=== PATIENT | female | born 1940 | race Caucasian/White ===

== ENCOUNTER → 2016-12-25 | Outpatient (CLI) | payer OTHER, MEDICARE ==
[~2016-12-25] MED LIST: AC325T PO; ALPR.5T PO; ASP325T PO; CATHETER FLUSH 10 ML SYR IV PRN; CPR500T PO; CYCL10TA9 PO; DIAZ5TAB3 PO; DIPH25TA82 PO; DIVAN; GABA100T PO; GABA600T2 PO; HYDR-3720 PO; HYDR-757 PO; HYDR8TAB PO; HYOS0.3732 PO; INDO50CA; IOHEXOL 350 MG/ML 100 ML (OMNIPAQUE 350) VIAL IV ONE; LEVO200T PO; LEVO500T2 PO; LEVO50TA PO; LEVO750T6 PO; LEVO75TA57; LOSA100T7 PO; LVT.1T PO; METR500T PO; NS 100 ML (IVPB) BAG IV ONE; ONDA4TAB8 PO; ONDA8TAB9 PO; ONDN4T PO; PANT40TA2 PO; PRD20T PO; SUCR1TAB36 PO; TIZA4TAB55 PO; TRAM-42 PO; VLS80C PO
--- OUTSIDE RECORDS SUMMARY | 2016-12-25 08:39 | XMS REPORT | Continuity of Care Document ---
Author Author [facility] Organization [facility] Address Unknown Phone Unavailable Care Team Providers Care Database Administration Project Manager Name Role Phone Unverified, Unverified PCP Unavailable Source Comments Some departments are not documenting in the electronic medical record. If you do not see the information that you expected, contact Release of Information in the Health Information Management department at [phone] for further assistance in locating additional records.[facility] Active Allergies and Adverse Reactions Allergen Noted Date Severity Reactions Comments Colon Herbal Cleanser 08/14/2012 NAUSEA AND VOMITING Unknown name for a colon prep for colonoscopy in [place]. Current Medications Prescription Sig. Disp. Refills Start End Date Status Date ALPRAZolam (XANAX) 0.5 mg Take 0.5 mg by mouth at Active tablet bedtime as needed. levothyroxine (SYNTHROID) Take 200 mcg by mouth Active 200 mcg tablet daily. losartan(+) (COZAAR) 100 Take 100 mg by mouth Active mg tablet daily. gabapentin (NEURONTIN) Take 1 Cap by mouth four 360 Cap 6 10/05/20 Active 100 mg capsule times daily. Increase 13 from 2 po qid to 3 po qid tiZANidine (ZANAFLEX) 2 Take 1 Cap by mouth three 180 Cap 5 10/05/20 Active mg capsule times daily. 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 Pulse 72 10/05/2013 8:24 AM RUBBER COMPOUNDER MIXER Temperature - - Respiratory Rate 16 08/14/2012 12:53 PM RUBBER COMPOUNDER MIXER Height 1.6 m (5' 3") 10/05/2013 8:24 AM RUBBER COMPOUNDER MIXER Weight 77.565 kg (171 lb) 10/05/2013 8:24 AM RUBBER COMPOUNDER MIXER Body Mass Index 30.3 10/05/2013 8:24 AM RUBBER COMPOUNDER MIXER Oxygen Saturation - - Plan of Care Health Maintenance Due Date Last Done Comments Physical (Comprehensive) 1947 Exam Pertussis Vaccine 1953 Tetanus Vaccine 1959 Breast Cancer Screening 1982 Colorectal Cancer 1992 Screening Shingles Vaccine 2002 Osteoporosis Screening 2007 Prevnar/Pneumovax (#1) 2007 Influenza Vaccine 06/07/2016 Results from Last 3 Months Not on file
--- NOTE | 2016-12-25 11:03 | Diagnostic Imaging Report ---
PROCEDURE: CT head with and without contrast. TECHNIQUE: Multiple contiguous axial images were obtained through the brain before and after the administration of intravenous contrast. INDICATION: Persistent headache. 80 mL of Omnipaque 350 is administered intravenously. FINDINGS: The unenhanced phase demonstrate no intracranial hemorrhage. There is hypodensity in the right frontal lobe similar to 09/24/2016 with mild hypodensities in the deep white matter elsewhere probably related to chronic microvascular ischemic changes. There is no enhancing mass. The lateral ventricles are normal in size. No extra-axial fluid collection is identified. There is a metallic foreign body around the right globe related to a prior surgery and band placement. The paranasal sinuses visualized portions appear clear. The calvarium appears grossly unremarkable. IMPRESSION: Relatively mild deep white matter hypodensities are likely related to chronic microvascular ischemic changes. No enhancing mass. Dictated by: Dictated on workstation # [id number]
== END ==
LOC: RAD 08:35
PROVIDERS: ATTEND Family Medicine
DX: R51 Headache (principal)
CPT/HCPCS: 70470

== ENCOUNTER → 2017-01-10 | Outpatient (CLI) | payer MEDICARE, OTHER ==
[~2017-01-10] MED LIST changes: -CATHETER FLUSH 10 ML SYR IV PRN; -IOHEXOL 350 MG/ML 100 ML (OMNIPAQUE 350) VIAL IV ONE; -NS 100 ML (IVPB) BAG IV ONE
--- NOTE | 2017-01-10 13:45 | Diagnostic Imaging Report ---
PROCEDURE: US Carotid Duplex Bilateral. TECHNIQUE: Multiple real-time grayscale images were obtained over the carotid arteries in various projections bilaterally. Additional duplex Doppler and color Doppler images were also obtained. INDICATION: Headache. FINDINGS: Grayscale images demonstrate mild atherosclerotic plaque. Color Doppler demonstrates patency of the internal, external and common carotid arteries bilaterally. The vertebral arteries demonstrate antegrade flow on both sides. Peak systolic velocities in the right ICA are 26, 42 and 7 cm/sec and on the left side 39, 69 and 54 cm/sec. ICA/CCA ratios are up to 1 on the right and up to 1 on the left. IMPRESSION: There is atherosclerotic plaque at the carotid bifurcation bilaterally with estimated underlying stenosis in the range of 0-40% bilaterally. Dictated by: Dictated on workstation # [id number]
== END ==
LOC: RAD 08:59
PROVIDERS: ATTEND Family Medicine
DX: G44.1 Vascular headache, not elsewhere classified (principal); R42 Dizziness and giddiness; R26.81 Unsteadiness on feet
CPT/HCPCS: 93880

== ENCOUNTER → 2017-03-25 | Outpatient (CLI) | payer MEDICARE, OTHER ==
[2017-03-25 16:31] LABS: BASOPHILS % (AUTO) 0 % (0-10); EOSINOPHILS % (AUTO) 0 % (0-10); LYMPHOCYTES # (AUTO) 2.6 X 10^3 (1.0-4.0); LYMPHOCYTES % (AUTO) 26 % (12-44); MEAN CORPUSCULAR HEMOGLOBIN 29 PG (25-34); MEAN CORPUSCULAR HGB CONC 32 G/DL (32-36); MEAN CORPUSCULAR VOLUME 92 FL (80-99); MEAN PLATELET VOLUME 10.3 FL (7.4-10.4); MONOCYTES # (AUTO) 1.8 X 10^3 (0.0-1.0); MONOCYTES % (AUTO) 19 % (0-12); NEUTROPHILS # (AUTO) 5.4 X 10^3 (1.8-7.8); NEUTROPHILS % (AUTO) 54 % (42-75); PLATELET COUNT 236 10^3/uL (130-400); RED BLOOD COUNT 4.49 10^6/uL (4.35-5.85); RED CELL DISTRIBUTION WIDTH 14.4 % (10.0-14.5); WHITE BLOOD COUNT 9.9 10^3/uL (4.3-11.0)
[2017-03-25 16:39] LABS: ALANINE AMINOTRANSFERASE 9 U/L (0-55); ANION GAP 10 MMOL/L (5-14); ASPARTATE AMINO TRANSFERASE 10 U/L (5-34); BILIRUBIN,TOTAL 0.4 MG/DL (0.1-1.0); BLOOD UREA NITROGEN 14 MG/DL (7-18); BUN/CREATININE RATIO 18 (0-20); CALCIUM 9.4 MG/DL (8.5-10.1); CARBON DIOXIDE 27 MMOL/L (21-32); CHLORIDE 108 MMOL/L (98-107); CREATININE SERUM 0.79 MG/DL (0.60-1.30); GFR ESTIMATED > 60; GLUCOSE 108 MG/DL (70-105); HEMOLYSIS 6 (-100-29); ICTERUS 0.4 (-100-1.9); LIPEMIA 2 (-100-49); POTASSIUM 4.5 MMOL/L (3.6-5.0); SODIUM 145 MMOL/L (135-145); TOTAL PROTEIN 7.1 GM/DL (6.4-8.2)
[2017-03-25 16:59] LABS: THYROID STIMULATING HORMONE 3.84 UIU/ML (0.35-4.94)
[2017-03-25 17:00] LABS: BAND NEUTROPHILS 0 %; BASOPHILS % (MANUAL) 0 %; EOSINOPHILS % (MANUAL) 0 %; LYMPHOCYTES % (MANUAL) 36 %; NEUTROPHILS % (MANUAL) 62 %
== END ==
LOC: LAB 15:56
PROVIDERS: ATTEND Family Medicine
DX: R53.1 Weakness (principal); R26.81 Unsteadiness on feet
CPT/HCPCS: 36415; 80053; 84443; 85007; 85027

== ENCOUNTER → 2017-03-29 | Outpatient (CLI) | payer MEDICARE, OTHER ==
[~2017-03-29] MED LIST changes: +AMOX-358 PO; +CIPR500T4; +ONDA4TAB11
--- NOTE | 2017-03-29 12:38 | Diagnostic Imaging Report ---
PROCEDURE: CT abdomen and pelvis without contrast. TECHNIQUE: Multiple contiguous axial images were obtained through the abdomen and pelvis without the use of intravenous contrast. INDICATION: One-month history of suprapubic pain, history of diverticulitis. COMPARISON: 09/14/2016. FINDINGS: There is edema and infiltration of the perisigmoidal fat in the left lower quadrant adjacent to multiple regional diverticuli and some thickening of the sigmoidal simms. Findings suggest mild changes of acute diverticulitis. No extraluminal gas collection or findings of a transmural perforation. No abscess or loculated fluid collection. No free air. No abscess. No ascites. No bowel obstruction or ileus. No other segmental inflammatory changes to the hollow viscus. No soft tissue mass or adenopathy. Unobstructed urinary tracts are stable. The liver, spleen, pancreas and biliary ducts are unremarkable. IMPRESSION: The findings suggest mild acute sigmoid diverticulitis without secondary features of obstruction, perforation or abscess. No other acute appearing pathology. Dictated by: Dictated on workstation # [id number]
== END ==
LOC: RAD 11:44
PROVIDERS: ATTEND Family Medicine
DX: R10.30 Lower abdominal pain, unspecified (principal); K57.30 Diverticulosis of large intestine without perforation or abscess without bleeding
CPT/HCPCS: 74176

== ENCOUNTER 2017-03-31 11:17 | Emergency (ER) | payer MEDICARE, OTHER ==
[~2017-03-31] VITALS: Ht 160 cm; Wt 72.6 kg
[~2017-03-31 11:17] MED LIST changes: -AMOX-358 PO; -CIPR500T4; -ONDA4TAB11
[2017-03-31] MEDS ORDERED: CIPR500T4 (11:46)
[2017-03-31] MEDS ORDERED: ONDA4TAB11 (11:46)
[2017-03-31 11:52] LABS: BASOPHILS % (AUTO) 0 % (0-10); EOSINOPHILS % (AUTO) 0 % (0-10); LYMPHOCYTES # (AUTO) 2.1 X 10^3 (1.0-4.0); LYMPHOCYTES % (AUTO) 16 % (12-44); MEAN CORPUSCULAR HEMOGLOBIN 30 PG (25-34); MEAN CORPUSCULAR HGB CONC 32 G/DL (32-36); MEAN CORPUSCULAR VOLUME 91 FL (80-99); MEAN PLATELET VOLUME 10.3 FL (7.4-10.4); MONOCYTES # (AUTO) 2.7 X 10^3 (0.0-1.0); MONOCYTES % (AUTO) 21 % (0-12); NEUTROPHILS # (AUTO) 8.1 X 10^3 (1.8-7.8); NEUTROPHILS % (AUTO) 63 % (42-75); PLATELET COUNT 246 10^3/uL (130-400); RED BLOOD COUNT 4.43 10^6/uL (4.35-5.85); RED CELL DISTRIBUTION WIDTH 14.4 % (10.0-14.5); WHITE BLOOD COUNT 12.9 10^3/uL (4.3-11.0)
--- NOTE | 2017-03-31 11:54 | ED Abdominal Pain ---
General Chief Complaint: Abdominal/GI Problems Stated Complaint: DIVERTICULITIS/L SIDE PAIN Source of Information: Patient Exam Limitations: No Limitations History of Present Illness Time Seen By Provider: 11:51 Initial Comments To ER with left-sided abdominal pain. She was diagnosed with diverticulitis about 2 weeks ago. She's been on Cipro from Dr. Guerrier since then. She just finished this yesterday but the pain is in fact worse. She's had trouble with bowel movements stating that she is constipated. She sees Dr. Villarreal in [place] and takes linzess for IBS with constipation. She took that this morning is when her pain worsened. She has had several bowel movements since taking it. She had a CT scan done here in the outpatient setting 2 days ago. Timing/Duration: Other (2 weeks) Severity/Quality: Moderate Location: [facility]Q Radiation: No Radiation Activities at Onset: None Allergies and Home Medications Allergies Coded Allergies: thiopental (Verified Allergy, Unknown, 03/05/10) Home Medications Amoxicillin/Potassium Clav 1 Each Tablet, 1 EACH PO BID, #20 Prescribed by: KEI ROBERTSON on 03/31/17 1256 Ciprofloxacin HCl 500 Mg Tablet, #20 (Reported) Cyclobenzaprine HCl 10 Mg Tablet, 10 MG PO Q8H, #15 Prescribed by: MIKEY YEN on 09/14/16 2227 Diazepam 5 Mg Tablet, 5 MG PO BID PRN for ANXIETY, #60 (Reported) Gabapentin 600 Mg Tablet, 600 MG PO TID PRN for PAIN, #90 (Reported) Hydrocodone/Acetaminophen 1 Each Tablet, 1-2 EACH PO Q6H, #30 Prescribed by: JUDE ESTEVEZ MD on 07/20/16 0911 Hydrocodone/Acetaminophen 1 Each Tablet, 1 EACH PO Q4H PRN for PAIN-MODERATE TO SEVERE, #14 Prescribed by: KEI ROBERTSON on 03/31/17 1256 Hyoscyamine Sulfate 0.375 Mg Tab.er.12h, 0.375 MG PO BID, #20 Prescribed by: ALMAZ VALENTINO on 10/02/15 0936 Levothyroxine Sodium 50 Mcg Tablet, 50 MCG PO DAILY, #30 (Reported) TAKE WITH 200 MCG TO MAKE 250 MCG DOSE Ondansetron 8 Mg Tab.rapdis, 8 MG PO QID PRN for nausea, #20 Prescribed by: ALMAZ VALENTINO on 10/02/15 0936 Ondansetron 4 Mg Tab.rapdis, #30 (Reported) Ondansetron 8 Mg Tab.rapdis, 8 MG PO Q6H PRN for NAUSEA/VOMITING-1ST LINE, #10 Prescribed by: KEI ROBERTSON on 03/31/17 1309 Pantoprazole Sodium 40 Mg Tablet.dr, 40 MG PO BID, #60 Ref 3 Prescribed by: GRACY MCDONALD on 06/06/15 0918 Sucralfate 1 Gm Tablet, 1 GM PO TID, #30 Prescribed by: GRACY MCDONALD on 09/23/15 1442 Tramadol HCl 50 Mg Tablet, 50 MG PO Q4H, #20 Prescribed by: MIKEY YEN on 09/14/16 2227 Review of Systems Constitutional: see HPI EENTM: No Symptoms Reported Respiratory: No Symptoms Reported Cardiovascular: No Symptoms Reported Gastrointestinal: See HPI, Abdominal Pain Genitourinary: No Symptoms Reported Musculoskeletal: no symptoms reported Skin: no symptoms reported Psychiatric/Neurological: No Symptoms Reported Endocrine: No Symptoms Reported Past Aejrqpp-Cbicvi-Qsmghw Hx Patient Social History Alcohol Use: Denies Use Recreational Drug Use: No Smoking Status: Never a Smoker Recent Foreign Travel: No Contact w/Someone Who Travel: No Recent Hopitalizations: No Immunizations Up To Date Date of Pneumonia Vaccine: May 30, 2015 Seasonal Allergies Seasonal Allergies: No Surgeries HX Surgeries: Yes (BACK SURGERY 03/19/14--VERTEBROPLASTY) Surgeries: Appendectomy, Gallbladder, 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, Orthopedic, Tonsillectomy Respiratory Hx Respiratory Disorders: No Cardiovascular Hx Cardiac Disorders: Yes Cardiac Disorders: Hypotension Neurological Hx Neurological Disorders: No Reproductive System Hx Reproductive Disorders: No Genitourinary Hx Genitourinary Disorders: No Gastrointestinal Hx Gastrointestinal Disorders: Yes Gastrointestinal Disorders: Diverticulosis, Ulcer Musculoskeletal Hx Musculoskeletal Disorders: Yes (VERTEBROPLASTY) Musculoskeletal Disorders: Back Injury, Fractures Endocrine Hx Endocrine Disorders: Yes Endocrine Disorders: Hypothyroidsim HEENT HX ENT Disorders: No Cancer Hx Cancer: No Psychosocial Hx Psychiatric Problems: No Integumentary HX Skin/Integumentary Disorder: No Blood Transfusions Hx Blood Disorders: No Family Medical History Significant Family History: No Pertinent Family Hx Physical Exam Vital Signs VS - Last 72 Hours, by Label 03/31/17 11:38 Temp 97.6 Pulse 98 Resp 18 B/P (MAP) 178/82 Pulse Ox 98 O2 Delivery Room Air Capillary Refill : General Appearance: WD/WN, no apparent distress HEENT: PERRL/EOMI, normal ENT inspection Neck: non-tender, full range of motion Respiratory: normal breath sounds, no respiratory distress, no accessory muscle use Cardiovascular: regular rate, rhythm, no murmur Gastrointestinal: normal bowel sounds, soft, tenderness (left-sided) Extremities: normal range of motion, non-tender Neurologic/Psychiatric: alert, normal mood/affect, oriented x 3 Skin: normal color, warm/dry Progress/Results/Core Measures Results/Orders Lab Results Laboratory Tests Test 03/31/17 11:45 03/31/17 11:47 Range/Units White Blood Count 12.9 H 4.3-11.0 10^3/uL Red Blood Count 4.43 4.35-5.85 10^6/uL Hemoglobin 13.1 11.5-16.0 G/DL Hematocrit 40 35-52 % Mean Corpuscular Volume 91 80-99 FL Mean Corpuscular Hemoglobin 30 25-34 PG Mean Corpuscular Hemoglobin Concent 32 32-36 G/DL Red Cell Distribution Width 14.4 10.0-14.5 % Platelet Count 246 130-400 10^3/uL Mean Platelet Volume 10.3 7.4-10.4 FL Neutrophils (%) (Auto) 63 42-75 % Lymphocytes (%) (Auto) 16 12-44 % Monocytes (%) (Auto) 21 H 0-12 % Eosinophils (%) (Auto) 0 0-10 % Basophils (%) (Auto) 0 0-10 % Neutrophils # (Auto) 8.1 H 1.8-7.8 X 10^3 Lymphocytes # (Auto) 2.1 1.0-4.0 X 10^3 Monocytes # (Auto) 2.7 H 0.0-1.0 X 10^3 Eosinophils # (Auto) 0.0 0.0-0.3 10^3/uL Basophils # (Auto) 0.0 0.0-0.1 10^3/uL Neutrophils % (Manual) 65 % Lymphocytes % (Manual) 20 % Monocytes % (Manual) 15 % Eosinophils % (Manual) 0 % Basophils % (Manual) 0 % Band Neutrophils 0 % Blood Morphology Comment NORMAL Sodium Level 142 135-145 MMOL/L Potassium Level 4.0 3.6-5.0 MMOL/L Chloride Level 106 98-107 MMOL/L Carbon Dioxide Level 25 21-32 MMOL/L Anion Gap 11 5-14 MMOL/L Blood Urea Nitrogen 9 7-18 MG/DL Creatinine 0.75 0.60-1.30 MG/DL Estimat Glomerular Filtration Rate > 60 BUN/Creatinine Ratio 12 0-20 Glucose Level 98 70-105 MG/DL Calcium Level 9.3 8.5-10.1 MG/DL Total Bilirubin 0.7 0.1-1.0 MG/DL Aspartate Amino Transf (AST/SGOT) 10 5-34 U/L Alanine Aminotransferase (ALT/SGPT) 9 0-55 U/L Alkaline Phosphatase 96 40-136 U/L C-Reactive Protein High Sensitivity 7.83 H 0.00-0.50 MG/DL Total Protein 7.0 6.4-8.2 GM/DL Albumin 3.8 3.2-4.5 GM/DL Lipase 14 8-78 U/L Urine Color YELLOW Urine Clarity SLIGHTLY CLOUDY Urine pH 5 5-9 Urine Specific Otis 1.020 1.016-1.022 Urine Protein 1+ H NEGATIVE Urine Glucose (UA) NEGATIVE NEGATIVE Urine Ketones NEGATIVE NEGATIVE Urine Nitrite NEGATIVE NEGATIVE Urine Bilirubin NEGATIVE NEGATIVE Urine Urobilinogen NORMAL NORMAL MG/DL Urine Leukocyte Esterase 2+ H NEGATIVE Urine RBC (Auto) 5+ H NEGATIVE Urine RBC 5-10 H /HPF Urine WBC 0-2 /HPF Urine Squamous Epithelial Cells NONE /HPF Urine Crystals NONE /LPF Urine Bacteria NEGATIVE /HPF Urine Casts NONE /LPF Urine Mucus MODERATE H /LPF Urine Culture Indicated NO My Orders Orders - KEI ROBERTSON APRN Fentanyl Injection (Sublimaze Injection (03/31/17 12:00) Ct Abdomen/Pelvis W (03/31/17 11:55) Iohexol Injection (Omnipaque 350 Mg/Ml 1 (03/31/17 12:30) Ns (Ivpb) (Sodium Chloride 0.9% Ivpb Bag (03/31/17 12:30) Ns Iv 500 Ml (Sodium Chloride 0.9%) (03/31/17 13:00) Ketorolac Injection (Toradol Injection) (03/31/17 13:00) Piperacillin Sodium/Tazobactam (Zosyn Vi (03/31/17 13:15) Medications Given in ED Current Medications Medications Dose Ordered Sig/Keri Route Start Time Stop Time Status Last Admin Dose Admin Fentanyl Citrate 50 mcg ONCE ONCE IVP 03/31/17 12:00 03/31/17 12:01 DC 03/31/17 11:56 50 MCG Iohexol 100 ml ONCE ONCE IV 03/31/17 12:30 03/31/17 12:31 DC 03/31/17 12:23 100 ML Sodium Chloride 100 ml ONCE ONCE IV 03/31/17 12:30 03/31/17 12:31 DC 03/31/17 12:23 80 ML Vital Signs/I&O Vital Sign - Last 12Hours 03/31/17 11:38 Temp 97.6 Pulse 98 Resp 18 B/P (MAP) 178/82 Pulse Ox 98 O2 Delivery Room Air Diagnostic Imaging Diagonstic Imaging: CT Comments NAME: EDIS ZARAGOZA [facility] REC#: [id number] PT STATUS: REG ER : 1940 PHYSICIAN: KEI ROBERTSON ATHLETIC DIRECTOR ADMIT DATE: 03/31/17/ER Draft Date of Exam:03/31/17 CT ABDOMEN/PELVIS W PROCEDURE: CT abdomen and pelvis with contrast. TECHNIQUE: Multiple contiguous axial images were obtained through the abdomen and pelvis after administration of intravenous contrast. INDICATION: Left lower quadrant pain. Diverticulitis followup The liver, spleen, pancreas and adrenals are normal. The kidneys, ureters and bladder are normal. There is mild inflammatory changes of the sigmoid colon which have shown some slight improvement since 03/29/17. No obstruction or perforation is evident at this time. There is no abscess. IMPRESSION: Improving diverticulitis of the sigmoid colon. Dictated on workstation # [id number] Dict: 03/31/17 1244 Trans: 03/31/17 1250 [facility] [id number] Interpreted by: ESTRADA ROSAS MD Electronically signed by: Departure Communication Progress Notes 1307-I did offer the patient inpatient admission for IV antibiotics and she's been on 2 weeks of Cipro without improvement. The CT scan shows improvement, white cell count is a little higher than 2 days ago. She would prefer to change antibiotics and continue outpatient. 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 Impression Impression: Primary Impression: Sigmoid diverticulitis Disposition: HOME, SELF-CARE Condition: Stable Departure-Patient Inst. Decision time for Depature: 12:55 Referrals: DIVINE GUERRIER MD (PCP/Family) Primary Care Physician Patient Instructions: Diverticulitis (DC) Add. Discharge Instructions: 1. Antibiotics as directed 2. Return to ER for any concerns 3. All discharge instructions reviewed with patient and/or family. Voiced understanding. Scripts Ondansetron (Zofran Odt) 8 Mg Tab.rapdis 8 MG PO Q6H Y for NAUSEA/VOMITING-1ST LINE, #10 TAB Prov: KEI ROBERTSON APRN 03/31/17 Hydrocodone/Acetaminophen ([place] 5-325 Tablet) 1 Each Tablet 1 EACH PO Q4H Y for PAIN-MODERATE TO SEVERE, #14 TAB Prov: KEI ROBERTSON APRN 03/31/17 Amoxicillin/Potassium Clav (Augmentin 875-125 Tablet) 1 Each Tablet 1 EACH PO BID, #20 TAB Prov: KEI ROBERTSON APRN 03/31/17 KEI ROBERTSON APRN Mar 31, 2017 11:54
[2017-03-31 12:00] LABS: BILIRUBIN,URINE NEGATIVE (NEGATIVE); KETONES,URINE NEGATIVE (NEGATIVE); LEUKOCYTE ESTERASE ,URINE 2+ (NEGATIVE); NITRITE,URINE NEGATIVE (NEGATIVE); PH,URINE 5 (5-9); PROTEIN,URINE 1+ (NEGATIVE); UROBILINOGEN,URINE NORMAL (NORMAL)
[2017-03-31] MEDS ORDERED: fentaNYL INJECTION 100 MCG/2 ML AMP IVP ONE (12:00)
[2017-03-31 12:10] LABS: ALANINE AMINOTRANSFERASE 9 U/L (0-55); ALBUMIN 3.8 GM/DL (3.2-4.5); ANION GAP 11 MMOL/L (5-14); ASPARTATE AMINO TRANSFERASE 10 U/L (5-34); BILIRUBIN,TOTAL 0.7 MG/DL (0.1-1.0); BLOOD UREA NITROGEN 9 MG/DL (7-18); BUN/CREATININE RATIO 12 (0-20); CALCIUM 9.3 MG/DL (8.5-10.1); CARBON DIOXIDE 25 MMOL/L (21-32); CHLORIDE 106 MMOL/L (98-107); CREATININE SERUM 0.75 MG/DL (0.60-1.30); GFR ESTIMATED > 60; GLUCOSE 98 MG/DL (70-105); HEMOLYSIS 7 (-100-29); ICTERUS 0.8 (-100-1.9); LIPASE 14 U/L (8-78); LIPEMIA -3 (-100-49); SODIUM 142 MMOL/L (135-145); hs C REACTIVE PROTEIN 7.83 MG/DL (0.00-0.50)
[2017-03-31 12:13] LABS: WBC,URINE 0-2 /HPF
[2017-03-31 12:17] LABS: BAND NEUTROPHILS 0 %; BASOPHILS % (MANUAL) 0 %; EOSINOPHILS % (MANUAL) 0 %; LYMPHOCYTES % (MANUAL) 20 %; NEUTROPHILS % (MANUAL) 65 %
[2017-03-31] MEDS ORDERED: NS 100 ML (IVPB) BAG IV ONE (12:30)
[2017-03-31] MEDS ORDERED: IOHEXOL 350 MG/ML 100 ML (OMNIPAQUE 350) VIAL IV ONE (12:30)
--- NOTE | 2017-03-31 12:50 | Diagnostic Imaging Report ---
PROCEDURE: CT abdomen and pelvis with contrast. TECHNIQUE: Multiple contiguous axial images were obtained through the abdomen and pelvis after administration of intravenous contrast. INDICATION: Left lower quadrant pain. Diverticulitis followup The liver, spleen, pancreas and adrenals are normal. The kidneys, ureters and bladder are normal. There is mild inflammatory changes of the sigmoid colon which have shown some slight improvement since 03/29/17. No obstruction or perforation is evident at this time. There is no abscess. IMPRESSION: Improving diverticulitis of the sigmoid colon. Dictated by: Dictated on workstation # [id number]
[2017-03-31] MEDS ORDERED: AMOX-358 PO (12:56)
[2017-03-31] MEDS ORDERED: HYDR-757 PO (12:56)
[2017-03-31] MEDS ORDERED: KETOROLAC 30 MG/ML VIAL IVP ONE (13:00)
[2017-03-31] MEDS ORDERED: NS IV 500 ML 500 ML IV SCH (13:00)
[2017-03-31] MEDS ORDERED: ONDA8TAB9 PO (13:09)
[2017-03-31] MEDS ORDERED: PIPERACILLIN SODIUM/TAZOBACTAM 4.5 GM in NS (IVPB) 100 ML IV ONE (13:15)
[2017-03-31 14:08] VITALS: BP 122/71
--- OUTSIDE RECORDS SUMMARY | 2017-04-01 18:28 | XMS REPORT | Continuity of Care Document ---
Author Author [facility] Organization [facility] Address Unknown Phone Unavailable Care Team Providers Care Parts Technician Name Role Phone Unverified, Unverified PCP Unavailable Source Comments Some departments are not documenting in the electronic medical record. If you do not see the information that you expected, contact Release of Information in the Health Information Management department at [phone] for further assistance in locating additional records.[facility] Active Allergies and Adverse Reactions Allergen Noted Date Severity Reactions Comments Colon Herbal Cleanser 08/14/2012 NAUSEA AND VOMITING Unknown name for a colon prep for colonoscopy in [place]. Current Medications Prescription Sig. Disp. Refills Start [...] Taken Blood Pressure 144/78 10/05/2013 8:24 AM LUMBER SORTER Pulse 72 10/05/2013 8:24 AM LUMBER SORTER Temperature - - Respiratory Rate 16 08/14/2012 12:53 PM LUMBER SORTER Height 1.6 m (5' 3") 10/05/2013 8:24 AM LUMBER SORTER Weight 77.565 kg (171 lb) 10/05/2013 8:24 AM LUMBER SORTER Body Mass Index 30.3 10/05/2013 8:24 AM LUMBER SORTER Oxygen Saturation - - Plan of Care Health Maintenance Due Date Last Done Comments Physical (Comprehensive) 1949 Exam Pertussis Vaccine 1953 Tetanus Vaccine 1959 Breast Cancer Screening 1982 Colorectal Cancer 1992 Screening Shingles Vaccine 2002 Osteoporosis Screening 2007 Prevnar/Pneumovax (#1) 2007 Influenza Vaccine 06/07/2017 Results from Last 3 Months Not on file
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
== END 2017-03-31 14:13 | disposition home or self-care (01) ==
LOC: EDUNIT# 11:17 → ER 11:20
DX: K57.32 Diverticulitis of large intestine without perforation or abscess without bleeding (principal); K58.1 Irritable bowel syndrome with constipation
CPT/HCPCS: 36415; 74177; 80053; 81000; 83690; 85007; 85027; 86141

== ENCOUNTER 2017-05-31 07:54 | Emergency (ER) | payer MEDICARE, OTHER ==
[~2017-05-31] VITALS: Ht 165.1 cm; Wt 72.6 kg
[~2017-05-31 07:54] MED LIST changes: +AMOX-358 PO; +CIPR500T4; +ONDA4TAB11
--- OUTSIDE RECORDS SUMMARY | 2017-05-31 08:04 | XMS REPORT | Clinical Summary ---
Author Author [facility] Organization [facility] Address Unknown Phone Unavailable Care Team Providers Care Tunnel Elastic Operator Lockstitch Name Role Phone PCP Unavailable Source Comments Some departments are not documenting in the electronic medical record. If you do not see the information that you expected, contact Release of Information in the Health Information Management department at [phone] for further assistance in locating additional records.[facility] Allergies Active Allergy Reactions Severity Noted Date Comments Herbal Drugs NAUSEA AND VOMITING 08/14/2012 Unknown name for a colon prep for [...] Cap by mouth four 360 Cap 6 12/30/20 Active 100 mg capsule times daily. Increase 13 from 2 po qid to 3 po qid tiZANidine (ZANAFLEX) 2 Take 1 Cap by mouth three 180 Cap 5 30/20 Active mg capsule times daily. 1 po tid 1 13 week, then 2 po tid Active Problems Problem Noted Date Neck pain 08/14/2012 Atypical face pain 08/14/2012 Diverticulitis 08/14/2012 Gout 08/14/2012 Cataracts, bilateral 08/14/2012 Detached retina, right 08/14/2012 Family History Medical History Relation Name Comments Dementia Mother Relation Name Status Comments Brother Alive Father Mother Sister Alive Son Alive Social History Tobacco Use Types Packs/Day Years Used Date Never Smoker Sex Assigned at Date Recorded Not on file Last Filed Vital Signs Vital Sign Reading Time Taken Blood Pressure 144/78 10/05/2013 8:24 AM ELECTRONIC WARFARE OPERATOR Pulse 72 10/05/2013 8:24 AM ELECTRONIC WARFARE OPERATOR Temperature - - Respiratory Rate 16 08/14/2012 12:53 PM ELECTRONIC WARFARE OPERATOR Oxygen Saturation - - Inhaled Oxygen - - Concentration Weight 77.6 kg (171 lb) 10/05/2013 8:24 AM ELECTRONIC WARFARE OPERATOR Height 160 cm (5' 3") 10/05/2013 8:24 AM ELECTRONIC WARFARE OPERATOR Body Mass Index 30.29 10/05/2013 8:24 AM ELECTRONIC WARFARE OPERATOR Plan of Treatment Health Maintenance Due Date Last Done Comments PHYSICAL (COMPREHENSIVE) 1947 EXAM PERTUSSIS VACCINE 1953 TETANUS VACCINE 1959 BREAST CANCER SCREENING 1982 COLORECTAL CANCER 1992 SCREENING SHINGLES VACCINE 2002 OSTEOPOROSIS SCREENING 2007 PREVNAR/PNEUMOVAX (#1) 2007 INFLUENZA VACCINE 06/07/2017 Results Not on filefrom Last 3 Months
--- NOTE | 2017-05-31 08:25 | ED Abdominal Pain ---
General Chief Complaint: Abdominal/GI Problems Stated Complaint: DIVIRTICULITIS PAIN Nursing Triage Note: c/o left upper abd pain. Pain worsened yesterday. Hx of broom stick jabbing into left upper ribs 1-2 weeks ago. Sepsis Screen: No Definite Risk Source of Information: Patient, Family Exam Limitations: No Limitations History of Present Illness Time Seen By Provider: 08:20 Initial Comments This 76-year-old white female presents with a complaint of left upper quadrant pain similar to previous episodes of diverticulitis. In the preceding few days the patient has had rectal bleeding characterized as bright red blood. The patient denies associated fever or chill, shortness of breath, productive cough , nausea or vomiting, significant radiation of the pain, or use of new medications. Allergies and Home Medications Allergies Coded Allergies: thiopental (Verified Allergy, Unknown, 03/05/10) Home Medications Amoxicillin/Potassium Clav 1 Each Tablet, 1 EACH PO BID, #20 Prescribed by: KEI ROBERTSON on 03/31/17 1256 Ciprofloxacin HCl 500 Mg Tablet, #20 (Reported) Cyclobenzaprine HCl 10 Mg Tablet, 10 MG PO Q8H, #15 Prescribed by: MIKEY YEN on 09/14/16 2227 Diazepam 5 Mg Tablet, 5 MG PO BID PRN for ANXIETY, #60 (Reported) Gabapentin 600 Mg Tablet, 600 MG PO TID PRN for PAIN, #90 (Reported) Hydrocodone/Acetaminophen 1 Each Tablet, 1-2 EACH PO Q6H, #30 Prescribed by: JUDE ESTEVEZ MD on 07/20/16 0911 Hydrocodone/Acetaminophen 1 Each Tablet, 1 EACH PO Q4H PRN for PAIN-MODERATE TO SEVERE, #14 Prescribed by: KEI ROBERTSON on 03/31/17 1256 Hyoscyamine Sulfate 0.375 Mg Tab.er.12h, 0.375 MG PO BID, #20 Prescribed by: ALMAZ VALENTINO on 10/02/15 0936 Levothyroxine Sodium 50 Mcg Tablet, 50 MCG PO DAILY, #30 (Reported) TAKE WITH 200 MCG TO MAKE 250 MCG DOSE Ondansetron 8 Mg Tab.rapdis, 8 MG PO QID PRN for nausea, #20 Prescribed by: ALMAZ VALENTINO on 10/02/15 0936 Ondansetron 4 Mg Tab.rapdis, #30 (Reported) Ondansetron 8 Mg Tab.rapdis, 8 MG PO Q6H PRN for NAUSEA/VOMITING-1ST LINE, #10 Prescribed by: KEI ROBERTSON on 03/31/17 1309 Pantoprazole Sodium 40 Mg Tablet.dr, 40 MG PO BID, #60 Ref 3 Prescribed by: GRACY MCDONALD on 06/06/15 0918 Sucralfate 1 Gm Tablet, 1 GM PO TID, #30 Prescribed by: GRACY MCDONALD on 09/23/15 1442 Tramadol HCl 50 Mg Tablet, 50 MG PO Q4H, #20 Prescribed by: MIKEY YEN on 09/14/16 2227 Review of Systems Constitutional: No chills, No fever EENTM: No Blurred Vision Respiratory: Cough (patient has had a nonproductive cough for the last several months.) Cardiovascular: Denies Chest Pain Gastrointestinal: Abdominal Pain (left upper quadrant), Denies Nausea, Rectal Bleeding, Denies Vomiting Genitourinary: No Symptoms Reported Musculoskeletal: No back pain Skin: No rash Psychiatric/Neurological: No Symptoms Reported Endocrine: No Symptoms Reported Hematologic/Lymphatic: No Symptoms Reported Past Vobdccb-Pphbvy-Yumltz Hx Patient Social History Recent Foreign Travel: No Contact w/Someone Who Travel: No Recent Infectious Disease Expo: No Recent Hopitalizations: No Immunizations Up To Date Date of Pneumonia Vaccine: May 30, 2015 Seasonal Allergies Seasonal Allergies: No Surgeries History of Surgeries: Yes (BACK SURGERY 03/19/14--VERTEBROPLASTY) Surgeries: Appendectomy, Gallbladder, 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, Orthopedic, Tonsillectomy Respiratory History of Respiratory Disorde: No Cardiovascular History of Cardiac Disorders: Yes Cardiac Disorders: Hypotension Neurological History of Neurological Disord: No Reproductive System Hx Reproductive Disorders: No Gastrointestinal History of Gastrointestinal Di: Yes Gastrointestinal Disorders: Diverticulosis, Ulcer Musculoskeletal History of Musculoskeletal Dis: Yes (VERTEBROPLASTY) Musculoskeletal Disorders: Back Injury, Fractures Endocrine History of Endocrine Disorders: Yes Endocrine Disorders: Hypothyroidsim Cancer History of Cancer: No Psychosocial History of Psychiatric Problem: No Integumentary History of Skin or Integumenta: No Blood Transfusions History of Blood Disorders: No Reviewed Nursing Assessment Reviewed/Agree w Nursing PMH: Yes Family Medical History Significant Family History: No Pertinent Family Hx Physical Exam Vital Signs VS - Last 72 Hours, by Label 05/31/17 05/31/17 08:12 08:44 Temp 98.5 98.5 Pulse 70 Resp 16 B/P (MAP) 161/98 Pulse Ox 98 Capillary Refill : Less Than 3 Seconds General Appearance: WD/WN, mild distress HEENT: normal ENT inspection Neck: normal inspection Respiratory: lungs clear, normal breath sounds, no respiratory distress Cardiovascular: normal peripheral pulses, regular rate, rhythm Gastrointestinal: normal bowel sounds, tenderness (left upper quadrant.) Extremities: normal range of motion, non-tender, normal inspection Neurologic/Psychiatric: no motor/sensory deficits, alert, normal mood/affect, oriented x 3 Skin: normal color, warm/dry, No rash Progress/Results/Core Measures Results/Orders Lab Results Laboratory Tests Test 05/31/17 08:40 Range/Units White Blood Count 7.0 4.3-11.0 10^3/uL Red Blood Count 4.51 4.35-5.85 10^6/uL Hemoglobin 13.3 11.5-16.0 G/DL Hematocrit 42 35-52 % Mean Corpuscular Volume 92 80-99 FL Mean Corpuscular Hemoglobin 30 25-34 PG Mean Corpuscular Hemoglobin Concent 32 32-36 G/DL Red Cell Distribution Width 14.1 10.0-14.5 % Platelet Count 228 130-400 10^3/uL Mean Platelet Volume 10.4 7.4-10.4 FL Neutrophils (%) (Auto) 49 42-75 % Lymphocytes (%) (Auto) 33 12-44 % Monocytes (%) (Auto) 17 H 0-12 % Eosinophils (%) (Auto) 1 0-10 % Basophils (%) (Auto) 0 0-10 % Neutrophils # (Auto) 3.5 1.8-7.8 X 10^3 Lymphocytes # (Auto) 2.3 1.0-4.0 X 10^3 Monocytes # (Auto) 1.2 H 0.0-1.0 X 10^3 Eosinophils # (Auto) 0.1 0.0-0.3 10^3/uL Basophils # (Auto) 0.0 0.0-0.1 10^3/uL Sodium Level 143 135-145 MMOL/L Potassium Level 4.0 3.6-5.0 MMOL/L Chloride Level 106 98-107 MMOL/L Carbon Dioxide Level 28 21-32 MMOL/L Anion Gap 9 5-14 MMOL/L Blood Urea Nitrogen 10 7-18 MG/DL Creatinine 0.76 0.60-1.30 MG/DL Estimat Glomerular Filtration Rate > 60 BUN/Creatinine Ratio 13 Glucose Level 98 70-105 MG/DL Calcium Level 8.9 8.5-10.1 MG/DL Total Bilirubin 0.4 0.1-1.0 MG/DL Aspartate Amino Transf (AST/SGOT) 10 5-34 U/L Alanine Aminotransferase (ALT/SGPT) 7 0-55 U/L Alkaline Phosphatase 83 40-136 U/L Total Protein 6.8 6.4-8.2 GM/DL Albumin 4.0 3.2-4.5 GM/DL Lipase 22 8-78 U/L My Orders Orders - JUDE ESTEVEZ MD Ns Iv 1000 Ml (Sodium Chloride 0.9%) (05/31/17 08:30) Ondansetron Injection (Zofran Injectio (05/31/17 08:30) Fentanyl Injection (Sublimaze Injection (05/31/17 08:30) Ct Abdomen/Pelvis W (05/31/17 08:17) Cbc With Automated Diff (05/31/17 08:17) Comprehensive Metabolic Panel (05/31/17 08:17) Ua Culture If Indicated (05/31/17 08:17) Lipase (05/31/17 08:17) Iohexol Injection (Omnipaque 350 Mg/Ml 1 (05/31/17 08:30) Sodium Chloride Flush (Catheter Flush Sy (05/31/17 08:30) Ns (Ivpb) (Sodium Chloride 0.9% Ivpb Bag (05/31/17 08:30) Medications Given in ED Current Medications Medications Dose Ordered Sig/Keri Route Start Time Stop Time Status Last Admin Dose Admin Fentanyl Citrate 50 mcg ONCE ONCE IVP 05/31/17 08:30 05/31/17 08:31 DC 05/31/17 08:44 50 MCG Iohexol 100 ml ONCE ONCE IV 05/31/17 08:30 05/31/17 08:38 DC 05/31/17 09:40 100 ML Ondansetron HCl 4 mg ONCE ONCE IVP 05/31/17 08:30 05/31/17 08:31 DC 05/31/17 08:43 4 MG Sodium Chloride 10 ml NEEDED PRN IV 05/31/17 08:30 05/31/17 09:40 10 ML Sodium Chloride 100 ml ONCE ONCE IV 05/31/17 08:30 05/31/17 08:38 DC 05/31/17 09:40 80 ML Vital Signs/I&O Vital Sign - Last 12Hours 05/31/17 05/31/17 08:12 08:44 Temp 98.5 98.5 Pulse 70 Resp 16 B/P (MAP) 161/98 Pulse Ox 98 Blood Pressure Mean: 119 Progress Note : Time: 10:40 Progress Note Patient was much improved with the fentanyl and ondansetron IV. Unfortunately the CT of the abdomen film demonstrates evidence of acute diverticulitis or other pathology. The patient was reassured and the findings were discussed. The patient would like to try Ultram for her pain as a substitute for the hydrocodone. She will continue with the ondansetron at home as needed. I recommended close follow-up with her primary care physician, Dr. Guerrier. Departure Impression Impression: Primary Impression: Left-sided chest wall pain Disposition: HOME, SELF-CARE Condition: Improved Departure-Patient Inst. Decision time for Depature: 10:42 Referrals: DIVINE GUERRIER MD (PCP/Family) Primary Care Physician Add. Discharge Instructions: Trial of Ultram for pain. Zofran for nausea. Close follow-up with Dr. Guerrier on Saturday. Return if any problems. All discharge instructions reviewed with patient and/or family. Voiced understanding. JUDE ESTEVEZ MD May 31, 2017 08:25
[2017-05-31] MEDS: ONDANSETRON 4 MG/2 ML (SDV) Z0FRAN IVP ONE (08:43)
[2017-05-31] MEDS: NS IV 1000 ML 1,000 ML IV SCH (08:44)
[2017-05-31] MEDS: fentaNYL INJECTION 100 MCG/2 ML AMP IVP ONE (08:44)
[2017-05-31 08:49] LABS: BASOPHILS % (AUTO) 0 % (0-10); EOSINOPHILS # (AUTO) 0.1 10^3/uL (0.0-0.3); EOSINOPHILS % (AUTO) 1 % (0-10); LYMPHOCYTES # (AUTO) 2.3 X 10^3 (1.0-4.0); LYMPHOCYTES % (AUTO) 33 % (12-44); MEAN CORPUSCULAR HEMOGLOBIN 30 PG (25-34); MEAN CORPUSCULAR HGB CONC 32 G/DL (32-36); MEAN CORPUSCULAR VOLUME 92 FL (80-99); MEAN PLATELET VOLUME 10.4 FL (7.4-10.4); MONOCYTES # (AUTO) 1.2 X 10^3 (0.0-1.0); MONOCYTES % (AUTO) 17 % (0-12); NEUTROPHILS # (AUTO) 3.5 X 10^3 (1.8-7.8); NEUTROPHILS % (AUTO) 49 % (42-75); PLATELET COUNT 228 10^3/uL (130-400); RED BLOOD COUNT 4.51 10^6/uL (4.35-5.85); RED CELL DISTRIBUTION WIDTH 14.1 % (10.0-14.5)
[2017-05-31 09:11] LABS: ALANINE AMINOTRANSFERASE 7 U/L (0-55); ANION GAP 9 MMOL/L (5-14); ASPARTATE AMINO TRANSFERASE 10 U/L (5-34); BILIRUBIN,TOTAL 0.4 MG/DL (0.1-1.0); BLOOD UREA NITROGEN 10 MG/DL (7-18); BUN/CREATININE RATIO 13; CALCIUM 8.9 MG/DL (8.5-10.1); CARBON DIOXIDE 28 MMOL/L (21-32); CHLORIDE 106 MMOL/L (98-107); CREATININE SERUM 0.76 MG/DL (0.60-1.30); GFR ESTIMATED > 60; GLUCOSE 98 MG/DL (70-105); LIPASE 22 U/L (8-78); SODIUM 143 MMOL/L (135-145); TOTAL PROTEIN 6.8 GM/DL (6.4-8.2)
[2017-05-31] MEDS: NS 100 ML (IVPB) BAG IV ONE (09:40)
[2017-05-31] MEDS: IOHEXOL 350 MG/ML 100 ML (OMNIPAQUE 350) VIAL IV ONE (09:40)
[2017-05-31] MEDS: CATHETER FLUSH 10 ML SYR IV PRN (09:40)
--- NOTE | 2017-05-31 10:16 | Diagnostic Imaging Report ---
PROCEDURE: CT abdomen and pelvis with contrast. TECHNIQUE: Multiple contiguous axial images were obtained through the abdomen and pelvis after administration of intravenous contrast. Indication: Left upper quadrant pain and nausea. Comparison: 03/31/2017. Discussion: The visualized lung bases are well-aerated. Normal heart size. No pleural or pericardial fluid. The gallbladder surgically absent. The liver, pancreas, stomach, spleen, adrenal glands, and kidneys appear within normal limits. The uterus is surgically absent. The urinary bladder is unremarkable. Extensive diverticulosis of the sigmoid colon is again noted. No residual inflammatory changes identified to suggest residual diverticulitis. No obstruction, pneumatosis, or pneumoperitoneum. The abdominal aorta is normal in caliber. No ascites or pathologically enlarged lymph nodes identified. No osseous abnormality identified. Impression: 1. Interval resolution of sigmoid diverticulitis. No residual inflammatory changes identified. Dictated by: Dictated on workstation # [id number]
[2017-05-31 10:55] LABS: BILIRUBIN,URINE NEGATIVE (NEGATIVE); KETONES,URINE NEGATIVE (NEGATIVE); LEUKOCYTE ESTERASE ,URINE NEGATIVE (NEGATIVE); NITRITE,URINE NEGATIVE (NEGATIVE); PH,URINE 8 (5-9); PROTEIN,URINE NEGATIVE (NEGATIVE); UROBILINOGEN,URINE NORMAL (NORMAL)
[2017-05-31 11:30] VITALS: BP 152/90
== END 2017-05-31 11:30 | disposition home or self-care (01) ==
LOC: EDUNIT# 07:54 → ER 07:56
DX: R07.89 Other chest pain (principal); E03.9 Hypothyroidism, unspecified; Z87.81 Personal history of (healed) traumatic fracture; Z87.19 Personal history of other diseases of the digestive system; Z90.710 Acquired absence of both cervix and uterus; Z90.49 Acquired absence of other specified parts of digestive tract
CPT/HCPCS: 36415; 74177; 80053; 81000; 83690; 85025

== ENCOUNTER → 2017-10-22 | Outpatient (CLI) | payer MEDICARE, OTHER ==
[~2017-10-22] MED LIST changes: +CIPR500T4 PO; +METR500T21 PO; +ONDA4TAB11 PO
== END ==
LOC: PREOP 05:38
PROVIDERS: ATTEND Surgery
DX: Z01.818 Encounter for other preprocedural examination (principal); K21.9 Gastro-esophageal reflux disease without esophagitis; R10.13 Epigastric pain; K92.1 Melena

== ENCOUNTER 2018-01-31 08:18 | Day surgery (SDC) | payer MEDICARE, OTHER ==
[~2018-01-31] VITALS: Ht 160 cm; Wt 71.7 kg
[~2018-01-31 08:18] MED LIST changes: +ALPR1TAB7 PO; +DICY10CA12 PO; +DOCU-163 PO; +LEVO100T7 PO; +LINA72CA PO; +ZOLP10TA5 PO
[2018-01-31] MEDS ORDERED: ceFAZolin 2 GM IV Premixed 50 ML IV ONE (08:30)
[2018-01-31] MEDS: LACTATED RINGERS 1,000 ML IV PRN ×2 (09:00→13:00)
--- NOTE | 2018-01-31 09:15 | Progress Note-Pre Operative ---
Pre-Operative Progress Note H&P Reviewed The H&P was reviewed, patient examined and no changes noted. Date Seen by Provider: Jan 31, 2018 Time Seen by Provider: 09:14 Date H&P Reviewed: Jan 31, 2018 Time H&P Reviewed: 09:15 Pre-Operative Diagnosis: breast cancer CARLOS MEDRANO DO Jan 31, 2018 09:15
[2018-01-31 09:37] VITALS: BP 139/81
[2018-01-31] MEDS ORDERED: PROPOFOL INJECTION 50 ML IV ONE (10:10)
[2018-01-31] MEDS ORDERED: HEParin (CENTRAL IV FLUSH) 500 UNIT/5 ML SYR ONE (11:07)
[2018-01-31] MEDS ORDERED: 0.9% SODIUM CHLORIDE PF INJ 20 ML VIAL ONE (11:07)
[2018-01-31] MEDS ORDERED: BUPIVACAINE 0.5% 30 ML (SENSORCAINE) VIAL ONE (11:07)
[2018-01-31] MEDS ORDERED: LIDOCAINE 1% INJ 20 ML 20 ML VIAL ONE (11:07)
[2018-01-31] MEDS ORDERED: fentaNYL INJECTION 100 MCG/2 ML AMP ONE (11:58)
[2018-01-31] MEDS: fentaNYL INJECTION 100 MCG/2 ML AMP IVP PRN ×3 (12:00→12:11)
--- NOTE | 2018-01-31 12:01 | Discharge Inst-Simple/Standard ---
Discharge Inst-Standard Patient Instructions/Follow Up Plan of Care/Instructions/FU: 2 WEEKS MITCHELL Keep ice pack on 15 min off 30 min and repeat to reduce swelling and discomfort. Activity as Tolerated: No Discharge Diet: Regular Diet Other Inst to Patient Follow up Appt: Make appointment for 2 week. Instructions: No lifting greater than 10 pounds. No strenuous activity. May shower in 24 hours, no tub bath or soaking. Use incentive spirometer at home as directed. No Smoking Skin/Wound Care: You have special glue over incisions it will fall off on its own. Symptoms to Report: Appetite Changes, Extremity Discoloration, Numbness/Tingling, Swelling Increased , Bleeding Excessive, Eyesight Changes, Pain Increased, Urine Color Change, Constipation(Persistent), Fever over 101 degree F, Pain/Pressure in chest, Urinating Difficulty, Cough Up/Vomit Blood, Heart Beat Irreg/Pounding, Pain/ Pressure in jaw, Vaginal Bleeding Increase, Cramps in feet or legs, Lightheadedness, Pain/Pressure in shoulder, Diarrhea(Persistent), Memory Changes Suddenly, Questions/Concerns, Weight gain consecutive days, Dizziness/ Fainting, Nausea/Vomiting, Shortness of Breath, Weight gain over 2 pounds If questions or concerns contact your physician Or seek help at emergency department. CARLOS MEDRANO DO Jan 31, 2018 12:01
[2018-01-31] MEDS ORDERED: ONDANSETRON 4 MG/2 ML (SDV) Z0FRAN ONE (12:14)
[2018-01-31] MEDS ORDERED: ONDANSETRON 4 MG/2 ML (SDV) Z0FRAN IVP PRN (12:15)
--- NOTE | 2018-01-31 12:55 | Diagnostic Imaging Report ---
Clinical indication: PowerPort insertion in operating room by Dr. Corbin. Exam: Limited single x-ray of the right chest region. Comparison: Chest x-ray dated 01/31/2018. Findings and impression: PowerPort is seen overlying right chest with its distal portion overlying the expected region of the superior vena cava. Given the blurry resolution and likely motion artifact, the distal tip is not well visualized on this exam. Post procedure chest x-ray would better evaluate. Please see surgeon's report for more detail. Fluoroscopy was provided for surgeons and a total of 28.9 seconds and 3.46 mGy was provided. Dictated by: Dictated on workstation # [id number]
[2018-01-31 13:05] VITALS: BP 154/71
[2018-01-31 13:35] VITALS: BP 154/71
[2018-01-31 14:05] VITALS: BP 154/71
--- NOTE | 2018-01-31 14:05 | Anesthesia-General Post-Op ---
MAC Patient Condition Mental Status/LOC: Same as Preop Cardiovascular: Satisfactory Nausea/Vomiting: Absent Respiratory: Satisfactory Pain: Controlled Complications: Absent Post Op Complications Complications None Follow Up Care/Instructions Patient Instructions None needed. Anesthesiology Discharge Order Discharge Order Patient is doing well, no complaints, stable vital signs, no apparent adverse anesthesia problems. She did complain of some pain initially in PACU, but did well. ZULEYMA KIDD DO Jan 31, 2018 14:05
--- NOTE | 2018-01-31 14:19 | Diagnostic Imaging Report ---
INDICATION: Right chest wall port placement. TIME OF EXAM: 12:11 PM Correlation is made with prior study 09/24/2016. FINDINGS: Heart size is normal. Right-sided port has tip overlying the SVC. No pneumothorax is seen. The lungs are clear. IMPRESSION: Port placement. No complicating features are detected. Dictated by: Dictated on workstation # [id number]
[2018-01-31 14:30] VITALS: BP 154/71
--- NOTE | 2018-02-03 22:55 | OPERATIVE REPORT ---
DATE OF SERVICE: 01/31/2018 PREOPERATIVE DIAGNOSIS: Breast cancer. POSTOPERATIVE DIAGNOSIS: Breast cancer. PROCEDURE: Right internal jugular vein port placement ultrasound-guided. SURGEON: Carlos Corbin DO ANESTHESIA: MAC with local. ESTIMATED BLOOD LOSS: Minimal. COMPLICATIONS: None. INDICATIONS: The patient is a 77-year-old female with recent diagnosis of breast cancer with surgical intervention. She needs port for chemotherapy. She understood risks and benefits of procedure and wished to proceed with procedure. Consent was signed and in the chart. DESCRIPTION OF PROCEDURE: The patient was taken to the operating suite. She was prepped and draped in sterile fashion. Surgical pause was performed. Ultrasound was used to locate the right internal jugular vein. The area was then localized with 0.5% Marcaine and 1% lidocaine 50:50 ratio along with the right neck and onto the right chest for a pocket creation. The right internal jugular vein was then accessed. Dark nonpulsatile blood was withdrawn with micro access needle. The micro access wire was inserted and the needle was removed. Fluoroscopy assured proper placement. A #11 blade scalpel was used to make a small incision at the insertion point. The dilator sheath was then advanced over the wire and the dilator and the wire were removed. The regular wire was then inserted through the sheath and the sheath was then removed. Fluoroscopy assured proper placement. The wire was then secured. A pocket was then created over the right chest with both cautery and blunt dissection. Once this was created, a dilator sheath was advanced over the guidewire under fluoroscopy and the dilator and sheath were removed. The Groshong catheter was inserted through the sheath and the sheath was then removed. The Groshong wire was removed and the catheter was then tunneled from the insertion point down towards the right chest pocket. Fluoroscopy was used to cut the catheter to length. It was then secured to the port, which was then placed within the pocket and then accessed without difficulty and colby blood without any difficulty and flushed with saline and then heparin without difficulty. The subcutaneous tissues were then reapproximated using 3-0 Vicryl. Skin was then closed using a SwiftSet after it was washed and dried. The patient tolerated procedure well without any complications. She was taken to recovery room in stable condition. Chest x-ray pending. Job ID: [id number] DocumentID: [id number] Dictated Date: 02/03/2018 13:04:24 Shipping And Receiving Assistant Date: 02/03/2018 22:54:46 Dictated By: CARLOS CORBIN DO
== END 2018-01-31 14:30 | disposition home or self-care (01) ==
LOC: SDC 08:18
PROVIDERS: ATTEND Surgery
DX: C50.912 Malignant neoplasm of unspecified site of left female breast (principal); F41.9 Anxiety disorder, unspecified; I10 Essential (primary) hypertension; E07.9 Disorder of thyroid, unspecified; K21.9 Gastro-esophageal reflux disease without esophagitis; Z79.899 Other long term (current) drug therapy
CPT/HCPCS: 71045; 87081

== ENCOUNTER 2018-02-09 09:54 | Inpatient (IN) | payer MEDICARE, OTHER ==
[~2018-02-09] VITALS: Ht 160 cm; Wt 69.9 kg
--- OUTSIDE RECORDS SUMMARY | 2018-02-09 10:00 | XMS REPORT | Clinical Summary ---
Author Author [facility] Organization [facility] Address Unknown Phone Unavailable Care Team Providers Care Bookkeeping Teacher Name Role Phone Eliu Riley MD Unavailable Unverified, Unverified Md PCP Unavailable Source Comments Some departments are not documenting in the electronic medical record. If you do not see the information that you expected, contact Release of Information in the Health Information Management department at [phone] for further assistance in locating additional records.[facility] Allergies Active Allergy Reactions Severity Noted Date [...] Cap by mouth four 360 Cap 6 30/20 Active 100 mg capsule times daily. Increase [...] Taken Blood Pressure 144/78 10/05/2013 8:24 AM PRODUCTION CHECKER Pulse 72 10/05/2013 8:24 AM PRODUCTION CHECKER Temperature - - Respiratory Rate 16 08/14/2012 12:53 PM PRODUCTION CHECKER Oxygen Saturation - - Inhaled Oxygen - - Concentration Weight 77.6 kg (171 lb) 10/05/2013 8:24 AM PRODUCTION CHECKER Height 160 cm (5' 3") 10/05/2013 8:24 AM PRODUCTION CHECKER Body Mass Index 30.29 10/05/2013 8:24 AM PRODUCTION CHECKER Plan of Treatment Health Maintenance Due Date Last Done Comments PHYSICAL (COMPREHENSIVE) 1949 EXAM PERTUSSIS VACCINE 1953 TETANUS VACCINE 1959 COLORECTAL CANCER 1992 SCREENING SHINGLES VACCINE 2002 OSTEOPOROSIS SCREENING 2007 PREVNAR/PNEUMOVAX (#1) 2007 INFLUENZA VACCINE 07/07/2018 Results Not on filefrom Last 3 Months
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
[2018-02-09 11:14] LABS: BASOPHILS # (AUTO) 0.2 10^3/uL (0.0-0.1); BASOPHILS % (AUTO) 4 % (0-10); EOSINOPHILS % (AUTO) 0 % (0-10); HEMATOCRIT 39 % (35-52); HEMOGLOBIN 13.2 G/DL (11.5-16.0); LYMPHOCYTES # (AUTO) 1.2 X 10^3 (1.0-4.0); LYMPHOCYTES % (AUTO) 30 % (12-44); MEAN CORPUSCULAR HEMOGLOBIN 30 PG (25-34); MEAN CORPUSCULAR HGB CONC 34 G/DL (32-36); MEAN CORPUSCULAR VOLUME 87 FL (80-99); MEAN PLATELET VOLUME 13.6 FL (7.4-10.4); MONOCYTES # (AUTO) 0.1 X 10^3 (0.0-1.0); MONOCYTES % (AUTO) 1 % (0-12); NEUTROPHILS # (AUTO) 2.7 X 10^3 (1.8-7.8); NEUTROPHILS % (AUTO) 65 % (42-75); PLATELET COUNT 81 10^3/uL (130-400); RED BLOOD COUNT 4.45 10^6/uL (4.35-5.85); RED CELL DISTRIBUTION WIDTH 14.2 % (10.0-14.5); WHITE BLOOD COUNT 4.1 10^3/uL (4.3-11.0)
[2018-02-09 11:28] LABS: ALANINE AMINOTRANSFERASE 7 U/L (0-55); ALBUMIN 3.4 GM/DL (3.2-4.5); ALKALINE PHOSPHATASE 76 U/L (40-136); BILIRUBIN,TOTAL 1.4 MG/DL (0.1-1.0); BUN/CREATININE RATIO 28; CALCIUM 7.9 MG/DL (8.5-10.1); CARBON DIOXIDE 22 MMOL/L (21-32); CHLORIDE 103 MMOL/L (98-107); GFR ESTIMATED > 60; GLUCOSE 93 MG/DL (70-105); POTASSIUM 3.7 MMOL/L (3.6-5.0); SODIUM 134 MMOL/L (135-145); TOTAL PROTEIN 5.4 GM/DL (6.4-8.2)
--- NOTE | 2018-02-09 11:48 | ED Abdominal Pain ---
General Chief Complaint: Abdominal/GI Problems Stated Complaint: DIVERTICULITIS/CHEMO LAST SATURDAY/HAS PORT Nursing Triage Note: ARRIVED VIA AMB TO ROOM 07 WITH COMPLAINTS OF SEVERE ABD PAIN ET THINKS IT IS R/T HER DIVERTICULITIS. Sepsis Screen: No Definite Risk History of Present Illness Date Seen by Provider: February 09, 2018 Time Seen by Provider: 11:40 Initial Comments 77-year-old female presents for severe abdominal pain. She has a history of diverticulitis. She started her first round of chemotherapy for left breast cancer 4 days ago. She is unsure of the nausea and vomiting is related to the chemotherapy or her diverticulitis. She has been noting bright red bloody stools since last evening. Timing/Duration: 12-24 Hours Severity/Quality: Severe Location: RLQ, LLQ Radiation: No Radiation Associated Symptoms: No Back Pain, No Chest Pain, No Diaphoresis, No Fever/ Chills; Fatigue; No Headache, No Heartburn; Nausea/Vomiting; No Rash, No Shortness of Air, No Swelling/Mass in Abdomen, No Syncope; Weakness Allergies and Home Medications Allergies Coded Allergies: bisacodyl (Verified Allergy, Mild, JITTERS/RED RASH, 01/30/18) polyethylene glycol 3350 (Verified Allergy, Mild, JITTERS/RED RASH, ) potassium chloride (Verified Allergy, Mild, JITTERS/RED RASH, 01/30/18) sodium bicarbonate (Verified Allergy, Mild, JITTERS/RED RASH, 01/30/18) sodium chloride (Verified Allergy, Mild, JITTERS/RED RASH, 01/30/18) thiopental (Verified Allergy, Unknown, 01/30/18) Home Medications Docusate Sodium 100 Mg Capsule, 100-200 MG PO Q48H, (Reported) TAKES 1-2 OF A (100 MG) CAPSULE WITH LINZESS Levothyroxine Sodium 100 Mcg Tablet, 100 MCG PO DAILY, (Reported) Linaclotide 72 Mcg Capsule, 72 MCG PO Q48H, (Reported) Ondansetron HCl 8 Mg Tablet, 8 MG PO TID PRN for NAUSEA/VOMITING-1ST LINE, ( Reported) Prochlorperazine Maleate 10 Mg Tablet, 10 MG PO Q6H PRN for CONSTIPATION-4TH LINE, (Reported) Zolpidem Tartrate 10 Mg Tablet, 10 MG PO HS, (Reported) Patient Home Medication List Home Medication List Reviewed: Yes Review of Systems Constitutional: no symptoms reported, see HPI Gastrointestinal: See HPI, Abdominal Pain, Blood Streaked Stools (bright red), Diarrhea, Nausea, Poor Appetite, Rectal Bleeding All Other Systems Reviewed Negative Unless Noted: Yes Past Lihlyvw-Kxdwef-Hozwfr Hx Past Med/Social Hx: Reviewed Nursing Past Med/Soc Hx Patient Social History 2nd Hand Smoke Exposure: No Recent Foreign Travel: No Contact w/Someone Who Travel: No Recent Infectious Disease Expo: No Recent Hopitalizations: No Immunizations Up To Date Date of Pneumonia Vaccine: May 30, 2015 Seasonal Allergies Seasonal Allergies: No Past Medical History Surgeries: Yes (BACK SURGERY 03/19/14--VERTEBROPLASTY, LUMPECTOMY/LYMPH NODE DISSECTION) Appendectomy, Gallbladder, 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, Orthopedic, Tonsillectomy Respiratory: No Cardiac: Yes Hypotension Neurological: No Reproductive Disorders: No 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 Sexually Transmitted Disease: No HIV/AIDS: No Genitourinary: No Kidney Stones Gastrointestinal: Yes (NAUSEA) Gastroesophageal Reflux, Chronic Constipation, Diverticulosis, Ulcer Musculoskeletal: Yes (DAMAGED NERVE IN NECK) Arthritis, Fractures Endocrine: Yes Hypothyroidsim HEENT: No Cancer: Yes Skin, Breast Did You Recieve Any Treatments: Yes What Type of Treatment Did You: Chemotherapy, Surgical Intervention Psychosocial: Yes Anxiety Integumentary: No Blood Disorders: No Adverse Reaction/Blood Tranf: No (N/A) Family Medical History No Pertinent Family Hx Physical Exam Vital Signs Vital Signs - First Documented 02/09/18 02/09/18 10:15 12:21 Temp 98.0 Pulse 16 Resp 16 B/P (MAP) 110/71 (84) Pulse Ox 98 O2 Delivery Room Air O2 Flow Rate 3.00 Capillary Refill : Less Than 3 Seconds General Appearance: WD/WN, no apparent distress HEENT: PERRL/EOMI, normal ENT inspection, TMs normal, pharynx normal, other ( oral mucosa pink and moist) Neck: non-tender, full range of motion, supple, normal inspection Respiratory: chest non-tender, lungs clear, normal breath sounds Cardiovascular: normal peripheral pulses, regular rate, rhythm, no murmur Gastrointestinal: soft, abnormal bowel sounds (hypoactive), distended; No guarding, No rebound; tenderness (right and left lower quadrants) Back: normal inspection, no CVA tenderness, no vertebral tenderness Neurologic/Psychiatric: no motor/sensory deficits, alert, normal mood/affect, oriented x 3 Skin: normal color, warm/dry Lymphatic: no adenopathy Progress/Results/Core Measures Results/Orders Lab Results Laboratory Tests Test 02/09/18 10:42 02/09/18 13:09 Range/Units White Blood Count 4.1 L 4.3-11.0 10^3/uL Red Blood Count 4.45 4.35-5.85 10^6/uL Hemoglobin 13.2 11.5-16.0 G/DL Hematocrit 39 35-52 % Mean Corpuscular Volume 87 80-99 FL Mean Corpuscular Hemoglobin 30 25-34 PG Mean Corpuscular Hemoglobin Concent 34 32-36 G/DL Red Cell Distribution Width 14.2 10.0-14.5 % Platelet Count 81 L 130-400 10^3/uL Mean Platelet Volume 13.6 H 7.4-10.4 FL Neutrophils (%) (Auto) 65 42-75 % Lymphocytes (%) (Auto) 30 12-44 % Monocytes (%) (Auto) 1 0-12 % Eosinophils (%) (Auto) 0 0-10 % Basophils (%) (Auto) 4 0-10 % Neutrophils # (Auto) 2.7 1.8-7.8 X 10^3 Lymphocytes # (Auto) 1.2 1.0-4.0 X 10^3 Monocytes # (Auto) 0.1 0.0-1.0 X 10^3 Eosinophils # (Auto) 0.0 0.0-0.3 10^3/uL Basophils # (Auto) 0.2 H 0.0-0.1 10^3/uL Neutrophils % (Manual) 67 % Lymphocytes % (Manual) 30 % Monocytes % (Manual) 1 % Eosinophils % (Manual) 0 % Basophils % (Manual) 2 % Band Neutrophils 0 % Blood Morphology Comment NORMAL Sodium Level 134 L 135-145 MMOL/L Potassium Level 3.7 3.6-5.0 MMOL/L Chloride Level 103 98-107 MMOL/L Carbon Dioxide Level 22 21-32 MMOL/L Anion Gap 9 5-14 MMOL/L Blood Urea Nitrogen 17 7-18 MG/DL Creatinine 0.60 0.60-1.30 MG/DL Estimat Glomerular Filtration Rate > 60 BUN/Creatinine Ratio 28 Glucose Level 93 70-105 MG/DL Calcium Level 7.9 L 8.5-10.1 MG/DL Total Bilirubin 1.4 H 0.1-1.0 MG/DL Aspartate Amino Transf (AST/SGOT) 8 5-34 U/L Alanine Aminotransferase (ALT/SGPT) 7 0-55 U/L Alkaline Phosphatase 76 40-136 U/L Total Protein 5.4 L 6.4-8.2 GM/DL Albumin 3.4 3.2-4.5 GM/DL Amylase Level 201 H 25-125 U/L Lipase 376 H 8-78 U/L Urine Color YELLOW Urine Clarity CLEAR Urine pH 8 5-9 Urine Specific [place] 1.010 L 1.016-1.022 Urine Protein 1+ H NEGATIVE Urine Glucose (UA) NEGATIVE NEGATIVE Urine Ketones NEGATIVE NEGATIVE Urine Nitrite NEGATIVE NEGATIVE Urine Bilirubin NEGATIVE NEGATIVE Urine Urobilinogen NORMAL NORMAL MG/DL Urine Leukocyte Esterase 1+ H NEGATIVE Urine RBC (Auto) 5+ H NEGATIVE Urine RBC 50-100 H /HPF Urine WBC RARE /HPF Urine Squamous Epithelial Cells NONE /HPF Urine Crystals NONE /LPF Urine Bacteria NEGATIVE /HPF Urine Casts NONE /LPF Urine Mucus SMALL H /LPF Urine Culture Indicated NO My Orders Orders - YESENIA URIBE Cbc With Automated Diff (02/09/18 11:05) Comprehensive Metabolic Panel (02/09/18 11:05) Ua Culture If Indicated (02/09/18 11:05) Manual Differential (02/09/18 10:42) Saline Lock/Iv-Start (02/09/18 11:55) Ns Iv 1000 Ml (Sodium Chloride 0.9%) (02/09/18 11:55) Fentanyl Injection (Sublimaze Injection (02/09/18 11:55) Ondansetron Injection (Zofran Injectio (02/09/18 12:00) Amylase (02/09/18 11:55) Lactic Acid Analyzer (02/09/18 11:55) Lipase (02/09/18 11:55) Ct Abdomen/Pelvis Wo (02/09/18 13:09) Fentanyl Injection (Sublimaze Injection (02/09/18 14:15) Medications Given in ED Current Medications Medications Dose Ordered Sig/Keri Route Start Time Stop Time Status Last Admin Dose Admin Fentanyl Citrate 25 mcg ONCE PRN IVP 02/09/18 14:15 02/09/18 15:34 DC 02/09/18 14:20 25 MCG Ondansetron HCl 8 mg ONCE ONCE IVP 02/09/18 12:00 02/09/18 12:01 DC 02/09/18 12:12 8 MG Vital Signs/I&O 02/09/18 02/09/18 10:15 12:21 Temp 98.0 Pulse 16 Resp 16 B/P (MAP) 110/71 (84) Pulse Ox 98 88 O2 Delivery Room Air Nasal Cannula O2 Flow Rate 3.00 Blood Pressure Mean: 84 Progress Progress Note : Time: 11:40 Progress Note Initial evaluation completed, recommended labs, CT abdomen and pelvis, Zofran 8 mg IV for nausea and fentanyl 50 g for pain. 1300 patient reports improvement in her nausea and pain since receiving the fentanyl. 1330 patient taking ice chips, no nausea or vomiting at this time.Reviewed labs and CT study with the patient and her son. 1415 patient reports pain is returning we'll give fentanyl 25 g IV for pain. Discussed discharge with home management versus inpatient observation and management with the patient and her son they agreed with inpatient. 1430 discussed patient exam, CT scan and labs with Dr. Martinez, agreed for admission orders. Diagnostic Imaging Diagonstic Imaging: CT Plain Films/CT/US/NM/MRI: abdomen, pelvis Comments NAME: [facility] REC#: [id number] PT STATUS: REG ER : 1940 PHYSICIAN: YESENIA URIBE ADMIT DATE: 02/09/18/ER Draft Date of Exam:02/09/18 CT ABDOMEN/PELVIS WO PROCEDURE: CT abdomen and pelvis without contrast. TECHNIQUE: Multiple contiguous axial images were obtained through the abdomen and pelvis without the use of intravenous contrast. INDICATION: Left lower quadrant pain. COMPARISON: 08/13/2017. FINDINGS: Evaluation of the abdominal viscera is mildly limited without contrast. Lower chest: The lung bases are clear. No pericardial or pleural effusion. Peritoneum: No free intraperitoneal air or loculated fluid collections. Trace free pelvic fluid is present. Liver and biliary system: Unenhanced liver is normal. The gallbladder is normal. No biliary duct dilation. Spleen and Pancreas: Spleen is normal. Unenhanced pancreas is grossly normal. Adrenals: Normal. tract: No renal or ureteral calculi. No obstructive uropathy. Uterus is surgically absent. GI tract: Stomach is decompressed. No bowel obstruction. Sigmoid colon diverticulosis with wall thickening and surrounding inflammation is compatible with acute diverticulitis. This involves approximately 10 cm in length of colon. No microperforation or adjacent abscess. Vasculature and Lymph nodes: Normal caliber aorta with extensive atherosclerotic plaquing. No abdominal or pelvic lymphadenopathy. Musculoskeletal: No concerning osseous lesion. Prior vertebral augmentation of L1. IMPRESSION: 1. Sigmoid colon diverticulitis without perforation or abscess. No bowel obstruction. Departure Impression Primary Impression: Diverticulitis of intestine Qualified Codes: K57.33 - Diverticulitis of large intestine without perforation or abscess with bleeding Additional Impressions: Pain in the abdomen Qualified Codes: R10.84 - Generalized abdominal pain Neutropenia Qualified Codes: D70.1 - Agranulocytosis secondary to cancer chemotherapy; T45.1X5A - Adverse effect of antineoplastic and immunosuppressive drugs, initial encounter Thrombocytopenia Breast cancer Qualified Codes: C50.912 - Malignant neoplasm of unspecified site of left female breast Hematochezia Disposition: 09 ADMITTED INPATIENT Condition: Stable Admissions Decision to Admit Reason: Admit from ER (General) Decision to Admit/Date: February 09, 2018 Time/Decision to Admit Time: 14:30 Departure-Patient Inst. Referrals: DIVINE ARTEAGA MD (PCP/Family) Primary Care Physician Copy Copies To 1: DIVINE ARTEAGA MD Copies To 2: CARLOS MEDRANO DO; CARISSA MARTINEZ MD, AMY ARNP February 09, 2018 11:48
[2018-02-09] MEDS ORDERED: NS IV 1000 ML 1,000 ML IV SCH (11:55)
[2018-02-09] MEDS ORDERED: fentaNYL INJECTION 100 MCG/2 ML AMP IVP STA (11:55)
[2018-02-09 11:59] LABS: BAND NEUTROPHILS 0 %; BASOPHILS % (MANUAL) 2 %; EOSINOPHILS % (MANUAL) 0 %; LYMPHOCYTES % (MANUAL) 30 %; MONOCYTES % (MANUAL) 1 %; NEUTROPHILS % (MANUAL) 67 %; RBC MORPH NORMAL
[2018-02-09] MEDS ORDERED: ONDANSETRON 4 MG/2 ML (SDV) Z0FRAN IVP ONE (12:00)
[2018-02-09 12:27] LABS: AMYLASE 201 U/L (25-125); LIPASE 376 U/L (8-78)
[2018-02-09 13:18] LABS: BILIRUBIN,URINE NEGATIVE (NEGATIVE); CLARITY,URINE CLEAR; COLOR,URINE YELLOW; GLUCOSE, URINE (UA) NEGATIVE (NEGATIVE); KETONES,URINE NEGATIVE (NEGATIVE); LEUKOCYTE ESTERASE ,URINE 1+ (NEGATIVE); NITRITE,URINE NEGATIVE (NEGATIVE); PH,URINE 8 (5-9); PROTEIN,URINE 1+ (NEGATIVE); UROBILINOGEN,URINE NORMAL (NORMAL)
[2018-02-09 13:32] LABS: RBC,URINE 50-100 /HPF
[2018-02-09 13:33] LABS: BACTERIA,URINE NEGATIVE /HPF; WBC,URINE RARE /HPF
--- NOTE | 2018-02-09 13:54 | Diagnostic Imaging Report ---
PROCEDURE: CT abdomen and pelvis without contrast. TECHNIQUE: Multiple contiguous axial images were obtained through the abdomen and pelvis without the use of intravenous contrast. INDICATION: Left lower quadrant pain. COMPARISON: 08/13/2017. FINDINGS: Evaluation of the abdominal viscera is mildly limited without contrast. Lower chest: The lung bases are clear. No pericardial or pleural effusion. Peritoneum: No free intraperitoneal air or loculated fluid collections. Trace free pelvic fluid is present. Liver and biliary system: Unenhanced liver is normal. The gallbladder is normal. No biliary duct dilation. Spleen and Pancreas: Spleen is normal. Unenhanced pancreas is grossly normal. Adrenals: Normal. tract: No renal or ureteral calculi. No obstructive uropathy. Uterus is surgically absent. GI tract: Stomach is decompressed. No bowel obstruction. Sigmoid colon diverticulosis with wall thickening and surrounding inflammation is compatible with acute diverticulitis. This involves approximately 10 cm in length of colon. No microperforation or adjacent abscess. Vasculature and Lymph nodes: Normal caliber aorta with extensive atherosclerotic plaquing. No abdominal or pelvic lymphadenopathy. Musculoskeletal: No concerning osseous lesion. Prior vertebral augmentation of L1. IMPRESSION: 1. Sigmoid colon diverticulitis without perforation or abscess. No bowel obstruction. Dictated by: Dictated on workstation # [id number]
[2018-02-09] MEDS ORDERED: fentaNYL INJECTION 100 MCG/2 ML AMP IVP PRN (14:15)
--- NOTE | 2018-02-09 15:40 | History & Physical-Hospitalist ---
History of Present Illness HPI/Chief Complaint Pt is a 77yoCF well known to me with a history of diverticulitis and recently diagnosed breast cancer. She reports that her symptoms started yesterday where she had an upset stomach and did not feel like eating much. She continued to worsen and woke up this morning with severe abdominal pain and had bright red bloody stools prompting her to seek evaluation int he ER. She has had similar symptoms in the past when she has had diverticulitis. She has had some nausea and vomiting as well. Her pain has improved with pain medications here. She did receive her first round of chemotherapy early this week as well. Source: patient Date Seen 02/09/18 Time Seen by Provider: 14:45 Attending Physician Carissa Martinez MD PCP Piter Guerrier MD Referring Physician Date of Admission February 09, 2018 at 14:30 Home Medications & Allergies Home Medications Reviewed patient Home Medication Reconciliation performed by pharmacy medication reconciliations residential service technician and/or nursing. Patients Allergies have been reviewed. Allergies Allergies Coded Allergies bisacodyl (Verified Allergy, Mild, JITTERS/RED RASH, 01/30/18) polyethylene glycol 3350 (Verified Allergy, Mild, JITTERS/RED RASH, 01/30/18) potassium chloride (Verified Allergy, Mild, JITTERS/RED RASH, 01/30/18) sodium bicarbonate (Verified Allergy, Mild, JITTERS/RED RASH, 01/30/18) sodium chloride (Verified Allergy, Mild, JITTERS/RED RASH, 01/30/18) thiopental (Verified Allergy, Unknown, 01/30/18) Past Iqhvkxa-Qpsuco-Yqhyqu Hx Past Med/Social Hx: Reviewed Nursing Past Med/Soc Hx Patient Social History Marrital Status: Employed/Student: retired Alcohol Use: Rarely Uses Recreational Drug Use: No Smoking Status: Never a Smoker 2nd Hand Smoke Exposure: No Recent Foreign Travel: No Contact w/other who traveled: No Recent Hopitalizations: No Recent Infectious Disease Expo: No Immunizations Up To Date Date of Pneumonia Vaccine: May 30, 2015 Seasonal Allergies Seasonal Allergies: No Past Medical History Surgeries: Appendectomy, Breast (lumpectomy), Gallbladder, 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, Orthopedic, Tonsillectomy Cardiac: Hypotension Reproductive: No Sexually Transmitted Disease: No HIV/AIDS: No 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 Genitourinary: Kidney Stones Gastrointestinal: Gastroesophageal Reflux, Chronic Constipation, Diverticulosis , Ulcer Musculoskeletal: Arthritis, Fractures Endocrine: Hypothyroidsim Cancer: Skin, Breast Did You Recieve Any Treatments: Yes What Type of Treatment Did You: Chemotherapy, Surgical Intervention Psychosocial: Anxiety History of Blood Disorders: No Adverse Reaction to Blood Ortega: No (N/A) Family History Reviewed Nursing Family Hx No Pertinent Family Hx Review of Systems Constitutional: chills, diaphoresis; No fever; weakness EENTM: no symptoms reported Respiratory: no symptoms reported Cardiovascular: no symptoms reported Gastrointestinal: see HPI, loss of appetite Genitourinary: no symptoms reported Musculoskeletal: no symptoms reported Skin: no symptoms reported Psychiatric/Neurological: No Symptoms Reported Physical Exam Physical Exam Vital Signs Vital Signs - First Documented 02/09/18 02/09/18 10:15 12:21 Temp 98.0 Pulse 16 Resp 16 B/P (MAP) 110/71 (84) Pulse Ox 98 O2 Delivery Room Air O2 Flow Rate 3.00 Capillary Refill : Less Than 3 Seconds General Appearance: No Apparent Distress, WD/WN HEENT: PERRL/EOMI, Moist Mucous Membranes Neck: Non Tender, Supple Respiratory: Lungs Clear, No Respiratory Distress Cardiovascular: Regular Rate, Rhythm, No Murmur Gastrointestinal: Normal Bowel Sounds, Soft, Guarding, Tenderness Extremity: Normal Capillary Refill, No Calf Tenderness Neurologic/Psychiatric: Alert, Oriented x3, No Motor/Sensory Deficits, Normal Mood/Affect Skin: Normal Color, Warm/Dry Results Results/Procedures Labs Laboratory Tests 02/09/18 10:42 Patient resulted labs reviewed. Imaging: Reviewed Imaging Report Assessment/Plan Admission Diagnosis Diverticulitis Admission Status: Inpatient Order (span 2 midnights) Reason for Inpatient Admission: IV abx Diagnosis/Problems Diagnosis/Problems (1) Diverticulitis of intestine Status: Acute Assessment & Plan: Continue Cipro and Flagyl as started in the ER Fentanyl for pain Discussed with Dr Corbin who will see tonight NPO IVF Qualifiers: Diverticulitis site: large intestine Diverticulitis bleeding: with bleeding Diverticulitis complication: without perforation or abscess Qualified Codes: K57.33 - Diverticulitis of large intestine without perforation or abscess with bleeding (2) Thrombocytopenia Status: Acute Assessment & Plan: New Likely due to chemo Will trend Consult heme/onc in AM (3) Hematuria Status: Acute Assessment & Plan: New as well unsure what chemo she is on but could be side effect If not resolved will need urology consult as an outpatient Qualifiers: Hematuria type: unspecified type Qualified Codes: R31.9 - Hematuria, unspecified (4) Neutropenia Status: Acute Assessment & Plan: Again likely due to chemo Will trend Qualifiers: Neutropenia type: secondary to cancer chemotherapy Qualified Codes: D70.1 - Agranulocytosis secondary to cancer chemotherapy; T45.1X5A - Adverse effect of antineoplastic and immunosuppressive drugs, initial encounter (5) Breast cancer Assessment & Plan: Follows with Dr Dumas Will consult Qualifiers: Breast location: unspecified site of breast Estrogen receptor status: unspecified Patient sex: female Laterality: left Qualified Codes: C50.912 - Malignant neoplasm of unspecified site of left female breast (6) Prophylactic measure Assessment & Plan: SCDs only due to thrombocytopenia NS SARAO CARISSA MARTINEZ MD February 09, 2018 15:40
[2018-02-09] MEDS: NS IV 1000 ML 1,000 ML IV SCH (15:43)
[2018-02-09] MEDS ORDERED: ACETAMINOPHEN 325 MG TABLET/CAPLET (TYLENOL) PO PRN (15:45)
[2018-02-09] MEDS ORDERED: fentaNYL INJECTION 100 MCG/2 ML AMP IV PRN (15:45)
[2018-02-09] MEDS ORDERED: PROC10TA10 PO (15:46)
[2018-02-09] MEDS ORDERED: ONDA8TAB12 PO (15:46)
[2018-02-09] MEDS ORDERED: PANT20TA3 PO (15:46)
[2018-02-09] MEDS: metroNIDAZOLE 500MG/100ML IVPB 100 ML IV SCH (15:46)
[2018-02-09 16:16] VITALS: BP 111/88
[2018-02-09] MEDS ORDERED: RT-ALBUTEROL SULF 2.5 MG/3 ML PRE-MIX VIAL INH PRN (16:45)
[2018-02-09] MEDS: CIPROFLOXACIN IV 400MG/200ML 200 ML IV SCH (17:28)
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
[2018-02-09] MEDS: fentaNYL INJECTION 100 MCG/2 ML AMP IV PRN (18:48)
[2018-02-09] MEDS: ONDANSETRON 4 MG/2 ML (SDV) Z0FRAN IV PRN (18:48)
[2018-02-09 20:00] VITALS: BP 108/57
[2018-02-10 00:18] VITALS: BP 100/60
[2018-02-10] MEDS: NS IV 1000 ML 1,000 ML IV SCH ×3 (03:59→21:57)
[2018-02-10] MEDS: metroNIDAZOLE 500MG/100ML IVPB 100 ML IV SCH ×2 (04:00→15:52)
[2018-02-10] MEDS: ONDANSETRON 4 MG/2 ML (SDV) Z0FRAN IV PRN ×4 (04:02→21:56)
[2018-02-10] MEDS: fentaNYL INJECTION 100 MCG/2 ML AMP IV PRN ×2 (04:05→07:53)
[2018-02-10 04:35] VITALS: BP 108/67
[2018-02-10] MEDS: CIPROFLOXACIN IV 400MG/200ML 200 ML IV SCH ×2 (06:02→17:12)
[2018-02-10 06:18] LABS: BASOPHILS % (AUTO) 2 % (0-10); EOSINOPHILS % (AUTO) 1 % (0-10); HEMATOCRIT 32 % (35-52); HEMOGLOBIN 10.8 G/DL (11.5-16.0); LYMPHOCYTES # (AUTO) 0.5 X 10^3 (1.0-4.0); LYMPHOCYTES % (AUTO) 58 % (12-44); MEAN CORPUSCULAR HEMOGLOBIN 30 PG (25-34); MEAN CORPUSCULAR HGB CONC 33 G/DL (32-36); MEAN CORPUSCULAR VOLUME 89 FL (80-99); MEAN PLATELET VOLUME 12.9 FL (7.4-10.4); MONOCYTES # (AUTO) 0.1 X 10^3 (0.0-1.0); MONOCYTES % (AUTO) 13 % (0-12); NEUTROPHILS # (AUTO) 0.2 X 10^3 (1.8-7.8); NEUTROPHILS % (AUTO) 26 % (42-75); PLATELET COUNT 51 10^3/uL (130-400); RED BLOOD COUNT 3.66 10^6/uL (4.35-5.85); RED CELL DISTRIBUTION WIDTH 13.6 % (10.0-14.5)
[2018-02-10 06:20] LABS: WHITE BLOOD COUNT 0.9 10^3/uL (4.3-11.0)
[2018-02-10 06:36] LABS: ALANINE AMINOTRANSFERASE < 6 U/L (0-55); ALBUMIN 2.8 GM/DL (3.2-4.5); ALKALINE PHOSPHATASE 59 U/L (40-136); BILIRUBIN,TOTAL 0.8 MG/DL (0.1-1.0); BUN/CREATININE RATIO 23; CALCIUM 7.1 MG/DL (8.5-10.1); CARBON DIOXIDE 25 MMOL/L (21-32); CHLORIDE 106 MMOL/L (98-107); CREATININE SERUM 0.57 MG/DL (0.60-1.30); GFR ESTIMATED > 60; GLUCOSE 108 MG/DL (70-105); POTASSIUM 3.6 MMOL/L (3.6-5.0); SODIUM 135 MMOL/L (135-145); TOTAL PROTEIN 4.5 GM/DL (6.4-8.2)
[2018-02-10 08:00] VITALS: BP 112/56
[2018-02-10 08:12] LABS: BASOPHILS % (MANUAL) 0 %; EOSINOPHILS % (MANUAL) 1 %; LYMPHOCYTES % (MANUAL) 51 %; MONOCYTES % (MANUAL) 18 %; NEUTROPHILS % (MANUAL) 29 %
[2018-02-10 08:13] LABS: PLATELET ESTIMATE 48; RBC MORPH NORMAL; REACTIVE LYMPHOCYTES 1 %
--- NOTE | 2018-02-10 09:19 | Progress Note-Hospitalist ---
Subjective HPI/CC On Admission Date Seen by Provider: February 10, 2018 Time Seen by Provider: 09:00 Pt is a 77yoCF well known to me with a history of diverticulitis and recently diagnosed breast cancer. She reports that her symptoms started yesterday where she had an upset stomach and did not feel like eating much. She continued to worsen and woke up this morning with severe abdominal pain and had bright red bloody stools prompting her to seek evaluation int he ER. She has had similar symptoms in the past when she has had diverticulitis. She has had some nausea and vomiting as well. Her pain has improved with pain medications here. She did receive her first round of chemotherapy early this week as well. Subjective/Events-last exam Patient having severe pain and fentanyl was not working so started Dilaudid Tried scopolamine patch but now she states she is allergic to it and caused nerve damage in her right face so will discontinue that and update her allergy list I did speak with Dr. Corbin and Dr. Irvin regarding the case White count now 0.9 Vitals reviewed at my request and all stable so it appears that she is just uncomfortable and not feeling well and notes not sepsis or decompensation Checked meds and labs Reviewed CT scan results Review of Systems General: Malaise Gastrointestinal: Nausea, Vomiting, Abdominal Pain Focused Exam Lactate Level 02/09/18 18:08: Lactic Acid Level 1.75 Objective Exam Vital Signs Vital Signs Date Time Temp Pulse Resp B/P (MAP) Pulse Ox O2 Delivery O2 Flow Rate FiO2 02/10/18 06:38 97 Nasal Cannula 3.00 02/10/18 04:35 97.9 68 18 108/67 (81) 02/09/18 16:29 28 Capillary Refill : Less Than 3 Seconds General Appearance: No Apparent Distress, WD/WN, Chronically ill HEENT: Normal ENT Inspection Neck: Full Range of Motion, Non Tender Respiratory: Lungs Clear, Normal Breath Sounds Cardiovascular: Regular Rate, Rhythm, No Edema Gastrointestinal: Normal Bowel Sounds, Tenderness (generalized) Extremity: Normal Capillary Refill, Normal Inspection, Normal Range of Motion, Non Tender, No Calf Tenderness Neurologic/Psychiatric: Alert, Oriented x3, No Motor/Sensory Deficits, Normal Mood/Affect, rug receiving clerk II-XII Norm as Tested Skin: Normal Color, Warm/Dry Lymphatic: No Adenopathy Results/Procedures Lab Laboratory Tests 02/09/18 10:42 02/10/18 06:00 Patient resulted labs reviewed. Imaging: Reviewed Imaging Report Assessment/Plan Assessment and Plan Assess & Plan/Chief Complaint Assessment: Severe sigmoid diverticulitis placed on appropriate antibiotics and Dr. Corbin consultation Severe abdominal pain with nausea due to diverticulitis Severe neutropenia due to chemotherapy 1 week prior at 0.[address] Marie Breast cancer status post left-sided lumpectomy 2 months ago Intolerance to multiple meds Plan: Dr. Corbin will evaluate the abdominal pain and we will DC the facet Eva and start the Dilaudid Stop scopolamine that was attempted to be prescribed and start low-dose Phenergan IM Check labs in a.m. Dr. Marie consultation Diagnosis/Problems Diagnosis/Problems (1) Diverticulitis of intestine Status: Acute Qualifiers: Diverticulitis site: large intestine Diverticulitis bleeding: with bleeding Diverticulitis complication: without perforation or abscess Qualified Codes: K57.33 - Diverticulitis of large intestine without perforation or abscess with bleeding (2) Pain in the abdomen Status: Acute Qualifiers: Abdominal location: generalized Qualified Codes: R10.84 - Generalized abdominal pain (3) Breast cancer Status: Chronic Qualifiers: Breast location: unspecified site of breast Estrogen receptor status: unspecified Patient sex: female Laterality: left Qualified Codes: C50.912 - Malignant neoplasm of unspecified site of left female breast (4) Neutropenia Status: Acute Qualifiers: Neutropenia type: secondary to cancer chemotherapy Qualified Codes: D70.1 - Agranulocytosis secondary to cancer chemotherapy; T45.1X5A - Adverse effect of antineoplastic and immunosuppressive drugs, initial encounter Clinical Quality Measures DVT/VTE Risk/Contraindication: Risk Factor Score Per Nursin RFS Level Per Nursing on Admit: 4+=Very High VENKAT COOPER DO February 10, 2018 09:19
[2018-02-10] MEDS ORDERED: PROMETHAZINE INJ 25 MG/ML (PHENERGAN) AMP IVP PRN (09:30)
[2018-02-10] MEDS ORDERED: SCOPOLAMINE 1.5 MG (TRANSDERM-SCOP) PATCH TOP SCH (09:30)
[2018-02-10] MEDS: CATHETER FLUSH 10 ML SYR IV PRN ×2 (09:38→15:51)
[2018-02-10] MEDS: HYDROmorphone 2 MG/ML VIAL (DILAUDID) IVP PRN ×3 (09:38→21:52)
[2018-02-10] MEDS ORDERED: PROMETHAZINE INJ 25 MG/ML (PHENERGAN) AMP IM PRN (10:00)
[2018-02-10 12:00] VITALS: BP 97/53
[2018-02-10 16:34] VITALS: BP 101/64
[2018-02-10 19:23] VITALS: BP 114/54
--- NOTE | 2018-02-10 20:15 | Progress Note ---
Subjective Date Seen by Provider: February 10, 2018 Time Seen by Provider: 20:10 Subjective/Events-last exam Tired, NPO. Still with LLQ abdominal pain. Denies n/v fever sweats chills shortness of breath or chest pain. States she's not feeling well. Not had any more blood from rectum. Focused Exam Lactate Level 02/09/18 18:08: Lactic Acid Level 1.75 Objective Exam Vital Signs Date Time Temp Pulse Resp B/P (MAP) Pulse Ox O2 Delivery O2 Flow Rate FiO2 02/10/18 19:23 98.4 85 18 114/54 (74) 95 Nasal Cannula 2.00 02/10/18 16:34 93 18 101/64 (76) 97 Nasal Cannula 2.00 02/10/18 16:34 97.9 02/10/18 12:00 98.5 79 18 97/53 (68) 98 Nasal Cannula 2.00 02/10/18 08:00 97.9 86 18 112/56 (74) 93 Nasal Cannula 2.00 02/10/18 06:38 97 Nasal Cannula 3.00 02/10/18 04:35 97.9 68 18 108/67 (81) 97 Nasal Cannula 2.00 02/10/18 00:18 98.1 70 20 100/60 (73) 97 Nasal Cannula 2.00 02/09/18 20:30 Nasal Cannula 2.00 I & O 02/10/18 06:59 Intake Total 150 ml Balance 150 ml Capillary Refill : Less Than 3 Seconds General Appearance: No Apparent Distress, WD/WN, Chronically ill HEENT: Normal ENT Inspection Neck: Full Range of Motion, Non Tender Respiratory: Lungs Clear, Normal Breath Sounds Cardiovascular: Regular Rate, Rhythm, No Edema Gastrointestinal: soft; No guarding, No rebound; tenderness (left lower quadrant, no guarding or rebounding) Extremity: Normal Capillary Refill, Normal Inspection, Normal Range of Motion, Non Tender, No Calf Tenderness Neurologic/Psychiatric: Alert, Oriented x3, No Motor/Sensory Deficits, Normal Mood/Affect, weight trainer II-XII Norm as Tested Skin: Normal Color, Warm/Dry Lymphatic: No Adenopathy Results Lab Laboratory Tests 02/10/18 06:00: White Blood Count 0.9*L, Red Blood Count 3.66L, Hemoglobin 10.8L, Hematocrit 32L , Mean Corpuscular Volume 89, Mean Corpuscular Hemoglobin 30, Mean Corpuscular Hemoglobin Concent 33, Red Cell Distribution Width 13.6, Platelet Count 51L, Mean Platelet Volume 12.9H, Neutrophils (%) (Auto) 26L, Lymphocytes (%) (Auto) 58H, Monocytes (%) (Auto) 13H, Eosinophils (%) (Auto) 1, Basophils (%) (Auto) 2 , Neutrophils # (Auto) 0.2L, Lymphocytes # (Auto) 0.5L, Monocytes # (Auto) 0.1, Eosinophils # (Auto) 0.0, Basophils # (Auto) 0.0, Neutrophils % (Manual) 29, Lymphocytes % (Manual) 51, Monocytes % (Manual) 18, Eosinophils % (Manual) 1, Basophils % (Manual) 0, Reactive Lymphocytes 1, Platelet Estimate 48, Blood Morphology Comment NORMAL, Sodium Level 135, Potassium Level 3.6, Chloride Level 106, Carbon Dioxide Level 25, Anion Gap 4L, Blood Urea Nitrogen 13, Creatinine 0.57L, Estimat Glomerular Filtration Rate > 60, BUN/Creatinine Ratio 23, Glucose Level 108H, Calcium Level 7.1L, Total Bilirubin 0.8, Aspartate Amino Transf (AST/SGOT) 5, Alanine Aminotransferase (ALT/SGPT) < 6, Alkaline Phosphatase 59, Total Protein 4.5L, Albumin 2.8L Assessment/Plan Assessment/Plan Assessment/Plan left lower quadrant abdominal pain acute diverticulitis without perforation breast cancer left breast s/p lumpectomy and sentinel node biopsy and has started on chemotherapy neutropenia can have sips of clears on Cipro and Flagyl No surgical intervention Will follow Clinical Quality Measures DVT/VTE Risk/Contraindication: Risk Factor Score Per Nursin RFS Level Per Nursing on Admit: 4+=Very High CARLOS MEDRANO DO February 10, 2018 20:15
--- NOTE | 2018-02-10 23:47 | CONSULTATION REPORT ---
DATE OF SERVICE: 02/10/2018 The patient is admitted to room 418. REFERRING AND PRIMARY PHYSICIAN: Naomi Clifford DO. IMPRESSION: 1. A 77-year-old female admitted to the hospital with acute onset abdominal pain and hematochezia. CT scan of the abdomen consistent with diverticulitis, but with no evidence of abscess or perforation. 2. History of stage I breast cancer with elevated Oncotype DX Recurrence Score. Status post lumpectomy and sentinel lymph node biopsy. Currently, on adjuvant chemotherapy with Taxotere and Cytoxan regimen with the first course completed last Saturday. The patient did receive Neulasta on day #2 after the chemotherapy. 3. Neutropenia, which is most likely due to the chemotherapy from a week ago. Monitor this serially as the patient did receive Neulasta and the counts showed increase, back to the normal range within the next few days. RECOMMENDATIONS: 1. Continue management of diverticulitis as you are doing with bowel rest, antibiotics and surgical intervention if necessary. 2. With regards to the neutropenia, I would not recommend doing anything other than monitoring her blood counts serially. If this is not improving quickly or if the infection is worsening, I would consider G-CSF therapy temporarily. 3. Anemia and thrombocytopenia is most likely also due to the chemotherapy and will continue to monitor this closely. The patient may need platelet transfusion if any evidence of continued bleeding and the platelet count drops below 50,000. BRIEF HISTORY: The patient is a 77-year-old female who was diagnosed with a breast cancer recently and underwent a lumpectomy and sentinel lymph node biopsy. She was diagnosed with stage I disease and the Oncotype DX Recurrence Score was elevated at 41. Because of this, she was recommended adjuvant chemotherapy and completed the first course with the Taxotere and Cytoxan regimen one week ago on Saturday. The patient did receive Neulasta on day 2 to prevent prolonged neutropenia. She presented to the emergency room with 1-day history of abdominal pain and an episode of hematochezia. She has had similar symptoms in the past with diverticulitis. She was evaluated in the emergency room and found to have diverticulitis and admitted to the hospital for further management. Repeat CBC done today showed neutropenia as well as pancytopenia and oncology consultation was obtained for concurrent management. 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 She was treated with adjuvant chemotherapy with TC regimen as mentioned above. History of diverticulosis and diverticulitis in the past. History of hypothyroidism diagnosed several years ago and on replacement. History of vertebral compression fracture and pain related to this. History of arthritis with low back and neck pain. Previous history of skin cancers. She has history of hypertension and is on treatment. SOCIAL HISTORY: The patient is , lives near [place]. She denied any tobacco or recreational drug use ever. She uses alcohol socially on rare occasions. FAMILY HISTORY: Significant for maternal grandfather and grandmother with malignancies in their later years. No other malignancies in the family that the patient knows of. PHYSICAL EXAMINATION: GENERAL: Today showed an elderly female, awake and oriented, in moderate distress due to the abdominal pain. VITAL SIGNS: Temperature was 98.5, pulse rate 79, respirations 18, blood pressure 97/53, oxygen saturation was 98% on 2 liters of oxygen by nasal cannula. HEENT: Normocephalic, extraocular muscles intact, conjunctivae pink, oral mucosa slightly dry. NECK: Supple, with no JVD. No cervical, supraclavicular or axillary lymphadenopathy palpable. CHEST: Showed right-sided port. LUNGS: Fairly clear to auscultation without wheezes or rales. HEART: Regular rate and rhythm. No murmurs or gallops heard. ABDOMEN: Soft with hypoactive sounds. The patient had tenderness in the left side of the abdomen with voluntary guarding and a deep palpation was not done. No definite hepatosplenomegaly palpable. EXTREMITIES: Showed no edema. NEUROLOGIC: Grossly intact without focal motor deficits. LABORATORY DATA: CBC done at the time of admission showed white count of 4.1, hemoglobin 13.2 and platelet count of 81,000 with neutrophil count 2.7. Repeat CBC done today morning showed total white count of 0.9, hemoglobin 10.8, platelet count 51,000 with neutrophil count 0.2. Chemistry panel showed normal electrolytes. BUN was 13 and creatinine 0.57 with GFR more than 60 mL per minute. Liver function studies were within normal limits. Albumin was below normal at 2.8. Lactic acid at the time of admission was normal at 1.75. Serum amylase was elevated at 201 and lipase elevated at 376. CT scan of the abdomen and pelvis done on 02/09/2018 during the emergency room visit showed sigmoid colon diverticulosis with wall thickening and surrounding inflammation compatible with acute diverticulitis. This involves approximately 10 cm of length of colon. No microperforation or adjacent abscess. No evidence of bowel obstruction. Thank you for allowing me to participate in this patient's care. I will follow the patient with you and make appropriate recommendations. Job ID: [id number] DocumentID: [id number] Dictated Date: 02/10/2018 18:10:36 Talent Recruiter Date: 02/10/2018 23:47:11 Dictated By: TC VILLALOBOS MD MTDD
[2018-02-11] VITALS: BP 110/51
[2018-02-11] MEDS: HYDROmorphone 2 MG/ML VIAL (DILAUDID) IVP PRN ×2 (03:05→07:39)
[2018-02-11 03:58] VITALS: BP 106/55
[2018-02-11] MEDS: NS IV 1000 ML 1,000 ML IV SCH ×2 (04:25→17:25)
[2018-02-11] MEDS: metroNIDAZOLE 500MG/100ML IVPB 100 ML IV SCH ×2 (04:25→16:18)
[2018-02-11] MEDS: CIPROFLOXACIN IV 400MG/200ML 200 ML IV SCH ×2 (06:18→17:24)
[2018-02-11 06:26] LABS: HEMATOCRIT 31 % (35-52); HEMOGLOBIN 10.2 G/DL (11.5-16.0); MEAN CORPUSCULAR HEMOGLOBIN 29 PG (25-34); MEAN CORPUSCULAR HGB CONC 33 G/DL (32-36); MEAN CORPUSCULAR VOLUME 89 FL (80-99); MEAN PLATELET VOLUME 11.4 FL (7.4-10.4); PLATELET COUNT 46 10^3/uL (130-400); RED BLOOD COUNT 3.48 10^6/uL (4.35-5.85); RED CELL DISTRIBUTION WIDTH 13.8 % (10.0-14.5)
[2018-02-11 06:35] LABS: WHITE BLOOD COUNT 0.9 10^3/uL (4.3-11.0)
[2018-02-11 06:49] LABS: ALANINE AMINOTRANSFERASE 8 U/L (0-55); ALBUMIN 2.5 GM/DL (3.2-4.5); ALKALINE PHOSPHATASE 60 U/L (40-136); BILIRUBIN,TOTAL 0.5 MG/DL (0.1-1.0); BUN/CREATININE RATIO 12; CALCIUM 7.3 MG/DL (8.5-10.1); CARBON DIOXIDE 24 MMOL/L (21-32); CHLORIDE 107 MMOL/L (98-107); CREATININE SERUM 0.57 MG/DL (0.60-1.30); GFR ESTIMATED > 60; GLUCOSE 90 MG/DL (70-105); POTASSIUM 3.4 MMOL/L (3.6-5.0); SODIUM 137 MMOL/L (135-145); TOTAL PROTEIN 4.4 GM/DL (6.4-8.2)
[2018-02-11] MEDS: ONDANSETRON 4 MG/2 ML (SDV) Z0FRAN IV PRN ×2 (06:53→18:15)
[2018-02-11 08:00] VITALS: BP 113/56
--- NOTE | 2018-02-11 09:52 | Progress Note-Hospitalist ---
Subjective HPI/CC On Admission Date Seen by Provider: February 11, 2018 Time Seen by Provider: 09:30 Pt is a 77yoCF well known to me with a history of diverticulitis and recently diagnosed breast cancer. She reports that her symptoms started yesterday where she had an upset stomach and did not feel like eating much. She continued to worsen and woke up this morning with severe abdominal pain and had bright red bloody stools prompting her to seek evaluation int he ER. She has had similar symptoms in the past when she has had diverticulitis. She has had some nausea and vomiting as well. Her pain has improved with pain medications here. She did receive her first round of chemotherapy early this week as well. Subjective/Events-last exam Patient still not feeling well Abdominal pain requiring Dilaudid every 3 hours so I did change that order Still nauseated All she wants is a hot shower and a arambula limeade of which I have approved both and talk to the nurse and will help her overall morale and spirits White blood cell count is still 0.9 but otherwise stable Appreciate Dr. Marie consultation along with Dr. Corbin consultation Antibiotics are still maintained Possible slow IV fluids down slightly Review of Systems General: Fatigue, Malaise Gastrointestinal: Nausea, Abdominal Pain Focused Exam Lactate Level 02/09/18 18:08: Lactic Acid Level 1.75 Objective Exam Vital Signs Vital Signs Date Time Temp Pulse Resp B/P (MAP) Pulse Ox O2 Delivery O2 Flow Rate FiO2 02/11/18 07:16 96 Nasal Cannula 2.00 02/11/18 03:58 99.2 83 16 106/55 (72) 02/09/18 16:29 28 Capillary Refill : Less Than 3 Seconds General Appearance: WD/WN, Chronically ill, Mild Distress, Obese Neck: Normal Inspection Respiratory: Lungs Clear, Normal Breath Sounds Cardiovascular: Regular Rate, Rhythm, No Edema Gastrointestinal: Soft, Tenderness (generalized) Back: Normal Inspection, No CVA Tenderness, No Vertebral Tenderness Extremity: Normal Capillary Refill, Normal Inspection, Normal Range of Motion, Non Tender, No Calf Tenderness, No Pedal Edema Neurologic/Psychiatric: Alert, Oriented x3, No Motor/Sensory Deficits, Normal Mood/Affect, 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 Imaging: Reviewed Imaging Report Assessment/Plan Assessment and Plan Assess & Plan/Chief Complaint Assessment: Severe sigmoid diverticulitis placed on appropriate antibiotics and Dr. Corbin consultation Severe abdominal pain with nausea due to diverticulitis Severe neutropenia due to chemotherapy 1 week prior at 0.[address] Marie Breast cancer status post left-sided lumpectomy 2 months ago Intolerance to multiple meds Nausea Plan: Dr. Corbin will evaluate the abdominal pain and we will DC the Fentanyl and increase the Dilaudid to Q3hrs Maintain low-dose Phenergan IM Check labs in a.m. Dr. Marie consultation Hot shower Arambula Limeade Diagnosis/Problems Diagnosis/Problems (1) Diverticulitis of intestine Status: Acute Qualifiers: Diverticulitis site: large intestine Diverticulitis bleeding: with bleeding Diverticulitis complication: without perforation or abscess Qualified Codes: K57.33 - Diverticulitis of large intestine without perforation or abscess with bleeding (2) Pain in the abdomen Status: Acute Qualifiers: Abdominal location: generalized Qualified Codes: R10.84 - Generalized abdominal pain (3) Breast cancer Status: Chronic Qualifiers: Breast location: unspecified site of breast Estrogen receptor status: unspecified Patient sex: female Laterality: left Qualified Codes: C50.912 - Malignant neoplasm of unspecified site of left female breast (4) Neutropenia Status: Acute Qualifiers: Neutropenia type: secondary to cancer chemotherapy Qualified Codes: D70.1 - Agranulocytosis secondary to cancer chemotherapy; T45.1X5A - Adverse effect of antineoplastic and immunosuppressive drugs, initial encounter (5) Nausea Status: Acute (6) Hematochezia Status: Acute Clinical Quality Measures DVT/VTE Risk/Contraindication: Risk Factor Score Per Nursin RFS Level Per Nursing on Admit: 4+=Very High VENKAT COOPER DO February 11, 2018 09:52
[2018-02-11] MEDS: HYDROmorphone 1 MG/ML (DILAUDID) 1 ML SYRINGE IV PRN ×4 (10:32→22:12)
[2018-02-11 12:00] VITALS: BP 117/56
--- NOTE | 2018-02-11 13:58 | Progress Note ---
Subjective Date Seen by Provider: February 11, 2018 Time Seen by Provider: 13:55 Subjective/Events-last exam patient still with pain left lower quadrant. no significant difference from yesterday. some fever. tolerating some ngo limeade. wanting real food. denies sweats chills shortness o f breath or chest pain. Focused Exam Lactate Level 02/09/18 18:08: Lactic Acid Level 1.75 Objective Exam Vital Signs Date Time Temp Pulse Resp B/P (MAP) Pulse Ox O2 Delivery O2 Flow Rate FiO2 02/11/18 12:55 100.4 02/11/18 12:23 101.8 02/11/18 12:00 100.0 91 16 117/56 (76) 98 Nasal Cannula 2.00 02/11/18 08:00 99.9 92 16 113/56 (75) 94 Nasal Cannula 2.00 02/11/18 07:16 96 Nasal Cannula 2.00 02/11/18 03:58 99.2 83 16 106/55 (72) 96 Nasal Cannula 2.00 02/11/18 00:00 97.4 99 17 110/51 (70) 99 Nasal Cannula 2.00 02/10/18 21:00 Nasal Cannula 2.00 02/10/18 20:10 88 Nasal Cannula 3.00 02/10/18 19:23 98.4 85 18 114/54 (74) 95 Nasal Cannula 2.00 02/10/18 16:34 93 18 101/64 (76) 97 Nasal Cannula 2.00 02/10/18 16:34 97.9 I & O 02/11/18 07:00 Intake Total 0 ml Output Total 3 ml Balance -3 ml Capillary Refill : Less Than 3 Seconds General Appearance: WD/WN, Chronically ill, Mild Distress, Obese HEENT: Normal ENT Inspection Neck: Normal Inspection Respiratory: Lungs Clear, Normal Breath Sounds Cardiovascular: Regular Rate, Rhythm, No Edema Gastrointestinal: soft; No guarding, No rebound; tenderness (left lower quadratn) Extremity: Normal Capillary Refill, Normal Inspection, Normal Range of Motion, Non Tender, No Calf Tenderness, No Pedal Edema Neurologic/Psychiatric: Alert, Oriented x3, No Motor/Sensory Deficits, Normal 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/Affect, 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 Norm as Tested Skin: Normal Color, Warm/Dry Lymphatic: No Adenopathy Results Lab Laboratory Tests 02/11/18 06:15: White Blood Count 0.9*L, Red Blood Count 3.48L, Hemoglobin 10.2L, Hematocrit 31L , Mean Corpuscular Volume 89, Mean Corpuscular Hemoglobin 29, Mean Corpuscular Hemoglobin Concent 33, Red Cell Distribution Width 13.8, Platelet Count 46L, Mean Platelet Volume 11.4H, Neutrophils (%) (Auto) , Lymphocytes (%) (Auto) , Monocytes (%) (Auto) , Eosinophils (%) (Auto) , Basophils (%) (Auto) , Neutrophils # (Auto) , Lymphocytes # (Auto) , Monocytes # (Auto) , Eosinophils # (Auto) , Basophils # (Auto) , Sodium Level 137, Potassium Level 3.4L, Chloride Level 107, Carbon Dioxide Level 24, Anion Gap 6, Blood Urea Nitrogen 7 , Creatinine 0.57L, Estimat Glomerular Filtration Rate > 60, BUN/Creatinine Ratio 12, Glucose Level 90, Calcium Level 7.3L, Total Bilirubin 0.5, Aspartate Amino Transf (AST/SGOT) 8, Alanine Aminotransferase (ALT/SGPT) 8, Alkaline Phosphatase 60, Total Protein 4.4L, Albumin 2.5L Assessment/Plan Assessment/Plan Assessment/Plan llq abdominal pain diverticulitis recent chemotherapy neutropenia blood in stool fever sips clears iv hydration on CIpro and flagyl repeat labs in am no surgical intervention at this time will follow Clinical Quality Measures DVT/VTE Risk/Contraindication: Risk Factor Score Per Nursin RFS Level Per Nursing on Admit: 4+=Very High CARLOS MEDRANO DO February 11, 2018 13:58
--- NOTE | 2018-02-11 14:21 | Physical Therapy Evaluation ---
PT Evaluation-General Medical Diagnosis Admission Date February 09, 2018 at 15:51 Medical Diagnosis: Diverticulitis Onset Date: February 09, 2018 Therapy Diagnosis Therapy Diagnosis: debility Height/Weight Height (Feet): 5 Height (Inches): 3.00 Weight (Pounds): 154 Weight (Ounces): 0.0 Precautions Precautions/Isolations: Standard Precautions Weight Bear Status Right Lower Extremity: Right Full Weight Bearing Left Lower Extremity: Left Full Weight Bearing Referral Physician: Darrin Reason for Referral: Evaluation/Treatment Medical History Pertinent Medical History: Arthritis, GERD (diverticulitis) Additional Medical History hypotension; breast cancer Current History ED with severe abdominal pain, N&V (had chemo 4 days prior to symptoms) Reviewed History: Yes Social History Home: Single Level Current Living Status: Alone Entry Into Home: Stairs With Railing PT Steps Into Home: 4 Prior/Core FIM Prior Level of Function Functional Shafter Measure 0=Not Assessed/NA 4=Minimal Assistance 1=Total Assistance 5=Supervision or Setup 2=Maximal Assistance 6=Modified Shafter 3=Moderate Assistance 7=Complete Shafter Bed Mobility: 7 Transfers (B,C,W/C) (FIM): 7 Gait: 7 PT Evaluation-Current Subjective Patient is very ready for PT. Patient reports decrease c/o abdominal pain this p.m. Pain Numeric Pain Scale: 5-Moderate Pain Location: Left, Lower Location Body Site: Abdomen Pain Description: Ache, Sharp Objective Patient Orientation: Normal For Age Problem Solving: Good Attachments: IV ROM/Strength ROM Lower Extremities bilateral LE WNL Strength Lower Extremities 4/5 bilaterally grossly Integumentary/Posture Integumentary refer to nursing notes Bowel Incontinence: No Bladder Incontinence: No Posture WFL Neuromuscular (Tone, Coordination, Reflexes) grossly intact with all Sensory Vision: Functional Hearing: Functional Sensation Right Lower Extremit: Intact Sensation Left Lower Extremity: Intact Transfers Functional Shafter Measure 0=Not Assessed/NA 4=Minimal Assistance 1=Total Assistance 5=Supervision or Setup 2=Maximal Assistance 6=Modified Shafter 3=Moderate Assistance 7=Complete Shafter Transfers (B, C, W/C) (FIM): 6 Scootin Rollin Supine to/from Sit: 6 Sit to/from Stand: 6 Gait Mode of Locomotion: Walk Anticipated Mode of Locomotion: Walk Gait (FIM): 6 Distance (FIM): 3=150 ft Distance: 225' Gait Level of Assist: 6 Gait Assistive Device: FWW Comments/Gait Description very slow, steady Balance Sitting Static: Normal Sitting Dynamic: Normal Standing Static: Normal Standing Dynamic: Normal Assessment/Needs 77 y.o. female, will be seen short term by skilled PT to address functional mobility to ensure safe return to home. Patient is currently limited by abdominal pain, however, is improving. Rehab Potential: Good PT Short Term Goals Short Term Goals Time Frame: February 14, 2018 Transfers (B,C,W/C) (FIM): 7 Gait (FIM): 7 Distance (FIM): 3=150 ft Gait Level of Assist: 7 Gait Assistive Device: None PT Plan Problem List Problem List: Activity Tolerance Treatment/Plan Treatment Plan: Continue Plan of Care Treatment Plan: Education, Functional Activity Jose Carlos, Functional Strength, Gait , Safety, Therapeutic Exercise, Transfers Treatment Duration: February 14, 2018 Frequency: 4 times per week Estimated Hrs Per Day: .25 hour per day Patient and/or Family Agrees t: Yes Discharge Recommendations Therapy D/C Recommendations: Home Independently Time/GCodes Time In: 1321 Time Out: 1341 Total Billed Treatment Time: 20 [facility] February 11, 2018 14:20
[2018-02-11 15:49] VITALS: BP 100/46
--- NOTE | 2018-02-11 18:46 | Progress Note-Standard ---
Standard Progress Note Progress Notes/Assess & Plan Date Seen by Provider: February 11, 2018 Time Seen by Provider: 18:38 Progress/Assessment & Plan 77-year-old female with stage I breast cancer, status post lumpectomy and sentinel lymph node biopsy with ER positive and HER-2/kathy negative tumor with elevated Oncotype DX recurrence score. Patient started on chemotherapy with Taxotere and Cytoxan regimen one week ago with Neulasta administered on day 2. Patient admitted to the hospital with diarrhea, hematochezia and abdominal pain. CT scan done at the emergency room consistent with diverticulitis. Patient noted to have grade 4 neutropenia yesterday. She is feeling better clinically today with the abdominal pain under better control. She had a temperature spike to more than 101F earlier today. She is on broad-spectrum antibiotics with ciprofloxacin and Flagyl. Surgical and medical evaluations noted. Laboratory Tests 02/11/18 06:15 Continued neutropenia and thrombocytopenia secondary to chemotherapy. Patient received Neulasta 6 days ago and we will continue to monitor the blood counts daily. She has no bleeding now and I will not recommend platelet transfusion at this time. Clinically better from the diverticulitis standpoint with decreased pain. Follow surgical recommendations. History of stage I breast cancer, status post lumpectomy and sentinel lymph node biopsy. Status post adjuvant chemotherapy with the Taxotere and Cytoxan regimen times one course completed a week ago along with the Neulasta on day 2. Will follow patient with you. Focused Exam Lactate Level 02/09/18 18:08: Lactic Acid Level 1.75 TC VILLALOBOS February 11, 2018 18:46
[2018-02-11 19:35] VITALS: BP 104/53
[2018-02-11] MEDS: HYOSCYAMINE 0.125 MG (LEVSIN) TAB PO PRN (22:11)
[2018-02-12] VITALS: BP 95/44
[2018-02-12] MEDS: ONDANSETRON 4 MG/2 ML (SDV) Z0FRAN IV PRN (01:57)
[2018-02-12] MEDS: HYDROmorphone 1 MG/ML (DILAUDID) 1 ML SYRINGE IV PRN ×3 (02:02→16:56)
[2018-02-12] MEDS: metroNIDAZOLE 500MG/100ML IVPB 100 ML IV SCH ×2 (03:35→16:45)
[2018-02-12 04:00] VITALS: BP 103/59
[2018-02-12] MEDS: CIPROFLOXACIN IV 400MG/200ML 200 ML IV SCH (05:42)
[2018-02-12] MEDS: NS IV 1000 ML 1,000 ML IV SCH ×2 (05:42→17:49)
[2018-02-12 06:08] LABS: BASOPHILS % (AUTO) 0 % (0-10); EOSINOPHILS % (AUTO) 0 % (0-10); HEMATOCRIT 29 % (35-52); HEMOGLOBIN 9.6 G/DL (11.5-16.0); MEAN CORPUSCULAR HEMOGLOBIN 29 PG (25-34); MEAN CORPUSCULAR HGB CONC 33 G/DL (32-36); MEAN CORPUSCULAR VOLUME 88 FL (80-99); MEAN PLATELET VOLUME 11.9 FL (7.4-10.4); MONOCYTES # (AUTO) 1.5 X 10^3 (0.0-1.0); MONOCYTES % (AUTO) 39 % (0-12); PLATELET COUNT 53 10^3/uL (130-400); RED BLOOD COUNT 3.29 10^6/uL (4.35-5.85); RED CELL DISTRIBUTION WIDTH 13.3 % (10.0-14.5); WHITE BLOOD COUNT 3.8 10^3/uL (4.3-11.0)
[2018-02-12 06:34] LABS: ALANINE AMINOTRANSFERASE 7 U/L (0-55); ALBUMIN 2.4 GM/DL (3.2-4.5); ALKALINE PHOSPHATASE 68 U/L (40-136); BILIRUBIN,TOTAL 0.3 MG/DL (0.1-1.0); BUN/CREATININE RATIO 9; CALCIUM 7.4 MG/DL (8.5-10.1); CARBON DIOXIDE 22 MMOL/L (21-32); CHLORIDE 106 MMOL/L (98-107); CREATININE SERUM 0.58 MG/DL (0.60-1.30); GFR ESTIMATED > 60; GLUCOSE 94 MG/DL (70-105); SODIUM 137 MMOL/L (135-145); TOTAL PROTEIN 4.1 GM/DL (6.4-8.2)
[2018-02-12 08:00] VITALS: BP 106/56
[2018-02-12] MEDS: PANTOPRAZOLE 40 MG/10 ML (PROTONIX) VIAL IV SCH (09:18)
--- NOTE | 2018-02-12 10:15 | Progress Note ---
Subjective Date Seen by Provider: February 12, 2018 Time Seen by Provider: 10:13 Subjective/Events-last exam Patient still having left lower quadrant abdominal pain that has no change. Moderate to severe pain. Patient also with right upper quadrant abdominal pain slightly she states. Just can't get comfortable. She states that she's tolerating liquids. She states that the [place]athon helped last night. She denies any new complaints. She denies any nausea vomiting fever sweats chills shortness of breath or chest pain. Focused Exam Lactate Level 02/09/18 18:08: Lactic Acid Level 1.75 Objective Exam Vital Signs Date Time Temp Pulse Resp B/P (MAP) Pulse Ox O2 Delivery O2 Flow Rate FiO2 02/12/18 08:00 97.4 107 18 106/56 (73) 97 Nasal Cannula 2.00 02/12/18 04:00 97.9 72 16 103/59 (74) 97 Room Air 02/12/18 00:00 98.0 85 18 95/44 (61) 95 Room Air 02/11/18 19:35 99.9 87 16 104/53 (70) 95 Room Air 02/11/18 15:49 99.9 85 16 100/46 (64) 96 Room Air 02/11/18 12:55 100.4 02/11/18 12:23 101.8 02/11/18 12:00 100.0 91 16 117/56 (76) 98 Nasal Cannula 2.00 I & O 02/12/18 07:00 Intake Total 1830 ml Output Total 600 ml Balance 1230 ml Capillary Refill : Less Than 3 Seconds General Appearance: WD/WN, Chronically ill, Mild Distress HEENT: Normal ENT Inspection Neck: Normal Inspection Respiratory: Lungs Clear, Normal Breath Sounds Cardiovascular: Regular Rate, Rhythm, No Edema Gastrointestinal: soft; No guarding, No rebound; tenderness (left lower quadrant, slight tenderness right upper quadrant) Extremity: Normal Capillary Refill, Normal Inspection, Normal Range of Motion, Non Tender, No Calf Tenderness, No Pedal Edema Neurologic/Psychiatric: Alert, Oriented x3, No Motor/Sensory Deficits, Normal Mood/Affect, 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 Norm as Tested Skin: Normal Color, Warm/Dry Lymphatic: No Adenopathy Results Lab Laboratory Tests 02/12/18 05:45: White Blood Count 3.8L, Red Blood Count 3.29L, Hemoglobin 9.6L, Hematocrit 29L, Mean Corpuscular Volume 88, Mean Corpuscular Hemoglobin 29, Mean Corpuscular Hemoglobin Concent 33, Red Cell Distribution Width 13.3, Platelet Count 53L, Mean Platelet Volume 11.9H, Neutrophils (%) (Auto) , Lymphocytes (%) (Auto) , Monocytes (%) (Auto) 39H, Eosinophils (%) (Auto) 0, Basophils (%) (Auto) 0, Neutrophils # (Auto) , Lymphocytes # (Auto) , Monocytes # (Auto) 1.5H, Eosinophils # (Auto) 0.0, Basophils # (Auto) 0.0, Sodium Level 137, Potassium Level 3.0L, Chloride Level 106, Carbon Dioxide Level 22, Anion Gap 9, Blood Urea Nitrogen 5L, Creatinine 0.58L, Estimat Glomerular Filtration Rate > 60, BUN /Creatinine Ratio 9, Glucose Level 94, Calcium Level 7.4L, Total Bilirubin 0.3, Aspartate Amino Transf (AST/SGOT) 8, Alanine Aminotransferase (ALT/SGPT) 7, Alkaline Phosphatase 68, Total Protein 4.1L, Albumin 2.4L Microbiology 02/12/18 C. difficile GDH Antigen & Toxins - Final, Complete Assessment/Plan Assessment/Plan Assessment/Plan llq abdominal pain diverticulitis recent chemotherapy neutropenia blood in stool fever Change back to nothing by mouth iv hydration on CIpro and flagyl will stop Cipro and start Zosyn repeat labs in am no surgical intervention at this time will follow Clinical Quality Measures DVT/VTE Risk/Contraindication: Risk Factor Score Per Nursin RFS Level Per Nursing on Admit: 4+=Very High CARLOS MEDRANO DO February 12, 2018 10:15
[2018-02-12] MEDS ORDERED: PIPERACILLIN SODIUM/TAZOBACTAM 4.5 GM in NS (IVPB) 100 ML IV NR (10:30)
--- NOTE | 2018-02-12 11:34 | Progress Note-Hospitalist ---
Subjective HPI/CC On Admission Date Seen by Provider: February 12, 2018 Time Seen by Provider: 10:00 Pt is a 77yoCF well known to me with a history of diverticulitis and recently diagnosed breast cancer. She reports that her symptoms started yesterday where she had an upset stomach and did not feel like eating much. She continued to worsen and woke up this morning with severe abdominal pain and had bright red bloody stools prompting her to seek evaluation int he ER. She has had similar symptoms in the past when she has had diverticulitis. She has had some nausea and vomiting as well. Her pain has improved with pain medications here. She did receive her first round of chemotherapy early this week as well. Subjective/Events-last exam Patient still struggling with the pain Noted amylase and lipase mildly elevated on 02/09/18 Patient is now nothing by mouth completely Zosyn will replace the current antibiotic regimen per Dr. Corbin Low potassium at 3.0 will be aggressively replaced with 80 mEq of IV potassium along with 2 g of magnesium empirically and will check magnesium level to today' s labs I instructed her to ambulate as much as possible and participating in physical therapy to begin recovery phase Dilaudid managing the pain fairly well No blood and diarrhea and the diarrhea has improved Review of Systems General: Fatigue, Malaise Gastrointestinal: Nausea, Abdominal Pain Focused Exam Lactate Level 02/09/18 18:08: Lactic Acid Level 1.75 Objective Exam Vital Signs Vital Signs Date Time Temp Pulse Resp B/P (MAP) Pulse Ox O2 Delivery O2 Flow Rate FiO2 02/12/18 08:00 97.4 107 18 106/56 (73) 97 Nasal Cannula 2.00 02/09/18 16:29 28 Capillary Refill : Less Than 3 Seconds General Appearance: WD/WN, Mild Distress (due to pain) Neck: Full Range of Motion, Normal Inspection Respiratory: Lungs Clear, Normal Breath Sounds Cardiovascular: Regular Rate, Rhythm, No Edema Gastrointestinal: Soft, Tenderness (generalized) Back: Normal Inspection, No CVA Tenderness, No Vertebral Tenderness Extremity: Normal Capillary Refill, Normal Inspection, Normal Range of Motion, Non Tender, No Calf Tenderness, No Pedal Edema Neurologic/Psychiatric: Alert, Oriented x3, No Motor/Sensory Deficits, Normal Mood/Affect Skin: Normal Color, Warm/Dry Lymphatic: No Adenopathy Results/Procedures Lab Laboratory Tests 02/12/18 05:45 Patient resulted labs reviewed. Imaging: Reviewed Imaging Report Assessment/Plan Assessment and Plan Assess & Plan/Chief Complaint Assessment: Severe sigmoid diverticulitis placed on appropriate antibiotics and Dr. Corbin consultation Acute pancreatitis Severe abdominal pain with nausea due to diverticulitis Severe neutropenia due to chemotherapy 1 week prior at 0.[address] Marie and now 3.6 Breast cancer status post left-sided lumpectomy 2 months ago Intolerance to multiple meds Nausea Plan: Dr. Corbin will evaluate the abdominal pain and we will DC the Fentanyl and increase the Dilaudid to Q3hrs Maintain low-dose Phenergan IM Check labs in a.m. Dr. Marie consultation NPO Recheck amylase and lipase Replace potassium Diagnosis/Problems Diagnosis/Problems (1) Diverticulitis of intestine Status: Acute Qualifiers: Diverticulitis site: large intestine Diverticulitis bleeding: with bleeding Diverticulitis complication: without perforation or abscess Qualified Codes: K57.33 - Diverticulitis of large intestine without perforation or abscess with bleeding (2) Pain in the abdomen Status: Acute Qualifiers: Abdominal location: generalized Qualified Codes: R10.84 - Generalized abdominal pain (3) Breast cancer Status: Chronic Qualifiers: Breast location: unspecified site of breast Estrogen receptor status: unspecified Patient sex: female Laterality: left Qualified Codes: C50.912 - Malignant neoplasm of unspecified site of left female breast (4) Neutropenia Status: Acute Qualifiers: Neutropenia type: secondary to cancer chemotherapy Qualified Codes: D70.1 - Agranulocytosis secondary to cancer chemotherapy; T45.1X5A - Adverse effect of antineoplastic and immunosuppressive drugs, initial encounter (5) Nausea Status: Acute (6) Hematochezia Status: Acute (7) Pancreatitis Status: Acute Qualifiers: Chronicity: acute Pancreatitis type: drug induced Acute pancreatitis complication: unspecified Qualified Codes: K85.30 - Drug induced acute pancreatitis without necrosis or infection (8) Hypokalemia Status: Acute Clinical Quality Measures DVT/VTE Risk/Contraindication: Risk Factor Score Per Nursin RFS Level Per Nursing on Admit: 4+=Very High VENKAT COOPER DO February 12, 2018 11:34
[2018-02-12 12:00] VITALS: BP 107/55
[2018-02-12 12:01] LABS: MAGNESIUM 1.5 MG/DL (1.8-2.4)
[2018-02-12] MEDS: POTASSIUM CL 10MEQ/50ML IVPB 50 ML IV SCH ×8 (12:16→22:11)
--- NOTE | 2018-02-12 15:53 | Physical Therapy Daily Note ---
PT Daily Note-Current Subjective Pt laying Supine in bed visiting with Son & friend upon arrival. Pt agrees to PT. Pain Numeric Pain Scale: 6 Location Body Site: Abdomen Pain Description: Ache, Tightness Mental Status Patient Orientation: Person, Place, Time, Situation Attachments: IV Transfers Functional [place] Measure 0=Not Assessed/NA 4=Minimal Assistance 1=Total Assistance 5=Supervision or Setup 2=Maximal Assistance 6=Modified [place] 3=Moderate Assistance 7=Complete IndependenceIRFPAI Quality Coding Scale 6 Independent with activity with or without an assistive device 5 Patient requires set up or clean up by helper. Patient completes activity by themselves 4 Supervision or touching assist (CGA). [place] provide cues , steadying assist 3 The helper provides less than half the effort to complete the activity 2 The helper provides more than half the effort to complete the activity 1 Dependent. The helper does all the effort to complete an activity 7 Patient refused to complete or attempt activity 9 The patient did not perform the activity before the current illness or injury 88 Not attempted due to Medical conditions or safety concerns Weight Bearing Right Lower Extremity: Right Full Weight Bearing Left Lower Extremity: Left Full Weight Bearing Exercises Supine Ex: Ankle pumps, Quad Set, Heel Slides, Straight leg raise, Hip abd/add Supine Reps: 15 Treatments FELLMONGERING MACHINE OPERATOR gave instruction on benefits of PT and how to complete Supine Ex. Pt completes Supine Ex. Pt rests at end of tx with all needs met, including call light next to pt. Assessment Current Status: Good Progress Pt reports less pain today and feeling better. Pt does report pain with Ex. PT Short Term Goals Short Term Goals Time Frame: February 14, 2018 Transfers (B,C,W/C) (FIM): 7 Gait (FIM): 7 Distance (FIM): 3=150 ft Gait Level of Assist: 7 Gait Assistive Device: None PT Plan Problem List Problem List: Activity Tolerance, Functional Strength, Bed Mobility Treatment/Plan Treatment Plan: Continue Plan of Care Treatment Plan: Education, Functional Activity Jose Carlos, Functional Strength, Gait , Safety, Therapeutic Exercise, Transfers Treatment Duration: February 14, 2018 Frequency: 4 times per week Estimated Hrs Per Day: .25 hour per day Patient and/or Family Agrees t: Yes Safety Risks/Education Patient Education: Correct Positioning, Safety Issues Teaching Recipient: Patient Teaching Methods: Demonstration, Discussion Response to Teaching: Verbalize Understanding Time/GCodes Time In: 1520 Time Out: 1545 Total Billed Treatment Time: 25 Total Billed Treatment 1, EX x2 (25m) G Codes Necessary: DOMINIC Galo FELLMONGERING MACHINE OPERATOR February 12, 2018 15:53
[2018-02-12 16:04] VITALS: BP 111/56
[2018-02-12] MEDS: MAGNESIUM 1 GM/100 ML IVPB 100 ML IV SCH ×2 (17:49→23:15)
--- NOTE | 2018-02-12 18:43 | Oncology Progress Note ---
Subjective Date Seen by Provider: February 12, 2018 Time Seen by Provider: 18:38 Subjective/Events-last exam Patient is feeling better and has not needed pain medications since 7:30 AM. Nausea improved. She was able to tolerate some clears earlier today. She feels weak and fatigued but has been able to work with physical therapy without issues. Review of Systems General: Fatigue, Malaise Pulmonary: No Dyspnea, No Cough, No Pleuritic Chest Pain Cardiovascular: No: Chest Pain, Palpitations, Orthopnea, Paroxysmal Noc. Dyspnea, Edema, Lt Headedness Gastrointestinal: Abdominal Pain, Diarrhea Genitourinary: No Dysuria, No Frequency, No Incontinence, No Hematuria, No Retention Musculoskeletal: No: other, neck pain, shoulder pain, arm pain, back pain, hand pain, leg pain, foot pain Neurological: No: Weakness, Numbness, Incoordination, Change in speech, Confusion, Seizures, Other Data Review Labs Laboratory Tests 02/12/18 05:45 Laboratory Tests 02/10/18 06:00: White Blood Count 0.9*L, Red Blood Count 3.66L, Hemoglobin 10.8L, Hematocrit 32L , Platelet Count 51L, Mean Platelet Volume 12.9H, Neutrophils (%) (Auto) 26L, Lymphocytes (%) (Auto) 58H, Monocytes (%) (Auto) 13H, Neutrophils # (Auto) 0.2L , Lymphocytes # (Auto) 0.5L, Anion Gap 4L, Creatinine 0.57L, Glucose Level 108H , Calcium Level 7.1L, Total Protein 4.5L, Albumin 2.8L 02/11/18 06:15: White Blood Count 0.9*L, Red Blood Count 3.48L, Hemoglobin 10.2L, Hematocrit 31L , Platelet Count 46L, Mean Platelet Volume 11.4H, Creatinine 0.57L, Calcium Level 7.3L, Total Protein 4.4L, Albumin 2.5L, Potassium Level 3.4L 02/12/18 05:45: White Blood Count 3.8L, Red Blood Count 3.29L, Hemoglobin 9.6L, Hematocrit 29L, Platelet Count 53L, Mean Platelet Volume 11.9H, Monocytes (%) (Auto) 39H, Creatinine 0.58L, Calcium Level 7.4L, Total Protein 4.1L, Albumin 2.4L, Potassium Level 3.0L, Monocytes # (Auto) 1.5H, Blood Urea Nitrogen 5L, Magnesium Level 1.5L, Amylase Level 12L Physical Exam Vital Signs Vital Signs - First Documented 02/09/18 02/09/18 02/09/18 10:15 12:21 16:29 Temp 98.0 Pulse 16 Resp 16 B/P (MAP) 110/71 (84) Pulse Ox 98 O2 Delivery Room Air O2 Flow Rate 3.00 FiO2 28 Capillary Refill : Less Than 3 Seconds General Appearance: No Apparent Distress, WD/WN HEENT: PERRL/EOMI, TMs Normal, Normal ENT Inspection, Pharynx Normal Neck: Normal Inspection Respiratory: Chest Non Tender, Lungs Clear, Normal Breath Sounds, No Accessory Muscle Use, No Respiratory Distress Cardiovascular: Regular Rate, Rhythm, No Murmur Gastrointestinal: Normal Bowel Sounds, No Organomegaly, Soft; No Guarding, No Rebound; Tenderness Extremity: Normal Inspection, Normal Range of Motion Neurologic/Psychiatric: Alert, Oriented x3, No Motor/Sensory Deficits, Normal Mood/Affect, rn assessment II-XII Norm as Tested Skin: Normal Color, Warm/Dry Impression & Plan Impression & Plan 77-year-old female with stage I breast cancer, status post lumpectomy and sentinel lymph node biopsy with ER positive and HER-2/kathy negative tumor with elevated Oncotype DX recurrence score. Patient started on chemotherapy with Taxotere and Cytoxan regimen one week ago with Neulasta administered on day 2. Patient admitted to the hospital with diarrhea, hematochezia and abdominal pain. CT scan done at the emergency room consistent with diverticulitis. Patient has been afebrile since yesterday afternoon and white count has normalized. She is on broad-spectrum antibiotics with Zosyn and Flagyl. Neutropenia and thrombocytopenia secondary to chemotherapy. Patient received Neulasta 7 days ago and has no indication for further growth factor support, and white count is normalizing (no neutrophil count in today's labs). Patient also without further bleeding. No need for platelet transfusion at this time. Continue to follow counts. Clinically better from the diverticulitis standpoint with decreased pain. Follow surgical recommendations. History of stage I breast cancer, status post lumpectomy and sentinel lymph node biopsy. Status post adjuvant chemotherapy with the Taxotere and Cytoxan regimen times one course completed a week ago along with the Neulasta on day 2. Will follow patient with you. Clinical Quality Measures DVT/VTE Risk/Contraindication: Risk Factor Score Per Nursin RFS Level Per Nursing on Admit: 4+=Very High BAILEE CHAVEZ MD February 12, 2018 18:43
[2018-02-12 19:18] VITALS: BP 116/52
[2018-02-12] MEDS: PIPERACILLIN SODIUM/TAZOBACTAM 4.5 GM in NS (IVPB) 100 ML IV SCH (19:21)
[2018-02-12] MEDS: ZOLPIDEM 5 MG (AMBIEN) TAB PO SCH (21:15)
[2018-02-13 00:11] VITALS: BP 105/52
[2018-02-13] MEDS: PIPERACILLIN SODIUM/TAZOBACTAM 4.5 GM in NS (IVPB) 100 ML IV SCH ×2 (01:28→08:42)
[2018-02-13] MEDS: NS IV 1000 ML 1,000 ML IV SCH ×3 (03:34→18:47)
[2018-02-13 04:12] VITALS: BP 101/56
[2018-02-13] MEDS: metroNIDAZOLE 500MG/100ML IVPB 100 ML IV SCH ×2 (05:04→16:46)
[2018-02-13] MEDS: HYDROmorphone 1 MG/ML (DILAUDID) 1 ML SYRINGE IV PRN ×2 (05:45→18:07)
[2018-02-13 05:56] LABS: HEMATOCRIT 30 % (35-52); HEMOGLOBIN 10.3 G/DL (11.5-16.0); MEAN CORPUSCULAR HEMOGLOBIN 30 PG (25-34); MEAN CORPUSCULAR HGB CONC 34 G/DL (32-36); MEAN CORPUSCULAR VOLUME 87 FL (80-99); MEAN PLATELET VOLUME 11.3 FL (7.4-10.4); PLATELET COUNT 77 10^3/uL (130-400); RED BLOOD COUNT 3.46 10^6/uL (4.35-5.85); RED CELL DISTRIBUTION WIDTH 13.9 % (10.0-14.5); WHITE BLOOD COUNT 19.4 10^3/uL (4.3-11.0)
[2018-02-13 06:28] LABS: ALANINE AMINOTRANSFERASE 10 U/L (0-55); ALBUMIN 2.4 GM/DL (3.2-4.5); ALKALINE PHOSPHATASE 69 U/L (40-136); BILIRUBIN,TOTAL 0.3 MG/DL (0.1-1.0); BUN/CREATININE RATIO 8; CALCIUM 7.6 MG/DL (8.5-10.1); CARBON DIOXIDE 19 MMOL/L (21-32); CHLORIDE 110 MMOL/L (98-107); CREATININE SERUM 0.61 MG/DL (0.60-1.30); GFR ESTIMATED > 60; GLUCOSE 65 MG/DL (70-105); POTASSIUM 3.5 MMOL/L (3.6-5.0); SODIUM 139 MMOL/L (135-145); TOTAL PROTEIN 4.5 GM/DL (6.4-8.2)
[2018-02-13 08:00] VITALS: BP 120/56
[2018-02-13] MEDS: PANTOPRAZOLE 40 MG/10 ML (PROTONIX) VIAL IV SCH (08:42)
--- NOTE | 2018-02-13 10:10 | Progress Note ---
Subjective Date Seen by Provider: February 13, 2018 Time Seen by Provider: 10:06 Subjective/Events-last exam Patient with decreased pain. 02/13 she states. She states she actually slept last night. WBC went up but received Neupogen last week. No fever. Denies sweats chills shortness of breath or chest pain. Objective Exam Vital Signs Date Time Temp Pulse Resp B/P (MAP) Pulse Ox O2 Delivery O2 Flow Rate FiO2 02/13/18 08:06 93 Room Air 02/13/18 08:00 97.4 79 18 120/56 (77) 95 Nasal Cannula 2.00 02/13/18 04:12 98.0 72 16 101/56 (71) 94 Nasal Cannula 2.00 02/13/18 00:11 97.8 77 17 105/52 (69) 93 Nasal Cannula 2.00 02/12/18 19:18 98.2 76 20 116/52 (73) 93 Nasal Cannula 2.00 02/12/18 19:10 94 Nasal Cannula 2.00 02/12/18 16:04 98.1 81 18 111/56 (74) 96 Nasal Cannula 2.00 02/12/18 12:00 97.9 80 18 107/55 (72) 99 Nasal Cannula 2.00 I & O 02/13/18 07:00 Intake Total 2200 ml Output Total 770 ml Balance 1430 ml Capillary Refill : Less Than 3 Seconds General Appearance: No Apparent Distress, WD/WN HEENT: PERRL/EOMI, Normal ENT Inspection Neck: Normal Inspection Respiratory: Chest Non Tender, No Accessory Muscle Use, No Respiratory Distress Cardiovascular: Regular Rate, Rhythm, No Murmur Gastrointestinal: soft; No guarding, No rebound; tenderness (left lower quadrant, improved from yesterday) Extremity: Normal Inspection, Normal Range of Motion Neurologic/Psychiatric: Alert, Oriented x3, No Motor/Sensory Deficits, Normal 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/Affect, 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-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 Norm as Tested Skin: Normal Color, Warm/Dry Lymphatic: No Adenopathy Results Lab Laboratory Tests 02/13/18 05:45: White Blood Count 19.4H, Red Blood Count 3.46L, Hemoglobin 10.3L, Hematocrit 30L , Mean Corpuscular Volume 87, Mean Corpuscular Hemoglobin 30, Mean Corpuscular Hemoglobin Concent 34, Red Cell Distribution Width 13.9, Platelet Count 77L, Mean Platelet Volume 11.3H, Neutrophils (%) (Auto) , Lymphocytes (%) (Auto) , Monocytes (%) (Auto) , Eosinophils (%) (Auto) 0, Basophils (%) (Auto) 1, Neutrophils # (Auto) , Lymphocytes # (Auto) , Monocytes # (Auto) , Eosinophils # (Auto) , Basophils # (Auto) 0.1, Sodium Level 139, Potassium Level 3.5L, Chloride Level 110H, Carbon Dioxide Level 19L, Anion Gap 10, Blood Urea Nitrogen 5L, Creatinine 0.61, Estimat Glomerular Filtration Rate > 60, BUN/ Creatinine Ratio 8, Glucose Level 65L, Calcium Level 7.6L, Total Bilirubin 0.3, Aspartate Amino Transf (AST/SGOT) 12, Alanine Aminotransferase (ALT/SGPT) 10, Alkaline Phosphatase 69, Total Protein 4.5L, Albumin 2.4L Microbiology 02/12/18 C. difficile GDH Antigen & Toxins - Final, Complete Assessment/Plan Assessment/Plan Assessment/Plan llq abdominal pain diverticulitis recent chemotherapy neutropenia- now with leukocytosis Neupogen last week blood in stool fever Sips of clears Iv hydration Zosyn/Flagyl repeat labs in am no surgical intervention at this time will follow Exam over all improving. Dr. Aguila will cover me through the weekend. Clinical Quality Measures DVT/VTE Risk/Contraindication: Risk Factor Score Per Nursin RFS Level Per Nursing on Admit: 4+=Very High CARLOS MEDRANO DO February 13, 2018 10:10
[2018-02-13] MEDS: POTASSIUM CL 10MEQ/50ML IVPB 50 ML IV SCH ×8 (10:22→17:52)
[2018-02-13] MEDS: MAGNESIUM 1 GM/100 ML IVPB 100 ML IV SCH ×2 (10:22→11:18)
--- NOTE | 2018-02-13 11:05 | Progress Note-Hospitalist ---
Subjective HPI/CC On Admission Date Seen by Provider: February 13, 2018 Time Seen by Provider: 09:30 Pt is a 77yoCF well known to me with a history of diverticulitis and recently diagnosed breast cancer. She reports that her symptoms started yesterday where she had an upset stomach and did not feel like eating much. She continued to worsen and woke up this morning with severe abdominal pain and had bright red bloody stools prompting her to seek evaluation int he ER. She has had similar symptoms in the past when she has had diverticulitis. She has had some nausea and vomiting as well. Her pain has improved with pain medications here. She did receive her first round of chemotherapy early this week as well. Subjective/Events-last exam Patient doing much better today Denies any fever Dr. Corbin will advance diet to clear liquids Overall feels much better and did not require any pain medication throughout the last night White count is up to 19,000 as rebound from neutropenia Loose stools remain but much improved Overall patient doing much better and potassium needs replaced again due to severe deficiency. Review of Systems General: Malaise Gastrointestinal: Abdominal Pain Objective Exam Vital Signs Vital Signs Date Time Temp Pulse Resp B/P (MAP) Pulse Ox O2 Delivery O2 Flow Rate FiO2 02/13/18 20:27 Room Air 02/13/18 20:00 98.4 81 20 122/58 (79) 96 2.00 02/09/18 16:29 28 Capillary Refill : Less Than 3 Seconds General Appearance: No Apparent Distress, WD/WN, Chronically ill, Obese Respiratory: Lungs Clear, Normal Breath Sounds Cardiovascular: Regular Rate, Rhythm, No Edema Gastrointestinal: Normal Bowel Sounds, No Pulsatile Mass, Soft, Tenderness ( Subtle tenderness LLQ) Extremity: Normal Capillary Refill, Normal Inspection, Normal Range of Motion, Non Tender, No Calf Tenderness, No Pedal Edema Neurologic/Psychiatric: Alert, Oriented x3, No Motor/Sensory Deficits, Normal Mood/Affect Skin: Normal Color, Warm/Dry Lymphatic: No Adenopathy Results/Procedures Lab Laboratory Tests 02/13/18 05:45 Patient resulted labs reviewed. Imaging: Reviewed Imaging Report Assessment/Plan Assessment and Plan Assess & Plan/Chief Complaint Assessment: Severe sigmoid diverticulitis placed on appropriate antibiotics and Dr. Corbin consultation now much improved and advancing diet Acute pancreatitis resolved Severe abdominal pain with nausea due to diverticulitis much improved Severe neutropenia due to chemotherapy 1 week prior at 0.[address] Marie and now 3.6 and today 19 K Breast cancer status post left-sided lumpectomy 2 months ago Intolerance to multiple meds Nausea Plan: Maintain low-dose Phenergan IM Check labs in a.m. Dr. Marie consultation CLD Replace potassium, Mg Diagnosis/Problems Diagnosis/Problems (1) Diverticulitis of intestine Status: Acute Qualifiers: Diverticulitis site: large intestine Diverticulitis bleeding: with bleeding Diverticulitis complication: without perforation or abscess Qualified Codes: K57.33 - Diverticulitis of large intestine without perforation or abscess with bleeding (2) Pain in the abdomen Status: Acute Qualifiers: Abdominal location: generalized Qualified Codes: R10.84 - Generalized abdominal pain (3) Breast cancer Status: Chronic Qualifiers: Breast location: unspecified site of breast Estrogen receptor status: unspecified Patient sex: female Laterality: left Qualified Codes: C50.912 - Malignant neoplasm of unspecified site of left female breast (4) Neutropenia Status: Resolved Qualifiers: Neutropenia type: secondary to cancer chemotherapy Qualified Codes: D70.1 - Agranulocytosis secondary to cancer chemotherapy; T45.1X5A - Adverse effect of antineoplastic and immunosuppressive drugs, initial encounter (5) Nausea Status: Resolved (6) Hematochezia Status: Resolved (7) Pancreatitis Status: Resolved Qualifiers: Chronicity: acute Pancreatitis type: drug induced Acute pancreatitis complication: unspecified Qualified Codes: K85.30 - Drug induced acute pancreatitis without necrosis or infection (8) Hypokalemia Status: Acute Clinical Quality Measures DVT/VTE Risk/Contraindication: Risk Factor Score Per Nursin RFS Level Per Nursing on Admit: 4+=Very High VENKAT COOPER DO February 13, 2018 11:05
--- NOTE | 2018-02-13 11:18 | Physical Therapy Daily Note ---
PT Daily Note-Current Subjective Patient reports she is feeling better. Pain Numeric Pain Scale: 3 Location: Left, Lower Location Body Site: Abdomen Pain Description: Ache Mental Status Patient Orientation: Normal For Age Attachments: IV Transfers Functional [place] Measure 0=Not Assessed/NA 4=Minimal Assistance 1=Total Assistance 5=Supervision or Setup 2=Maximal Assistance 6=Modified [place] 3=Moderate Assistance 7=Complete IndependenceIRFPAI Quality Coding Scale 6 Independent with activity with or without an assistive device 5 Patient requires set up or clean up by helper. Patient completes activity by themselves 4 Supervision or touching assist (CGA). [place] provide cues , steadying assist 3 The helper provides less than half the effort to complete the activity 2 The helper provides more than half the effort to complete the activity 1 Dependent. The helper does all the effort to complete an activity 7 Patient refused to complete or attempt activity 9 The patient did not perform the activity before the current illness or injury 88 Not attempted due to Medical conditions or safety concerns Transfers (B, C, W/C) (FIM): 6 Scootin Rollin Supine to/from Sit: 6 Sit to/from Stand: 6 Bed to/from Chair: 6 Weight Bearing Right Lower Extremity: Right Full Weight Bearing Left Lower Extremity: Left Full Weight Bearing Gait Training Gait (FIM): 6 Distance (FIM): 3=150 ft Distance: 350' Gait Level of Assist: 6 Gait Assistive Device: FWW safe, functional, slow, steady Assessment Patient requires time to complete all functional tasks and is progressing with treatment plan. PT Short Term Goals Short Term Goals Time Frame: February 14, 2018 Transfers (B,C,W/C) (FIM): 7 Gait (FIM): 7 Distance (FIM): 3=150 ft Gait Level of Assist: 7 Gait Assistive Device: None PT Plan Treatment/Plan Treatment Plan: Continue Plan of Care Treatment Plan: Education, Functional Activity Jose Carlos, Functional Strength, Gait , Safety, Therapeutic Exercise, Transfers Treatment Duration: February 14, 2018 Frequency: 4 times per week Estimated Hrs Per Day: .25 hour per day Patient and/or Family Agrees t: Yes Time/GCodes Time In: 950 Time Out: 1013 Total Billed Treatment Time: 23 Total Billed Treatment 1 visit FA x 2 23 min TIMOTEO SEARS PT February 13, 2018 11:18
[2018-02-13 12:00] VITALS: BP 155/52
[2018-02-13 16:00] VITALS: BP 132/60
[2018-02-13] MEDS: PIPERACILLIN SODIUM/TAZOBACTAM 4.5 GM/D5W 100 ML IV SCH ×2 (16:45)
--- NOTE | 2018-02-13 17:59 | Oncology Progress Note ---
Subjective Date Seen by Provider: February 13, 2018 Time Seen by Provider: 12:15 Subjective/Events-last exam Patient is doing well this morning. She has been unable to sleep since admission but received Ambien last night. She slept straight through the night until 6am and feels well rested. Bowel movements are improved and she is tolerating slow advancement of diet. Data Review Labs Laboratory Tests 02/13/18 05:45 Laboratory Tests 02/11/18 06:15: White Blood Count 0.9*L, Red Blood Count 3.48L, Hemoglobin 10.2L, Hematocrit 31L , Platelet Count 46L, Mean Platelet Volume 11.4H, Potassium Level 3.4L, Creatinine 0.57L, Calcium Level 7.3L, Total Protein 4.4L, Albumin 2.5L 02/12/18 05:45: White Blood Count 3.8L, Red Blood Count 3.29L, Hemoglobin 9.6L, Hematocrit 29L, Platelet Count 53L, Mean Platelet Volume 11.9H, Potassium Level 3.0L, Creatinine 0.58L, Calcium Level 7.4L, Total Protein 4.1L, Albumin 2.4L, Monocytes (%) (Auto) 39H, Monocytes # (Auto) 1.5H, Blood Urea Nitrogen 5L, Magnesium Level 1.5L, Amylase Level 12L 02/13/18 05:45: White Blood Count 19.4H, Red Blood Count 3.46L, Hemoglobin 10.3L, Hematocrit 30L , Platelet Count 77L, Mean Platelet Volume 11.3H, Potassium Level 3.5L, Calcium Level 7.6L, Total Protein 4.5L, Albumin 2.4L, Blood Urea Nitrogen 5L, Chloride Level 110H, Carbon Dioxide Level 19L, Glucose Level 65L Physical Exam Vital Signs Vital Signs - First Documented 02/09/18 02/09/18 02/09/18 10:15 12:21 16:29 Temp 98.0 Pulse 16 Resp 16 B/P (MAP) 110/71 (84) Pulse Ox 98 O2 Delivery Room Air O2 Flow Rate 3.00 FiO2 28 Capillary Refill : Less Than 3 Seconds General Appearance: No Apparent Distress, WD/WN HEENT: PERRL/EOMI, Normal ENT Inspection, Pharynx Normal, Moist Mucous Membranes Neck: Normal Inspection Respiratory: Chest Non Tender, Lungs Clear, Normal Breath Sounds, No Accessory Muscle Use, No Respiratory Distress Cardiovascular: Regular Rate, Rhythm Gastrointestinal: Normal Bowel Sounds, No Organomegaly, No Pulsatile Mass, Non Tender, Soft Back: Normal Inspection Extremity: Normal Inspection, Normal Range of Motion, Non Tender Neurologic/Psychiatric: Alert, Oriented x3, No Motor/Sensory Deficits, Normal Mood/Affect Skin: Warm/Dry, Pallor Impression & Plan Impression & Plan 77-year-old female with stage I breast cancer, status post lumpectomy and sentinel lymph node biopsy with ER positive and HER-2/kathy negative tumor with elevated Oncotype DX recurrence score. Patient started on chemotherapy with Taxotere and Cytoxan regimen one week ago with Neulasta administered on day 2. Patient admitted to the hospital with diarrhea, hematochezia and abdominal pain. CT scan done at the emergency room consistent with diverticulitis. Patient has been afebrile since nearly 2 days ago and white count is high. She is on broad-spectrum GI coverage antibiotics with Zosyn and Flagyl. Neutropenia and thrombocytopenia secondary to chemotherapy. Patient received Neulasta 8 days ago and now has a mild to moderate leukocytosis. This degree of leukocytosis is not uncommon with use of growth factor support. Platelets also recovering from chemotherapy. Fever has resolved. From oncology perspective, patient is close to discharge. Clinically better from the diverticulitis standpoint with decreased pain. Follow surgical recommendations. History of stage I breast cancer, status post lumpectomy and sentinel lymph node biopsy. Status post adjuvant chemotherapy with the Taxotere and Cytoxan regimen times one course completed a week ago along with the Neulasta on day 2. Will follow patient with you. Clinical Quality Measures DVT/VTE Risk/Contraindication: Risk Factor Score Per Nursin RFS Level Per Nursing on Admit: 4+=Very High BAILEE CHAVEZ MD February 13, 2018 17:59
[2018-02-13] MEDS: ONDANSETRON 4 MG/2 ML (SDV) Z0FRAN IV PRN (19:40)
[2018-02-13 20:00] VITALS: BP 122/58
[2018-02-13] MEDS: ZOLPIDEM 5 MG (AMBIEN) TAB PO SCH (20:49)
[2018-02-14 00:20] VITALS: BP 125/66
[2018-02-14] MEDS ORDERED: NYSTATIN ORAL SUSP 5 ML UDC ONE (01:16)
[2018-02-14] MEDS: PIPERACILLIN SODIUM/TAZOBACTAM 4.5 GM/D5W 100 ML IV SCH ×4 (01:39→09:03)
[2018-02-14] MEDS: NYSTATIN ORAL SUSP 5 ML UDC PO SCH ×2 (01:39→08:08)
[2018-02-14 04:35] VITALS: BP 119/56
[2018-02-14] MEDS: NS IV 1000 ML 1,000 ML IV SCH (05:11)
[2018-02-14] MEDS: HYOSCYAMINE 0.125 MG (LEVSIN) TAB PO PRN (05:11)
[2018-02-14] MEDS: metroNIDAZOLE 500MG/100ML IVPB 100 ML IV SCH (05:54)
[2018-02-14] MEDS: ONDANSETRON 4 MG/2 ML (SDV) Z0FRAN IV PRN (06:58)
[2018-02-14 07:04] LABS: HEMATOCRIT 32 % (35-52); HEMOGLOBIN 10.5 G/DL (11.5-16.0); MEAN CORPUSCULAR HEMOGLOBIN 29 PG (25-34); MEAN CORPUSCULAR HGB CONC 33 G/DL (32-36); MEAN CORPUSCULAR VOLUME 87 FL (80-99); MEAN PLATELET VOLUME 11.6 FL (7.4-10.4); PLATELET COUNT 91 10^3/uL (130-400); RED BLOOD COUNT 3.62 10^6/uL (4.35-5.85)
[2018-02-14 07:17] LABS: WHITE BLOOD COUNT 46.7 10^3/uL (4.3-11.0)
[2018-02-14 07:22] LABS: ALANINE AMINOTRANSFERASE 9 U/L (0-55); ALBUMIN 2.5 GM/DL (3.2-4.5); ALKALINE PHOSPHATASE 81 U/L (40-136); BILIRUBIN,TOTAL 0.4 MG/DL (0.1-1.0); BUN/CREATININE RATIO 5; CALCIUM 7.5 MG/DL (8.5-10.1); CARBON DIOXIDE 21 MMOL/L (21-32); CHLORIDE 107 MMOL/L (98-107); CREATININE SERUM 0.62 MG/DL (0.60-1.30); GFR ESTIMATED > 60; GLUCOSE 84 MG/DL (70-105); POTASSIUM 3.9 MMOL/L (3.6-5.0); SODIUM 137 MMOL/L (135-145); TOTAL PROTEIN 4.6 GM/DL (6.4-8.2)
[2018-02-14 07:51] LABS: SMEAR SCAN COMMENT YES
[2018-02-14 07:56] LABS: ANISOCYTOSIS SLIGHT; BAND NEUTROPHILS 19 %; LYMPHOCYTES % (MANUAL) 9 %; METAMYELOCYTES % 15 %; MONOCYTES % (MANUAL) 7 %; MYELOCYTES % 6 %; NEUTROPHILS % (MANUAL) 42 %; PROMYELOCYTES % 2 %
[2018-02-14 08:00] VITALS: BP 141/63
[2018-02-14 08:06] LABS: HEMATOCRIT 33 % (35-52); HEMOGLOBIN 11.1 G/DL (11.5-16.0); MEAN CORPUSCULAR HEMOGLOBIN 30 PG (25-34); MEAN CORPUSCULAR HGB CONC 34 G/DL (32-36); MEAN CORPUSCULAR VOLUME 87 FL (80-99); MEAN PLATELET VOLUME 11.2 FL (7.4-10.4); PLATELET COUNT 85 10^3/uL (130-400); RED BLOOD COUNT 3.76 10^6/uL (4.35-5.85); RED CELL DISTRIBUTION WIDTH 14.1 % (10.0-14.5)
[2018-02-14] MEDS: HYDROmorphone 1 MG/ML (DILAUDID) 1 ML SYRINGE IV PRN (08:07)
[2018-02-14] MEDS: PANTOPRAZOLE 40 MG/10 ML (PROTONIX) VIAL IV SCH (08:08)
[2018-02-14 08:15] LABS: WHITE BLOOD COUNT 43.6 10^3/uL (4.3-11.0)
--- NOTE | 2018-02-14 11:11 | Discharge Summary-Hospitalist ---
Diagnosis/Chief Complaint Date of Admission February 09, 2018 at 15:51 Date of Discharge Discharge Date: February 14, 2018 Admission Diagnosis Diverticulitis Discharge Diagnosis (1) Diverticulitis of intestine Status: Acute (2) Pain in the abdomen Status: Acute (3) Breast cancer Status: Chronic (4) Neutropenia Status: Resolved (5) Nausea Status: Resolved (6) Hematochezia Status: Resolved (7) Pancreatitis Status: Resolved (8) Hypokalemia Status: Acute Discharge Summary Discharge Physical Exam Allergies: Coded Allergies: bisacodyl (Verified Allergy, Mild, JITTERS/RED RASH, 01/30/18) polyethylene glycol 3350 (Verified Allergy, Mild, JITTERS/RED RASH, ) potassium chloride (Verified Allergy, Mild, JITTERS/RED RASH, 01/30/18) sodium bicarbonate (Verified Allergy, Mild, JITTERS/RED RASH, 01/30/18) sodium chloride (Verified Allergy, Mild, JITTERS/RED RASH, 01/30/18) scopolamine (Verified Allergy, Unknown, NECK PAIN/NERVE DAMAGE, 02/10/18) thiopental (Verified Allergy, Unknown, 01/30/18) Vitals & I&Os Vital Signs Date Time Temp Pulse Resp B/P (MAP) Pulse Ox O2 Delivery O2 Flow Rate FiO2 02/14/18 10:08 98.5 02/14/18 08:00 80 18 141/63 (89) 95 Nasal Cannula 2.00 02/09/18 16:29 28 General Appearance: Alert, Oriented X3, Cooperative, Mild Distress Respiratory: Clear to Auscultation, Normal Air Movement Cardiovascular: Regular Rate, Normal S1, Normal S2 Abdominal: Other (Tenderness generalized) Hospital Course Hospital course: Patient had a very complicated and lengthy hospital course she was admitted for acute diverticulitis and neutropenic fever due to chemotherapy initiated several days before admission. Surgery consultation was completed patient was placed on empiric antibiotics and oncology was consulted which gave neutrophil boosting agent and provided supportive care and pain medication. Overall patient had significant slow recovery although pancreatitis resolved and overall clinically is much improved but on day of planned discharge she felt too debilitated and weak and was not having a good day so she was placed on swing bed status and will be monitored closely and fully supported to be able to return home at the first of the week. Physical therapy was initiated that very minimal motivation so encouraged to ambulate as much as possible and we'll monitor closely in the meantime. Labs (last 24 hrs) Laboratory Tests 02/14/18 06:50: White Blood Count 46.7*H, Red Blood Count 3.62L, Hemoglobin 10.5L, Hematocrit 32L, Mean Corpuscular Volume 87, Mean Corpuscular Hemoglobin 29, Mean Corpuscular Hemoglobin Concent 33, Red Cell Distribution Width 14.0, Platelet Count 91L, Mean Platelet Volume 11.6H, Neutrophils (%) (Auto) , Lymphocytes (%) (Auto) , Monocytes (%) (Auto) , Eosinophils (%) (Auto) , Basophils (%) (Auto) , Neutrophils # (Auto) , Lymphocytes # (Auto) , Monocytes # (Auto) , Eosinophils # (Auto) , Basophils # (Auto) , Neutrophils % (Manual) 42, Lymphocytes % (Manual ) 9, Monocytes % (Manual) 7, Metamyelocytes % 15, Myelocytes % 6, Promyelocytes % 2, Band Neutrophils 19, Anisocytosis SLIGHT, Sodium Level 137, Potassium Level 3.9, Chloride Level 107, Carbon Dioxide Level 21, Anion Gap 9, Blood Urea Nitrogen 3L, Creatinine 0.62, Estimat Glomerular Filtration Rate > 60, BUN/ Creatinine Ratio 5, Glucose Level 84, Calcium Level 7.5L, Total Bilirubin 0.4, Aspartate Amino Transf (AST/SGOT) 15, Alanine Aminotransferase (ALT/SGPT) 9, Alkaline Phosphatase 81, Total Protein 4.6L, Albumin 2.5L, Smear Scan YES 02/14/18 07:45: White Blood Count 43.6*H, Red Blood Count 3.76L, Hemoglobin 11.1L, Hematocrit 33L, Mean Corpuscular Volume 87, Mean Corpuscular Hemoglobin 30, Mean Corpuscular Hemoglobin Concent 34, Red Cell Distribution Width 14.1, Platelet Count 85L, Mean Platelet Volume 11.2H, Neutrophils (%) (Auto) , Lymphocytes (%) (Auto) , Monocytes (%) (Auto) , Eosinophils (%) (Auto) , Basophils (%) (Auto) , Neutrophils # (Auto) , Lymphocytes # (Auto) , Monocytes # (Auto) , Eosinophils # (Auto) , Basophils # (Auto) Microbiology 02/12/18 C. difficile [facility] Antigen & Toxins - Final, Complete Patient resulted labs reviewed. Pending Labs Imaging: Reviewed Imaging Report Discussion & Recommendations Discharge Planning: <30 minutes discharge planning Discharge Home Medications: Active Scripts Active Reported Ondansetron HCl 8 Mg Tablet 8 Mg PO TID PRN Prochlorperazine Maleate 10 Mg Tablet 10 Mg PO Q6H PRN Dulcolax Stool Softener (Docusate Sodium) 100 Mg Capsule 100-200 Mg PO Q48H TAKES 1-2 OF A (100 MG) CAPSULE WITH LINZESS Linzess (Linaclotide) 72 Mcg Capsule 72 Mcg PO Q48H Zolpidem Tartrate 10 Mg Tablet 10 Mg PO HS Levothyroxine Sodium 100 Mcg Tablet 100 Mcg PO DAILY Instructions to patient/family Please see electronic discharge instructions given to patient. Clinical Quality Measures DVT/VTE Risk/Contraindication: Risk Factor Score Per Nursin RFS Level Per Nursing on Admit: 4+=Very High Problem Qualifiers (1) Diverticulitis of intestine: Diverticulitis site: large intestine Diverticulitis bleeding: with bleeding Diverticulitis complication: without perforation or abscess Qualified Codes: K57.33 - Diverticulitis of large intestine without perforation or abscess with bleeding (2) Pain in the abdomen: Abdominal location: generalized Qualified Codes: R10.84 - Generalized abdominal pain (3) Breast cancer: Breast location: unspecified site of breast Estrogen receptor status: unspecified Patient sex: female Laterality: left Qualified Codes: C50.912 - Malignant neoplasm of unspecified site of left female breast (4) Neutropenia: Neutropenia type: secondary to cancer chemotherapy Qualified Codes: D70.1 - Agranulocytosis secondary to cancer chemotherapy; T45.1X5A - Adverse effect of antineoplastic and immunosuppressive drugs, initial encounter (5) Pancreatitis: Chronicity: acute Pancreatitis type: drug induced Acute pancreatitis complication: unspecified Qualified Codes: K85.30 - Drug induced acute pancreatitis without necrosis or infection VENKAT COOPER DO February 14, 2018 11:11
== END 2018-02-14 11:10 | disposition swing bed (61) | DRG 377 ==
LOC: EDUNIT# 09:54 → ER 09:56 → UNDOADMOB 14:30 → 4TH 14:30 → OBSVTOIN 14:30 → INTOOBSV 14:30 → OBSVTOIN 15:51 → 4TH 15:51 → INTOOBSV 15:51 → OBSVTOIN 02-11 09:45 → UNDODISIN 02-14 11:10
PROVIDERS: ADMIT Family Medicine; ATTEND Family Medicine
DX: K57.33 Diverticulitis of large intestine without perforation or abscess with bleeding (principal); K85.30 Drug induced acute pancreatitis without necrosis or infection; D70.1 Agranulocytosis secondary to cancer chemotherapy; E87.6 Hypokalemia; R31.9 Hematuria, unspecified; C50.912 Malignant neoplasm of unspecified site of left female breast; E03.9 Hypothyroidism, unspecified; I10 Essential (primary) hypertension; K59.09 Other constipation; M19.91 Primary osteoarthritis, unspecified site; T45.1X5A Adverse effect of antineoplastic and immunosuppressive drugs, initial encounter; Z17.0 Estrogen receptor positive status [ER+]; Z87.442 Personal history of urinary calculi; Z87.11 Personal history of peptic ulcer disease; Z85.828 Personal history of other malignant neoplasm of skin
CPT/HCPCS: 36415; 74176; 80053; 81000; 82150; 83605; 83690; 83735; 85007; 85025; 85027; 87324; 87449; 94760; 96361; 96374; 96375; 96376; G0378

== ENCOUNTER 2018-02-14 09:38 | Inpatient (IN) | payer MEDICARE, OTHER ==
[~2018-02-14] VITALS: Ht 160 cm; Wt 69.9 kg
[~2018-02-14 09:38] MED LIST changes: +ONDA8TAB12 PO; +PANT20TA3 PO; +PROC10TA10 PO
[2018-02-14] MEDS ORDERED: RT-ALBUTEROL SULF 2.5 MG/3 ML PRE-MIX VIAL INH PRN (11:15)
[2018-02-14] MEDS ORDERED: PROMETHAZINE INJ 25 MG/ML (PHENERGAN) AMP IM PRN (11:15)
[2018-02-14] MEDS ORDERED: metroNIDAZOLE 500MG/100ML IVPB 100 ML IV SCH (11:15)
[2018-02-14] MEDS ORDERED: CATHETER FLUSH 10 ML SYR IV PRN (11:15)
[2018-02-14] MEDS ORDERED: ACETAMINOPHEN 325 MG TABLET/CAPLET (TYLENOL) PO PRN (11:15)
--- OUTSIDE RECORDS SUMMARY | 2018-02-14 11:24 | XMS REPORT | Clinical Summary ---
Author Author [facility] Organization [facility] Address Unknown Phone Unavailable Care Team Providers Care Design Technology Professor Name Role Phone Eliu Riley MD Unavailable Unverified, Unverified Md PCP Unavailable Source Comments Some departments are not documenting in the electronic medical record. If you do not see the information that you expected, contact Release of Information in the Health Information Management department at [phone] for further assistance in locating additional records.[facility] Allergies Active Allergy Reactions Severity Noted Date [...] Taken Blood Pressure 144/78 10/05/2013 8:24 AM [employer] Pulse 72 10/05/2013 8:24 AM [employer] Temperature - - Respiratory Rate 16 08/14/2012 12:53 PM [employer] Oxygen Saturation - - Inhaled Oxygen - - Concentration Weight 77.6 kg (171 lb) 10/05/2013 8:24 AM [employer] Height 160 cm (5' 3") 10/05/2013 8:24 AM [employer] Body Mass Index 30.29 10/05/2013 8:24 AM [employer] Plan of Treatment Health Maintenance Due Date Last Done Comments PHYSICAL (COMPREHENSIVE) 1947 EXAM PERTUSSIS VACCINE 1953 TETANUS VACCINE 1959 COLORECTAL CANCER 1992 SCREENING SHINGLES VACCINE 2002 OSTEOPOROSIS SCREENING 2007 PREVNAR/PNEUMOVAX (#1) 2007 INFLUENZA VACCINE 07/07/2018 Results Not on filefrom Last 3 Months
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
[2018-02-14] MEDS ORDERED: PIPERACILLIN SODIUM/TAZOBACTAM 4.5 GM in D5W 100 ML IVPB 100 ML IV NR (11:29)
--- NOTE | 2018-02-14 11:31 | Progress Note ---
Subjective Time Seen by Provider: 10:40 Subjective/Events-last exam Pt seen and examined, her main complaint is of weakness and she was worried about her high WBC. She thinks her abdominal pain is better than yesterday. She is also concerned because she has had "green" BM; which are very loose and she is too weak to make it to the commode fast enough. Pt denies any N/V. Pt denies hematochezia. Review of Systems General: No Chills, No Night Sweats; Fatigue, Malaise, Appetite (not very hungry) Pulmonary: No Dyspnea, No Cough Cardiovascular: No: Chest Pain, Palpitations Gastrointestinal: Abdominal Pain; No: Nausea, Vomiting Objective Exam Capillary Refill : General Appearance: No Apparent Distress, Chronically ill HEENT: PERRL/EOMI, Pharynx Normal Respiratory: Chest Non Tender, Lungs Clear, Normal Breath Sounds, No Accessory Muscle Use, No Respiratory Distress Cardiovascular: Regular Rate, Rhythm, No Edema, No Murmur Gastrointestinal: soft, no organomegaly, guarding (voluntary); No rebound; tenderness (more in LLQ) Extremity: No Calf Tenderness, No Pedal Edema Neurologic/Psychiatric: Alert, Oriented x3, No Motor/Sensory Deficits, Normal 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
[2018-02-14] MEDS: NS IV 1000 ML 1,000 ML IV SCH ×2 (12:06→22:26)
[2018-02-14] MEDS: NYSTATIN ORAL SUSP 5 ML UDC PO SCH ×3 (13:16→21:58)
--- NOTE | 2018-02-14 15:31 | Physical Therapy Evaluation ---
PT Evaluation-General Medical Diagnosis Admission Date February 14, 2018 at 11:13 Medical Diagnosis: diverticulitis Onset Date: February 09, 2018 Therapy Diagnosis Therapy Diagnosis: debility Height/Weight Height (Feet): 5 Height (Inches): 3.00 Weight (Pounds): 154 Weight (Ounces): 0.0 Precautions Precautions/Isolations: Standard Precautions Weight Bear Status Right Lower Extremity: Right Full Weight Bearing Left Lower Extremity: Left Full Weight Bearing Referral Physician: Darrin Reason for Referral: Evaluation/Treatment Medical History Pertinent Medical History: Arthritis, GERD Additional Medical History breast cancer Current History SWB status Reviewed History: Yes Social History Home: Single Level Current Living Status: Alone Prior/Core FIM Prior Level of Function Functional [place] Measure 0=Not Assessed/NA 4=Minimal Assistance 1=Total Assistance 5=Supervision or Setup 2=Maximal Assistance 6=Modified [place] 3=Moderate Assistance 7=Complete [place] Bed Mobility: 7 Transfers (B,C,W/C) (FIM): 7 Gait: 7 Locomotion: 7 PT Evaluation-Current Subjective Patient agrees to PT. Pain Numeric Pain Scale: 5-Moderate Pain Location: Left, Lower Location Body Site: Abdomen Pain Description: Pressure Objective Patient Orientation: Normal For Age Problem Solving: Good Attachments: IV ROM/Strength ROM Lower Extremities bilateral LE WNL Strenght Lower Extremities 4/5 grossly bilaterally Integumentary/Posture Integumentary refer to nursing notes Bowel Incontinence: No Bladder Incontinence: No Posture WFL Neuromuscular (Tone, Coordination, Reflexes) grossly intact Sensory Vision: Functional Hearing: Functional Sensation Right Lower Extremit: Intact Sensation Left Lower Extremity: Intact Transfers Functional [place] Measure 0=Not Assessed/NA 4=Minimal Assistance 1=Total Assistance 5=Supervision or Setup 2=Maximal Assistance 6=Modified [place] 3=Moderate Assistance 7=Complete [place] Transfers (B, C, W/C) (FIM): 6 Scootin Rollin Supine to/from Sit: 6 Sit to/from Stand: 6 Sit to Lying (QC): 6 Lying to Sitting/Side of Bed(Q: 6 Sit to Stand (QC): 6 Chair/Jae-yh-Jgewb Xfer(QC): 6 Gait Does the Patient Walk?: Yes Mode of Locomotion: Walk Anticipated Mode of Locomotion: Walk Gait (FIM): 6 Distance (FIM): 3=150 ft Distance: 400' x 2 Walk 50 ft with 2 Turns(QC): 6 Walk 150 ft (QC): 6 Gait Level of Assist: 6 Gait Assistive Device: FWW Comments/Gait Description multiple standing recovery periods due to fatigue Balance Sitting Static: Normal Sitting Dynamic: Normal Standing Static: Normal Standing Dynamic: Normal Treatment Ambulate with FWW modified independent x 400' x 2 with multiple standing recovery periods due to fatigue. Assessment/Needs 77 y.o. female, will benefit from skilled PT to address functional strength and mobility to improve current LOF and to safely return to home at independent PLOF. Rehab Potential: Good PT Care Home Goals Care Home Goals PT Care Home Goals Time Frame: February 21, 2018 Transfers (B,C,W/C) (FIM): 7 Sit to Lying (QC): 6 Lying-Sitting on Side/Bed(QC): 6 Sit to Stand (QC): 6 Rollin Chair/Nni-em-Ysgmo Xfer(QC): 6 Does the Patient Walk: Yes Gait (FIM): 7 Gait distance (FIM): 3=150 ft Distance: 300' Walk 50ft with 2 Turns (QC): 6 Walk 150 ft (QC): 6 Gait Level of Assist: 7 Gait Assistive Device: None PT Plan Treatment/Plan Treatment Plan: Continue Plan of Care Treatment Plan: Education, Functional Activity Jose Carlos, Functional Strength, Gait , Safety, Therapeutic Exercise Treatment Duration: February 21, 2018 Frequency: 6 times per week Estimated Hrs Per Day: .25 hour per day Patient and/or Family Agrees t: Yes Time/GCodes Time In: 1255 Time Out: 1320 Total Billed Treatment Time: 25 Total Billed Treatment 1 visit EVModC 10 min FA 15 min TIMOTEO SEARS PT February 14, 2018 15:31
[2018-02-14] MEDS: metroNIDAZOLE 500MG/100ML IVPB 100 ML IV SCH (16:19)
[2018-02-14] MEDS: PIPERACILLIN SODIUM/TAZOBACTAM 4.5 GM in D5W 100 ML IVPB 100 ML IV SCH (16:21)
[2018-02-14] MEDS ORDERED: PIPERACILLIN SODIUM/TAZOBACTAM 4.5 GM in D5W 100 ML IVPB 100 ML IV SCH (17:30)
--- NOTE | 2018-02-14 17:32 | Oncology Progress Note ---
Subjective Date Seen by Provider: February 14, 2018 Time Seen by Provider: 15:59 Subjective/Events-last exam Patient had a poor night last night due to diarrhea, stomach cramps and some fecal incontinence. Today she has been feeling much better. Appetite is still limited but pain is controlled and she is resting better. Denies any fevers in the last 24 hours. Physical Exam Vital Signs Capillary Refill : General Appearance: No Apparent Distress, WD/WN HEENT: PERRL/EOMI, Normal ENT Inspection, Pharynx Normal Respiratory: Chest Non Tender, Lungs Clear, Normal Breath Sounds, No Accessory Muscle Use, No Respiratory Distress Cardiovascular: Regular Rate, Rhythm, No Edema Gastrointestinal: Normal Bowel Sounds, No Organomegaly, No Pulsatile Mass, Non Tender, Soft Extremity: Normal Inspection, Non Tender Neurologic/Psychiatric: Alert, Oriented x3, Normal Mood/Affect Impression & Plan Impression & Plan 77-year-old female with stage I breast cancer, status post lumpectomy and sentinel lymph node biopsy with ER positive and HER-2/kathy negative tumor with elevated Oncotype DX recurrence score. Patient started on chemotherapy with Taxotere and Cytoxan regimen one week ago with Neulasta administered on day 2. Patient admitted to the hospital with diarrhea, hematochezia and abdominal pain. CT scan done at the emergency room consistent with diverticulitis. Patient has been afebrile since nearly 3 days ago and white count is high. She is being treated with flagyl for diverticulitis. Neutropenia and thrombocytopenia secondary to chemotherapy, now resolved. Patient received Neulasta 9 days ago and now has a significant leukocytosis. This degree of leukocytosis is higher than normally expected but not unheard of. It does not necessarily reflect worsening infectious process but may mask it. Platelets also recovering from chemotherapy. Fever has resolved. From oncology perspective, patient is close to discharge. Clinically better from the diverticulitis standpoint with decreased pain. Follow surgical recommendations. History of stage I breast cancer, status post lumpectomy and sentinel lymph node biopsy. Status post adjuvant chemotherapy with the Taxotere and Cytoxan regimen times one course completed a week ago along with the Neulasta on day 2. Will follow patient with you. Clinical Quality Measures DVT/VTE Risk/Contraindication: Risk Factor Score Per Nursin BAILEE CHAVEZ MD February 14, 2018 17:32
[2018-02-14 18:00] VITALS: BP 136/62
[2018-02-14] MEDS: HYOSCYAMINE 0.125 MG (LEVSIN) TAB PO PRN (19:36)
[2018-02-14] MEDS ORDERED: HYDROmorphone 1 MG/ML (DILAUDID) 1 ML SYRINGE IV PRN (19:45)
[2018-02-14] MEDS: ZOLPIDEM 5 MG (AMBIEN) TAB PO SCH (21:58)
[2018-02-15] MEDS: PIPERACILLIN SODIUM/TAZOBACTAM 4.5 GM in D5W 100 ML IVPB 100 ML IV SCH ×3 (01:36→17:26)
[2018-02-15] MEDS: NS IV 1000 ML 1,000 ML IV SCH ×2 (03:39→17:26)
[2018-02-15] MEDS: HYOSCYAMINE 0.125 MG (LEVSIN) TAB PO PRN ×2 (05:22→16:05)
[2018-02-15] MEDS: metroNIDAZOLE 500MG/100ML IVPB 100 ML IV SCH ×2 (05:24→16:05)
[2018-02-15 06:19] VITALS: BP 117/58
[2018-02-15] MEDS: PANTOPRAZOLE 40 MG/10 ML (PROTONIX) VIAL IV SCH (08:35)
[2018-02-15] MEDS: NYSTATIN ORAL SUSP 5 ML UDC PO SCH ×4 (08:36→22:30)
[2018-02-15 10:22] LABS: HEMATOCRIT 32 % (35-52); MEAN CORPUSCULAR HEMOGLOBIN 30 PG (25-34); MEAN CORPUSCULAR HGB CONC 34 G/DL (32-36); MEAN CORPUSCULAR VOLUME 88 FL (80-99); MEAN PLATELET VOLUME 11.4 FL (7.4-10.4); PLATELET COUNT 87 10^3/uL (130-400); RED BLOOD COUNT 3.69 10^6/uL (4.35-5.85); RED CELL DISTRIBUTION WIDTH 14.8 % (10.0-14.5)
[2018-02-15 10:27] LABS: WHITE BLOOD COUNT 59.2 10^3/uL (4.3-11.0)
--- NOTE | 2018-02-15 10:34 | Progress Note-Hospitalist ---
Subjective HPI/CC On Admission Date Seen by Provider: February 15, 2018 Time Seen by Provider: 10:00 Subjective/Events-last exam Patient had a pretty good night overall last night Debility continues She is feeling much better than the day before White blood cell count now 59k due to Neupogen Antibiotics continue Diarrhea much improved Overall very slow recovery and will maintain on swing bed When she got up with physical therapy she did get lightheaded but no other concerning signs Will replace potassium Overall very debilitated and she will likely be an inpatient rehabilitation candidate Talk to surgery may end up needing reimaging Review of Systems General: Malaise Gastrointestinal: Abdominal Pain Objective Exam Vital Signs Vital Signs Date Time Temp Pulse Resp B/P (MAP) Pulse Ox O2 Delivery O2 Flow Rate FiO2 02/15/18 15:43 99.9 96 20 132/70 (90) 96 Room Air Capillary Refill : General Appearance: No Apparent Distress, WD/WN, Chronically ill, Other ( improved) Respiratory: Lungs Clear, Normal Breath Sounds Cardiovascular: Regular Rate, Rhythm, No Edema Gastrointestinal: Soft Neurologic/Psychiatric: Alert, Oriented x3, No Motor/Sensory Deficits, Normal Mood/Affect Skin: Normal Color, Warm/Dry Results/Procedures Lab Laboratory Tests 02/15/18 10:07 Patient resulted labs reviewed. Assessment/Plan Assessment and Plan Assess & Plan/Chief Complaint Assessment: Severe acute diverticulitis maintain on antibiotics Recent chemotherapy causing severe neutropenia but now rebounded to 59,000 Slow recovery with severe debility requiring swing bed Pancreatitis acute now resolved Hypothyroidism restarting home medication Dizziness with activity we'll monitor closely Hypokalemia Plan: Maintain current treatment Monitor white count Treat low potassium Diagnosis/Problems Diagnosis/Problems (1) Diverticulitis of intestine Status: Acute Qualifiers: Diverticulitis site: large intestine Diverticulitis bleeding: with bleeding Diverticulitis complication: unspecified complication status Qualified Codes: K57.33 - Diverticulitis of large intestine without perforation or abscess with bleeding (2) Debility Status: Acute (3) Neutropenic fever Status: Resolved (4) Pancreatitis Status: Resolved Qualifiers: Chronicity: acute Pancreatitis type: unspecified pancreatitis type Acute pancreatitis complication: unspecified Qualified Codes: K85.90 - Acute pancreatitis without necrosis or infection, unspecified (5) Hypokalemia Status: Acute (6) Breast cancer Status: Chronic Qualifiers: Breast location: unspecified site of breast Estrogen receptor status: unspecified Patient sex: female Laterality: left Qualified Codes: C50.912 - Malignant neoplasm of unspecified site of left female breast (7) Nausea Status: Resolved (8) Hypothyroidism Status: Chronic Qualifiers: Hypothyroidism type: acquired Qualified Codes: E03.9 - Hypothyroidism, unspecified Clinical Quality Measures DVT/VTE Risk/Contraindication: Risk Factor Score Per Nursin VENKAT COOPER DO February 15, 2018 10:34
[2018-02-15 10:44] LABS: ALANINE AMINOTRANSFERASE 8 U/L (0-55); ALBUMIN 2.6 GM/DL (3.2-4.5); ALKALINE PHOSPHATASE 80 U/L (40-136); BILIRUBIN,TOTAL 0.4 MG/DL (0.1-1.0); BUN/CREATININE RATIO 5; CALCIUM 7.5 MG/DL (8.5-10.1); CARBON DIOXIDE 23 MMOL/L (21-32); CHLORIDE 105 MMOL/L (98-107); CREATININE SERUM 0.56 MG/DL (0.60-1.30); GFR ESTIMATED > 60; GLUCOSE 80 MG/DL (70-105); POTASSIUM 3.1 MMOL/L (3.6-5.0); SODIUM 139 MMOL/L (135-145); TOTAL PROTEIN 4.7 GM/DL (6.4-8.2)
--- NOTE | 2018-02-15 10:46 | Progress Note ---
Subjective Time Seen by Provider: 10:29 Subjective/Events-last exam Pt seen and examined, states her abdominal pain is "80% gone". She is still a little nauseous and is very worried about eating something and making it worse; however, she would like to try some cream of wheat. She also states that she feels a little stronger today. Review of Systems General: No Chills, No Night Sweats Pulmonary: No Dyspnea, No Cough Cardiovascular: No: Chest Pain Gastrointestinal: Nausea; No: Vomiting Objective Exam Vital Signs Date Time Temp Pulse Resp B/P (MAP) Pulse Ox O2 Delivery O2 Flow Rate FiO2 02/15/18 06:19 97.5 83 18 117/58 (77) 98 Room Air 02/14/18 21:00 Room Air 02/14/18 19:03 94 Room Air 02/14/18 18:00 98.9 81 18 136/62 (86) 97 Room Air I & O 02/15/18 07:00 Intake Total 1700 ml Output Total 1900 ml Balance -200 ml Capillary Refill : General Appearance: No Apparent Distress, WD/WN HEENT: PERRL/EOMI, Pharynx Normal Respiratory: Chest Non Tender, Lungs Clear, Normal Breath Sounds, No Accessory Muscle Use, No Respiratory Distress Cardiovascular: Regular Rate, Rhythm, No Edema Gastrointestinal: soft, no organomegaly; No rebound; tenderness (across lower abdomen, just above pubic area, better compared to yesterday) Extremity: Normal Inspection, Non Tender Neurologic/Psychiatric: Alert, Oriented x3, Normal Mood/Affect Skin: Normal Color, Warm/Dry Results Lab Laboratory Tests 02/15/18 10:07: White Blood Count 59.2*H, Red Blood Count 3.69L, Hemoglobin 11.0L, Hematocrit 32L, Mean Corpuscular Volume 88, Mean Corpuscular Hemoglobin 30, Mean Corpuscular Hemoglobin Concent 34, Red Cell Distribution Width 14.8H, Platelet Count 87L, Mean Platelet Volume 11.4H, Neutrophils (%) (Auto) , Lymphocytes (%) (Auto) , Monocytes (%) (Auto) , Eosinophils (%) (Auto) , Basophils (%) (Auto) , Neutrophils # (Auto) , Lymphocytes # (Auto) , Monocytes # (Auto) , Eosinophils # (Auto) , Basophils # (Auto) Assessment/Plan Assessment/Plan Assessment/Plan Abdominal pain secondary to diverticulitis - improving, controlled with pain, increasing diet slowly Leukocytosis - most likely secondary to medicine and not an infection, WBC increased again today (Leukopenia - secondary to chemotherapy, was given Nupagen and has now resolved.) Diverticulitis - slowly improving Weakness/Fatigue is most likely due to malnutrition; encouraged pt to start trying Ensure (will try clear and then can try regular) whichever she can tolerate will also start soft diet. Clinical Quality Measures DVT/VTE Risk/Contraindication: Risk Factor Score Per Nursin SHERI PERERA DO February 15, 2018 10:46
--- NOTE | 2018-02-15 13:09 | Physical Therapy Daily Note ---
PT Daily Note-Current Subjective Pt. asleep in recliner , slumped to side. Agrees to walking. After pt. on her feet a brief time she indicates she does not feel quite right, has noted dyspnea and needs to sit down. Standing and gait were attempted x 3 with pt. having same c/o each attempt and again noted difficulty breathing and states her LEs feel so very heavy and she just cant move them , again deep breathing as if she is SOB. Pain Comment: no pain c/o but states she has heaviness in her LEs and cant stand or walk Mental Status Patient Orientation: Normal For Age Attachments: IV Transfers Functional Cook Measure 0=Not Assessed/NA 4=Minimal Assistance 1=Total Assistance 5=Supervision or Setup 2=Maximal Assistance 6=Modified Cook 3=Moderate Assistance 7=Complete IndependenceIRFPAI Quality Coding Scale 6 Independent with activity with or without an assistive device 5 Patient requires set up or clean up by helper. Patient completes activity by themselves 4 Supervision or touching assist (CGA). [place] provide cues , steadying assist 3 The helper provides less than half the effort to complete the activity 2 The helper provides more than half the effort to complete the activity 1 Dependent. The helper does all the effort to complete an activity 7 Patient refused to complete or attempt activity 9 The patient did not perform the activity before the current illness or injury 88 Not attempted due to Medical conditions or safety concerns Transfers (B, C, W/C) (FIM): 6 Scootin Rollin Supine to/from Sit: 6 Sit to/from Stand: 6 Weight Bearing Right Lower Extremity: Right Full Weight Bearing Left Lower Extremity: Left Full Weight Bearing Gait Training Gait Assistive Device: FWW pt. actually only walked 10-12 ft x 3 each time being overcome by heaviness in LEs and some noted SOB Treatments pt. was sat on EOB , BP 124/56, HR81, O2 sats 96%, done in sitting and standing Assessment nursing present to assess sudden onset of discomfort, heavy LEs upon stance and an dyspnea etc PT Longterm Goals Software Support Engineer Goals PT Software Support Engineer Goals Time Frame: February 21, 2018 Transfers (B,C,W/C) (FIM): 7 Gait (FIM): 7 Gait distance (FIM): 3=150 ft Distance: 300' Gait Level of Assist: 7 Gait Assistive Device: None PT Plan Treatment/Plan Treatment Plan: Continue Plan of Care Treatment Plan: Education, Functional Activity Jose Carlos, Functional Strength, Gait , Safety, Therapeutic Exercise Treatment Duration: February 21, 2018 Frequency: 6 times per week Estimated Hrs Per Day: .25 hour per day Patient and/or Family Agrees t: Yes Time/GCodes Time In: 1235 Time Out: 1300 Total Billed Treatment Time: 25 Total Billed Treatment 1,FA25m G Codes Necessary: AMY Hernandez BOARDING MACHINE OPERATOR February 15, 2018 13:09
[2018-02-15] MEDS: ONDANSETRON 4 MG/2 ML (SDV) Z0FRAN IV PRN ×3 (13:28→22:10)
[2018-02-15] MEDS: LEVOTHYROXINE 100 MCG (LEVOTHROID) TAB PO SCH (14:18)
[2018-02-15 15:43] VITALS: BP 132/70
[2018-02-15 16:04] VITALS: BP 132/70
[2018-02-15] MEDS: KCL 20 MEQ TAB (K-DUR) PO SCH (17:25)
[2018-02-16 01:15] VITALS: BP 122/58
[2018-02-16] MEDS: PIPERACILLIN SODIUM/TAZOBACTAM 4.5 GM in D5W 100 ML IVPB 100 ML IV SCH ×4 (01:16→23:49)
[2018-02-16] MEDS: ZOLPIDEM 5 MG (AMBIEN) TAB PO SCH ×2 (01:16→21:49)
[2018-02-16] MEDS: NS IV 1000 ML 1,000 ML IV SCH (03:18)
[2018-02-16] MEDS: metroNIDAZOLE 500MG/100ML IVPB 100 ML IV SCH (04:14)
[2018-02-16 04:32] VITALS: BP 143/68
[2018-02-16] MEDS: LEVOTHYROXINE 100 MCG (LEVOTHROID) TAB PO SCH (06:52)
[2018-02-16] MEDS: KCL 20 MEQ TAB (K-DUR) PO SCH ×2 (07:55→16:07)
[2018-02-16 08:00] VITALS: BP 139/66
[2018-02-16 08:53] LABS: HEMATOCRIT 34 % (35-52); HEMOGLOBIN 11.2 G/DL (11.5-16.0); MEAN CORPUSCULAR HEMOGLOBIN 29 PG (25-34); MEAN CORPUSCULAR HGB CONC 33 G/DL (32-36); MEAN CORPUSCULAR VOLUME 88 FL (80-99); MEAN PLATELET VOLUME 10.5 FL (7.4-10.4); PLATELET COUNT 103 10^3/uL (130-400); RED BLOOD COUNT 3.82 10^6/uL (4.35-5.85); RED CELL DISTRIBUTION WIDTH 14.6 % (10.0-14.5)
[2018-02-16 08:54] LABS: WHITE BLOOD COUNT 73.5 10^3/uL (4.3-11.0)
[2018-02-16] MEDS: NYSTATIN ORAL SUSP 5 ML UDC PO SCH ×4 (09:07→21:06)
[2018-02-16] MEDS: PANTOPRAZOLE 40 MG/10 ML (PROTONIX) VIAL IV SCH (09:07)
[2018-02-16 09:11] LABS: ALANINE AMINOTRANSFERASE 8 U/L (0-55); ALBUMIN 2.8 GM/DL (3.2-4.5); ALKALINE PHOSPHATASE 104 U/L (40-136); BILIRUBIN,TOTAL 0.4 MG/DL (0.1-1.0); BUN/CREATININE RATIO 3; CALCIUM 7.6 MG/DL (8.5-10.1); CARBON DIOXIDE 22 MMOL/L (21-32); CHLORIDE 104 MMOL/L (98-107); CREATININE SERUM 0.61 MG/DL (0.60-1.30); GFR ESTIMATED > 60; GLUCOSE 91 MG/DL (70-105); POTASSIUM 2.9 MMOL/L (3.6-5.0); SODIUM 139 MMOL/L (135-145)
[2018-02-16] MEDS: NS W/KCL 20 MEQ/L 1,000 ML IV SCH (11:08)
[2018-02-16] MEDS: POTASSIUM CL 10MEQ/50ML IVPB 50 ML IV SCH ×8 (11:08→19:18)
--- NOTE | 2018-02-16 11:45 | Progress Note-Hospitalist ---
Subjective HPI/CC On Admission Date Seen by Provider: February 16, 2018 Time Seen by Provider: 10:40 Subjective/Events-last exam Patient doing much better but had another episode of abdominal pain last night Blood in stool has returned Nausea and pain is much improved this morning Patient getting frustrated along with her son and I tried to reassure and I did confer with Dr. Irvin and Dr. Aguila. White blood cell count is still increasing Overall frustrating considering the slow recovery and everything is being done that could be done. I explain that she essentially had no wbc's to fight the colitis when she was admitted and now the inflammation has become an issue which is causing the pain and other issues Dr Marie will use the Acyclovir in case she has herpes in her mouth and Nystatin will be maintained. Review of Systems General: Fatigue, Malaise Gastrointestinal: Nausea, Abdominal Pain, Diarrhea Objective Exam Vital Signs Vital Signs Date Time Temp Pulse Resp B/P (MAP) Pulse Ox O2 Delivery O2 Flow Rate FiO2 02/16/18 08:00 97.5 66 20 139/66 (90) 95 Room Air Capillary Refill : General Appearance: No Apparent Distress, WD/WN, Chronically ill Respiratory: Lungs Clear, Normal Breath Sounds Cardiovascular: Regular Rate, Rhythm, No Edema Gastrointestinal: Soft, Tenderness Neurologic/Psychiatric: Alert, Oriented x3, No Motor/Sensory Deficits, Normal Mood/Affect Skin: Normal Color, Warm/Dry Results/Procedures Lab Laboratory Tests 02/16/18 08:41 Patient resulted labs reviewed. Assessment/Plan Assessment and Plan Assess & Plan/Chief Complaint Assessment: Severe acute diverticulitis maintain on antibiotics Recent chemotherapy causing severe neutropenia but now rebounded to 73,000 but this is expected per Oncology Slow recovery with severe debility requiring swing bed Pancreatitis acute now resolved Hypothyroidism restarted home medication Dizziness with activity we'll monitor closely Hypokalemia refractory so will maintain PO and IV supplement Plan: Maintain current treatment Monitor white count Treat low potassium Monitor closely Appreciate Dr Aguila and Dr Marie management Diagnosis/Problems Diagnosis/Problems (1) Diverticulitis of intestine Status: Acute Qualifiers: Diverticulitis site: large intestine Diverticulitis bleeding: with bleeding Diverticulitis complication: unspecified complication status Qualified Codes: K57.33 - Diverticulitis of large intestine without perforation or abscess with bleeding (2) Debility Status: Acute (3) Neutropenic fever Status: Resolved (4) Pancreatitis Status: Resolved Qualifiers: Chronicity: acute Pancreatitis type: unspecified pancreatitis type Acute pancreatitis complication: unspecified Qualified Codes: K85.90 - Acute pancreatitis without necrosis or infection, unspecified (5) Hypokalemia Status: Acute (6) Breast cancer Status: Chronic Qualifiers: Breast location: unspecified site of breast Estrogen receptor status: unspecified Patient sex: female Laterality: left Qualified Codes: C50.912 - Malignant neoplasm of unspecified site of left female breast (7) Nausea Status: Resolved (8) Hypothyroidism Status: Chronic Qualifiers: Hypothyroidism type: acquired Qualified Codes: E03.9 - Hypothyroidism, unspecified Clinical Quality Measures DVT/VTE Risk/Contraindication: Risk Factor Score Per Nursin VENKAT COOPER DO February 16, 2018 11:45
--- NOTE | 2018-02-16 11:47 | Progress Note-Standard ---
Standard Progress Note Progress Notes/Assess & Plan Date Seen by Provider: February 16, 2018 Time Seen by Provider: 11:33 Progress/Assessment & Plan 77 year old female with stage I breast cancer which was ER positive, HER-2/kathy negative with Oncotype DX recurrence score of 41, who completed first course of adjuvant chemotherapy with Taxotere and Cytoxan regimen 12 days ago. She also received Neulasta 6 mg 11 days ago. Admitted with diverticulitis of sigmoid colon and grade 4 neutropenia. The neutropenia resolved within 2 days of admission and the white count is still increasing most likely due to the effect of Neulasta. Patient is gradually recovering from the diverticulitis but still has intermittent epigastric and left lower quadrant pain. Last night she had significant left lower quadrant pain with hematochezia. She gives history of mouth sores which is bothering her. She has remote history of fever blisters. Vital Sign - Last 12Hours Date Time Temp Pulse Resp B/P (MAP) Pulse Ox O2 Delivery O2 Flow Rate FiO2 02/16/18 08:00 97.5 66 20 139/66 (90) 95 Room Air Physical examination showed an elderly female, anxious, in mild distress due to the intermittent abdominal pain. HEENT normocephalic, extraocular muscles intact, oral mucosa moist, rare small ulcerations noted clinically consistent with HSV. Lungs clear to auscultation without wheezes or rales. Cardiovascular exam was regular in rate and rhythm. No murmurs or gallops heard. Abdomen was soft with mild tenderness in the epigastric and left lower quadrant area without guarding or rebound. Laboratory Tests 02/16/18 08:41: White Blood Count 73.5*H, Red Blood Count 3.82L, Hemoglobin 11.2L, Hematocrit 34L, Mean Corpuscular Volume 88, Mean Corpuscular Hemoglobin 29, Mean Corpuscular Hemoglobin Concent 33, Red Cell Distribution Width 14.6H, Platelet Count 103L, Mean Platelet Volume 10.5H, Neutrophils (%) (Auto) , Lymphocytes (% ) (Auto) , Monocytes (%) (Auto) , Eosinophils (%) (Auto) , Basophils (%) (Auto) , Neutrophils # (Auto) , Lymphocytes # (Auto) , Monocytes # (Auto) , Eosinophils # (Auto) , Basophils # (Auto) , Sodium Level 139, Potassium Level 2.9L, Chloride Level 104, Carbon Dioxide Level 22, Anion Gap 13, Blood Urea Nitrogen 2L, Creatinine 0.61, Estimat Glomerular Filtration Rate > 60, BUN/ Creatinine Ratio 3, Glucose Level 91, Calcium Level 7.6L, Total Bilirubin 0.4, Aspartate Amino Transf (AST/SGOT) 16, Alanine Aminotransferase (ALT/SGPT) 8, Alkaline Phosphatase 104, Total Protein 5.0L, Albumin 2.8L A/P: 1. Diverticulitis, on IV antibiotics. Surgery following. 2. Grade 4 neutropenia on admission due to chemotherapy. Leukocytosis now which is the effect of Neulasta. She is 11 days from the dose of Neulasta which could make the white blood cell count increase for another 2-3 days. Monitor serially. 3. History of stage I breast cancer, status post lumpectomy and sentinel lymph node biopsy with ER positive, HER-2/kathy negative tumor with Oncotype DX recurrence score of 41. Started on adjuvant chemotherapy with Taxotere and Cytoxan regimen with the first course administered 12 days ago. Further chemotherapy on hold until she recovers completely from the current medical problems. 4. Mucositis with clinical evidence of HSV, I'll start the patient on acyclovir IV and switch to by mouth when she can tolerate this. 5. Hypokalemia most likely due to the diarrhea. Agree with parenteral potassium and magnesium replacement. Follow serially. 6. Will follow patient with you. TC VILLALOBOS February 16, 2018 11:47
--- NOTE | 2018-02-16 13:32 | Progress Note ---
Subjective Time Seen by Provider: 12:41 Subjective/Events-last exam Pt seen and examined, she had a rough day yesterday. Pain and nausea began after trying to eat the cream of wheat. She also states that she cannot eat the Ensure high protein. Pt also reports severe pain that began around 10pm and was only helped by her Dilaudid shot. She feels tired today and is scared/worried about perforation and being able to get strength back. She also reports that now she is passing "dark, bloody stools". She states that was what brought her initially into the hospital. Review of Systems General: No Chills, No Night Sweats; Fatigue Pulmonary: No Dyspnea, No Cough Cardiovascular: No: Chest Pain, Palpitations Gastrointestinal: Nausea, Abdominal Pain; No: Vomiting Objective Exam Vital Signs Date Time Temp Pulse Resp B/P (MAP) Pulse Ox O2 Delivery O2 Flow Rate FiO2 02/16/18 08:00 97.5 66 20 139/66 (90) 95 Room Air 02/16/18 07:04 93 Room Air 02/16/18 04:32 97.8 90 18 143/68 (93) 95 Room Air 02/16/18 01:15 98.4 76 18 122/58 (79) 94 Room Air 02/15/18 21:00 Room Air 02/15/18 19:29 95 Room Air 02/15/18 16:04 96 96 02/15/18 15:43 99.9 96 20 132/70 (90) 96 Room Air I & O 02/16/18 06:59 Intake Total 1560 ml Output Total 1900 ml Balance -340 ml Capillary Refill : General Appearance: No Apparent Distress, WD/WN, Anxious, Chronically ill HEENT: PERRL/EOMI, Pharynx Normal, Moist Mucous Membranes Respiratory: Lungs Clear, Normal Breath Sounds Cardiovascular: Regular Rate, Rhythm, No Edema Gastrointestinal: soft, no organomegaly; No guarding, No rebound; tenderness ( across lower abdomen, just above pubic area, about same as yesterday....worse with deep palpation) Extremity: Normal Inspection, Non Tender Neurologic/Psychiatric: Alert, Oriented x3, No Motor/Sensory Deficits, Normal Mood/Affect Skin: Warm/Dry, Pallor Results Lab Laboratory Tests 02/16/18 08:41: White Blood Count 73.5*H, Red Blood Count 3.82L, Hemoglobin 11.2L, Hematocrit 34L, Mean Corpuscular Volume 88, Mean Corpuscular Hemoglobin 29, Mean Corpuscular Hemoglobin Concent 33, Red Cell Distribution Width 14.6H, Platelet Count 103L, Mean Platelet Volume 10.5H, Neutrophils (%) (Auto) , Lymphocytes (% ) (Auto) , Monocytes (%) (Auto) , Eosinophils (%) (Auto) , Basophils (%) (Auto) , Neutrophils # (Auto) , Lymphocytes # (Auto) , Monocytes # (Auto) , Eosinophils # (Auto) , Basophils # (Auto) , Sodium Level 139, Potassium Level 2.9L, Chloride Level 104, Carbon Dioxide Level 22, Anion Gap 13, Blood Urea Nitrogen 2L, Creatinine 0.61, Estimat Glomerular Filtration Rate > 60, BUN/ Creatinine Ratio 3, Glucose Level 91, Calcium Level 7.6L, Total Bilirubin 0.4, Aspartate Amino Transf (AST/SGOT) 16, Alanine Aminotransferase (ALT/SGPT) 8, Alkaline Phosphatase 104, Total Protein 5.0L, Albumin 2.8L Assessment/Plan Assessment/Plan Assessment/Plan 1. Abdominal pain secondary to diverticulitis - seems to be not progressing now.....having trouble, can't seem to eat solid food 2. Leukocytosis - most likely secondary to medicine and not an infection, WBC increased again today (Leukopenia - secondary to chemotherapy, was given Nupagen and has now resolved.) 3. Diverticulitis - ??slowly improving..... CT abd/pelvis tomorrow am?? 4. Weakness/Fatigue is most likely due to malnutrition; encouraged pt to start trying Ensure (will switch to clear) hopefully she can tolerate Clinical Quality Measures DVT/VTE Risk/Contraindication: Risk Factor Score Per Nursin SHERI PERERA DO February 16, 2018 13:32
[2018-02-16] MEDS: ACYCLOVIR INJECTION 500 MG in NS (IVPB) 100 ML IV SCH ×2 (14:11→21:49)
[2018-02-16 15:26] VITALS: BP 130/65
[2018-02-16] MEDS: MAGNESIUM 1 GM/100 ML IVPB 100 ML IV SCH ×2 (17:23→18:35)
[2018-02-16 18:06] VITALS: BP 143/67
[2018-02-16] MEDS: ONDANSETRON 4 MG/2 ML (SDV) Z0FRAN IV PRN (21:06)
[2018-02-17] MEDS: NS W/KCL 20 MEQ/L 1,000 ML IV SCH ×2 (01:58→17:49)
[2018-02-17] MEDS: ACYCLOVIR INJECTION 500 MG in NS (IVPB) 100 ML IV SCH ×3 (05:28→21:47)
[2018-02-17 06:00] VITALS: BP 134/78
[2018-02-17] MEDS: KCL 20 MEQ TAB (K-DUR) PO SCH ×2 (06:26→17:50)
[2018-02-17] MEDS: LEVOTHYROXINE 100 MCG (LEVOTHROID) TAB PO SCH (06:26)
[2018-02-17 07:00] LABS: HEMATOCRIT 30 % (35-52); HEMOGLOBIN 10.1 G/DL (11.5-16.0); MEAN CORPUSCULAR HEMOGLOBIN 29 PG (25-34); MEAN CORPUSCULAR HGB CONC 33 G/DL (32-36); MEAN CORPUSCULAR VOLUME 88 FL (80-99); MEAN PLATELET VOLUME 11.2 FL (7.4-10.4); PLATELET COUNT 111 10^3/uL (130-400); RED BLOOD COUNT 3.43 10^6/uL (4.35-5.85)
[2018-02-17 07:03] LABS: WHITE BLOOD COUNT 66.3 10^3/uL (4.3-11.0)
[2018-02-17 07:25] LABS: ALANINE AMINOTRANSFERASE 7 U/L (0-55); ALBUMIN 2.6 GM/DL (3.2-4.5); ALKALINE PHOSPHATASE 104 U/L (40-136); BILIRUBIN,TOTAL 0.4 MG/DL (0.1-1.0); BUN/CREATININE RATIO 4; CALCIUM 7.6 MG/DL (8.5-10.1); CARBON DIOXIDE 25 MMOL/L (21-32); CHLORIDE 106 MMOL/L (98-107); CREATININE SERUM 0.54 MG/DL (0.60-1.30); GFR ESTIMATED > 60; GLUCOSE 63 MG/DL (70-105); MAGNESIUM 1.8 MG/DL (1.8-2.4); SODIUM 140 MMOL/L (135-145); TOTAL PROTEIN 4.5 GM/DL (6.4-8.2)
[2018-02-17] MEDS: PIPERACILLIN SODIUM/TAZOBACTAM 4.5 GM in D5W 100 ML IVPB 100 ML IV SCH (08:07)
[2018-02-17] MEDS: NYSTATIN ORAL SUSP 5 ML UDC PO SCH ×4 (08:10→20:09)
[2018-02-17] MEDS: PANTOPRAZOLE 40 MG/10 ML (PROTONIX) VIAL IV SCH (08:10)
[2018-02-17 10:37] LABS: BAND NEUTROPHILS 9 %; BASOPHILS % (MANUAL) 0 %; EOSINOPHILS % (MANUAL) 0 %; METAMYELOCYTES % 4 %; MONOCYTES % (MANUAL) 10 %; MYELOCYTES % 4 %; NEUTROPHILS % (MANUAL) 69 %; NUCLEATED RED BLOOD CELLS 1
[2018-02-17 10:38] LABS: ANISOCYTOSIS SLIGHT; LYMPHOCYTES % (MANUAL) 4 %; POLYCHROMASIA SLIGHT
--- NOTE | 2018-02-17 11:50 | Physical Therapy Daily Note ---
PT Daily Note-Current Subjective Patient reports she is feeling better than Saturday. Agrees to PT. Pain Numeric Pain Scale: 3 Location: Lower Location Body Site: Abdomen Pain Description: Ache, Pressure Mental Status Patient Orientation: Normal For Age Attachments: IV Transfers Functional [place] Measure 0=Not Assessed/NA 4=Minimal Assistance 1=Total Assistance 5=Supervision or Setup 2=Maximal Assistance 6=Modified [place] 3=Moderate Assistance 7=Complete IndependenceIRFPAI Quality Coding Scale 6 Independent with activity with or without an assistive device 5 Patient requires set up or clean up by helper. Patient completes activity by themselves 4 Supervision or touching assist (CGA). [place] provide cues , steadying assist 3 The helper provides less than half the effort to complete the activity 2 The helper provides more than half the effort to complete the activity 1 Dependent. The helper does all the effort to complete an activity 7 Patient refused to complete or attempt activity 9 The patient did not perform the activity before the current illness or injury 88 Not attempted due to Medical conditions or safety concerns Transfers (B, C, W/C) (FIM): 7 Scootin Sit to/from Stand: 7 Sit to Stand (QC): 6 Weight Bearing Right Lower Extremity: Right Full Weight Bearing Left Lower Extremity: Left Full Weight Bearing Gait Training Does the Patient Walk?: Yes Gait (FIM): 6 Distance (FIM): 3=150 ft Distance: 650' Walk 50 ft with 2 Turns(QC): 6 Walk 150 ft (QC): 6 Gait Level of Assist: 6 Gait Assistive Device: FWW safe and functional gait sequence Assessment Patient remains up in recliner with needs met. Patient is progressing with treatment plan and she is hopeful to dismiss to home this week. PT Skilled Nursing Goals Skilled Nursing Goals PT Certified Caregiver Goals Time Frame: February 21, 2018 Transfers (B,C,W/C) (FIM): 7 Sit to Lying (QC): 6 Lying-Sitting on Side/Bed(QC): 6 Sit to Stand (QC): 6 Rollin Chair/[id number] Xfer(QC): 6 Does the Patient Walk: Yes Gait (FIM): 7 Gait distance (FIM): 3=150 ft Distance: 300' Walk 50ft with 2 Turns (QC): 6 Walk 150 ft (QC): 6 Gait Level of Assist: 7 Gait Assistive Device: None PT Plan Treatment/Plan Treatment Plan: Continue Plan of Care Treatment Plan: Education, Functional Activity Jose Carlos, Functional Strength, Gait , Safety, Therapeutic Exercise Treatment Duration: February 21, 2018 Frequency: 6 times per week Estimated Hrs Per Day: .25 hour per day Patient and/or Family Agrees t: Yes Time/GCodes Time In: 1126 Time Out: 1141 Total Billed Treatment Time: 15 Total Billed Treatment 1 visit FA 15 min TIMOTEO SEARS PT February 17, 2018 11:50
[2018-02-17] MEDS ORDERED: CATHETER FLUSH 10 ML SYR IV PRN (13:00)
[2018-02-17] MEDS ORDERED: IOHEXOL 350 MG/ML 100 ML (OMNIPAQUE 350) VIAL IV ONE (13:00)
[2018-02-17] MEDS ORDERED: NS 250 ML (IVPB) BAG IV ONE (13:00)
[2018-02-17] MEDS: ONDANSETRON 4 MG/2 ML (SDV) Z0FRAN IV PRN (13:25)
--- NOTE | 2018-02-17 13:51 | Diagnostic Imaging Report ---
PROCEDURE: CT abdomen and pelvis with contrast. TECHNIQUE: Multiple contiguous axial images were obtained through the abdomen and pelvis after administration of intravenous contrast. INDICATION: Abdominal pain with nausea and vomiting. COMPARISON: Comparison is made with prior study from 02/09/2018. FINDINGS: Imaging through lung bases does show trace left and very small right pleural effusion with dependent atelectasis in the bases. The liver demonstrates generalized low density consistent with hepatic steatosis. No discrete liver mass is identified. The gallbladder appears to be surgically absent. The pancreas and spleen are unremarkable. No adrenal mass is identified. The kidneys are unremarkable. The aorta is nonaneurysmal. There are some shotty lymph nodes in the central retroperitoneum. No pathologically enlarged nodes are identified. There appears to be a long segment of significant inflammation involving the sigmoid colon which demonstrates marked diverticular disease. Features are consistent with acute diverticulitis. No loculated fluid collection to suggest abscess is seen. There is no evidence of bowel obstruction. No free air is identified. The bladder is unremarkable. IMPRESSION: 1. Bilateral pleural effusions, slightly larger on the right. These are new since the CT from 02/09/2018. 2. Worsening findings of acute diverticulitis involving the sigmoid colon when compared with exam from 02/09/2018. No abscess formation or bowel obstruction is seen at this time. Dictated by: Dictated on workstation # [id number]
--- NOTE | 2018-02-17 13:52 | Progress Note-Hospitalist ---
Subjective HPI/CC On Admission Date Seen by Provider: February 17, 2018 Time Seen by Provider: 09:10 Subjective/Events-last exam Reports feeling mildly better. Has been tolerating jello but does not like the ensure. Was drinking broth during my exam. Objective Exam Vital Signs Vital Signs Date Time Temp Pulse Resp B/P (MAP) Pulse Ox O2 Delivery O2 Flow Rate FiO2 02/17/18 09:55 95 Room Air 02/17/18 06:00 97.4 82 16 134/78 (96) Capillary Refill : General Appearance: No Apparent Distress, WD/WN Respiratory: Lungs Clear, No Respiratory Distress Cardiovascular: Regular Rate, Rhythm, No Murmur Gastrointestinal: Normal Bowel Sounds, Soft Extremity: No Calf Tenderness, No Pedal Edema Neurologic/Psychiatric: Alert, Oriented x3, Normal Mood/Affect Results/Procedures Lab Laboratory Tests 02/17/18 05:20 Patient resulted labs reviewed. Assessment/Plan Assessment and Plan Assess & Plan/Chief Complaint Diverticulitis Diagnosis/Problems Diagnosis/Problems (1) Diverticulitis of intestine Status: Acute Assessment & Plan: Continue on abx Maintain clear liquid diet Surgery consulted, appreciate recs CT Abd/Pelvis ordered Qualifiers: Diverticulitis site: large intestine Diverticulitis bleeding: with bleeding Diverticulitis complication: unspecified complication status Qualified Codes: K57.33 - Diverticulitis of large intestine without perforation or abscess with bleeding (2) Breast cancer Status: Chronic Assessment & Plan: s/p 1 round of chemo Does not want to repeat chemo WBC trending down (significant elevation due to Neupogen) Qualifiers: Breast location: unspecified site of breast Estrogen receptor status: unspecified Patient sex: female Laterality: left Qualified Codes: C50.912 - Malignant neoplasm of unspecified site of left female breast (3) Hypothyroidism Status: Chronic Assessment & Plan: Continue synthroid Qualifiers: Hypothyroidism type: acquired Qualified Codes: E03.9 - Hypothyroidism, unspecified (4) Hypokalemia Status: Acute Assessment & Plan: Improved today, trend Clinical Quality Measures DVT/VTE Risk/Contraindication: Risk Factor Score Per Nursin CARISSA GARCIA MD February 17, 2018 1:52 pm
[2018-02-17] MEDS: MEROPENEM 500 MG in NS (IVPB) 100 ML IV SCH (17:50)
[2018-02-17 18:00] VITALS: BP 131/76
--- NOTE | 2018-02-17 21:03 | Progress Note ---
Subjective Date Seen by Provider: February 17, 2018 Time Seen by Provider: 13:15 Subjective/Events-last exam Feeling a little better today. Not as much pain today as she had the last couple days. Tolerated some liquids and not having any nausea. Passing a small amount of blood. Passing flatus. Denies n/v fever sweats chills shortness of breath or chest pain at this time. Ct scan repeated demonstrating slightly worsening appearance of diverticulitis but no perforation or abscess. Objective Exam Vital Signs Date Time Temp Pulse Resp B/P (MAP) Pulse Ox O2 Delivery O2 Flow Rate FiO2 02/17/18 20:50 94 Room Air 02/17/18 09:55 95 Room Air 02/17/18 08:45 Room Air 02/17/18 06:00 97.4 82 16 134/78 (96) 94 Room Air I & O 02/17/18 07:00 Intake Total 3885 ml Output Total 1600 ml Balance 2285 ml Capillary Refill : General Appearance: No Apparent Distress, WD/WN HEENT: PERRL/EOMI, Pharynx Normal, Moist Mucous Membranes Respiratory: Lungs Clear, No Respiratory Distress Cardiovascular: Regular Rate, Rhythm, No Murmur Gastrointestinal: soft, no organomegaly; No guarding, No rebound; tenderness ( across lower abdomen, above superpubic area) Extremity: No Calf Tenderness, No Pedal Edema Neurologic/Psychiatric: Alert, Oriented x3, Normal Mood/Affect Skin: Normal Color, Warm/Dry Lymphatic: No Adenopathy Results Lab Laboratory Tests 02/17/18 05:20: White Blood Count 66.3*H, Red Blood Count 3.43L, Hemoglobin 10.1L, Hematocrit 30L, Mean Corpuscular Volume 88, Mean Corpuscular Hemoglobin 29, Mean Corpuscular Hemoglobin Concent 33, Red Cell Distribution Width 15.0H, Platelet Count 111L, Mean Platelet Volume 11.2H, Neutrophils (%) (Auto) , Lymphocytes (% ) (Auto) , Monocytes (%) (Auto) , Eosinophils (%) (Auto) , Basophils (%) (Auto) , Neutrophils # (Auto) , Lymphocytes # (Auto) , Monocytes # (Auto) , Eosinophils # (Auto) , Basophils # (Auto) , Neutrophils % (Manual) 69, Lymphocytes % (Manual) 4, Monocytes % (Manual) 10, Eosinophils % (Manual) 0, Basophils % (Manual) 0, Metamyelocytes % 4, Myelocytes % 4, Band Neutrophils 9, Nucleated Red Blood Cells 1, Polychromasia SLIGHT, Anisocytosis SLIGHT, Sodium Level 140, Potassium Level 4.0, Chloride Level 106, Carbon Dioxide Level 25, Anion Gap 9, Blood Urea Nitrogen 2L, Creatinine 0.54L, Estimat Glomerular Filtration Rate > 60, BUN/Creatinine Ratio 4, Glucose Level 63L, Calcium Level 7.6L, Magnesium Level 1.8, Total Bilirubin 0.4, Aspartate Amino Transf (AST/SGOT ) 15, Alanine Aminotransferase (ALT/SGPT) 7, Alkaline Phosphatase 104, Total Protein 4.5L, Albumin 2.6L Assessment/Plan Assessment/Plan Assessment/Plan diverticulitis blood in stool abdominal pain b/l quadrant leukocytosis weakness fatigue recent breast cancer with chemotherapy patient wbc elevated likely secondary to Neupogen, by ct scan diverticulitis seems to be slightly worse tolerating minimal fluids. will switch antibiotics to Meropenem to see if any improvement, hgb stable so not bleeding significantly if no improvement with change of antibiotics would consider low dose steroids Clinical Quality Measures DVT/VTE Risk/Contraindication: Risk Factor Score Per Nursin CARLOS MEDRANO DO February 17, 2018 21:03
[2018-02-17] MEDS: ZOLPIDEM 5 MG (AMBIEN) TAB PO SCH (21:47)
[2018-02-18] VITALS: BP 119/57
[2018-02-18] MEDS: MEROPENEM 500 MG in NS (IVPB) 100 ML IV SCH ×5 (00:29→23:36)
[2018-02-18 06:08] VITALS: BP 119/57
[2018-02-18] MEDS: LEVOTHYROXINE 100 MCG (LEVOTHROID) TAB PO SCH (06:24)
[2018-02-18] MEDS: ACYCLOVIR INJECTION 500 MG in NS (IVPB) 100 ML IV SCH ×3 (06:24→22:23)
[2018-02-18] MEDS: KCL 20 MEQ TAB (K-DUR) PO SCH ×2 (06:24→17:13)
[2018-02-18] MEDS: NS W/KCL 20 MEQ/L 1,000 ML IV SCH ×2 (06:26→10:11)
[2018-02-18] MEDS: NYSTATIN ORAL SUSP 5 ML UDC PO SCH ×4 (08:07→22:23)
[2018-02-18] MEDS: PANTOPRAZOLE 40 MG/10 ML (PROTONIX) VIAL IV SCH (08:07)
[2018-02-18 09:30] VITALS: BP 119/57
--- NOTE | 2018-02-18 10:13 | Physical Therapy Daily Note ---
PT Daily Note-Current Subjective Patient reports she is feeling better and wants to go home soon. Pain Numeric Pain Scale: 0-No Pain Location: No Pain Reported Mental Status Patient Orientation: Normal For Age Attachments: IV Transfers Functional [place] Measure 0=Not Assessed/NA 4=Minimal Assistance 1=Total Assistance 5=Supervision or Setup 2=Maximal Assistance 6=Modified [place] 3=Moderate Assistance 7=Complete IndependenceIRFPAI Quality Coding Scale 6 Independent with activity with or without an assistive device 5 Patient requires set up or clean up by helper. Patient completes activity by themselves 4 Supervision or touching assist (CGA). [place] provide cues , steadying assist 3 The helper provides less than half the effort to complete the activity 2 The helper provides more than half the effort to complete the activity 1 Dependent. The helper does all the effort to complete an activity 7 Patient refused to complete or attempt activity 9 The patient did not perform the activity before the current illness or injury 88 Not attempted due to Medical conditions or safety concerns Transfers (B, C, W/C) (FIM): 7 Scootin Sit to/from Stand: 7 Sit to Stand (QC): 6 Weight Bearing Right Lower Extremity: Right Full Weight Bearing Left Lower Extremity: Left Full Weight Bearing Gait Training Does the Patient Walk?: Yes Gait (FIM): 7 Distance (FIM): 3=150 ft Distance: >800' Walk 50 ft with 2 Turns(QC): 6 Walk 150 ft (QC): 6 Gait Level of Assist: 7 Gait Assistive Device: None slow, safe Assessment Patient does requires 3 standing recovery periods due to fatigue, however, is improving with functional mobility. Plan dismissal this week. PT Academic Program Specialist Goals Intermediate Goals PT Intermediate Goals Time Frame: February 21, 2018 Transfers (B,C,W/C) (FIM): 7 Sit to Lying (QC): 6 Lying-Sitting on Side/Bed(QC): 6 Sit to Stand (QC): 6 Rollin Chair/Jva-io-Rwlxg Xfer(QC): 6 Does the Patient Walk: Yes Gait (FIM): 7 Gait distance (FIM): 3=150 ft Distance: 300' Walk 50ft with 2 Turns (QC): 6 Walk 150 ft (QC): 6 Gait Level of Assist: 7 Gait Assistive Device: None PT Plan Treatment/Plan Treatment Plan: Continue Plan of Care Treatment Plan: Education, Functional Activity Jose Carlos, Functional Strength, Gait , Safety, Therapeutic Exercise Treatment Duration: February 21, 2018 Frequency: 6 times per week Estimated Hrs Per Day: .25 hour per day Patient and/or Family Agrees t: Yes Time/GCodes Time In: 910 Time Out: 925 Total Billed Treatment Time: 15 Total Billed Treatment 1 visit FA 15 min TIMOTEO SEARS PT February 18, 2018 10:13
--- NOTE | 2018-02-18 13:06 | Progress Note-Hospitalist ---
Subjective HPI/CC On Admission Date Seen by Provider: February 18, 2018 Time Seen by Provider: 13:03 Subjective/Events-last exam Pt reports feeling better. Would like to try advancing diet today. Hair is also starting to fall out from chemo. Objective Exam Vital Signs Vital Signs Date Time Temp Pulse Resp B/P (MAP) Pulse Ox O2 Delivery O2 Flow Rate FiO2 02/18/18 09:30 82 99 02/18/18 09:30 Room Air 02/18/18 06:08 97.9 17 119/57 (77) Capillary Refill : General Appearance: No Apparent Distress, WD/WN Respiratory: No Accessory Muscle Use, No Respiratory Distress Extremity: No Pedal Edema Neurologic/Psychiatric: Alert, Oriented x3, Normal Mood/Affect Skin: Normal Color, Warm/Dry, Other (thinning hair) Results/Procedures Lab Patient resulted labs reviewed. Imaging: Reviewed Imaging Report Assessment/Plan Assessment and Plan Assess & Plan/Chief Complaint Diverticulitis Diagnosis/Problems Diagnosis/Problems (1) Diverticulitis of intestine Status: Acute Assessment & Plan: Advance to dysphagia 1 diet Surgery consulted, appreciate recs CT Abd/Pelvis showed worsening diverticulitis Switched to Merrem yesterday from Zosyn Qualifiers: Diverticulitis site: large intestine Diverticulitis bleeding: with bleeding Diverticulitis complication: unspecified complication status Qualified Codes: K57.33 - Diverticulitis of large intestine without perforation or abscess with bleeding (2) Breast cancer Status: Chronic Assessment & Plan: s/p 1 round of chemo Does not want to repeat chemo WBC trending down (significant elevation due to Neupogen)- today's pending Qualifiers: Breast location: unspecified site of breast Estrogen receptor status: unspecified Patient sex: female Laterality: left Qualified Codes: C50.912 - Malignant neoplasm of unspecified site of left female breast (3) Hypothyroidism Status: Chronic Assessment & Plan: Continue synthroid Qualifiers: Hypothyroidism type: acquired Qualified Codes: E03.9 - Hypothyroidism, unspecified (4) Hypokalemia Status: Acute Assessment & Plan: Resolved (5) Prophylactic measure Assessment & Plan: Dysphagia diet Saline Lock Clinical Quality Measures DVT/VTE Risk/Contraindication: Risk Factor Score Per Nursin CARISSA GARCIA MD February 18, 2018 1:06 pm
[2018-02-18 13:13] LABS: HEMATOCRIT 34 % (35-52); HEMOGLOBIN 11.1 G/DL (11.5-16.0); MEAN CORPUSCULAR HEMOGLOBIN 29 PG (25-34); MEAN CORPUSCULAR HGB CONC 33 G/DL (32-36); MEAN CORPUSCULAR VOLUME 88 FL (80-99); MEAN PLATELET VOLUME 10.6 FL (7.4-10.4); PLATELET COUNT 150 10^3/uL (130-400)
[2018-02-18 13:27] LABS: BUN/CREATININE RATIO 4; CALCIUM 8.2 MG/DL (8.5-10.1); CARBON DIOXIDE 23 MMOL/L (21-32); CHLORIDE 104 MMOL/L (98-107); CREATININE SERUM 0.55 MG/DL (0.60-1.30); GFR ESTIMATED > 60; GLUCOSE 89 MG/DL (70-105); POTASSIUM 4.5 MMOL/L (3.6-5.0); SODIUM 138 MMOL/L (135-145)
[2018-02-18] MEDS ORDERED: ONDANSETRON 4 MG (ZOFRAN) ORAL DISSOLVE TAB PO PRN (13:30)
[2018-02-18 13:34] LABS: WHITE BLOOD COUNT 58.7 10^3/uL (4.3-11.0)
--- NOTE | 2018-02-18 15:27 | Progress Note ---
Subjective Date Seen by Provider: February 18, 2018 Time Seen by Provider: 15:24 Subjective/Events-last exam feeling better. minimal pain today. No blood per rectum. Denies n/v fever sweats chills shortness of breath or chest pain. wanting food. Objective Exam Vital Signs Date Time Temp Pulse Resp B/P (MAP) Pulse Ox O2 Delivery O2 Flow Rate FiO2 02/18/18 09:30 82 99 02/18/18 09:30 99 Room Air 02/18/18 06:08 97.9 90 17 119/57 (77) 93 Room Air 02/17/18 20:50 94 Room Air 02/17/18 20:09 Room Air 02/17/18 18:00 97.3 76 16 131/76 (94) 95 Room Air I & O 02/18/18 06:59 Intake Total 2070 ml Output Total 1775 ml Balance 295 ml Capillary Refill : General Appearance: No Apparent Distress, WD/WN HEENT: PERRL/EOMI, Pharynx Normal, Moist Mucous Membranes Respiratory: No Accessory Muscle Use, No Respiratory Distress Cardiovascular: Regular Rate, Rhythm, No Murmur Gastrointestinal: soft, no organomegaly; No guarding, No rebound; tenderness ( no significant tenderness today even with deep palpation) Extremity: No Pedal Edema Neurologic/Psychiatric: Alert, Oriented x3, Normal Mood/Affect Skin: Normal Color, Warm/Dry, Other (thinning hair) Lymphatic: No Adenopathy Results Lab Laboratory Tests 02/18/18 13:00: White Blood Count 58.7*H, Red Blood Count 3.80L, Hemoglobin 11.1L, Hematocrit 34L, Mean Corpuscular Volume 88, Mean Corpuscular Hemoglobin 29, Mean Corpuscular Hemoglobin Concent 33, Red Cell Distribution Width 15.0H, Platelet Count 150, Mean Platelet Volume 10.6H, Neutrophils (%) (Auto) , Lymphocytes (%) (Auto) , Monocytes (%) (Auto) , Eosinophils (%) (Auto) , Basophils (%) (Auto) , Neutrophils # (Auto) , Lymphocytes # (Auto) , Monocytes # (Auto) , Eosinophils # (Auto) , Basophils # (Auto) , Sodium Level 138, Potassium Level 4.5, Chloride Level 104, Carbon Dioxide Level 23, Anion Gap 11, Blood Urea Nitrogen 2L, Creatinine 0.55L, Estimat Glomerular Filtration Rate > 60, BUN/Creatinine Ratio 4, Glucose Level 89, Calcium Level 8.2L Assessment/Plan Assessment/Plan Assessment/Plan diverticulitis blood in stool abdominal pain b/l quadrant leukocytosis weakness fatigue recent breast cancer with chemotherapy patient wbc elevated likely secondary to Neupogen, trending down. On Meropenem and feeling better. started on dysphagia 1 diet if continues to feel better and tolerate diet home soon will need colonoscopy in about 6-8 weeks to evaluate colon Clinical Quality Measures DVT/VTE Risk/Contraindication: Risk Factor Score Per Nursin CARLOS MEDRANO DO February 18, 2018 15:27
[2018-02-18 17:49] VITALS: BP 140/71
[2018-02-18] MEDS: ZOLPIDEM 5 MG (AMBIEN) TAB PO SCH (22:23)
[2018-02-19 06:03] VITALS: BP 113/58
[2018-02-19] MEDS: LEVOTHYROXINE 100 MCG (LEVOTHROID) TAB PO SCH (06:53)
[2018-02-19] MEDS: KCL 20 MEQ TAB (K-DUR) PO SCH (06:53)
[2018-02-19] MEDS: MEROPENEM 500 MG in NS (IVPB) 100 ML IV SCH (06:54)
[2018-02-19 07:18] LABS: BASOPHILS # (AUTO) 0.2 10^3/uL (0.0-0.1); BASOPHILS % (AUTO) 1 % (0-10); EOSINOPHILS % (AUTO) 0 % (0-10); HEMATOCRIT 33 % (35-52); HEMOGLOBIN 10.7 G/DL (11.5-16.0); LYMPHOCYTES # (AUTO) 3.3 X 10^3 (1.0-4.0); LYMPHOCYTES % (AUTO) 7 % (12-44); MEAN CORPUSCULAR HEMOGLOBIN 29 PG (25-34); MEAN CORPUSCULAR HGB CONC 33 G/DL (32-36); MEAN CORPUSCULAR VOLUME 89 FL (80-99); MEAN PLATELET VOLUME 10.4 FL (7.4-10.4); MONOCYTES # (AUTO) 5.7 X 10^3 (0.0-1.0); MONOCYTES % (AUTO) 12 % (0-12); NEUTROPHILS # (AUTO) 38.6 X 10^3 (1.8-7.8); NEUTROPHILS % (AUTO) 81 % (42-75); PLATELET COUNT 184 10^3/uL (130-400); RED CELL DISTRIBUTION WIDTH 15.4 % (10.0-14.5)
[2018-02-19 07:23] LABS: WHITE BLOOD COUNT 47.7 10^3/uL (4.3-11.0)
[2018-02-19] MEDS: ACYCLOVIR INJECTION 500 MG in NS (IVPB) 100 ML IV SCH (07:46)
[2018-02-19 07:58] LABS: BUN/CREATININE RATIO 4; CALCIUM 8.3 MG/DL (8.5-10.1); CARBON DIOXIDE 25 MMOL/L (21-32); CHLORIDE 105 MMOL/L (98-107); CREATININE SERUM 0.57 MG/DL (0.60-1.30); GFR ESTIMATED > 60; GLUCOSE 90 MG/DL (70-105); POTASSIUM 4.3 MMOL/L (3.6-5.0); SODIUM 141 MMOL/L (135-145)
--- NOTE | 2018-02-19 09:13 | Progress Note ---
Subjective Date Seen by Provider: February 19, 2018 Time Seen by Provider: 08:35 Subjective/Events-last exam patient feeling well. tolerating diet. wbc coming down. denies fever sweats chills shortness of breath or chest pain. No new complaints. Objective Exam Vital Signs Date Time Temp Pulse Resp B/P (MAP) Pulse Ox O2 Delivery O2 Flow Rate FiO2 02/19/18 06:03 98.2 84 16 113/58 (76) 96 Room Air 02/18/18 17:49 98.9 105 20 140/71 (94) 96 Room Air 02/18/18 09:30 82 99 02/18/18 09:30 99 Room Air I & O 02/19/18 07:00 Intake Total 2340 ml Balance 2340 ml Capillary Refill : General Appearance: No Apparent Distress, WD/WN HEENT: PERRL/EOMI, Pharynx Normal, Moist Mucous Membranes Respiratory: No Accessory Muscle Use, No Respiratory Distress Cardiovascular: Regular Rate, Rhythm, No Murmur Gastrointestinal: soft, no organomegaly; No guarding, No rebound; tenderness ( no significant tenderness today even with deep palpation) Extremity: Normal Inspection, No Pedal Edema Neurologic/Psychiatric: Alert, Oriented x3, Normal Mood/Affect Skin: Normal Color, Warm/Dry, Other (thinning hair) Lymphatic: No Adenopathy Results Lab Laboratory Tests 02/18/18 13:00: White Blood Count 58.7*H, Red Blood Count 3.80L, Hemoglobin 11.1L, Hematocrit 34L, Mean Corpuscular Volume 88, Mean Corpuscular Hemoglobin 29, Mean Corpuscular Hemoglobin Concent 33, Red Cell Distribution Width 15.0H, Platelet Count 150, Mean Platelet Volume 10.6H, Neutrophils (%) (Auto) , Lymphocytes (%) (Auto) , Monocytes (%) (Auto) , Eosinophils (%) (Auto) , Basophils (%) (Auto) , Neutrophils # (Auto) , Lymphocytes # (Auto) , Monocytes # (Auto) , Eosinophils # (Auto) , Basophils # (Auto) , Sodium Level 138, Potassium Level 4.5, Chloride Level 104, Carbon Dioxide Level 23, Anion Gap 11, Blood Urea Nitrogen 2L, Creatinine 0.55L, Estimat Glomerular Filtration Rate > 60, BUN/Creatinine Ratio 4, Glucose Level 89, Calcium Level 8.2L 02/19/18 07:00: White Blood Count 47.7*H, Red Blood Count 3.70L, Hemoglobin 10.7L, Hematocrit 33L, Mean Corpuscular Volume 89, Mean Corpuscular Hemoglobin 29, Mean Corpuscular Hemoglobin Concent 33, Red Cell Distribution Width 15.4H, Platelet Count 184, Mean Platelet Volume 10.4, Neutrophils (%) (Auto) 81H, Lymphocytes (% ) (Auto) 7L, Monocytes (%) (Auto) 12, Eosinophils (%) (Auto) 0, Basophils (%) ( Auto) 1, Neutrophils # (Auto) 38.6H, Lymphocytes # (Auto) 3.3, Monocytes # (Auto ) 5.7H, Eosinophils # (Auto) 0.0, Basophils # (Auto) 0.2H, Sodium Level 141, Potassium Level 4.3, Chloride Level 105, Carbon Dioxide Level 25, Anion Gap 11, Blood Urea Nitrogen 2L, Creatinine 0.57L, Estimat Glomerular Filtration Rate > 60, BUN/Creatinine Ratio 4, Glucose Level 90, Calcium Level 8.3L Assessment/Plan Assessment/Plan Assessment/Plan diverticulitis blood in stool abdominal pain b/l quadrant leukocytosis weakness fatigue recent breast cancer with chemotherapy patient wbc elevated likely secondary to Neupogen, trending down. On Meropenem and feeling better. started on dysphagia 1 diet and tolerating advance diet as tolerates slowly will need colonoscopy in about 6-8 weeks to evaluate colon Clinical Quality Measures DVT/VTE Risk/Contraindication: Risk Factor Score Per Nursin CARLOS MEDRANO DO February 19, 2018 09:13
--- NOTE | 2018-02-19 09:18 | Discharge Summary-Hospitalist ---
Diagnosis/Chief Complaint Date of Admission February 14, 2018 at 11:13 am Date of Discharge Discharge Date: February 19, 2018 Discharge Diagnosis (1) Diverticulitis of intestine Status: Acute Assessment & Plan: Tolerated Surgery consulted, appreciate recs CT Abd/Pelvis showed worsening diverticulitis Continue on Augmentin at discharge (2) Breast cancer Status: Chronic Assessment & Plan: s/p 1 round of chemo Does not want to repeat chemo WBC trending down (significant elevation due to Neupogen)- today's pending (3) Hypothyroidism Status: Chronic Assessment & Plan: Continue synthroid (4) Hypokalemia Status: Acute Assessment & Plan: Resolved (5) Prophylactic measure Assessment & Plan: Dysphagia diet Saline Lock Discharge Summary Procedures/Consulations Dr Corbin- Surgery Dr Marie- Oncology Discharge Physical Exam Allergies: Coded Allergies: bisacodyl (Verified Allergy, Mild, JITTERS/RED RASH, 01/30/18) polyethylene glycol 3350 (Verified Allergy, Mild, JITTERS/RED RASH, ) potassium chloride (Verified Allergy, Mild, JITTERS/RED RASH, 01/30/18) sodium bicarbonate (Verified Allergy, Mild, JITTERS/RED RASH, 01/30/18) sodium chloride (Verified Allergy, Mild, JITTERS/RED RASH, 01/30/18) scopolamine (Verified Allergy, Unknown, NECK PAIN/NERVE DAMAGE, 02/10/18) thiopental (Verified Allergy, Unknown, 01/30/18) Vitals & I&Os Vital Signs Date Time Temp Pulse Resp B/P (MAP) Pulse Ox O2 Delivery O2 Flow Rate FiO2 02/19/18 13:50 84 16 113/58 96 Room Air 02/19/18 06:03 98.2 General Appearance: Alert, Oriented X3 Respiratory: Clear to Auscultation Cardiovascular: Regular Rate Abdominal: Normal Bowel Sounds, Soft Psych/Mental Status: Mental Status NL Hospital Course Pt was admitted for continued IV abx and PT due to diverticulitis. She improved and was able to tolerate a diet by discharged. She was discharged home on Augmentin to complete course. She is to follow up with Dr Guerrier next week and with Dr Corbin in two weeks. Labs (last 24 hrs) Patient resulted labs reviewed. Pending Labs Imaging: Reviewed Imaging Report Discussion & Recommendations Discharge Planning: >30 minutes discharge planning Discharge Home Medications: Active Scripts Active Valacyclovir (Valacyclovir HCl) 1,000 Mg Tablet 1,000 Mg PO BID Augmentin 875-125 Tablet (Amoxicillin/Potassium Clav) 1 Each Tablet 1 Each PO BID WITH MEALS Ondansetron HCl 8 Mg Tablet 8 Mg PO TID PRN Reported Prochlorperazine Maleate 10 Mg Tablet 10 Mg PO Q6H PRN Dulcolax Stool Softener (Docusate Sodium) 100 Mg Capsule 100-200 Mg PO Q48H TAKES 1-2 OF A (100 MG) CAPSULE WITH LINZESS Linzess (Linaclotide) 72 Mcg Capsule 72 Mcg PO Q48H Zolpidem Tartrate 10 Mg Tablet 10 Mg PO HS Levothyroxine Sodium 100 Mcg Tablet 100 Mcg PO DAILY Instructions to patient/family Please see electronic discharge instructions given to patient. Clinical Quality Measures DVT/VTE Risk/Contraindication: Risk Factor Score Per Nursin Copy Copies To 1: DIVINE GUERRIER MD Problem Qualifiers (1) Diverticulitis of intestine: Diverticulitis site: large intestine Diverticulitis bleeding: with bleeding Diverticulitis complication: unspecified complication status Qualified Codes: K57.33 - Diverticulitis of large intestine without perforation or abscess with bleeding (2) Breast cancer: Breast location: unspecified site of breast Estrogen receptor status: unspecified Patient sex: female Laterality: left Qualified Codes: C50.912 - Malignant neoplasm of unspecified site of left female breast (3) Hypothyroidism: Hypothyroidism type: acquired Qualified Codes: E03.9 - Hypothyroidism, unspecified CARISSA GARCIA MD February 19, 2018 09:18
[2018-02-19] MEDS ORDERED: AMOX-358 PO (09:29)
[2018-02-19] MEDS ORDERED: ONDA8TAB12 PO (09:29)
[2018-02-19] MEDS ORDERED: SIMETHICONE 80 MG (MYLICON) CHEW PO NR (09:30)
--- NOTE | 2018-02-19 10:35 | Physical Therapy Progress Note ---
Therapy Progress Note SURGICAL SERVICES MANAGER confirmed with Nurse & Dr Martinez, pt to be discharged today. 1 visit, no tx rendered Time:1010 DOMINIC NASH PTA February 19, 2018 10:35
[2018-02-19] MEDS: PANTOPRAZOLE 40 MG/10 ML (PROTONIX) VIAL IV SCH (10:44)
[2018-02-19] MEDS: NYSTATIN ORAL SUSP 5 ML UDC PO SCH (10:44)
--- NOTE | 2018-02-19 11:05 | Discharge Inst-Simple/Standard ---
Discharge Inst-Standard Discharge Medications New, Converted or Re-Newed RX: Transmitted to Pharmacy Patient Instructions/Follow Up Plan of Care/Instructions/FU: Please continue to take your medications as written. Please follow up as scheduled. Activity as Tolerated: Yes Discharge Diet: Other Diet (bland, soft) Return to The Hospital For: Worsening pain, fever, or if you feel you are getting worse. CARISSA GARCIA MD February 19, 2018 11:05 am
[2018-02-19] MEDS ORDERED: VALA1000 PO (11:36)
[2018-02-19 13:50] VITALS: BP 113/58
== END 2018-02-19 13:50 | disposition home or self-care (01) | DRG 378 ==
LOC: 4TH 11:13
PROVIDERS: ADMIT Internal Medicine; ATTEND Internal Medicine
DX: K57.33 Diverticulitis of large intestine without perforation or abscess with bleeding (principal); C50.912 Malignant neoplasm of unspecified site of left female breast; E46 Unspecified protein-calorie malnutrition; K12.30 Oral mucositis (ulcerative), unspecified; B00.9 Herpesviral infection, unspecified; E87.6 Hypokalemia; D72.829 Elevated white blood cell count, unspecified; E03.9 Hypothyroidism, unspecified; R53.81 Other malaise; T45.8X5A Adverse effect of other primarily systemic and hematological agents, initial encounter; R42 Dizziness and giddiness; R53.1 Weakness; Z92.21 Personal history of antineoplastic chemotherapy
CPT/HCPCS: 36415; 74177; 80048; 80053; 83735; 85007; 85025; 85027; 94760

== ENCOUNTER → 2018-03-19 | Outpatient (CLI) | payer MEDICARE, OTHER ==
[~2018-03-19] MED LIST changes: +VALA1000 PO
--- NOTE | 2018-03-19 17:06 | Diagnostic Imaging Report ---
PATIENT HISTORY: ACUTE RIGHT SIDED THORACIC BACK PAIN. TECHNIQUE: Three views of the thoracic spine. COMPARISON: CT of the abdomen and pelvis from 02/17/2018. CT of the thoracic spine from 03/16/2014. FINDINGS: There are compression deformities of the L1 and T11 vertebral bodies which appears stable since 2014, with kyphoplasty changes seen at L1. There is minimal compression deformity of the T7 vertebral body which appear stable since 2014 as well. The upper thoracic spine is not well seen due to overlapping structures. There is diffuse osteopenia. No new fractures seen. There is minimal right convex curvature of the lower thoracic spine. Right-sided Port-A-Cath tip projects over the upper SVC. IMPRESSION: Compression deformities in the thoracic spine appear stable since 2013. No new fractures seen. If there is persistent concern for acute fracture, consider MRI. Dictated by: Dictated on workstation # [id number]
== END ==
LOC: RAD 11:01
PROVIDERS: ATTEND Nurse Practitioner Family
DX: M43.8X4 Other specified deforming dorsopathies, thoracic region (principal)
CPT/HCPCS: 72072

== ENCOUNTER → 2018-04-24 | Outpatient (RCR) | payer MEDICARE, OTHER ==
[2018-02-04 11:14] LABS: BASOPHILS % (AUTO) 0 % (0-10); EOSINOPHILS % (AUTO) 0 % (0-10); HEMATOCRIT 39 % (35-52); HEMOGLOBIN 13.1 G/DL (11.5-16.0); LYMPHOCYTES # (AUTO) 1.6 X 10^3 (1.0-4.0); LYMPHOCYTES % (AUTO) 11 % (12-44); MEAN CORPUSCULAR HEMOGLOBIN 29 PG (25-34); MEAN CORPUSCULAR HGB CONC 33 G/DL (32-36); MEAN CORPUSCULAR VOLUME 88 FL (80-99); MEAN PLATELET VOLUME 10.7 FL (7.4-10.4); MONOCYTES # (AUTO) 0.9 X 10^3 (0.0-1.0); MONOCYTES % (AUTO) 7 % (0-12); NEUTROPHILS # (AUTO) 11.7 X 10^3 (1.8-7.8); NEUTROPHILS % (AUTO) 82 % (42-75); PLATELET COUNT 264 10^3/uL (130-400); RED BLOOD COUNT 4.45 10^6/uL (4.35-5.85); RED CELL DISTRIBUTION WIDTH 13.8 % (10.0-14.5); WHITE BLOOD COUNT 14.2 10^3/uL (4.3-11.0)
[2018-02-04 11:34] LABS: ALANINE AMINOTRANSFERASE 6 U/L (0-55); ALBUMIN 4.2 GM/DL (3.2-4.5); ALKALINE PHOSPHATASE 77 U/L (40-136); BILIRUBIN,TOTAL 0.4 MG/DL (0.1-1.0); BUN/CREATININE RATIO 20; CALCIUM 9.6 MG/DL (8.5-10.1); CARBON DIOXIDE 22 MMOL/L (21-32); CHLORIDE 106 MMOL/L (98-107); CREATININE SERUM 0.74 MG/DL (0.60-1.30); GFR ESTIMATED > 60; GLUCOSE 126 MG/DL (70-105); POTASSIUM 4.2 MMOL/L (3.6-5.0); SODIUM 138 MMOL/L (135-145); TOTAL PROTEIN 7.4 GM/DL (6.4-8.2)
[2018-02-26 09:06] LABS: BASOPHILS % (AUTO) 0 % (0-10); EOSINOPHILS # (AUTO) 0.1 10^3/uL (0.0-0.3); EOSINOPHILS % (AUTO) 2 % (0-10); HEMATOCRIT 30 % (35-52); HEMOGLOBIN 9.6 G/DL (11.5-16.0); LYMPHOCYTES # (AUTO) 1.5 X 10^3 (1.0-4.0); LYMPHOCYTES % (AUTO) 20 % (12-44); MEAN CORPUSCULAR HEMOGLOBIN 30 PG (25-34); MEAN CORPUSCULAR HGB CONC 32 G/DL (32-36); MEAN CORPUSCULAR VOLUME 91 FL (80-99); MEAN PLATELET VOLUME 9.4 FL (7.4-10.4); MONOCYTES # (AUTO) 2.1 X 10^3 (0.0-1.0); MONOCYTES % (AUTO) 28 % (0-12); NEUTROPHILS # (AUTO) 3.9 X 10^3 (1.8-7.8); NEUTROPHILS % (AUTO) 51 % (42-75); PLATELET COUNT 382 10^3/uL (130-400); RED BLOOD COUNT 3.25 10^6/uL (4.35-5.85); RED CELL DISTRIBUTION WIDTH 15.1 % (10.0-14.5); WHITE BLOOD COUNT 7.7 10^3/uL (4.3-11.0)
[2018-02-26 09:24] LABS: ALANINE AMINOTRANSFERASE 26 U/L (0-55); ALBUMIN 3.4 GM/DL (3.2-4.5); ALKALINE PHOSPHATASE 109 U/L (40-136); BILIRUBIN,TOTAL 0.4 MG/DL (0.1-1.0); BUN/CREATININE RATIO 10; CALCIUM 9.1 MG/DL (8.5-10.1); CARBON DIOXIDE 27 MMOL/L (21-32); CHLORIDE 106 MMOL/L (98-107); CREATININE SERUM 0.63 MG/DL (0.60-1.30); GFR ESTIMATED > 60; GLUCOSE 110 MG/DL (70-105); MAGNESIUM 1.8 MG/DL (1.8-2.4); POTASSIUM 4.4 MMOL/L (3.6-5.0); SODIUM 144 MMOL/L (135-145); TOTAL PROTEIN 6.7 GM/DL (6.4-8.2)
[2018-03-13 09:34] LABS: BASOPHILS % (AUTO) 1 % (0-10); EOSINOPHILS # (AUTO) 0.2 10^3/uL (0.0-0.3); EOSINOPHILS % (AUTO) 3 % (0-10); HEMATOCRIT 37 % (35-52); HEMOGLOBIN 11.8 G/DL (11.5-16.0); LYMPHOCYTES # (AUTO) 1.9 X 10^3 (1.0-4.0); LYMPHOCYTES % (AUTO) 34 % (12-44); MEAN CORPUSCULAR HEMOGLOBIN 30 PG (25-34); MEAN CORPUSCULAR HGB CONC 32 G/DL (32-36); MEAN CORPUSCULAR VOLUME 93 FL (80-99); MEAN PLATELET VOLUME 9.3 FL (7.4-10.4); MONOCYTES # (AUTO) 1.1 X 10^3 (0.0-1.0); MONOCYTES % (AUTO) 21 % (0-12); NEUTROPHILS # (AUTO) 2.3 X 10^3 (1.8-7.8); NEUTROPHILS % (AUTO) 42 % (42-75); PLATELET COUNT 202 10^3/uL (130-400); RED BLOOD COUNT 3.94 10^6/uL (4.35-5.85); RED CELL DISTRIBUTION WIDTH 16.7 % (10.0-14.5); WHITE BLOOD COUNT 5.5 10^3/uL (4.3-11.0)
[2018-03-13 09:54] LABS: ALANINE AMINOTRANSFERASE 8 U/L (0-55); ALBUMIN 4.1 GM/DL (3.2-4.5); ALKALINE PHOSPHATASE 95 U/L (40-136); BILIRUBIN,TOTAL 0.5 MG/DL (0.1-1.0); BUN/CREATININE RATIO 11; CALCIUM 8.9 MG/DL (8.5-10.1); CARBON DIOXIDE 22 MMOL/L (21-32); CHLORIDE 106 MMOL/L (98-107); CREATININE SERUM 0.71 MG/DL (0.60-1.30); GFR ESTIMATED > 60; GLUCOSE 103 MG/DL (70-105); POTASSIUM 4.3 MMOL/L (3.6-5.0); SODIUM 140 MMOL/L (135-145); TOTAL PROTEIN 7.3 GM/DL (6.4-8.2)
[~2018-04-24] VITALS: Ht 160 cm; Wt 70.8 kg
[~2018-04-24] MED LIST changes: +CYCLOPHOSPHAMIDE IV SCH; +DOCETAXEL IV SCH; +FAMOTIDINE 20MG/2ML IV (CANCER CTR) IV SCH; +FOSAPREPITANT DIMEGLUMINE 150 MG in NS (IVPB) CANCER CENTER ONLY 150 ML IV SCH; +NORMAL SALINE IV SCH; +NS IV 1000 ML (CANCER CTR) 1,000 ML ONE; +PALONOSETRON 0.25 MG, DEXAMETHASONE 10 MG/NS 50 ML IVPB IV PRN; +PEGFILGRASTIM 6 MG/0.6ML NEULASTA SC SCH; +[UNRECOGNIZED DRUG - OTHER] IV SCH; +diphenhydrAMINE 25 MG TAB (BENADRYL) CANCER CENTER PO SCH
== END | disposition home or self-care (01) ==
LOC: ONC 01-24 07:54
PROVIDERS: ATTEND Internal Medicine Hematology & Oncology
DX: Z51.11 Encounter for antineoplastic chemotherapy (principal); C50.312 Malignant neoplasm of lower-inner quadrant of left female breast; E03.9 Hypothyroidism, unspecified; I10 Essential (primary) hypertension; F41.9 Anxiety disorder, unspecified; Z17.0 Estrogen receptor positive status [ER+]; Z79.899 Other long term (current) drug therapy
CPT/HCPCS: 36415; 36591; 77280; 77290; 77295; 77300; 77307; 77334; 77336; 77417; 77470; 80053; 83735; 85025; 96367; 96372; 96375; 96413; 96417; 99204; 99213; 99214

== ENCOUNTER → 2018-04-30 | Outpatient (CLI) | payer MEDICARE, OTHER ==
[~2018-04-30] MED LIST changes: -CYCLOPHOSPHAMIDE IV SCH; -DOCETAXEL IV SCH; -FAMOTIDINE 20MG/2ML IV (CANCER CTR) IV SCH; -FOSAPREPITANT DIMEGLUMINE 150 MG in NS (IVPB) CANCER CENTER ONLY 150 ML IV SCH; -NORMAL SALINE IV SCH; -NS IV 1000 ML (CANCER CTR) 1,000 ML ONE; -PALONOSETRON 0.25 MG, DEXAMETHASONE 10 MG/NS 50 ML IVPB IV PRN; -PEGFILGRASTIM 6 MG/0.6ML NEULASTA SC SCH; -[UNRECOGNIZED DRUG - OTHER] IV SCH; -diphenhydrAMINE 25 MG TAB (BENADRYL) CANCER CENTER PO SCH
--- NOTE | 2018-04-30 11:09 | Diagnostic Imaging Report ---
INDICATION: Right foot pain for 3 weeks. AP, oblique and lateral views of the right foot are obtained. FINDINGS: No fracture or malalignment is identified. There is no abnormal lytic or sclerotic focus. There is mild narrowing of the first metatarsophalangeal joint without significant associated erosion. IMPRESSION: Mild degenerative changes at the first metatarsophalangeal joint without evidence of acute abnormality in the right foot. Dictated by: Dictated on workstation # [id number]
== END ==
LOC: RAD 10:20
PROVIDERS: ATTEND Family Medicine
DX: M19.071 Primary osteoarthritis, right ankle and foot (principal)
CPT/HCPCS: 73630

== ENCOUNTER 2018-05-04 08:33 | Emergency (ER) | payer MEDICARE, OTHER ==
[~2018-05-04] VITALS: Ht 160 cm; Wt 66.2 kg
--- OUTSIDE RECORDS SUMMARY | 2018-05-04 08:40 | XMS REPORT | Clinical Summary ---
Author Author [facility] Organization [facility] Address Unknown Phone Unavailable Care Team Providers Care Business Analysis Consultant Name Role Phone Eliu Riley MD Unavailable Unverified, Unverified Md PCP Unavailable Source Comments Some departments are not documenting in the electronic medical record. If you do not see the information that you expected, contact Release of Information in the Health Information Management department at [phone] for further assistance in locating additional records.[facility] Allergies Active Allergy Reactions Severity Noted Date [...] Taken Blood Pressure 144/78 10/05/2013 8:24 AM STATION TENDER Pulse 72 10/05/2013 8:24 AM STATION TENDER Temperature - - Respiratory Rate 16 08/14/2012 12:53 PM STATION TENDER Oxygen Saturation - - Inhaled Oxygen - - Concentration Weight 77.6 kg (171 lb) 10/05/2013 8:24 AM STATION TENDER Height 160 cm (5' 3") 10/05/2013 8:24 AM STATION TENDER Body Mass Index 30.29 10/05/2013 8:24 AM STATION TENDER Plan of Treatment Health Maintenance Due Date Last Done Comments PHYSICAL (COMPREHENSIVE) 1947 EXAM PERTUSSIS VACCINE 1953 TETANUS VACCINE 1959 COLORECTAL CANCER 1992 SCREENING SHINGLES RECOMBINANT 1992 VACCINE (1 of 2) OSTEOPOROSIS SCREENING 2007 PNEUMONIA (PCV13/PPSV23) 2007 VACCINES (1 of 2 - PCV13) INFLUENZA VACCINE 07/07/2018 Results Not on filefrom Last 3 Months
--- NOTE | 2018-05-04 09:26 | ED General ---
General Chief Complaint: Lower Extremity Stated Complaint: RT FOOT SWOLLEN, PAIN Nursing Triage Note: Pt brought to rm 5 via wheelchair. Pt c/o R foot and ankle pain that radiates to the knee. Pt states foot/ankle began hurting last week. Pt was seen on , had ankle xrayed and began steroids at that time. Pt states foot/ankle was feeling better until she hit it on a chair last night. Pt has mild swelling to outside R ankle. Pt states she took 1/2 of a hydrocodone, and 800 mg IBU this am. Pt is currently receiving radiation. Nursing Sepsis Screen: No Definite Risk Source of Information: Patient, Old Records Exam Limitations: No Limitations History of Present Illness Date Seen by Provider: May 04, 2018 Time Seen by Provider: 09:10 Initial Comments This 77 year old woman presents to the ER with pain in the right foot primarily on the lateral aspect. This pain has been present for about 3 weeks but has been worse in recent days. Particularly, she bumped her foot last night in the area of pain and the pain was significantly exacerbated. She took ibuprofen 800 mg 2 in the night as well as one half tablet of hydrocodone. She still has significant pain despite this treatment. She also describes some more mild pain in the right calf. Patient is undergoing radiation therapy for breast cancer. X-rays were performed 4 days ago on April 30 and they demonstrated no acute abnormalities. Patient wonders if she may have gout. Allergies and Home Medications Allergies Coded Allergies: bisacodyl (Verified Allergy, Mild, JITTERS/RED RASH, 01/30/18) polyethylene glycol 3350 (Verified Allergy, Mild, JITTERS/RED RASH, ) potassium chloride (Verified Allergy, Mild, JITTERS/RED RASH, 01/30/18) sodium bicarbonate (Verified Allergy, Mild, JITTERS/RED RASH, 01/30/18) sodium chloride (Verified Allergy, Mild, JITTERS/RED RASH, 01/30/18) scopolamine (Verified Allergy, Unknown, NECK PAIN/NERVE DAMAGE, 02/10/18) thiopental (Verified Allergy, Unknown, 01/30/18) Home Medications Amoxicillin/Potassium Clav 1 Each Tablet, 1 EACH PO BID WITH MEALS Prescribed by: CARISSA GARCIA on 02/19/18 0929 Docusate Sodium 100 Mg Capsule, 100-200 MG PO Q48H, (Reported) TAKES 1-2 OF A (100 MG) CAPSULE WITH LINZESS Levothyroxine Sodium 100 Mcg Tablet, 100 MCG PO DAILY, (Reported) Linaclotide 72 Mcg Capsule, 72 MCG PO Q48H, (Reported) Ondansetron HCl 8 Mg Tablet, 8 MG PO TID PRN for NAUSEA/VOMITING-1ST LINE Prescribed by: CARISSA GARCIA on 02/19/18 0929 Prochlorperazine Maleate 10 Mg Tablet, 10 MG PO Q6H PRN for CONSTIPATION-4TH LINE, (Reported) Valacyclovir HCl 1,000 Mg Tablet, 1,000 MG PO BID Prescribed by: CARISSA GARCIA on 02/19/18 1136 Zolpidem Tartrate 10 Mg Tablet, 10 MG PO HS, (Reported) Patient Home Medication List Home Medication List Reviewed: Yes Review of Systems Constitutional: no symptoms reported EENTM: no symptoms reported Respiratory: no symptoms reported Cardiovascular: no symptoms reported Gastrointestinal: no symptoms reported Genitourinary: no symptoms reported Musculoskeletal: see HPI Skin: no symptoms reported Psychiatric/Neurological: No Symptoms Reported Hematologic/Lymphatic: See HPI Immunological/Allergic: no symptoms reported Past Ukhinga-Bmojdd-Fonkaz Hx Past Med/Social Hx: Reviewed and Corrections made Patient Social History Alcohol Use: Denies Use Recreational Drug Use: No 2nd Hand Smoke Exposure: No Recent Foreign Travel: No Contact w/Someone Who Travel: No Recent Infectious Disease Expo: No Recent Hopitalizations: No Physical Abuse: No Sexual Abuse: No Immunizations Up To Date Tetanus Booster (TDap): Unknown Date of Pneumonia Vaccine: May 30, 2015 Seasonal Allergies Seasonal Allergies: No Past Medical History Surgeries: Yes (BACK SURGERY 03/19/14--VERTEBROPLASTY, LUMPECTOMY/LYMPH NODE DISSECTION) Appendectomy, Breast, Gallbladder, 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, Orthopedic, Tonsillectomy Respiratory: No Currently Using CPAP: No Currently Using BIPAP: No Cardiac: Yes Hypotension Neurological: No : No Reproductive Disorders: No 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 Sexually Transmitted Disease: No HIV/AIDS: No Genitourinary: No Kidney Stones Gastrointestinal: Yes (NAUSEA) Gastroesophageal Reflux, Chronic Constipation, Diverticulosis, Ulcer Musculoskeletal: Yes (DAMAGED NERVE IN NECK) Arthritis, Fractures Endocrine: Yes Hypothyroidsim HEENT: Yes (DETACHED [place]) Cataract Loss of Vision: Denies Hearing Impairment: Denies Cancer: Yes (LEFT) Skin, Breast Did You Recieve Any Treatments: Yes What Type of Treatment Did You: Chemotherapy, Surgical Intervention, Other ( Radiation therapy) Psychosocial: Yes Anxiety Nursing Suicide Risk Score: 0 Integumentary: No Blood Disorders: No Adverse Reaction/Blood Tranf: No (N/A) Family Medical History Reviewed Nursing Family Hx Abdominal aortic aneurysm 19 MOTHER Alcoholism Arthritis 19 MOTHER Headache disorder 19 MOTHER G8 BROTHER G8 SISTER Hypertension SONS No Pertinent Family Hx Physical Exam Vital Signs Vital Signs - First Documented 05/04/18 08:40 Temp 97.6 Pulse 71 Resp 15 B/P (MAP) 140/98 (112) O2 Delivery Room Air Capillary Refill : Less Than 3 Seconds Height, Weight, BMI Height: 5'3.00" Weight: 146lbs. 0.0oz. [id number]; 27.3 BMI Method:Stated General Appearance: No Apparent Distress, WD/WN HEENT: Normal ENT Inspection Respiratory: Lungs Clear, Normal Breath Sounds, No Accessory Muscle Use, No Respiratory Distress Cardiovascular: Regular Rate, Rhythm, No Edema, No Murmur, Normal Peripheral Pulses (normal right pedal pulse) Gastrointestinal: Normal Bowel Sounds, Non Tender, Soft Extremity: Normal Inspection, Other (there is notable tenderness to palpation of the right lateral foot as well as in the arch. There is minor swelling around the lateral malleolus without tenderness. There is no ankle pain with range of motion. Sensation and capillary refill are intact in the toes. Pedal pulses strong. 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 Norm as Tested Skin: Normal Color, Warm/Dry Progress/Results/Core Measures Suspected Sepsis Recent Fever Within 48 Hours: No Infection Criteria Present: None New/Unexplained Altered Menta: No Sepsis Screen: No Definite Risk SIRS Temperature:97.6 Pulse: 71 Respiratory Rate: 15 Laboratory Tests 05/04/18 10:35: White Blood Count 7.5 Blood Pressure 140 /98 Mean: 112 Laboratory Tests 05/04/18 10:35: Platelet Count 198 Results/Orders Lab Results Laboratory Tests Test 05/04/18 10:35 Range/Units White Blood Count 7.5 4.3-11.0 10^3/uL Red Blood Count 4.06 L 4.35-5.85 10^6/uL Hemoglobin 12.1 11.5-16.0 G/DL Hematocrit 37 35-52 % Mean Corpuscular Volume 92 80-99 FL Mean Corpuscular Hemoglobin 30 25-34 PG Mean Corpuscular Hemoglobin Concent 33 32-36 G/DL Red Cell Distribution Width 15.6 H 10.0-14.5 % Platelet Count 198 130-400 10^3/uL Mean Platelet Volume 10.4 7.4-10.4 FL Neutrophils (%) (Auto) 55 42-75 % Lymphocytes (%) (Auto) 24 12-44 % Monocytes (%) (Auto) 20 H 0-12 % Eosinophils (%) (Auto) 1 0-10 % Basophils (%) (Auto) 0 0-10 % Neutrophils # (Auto) 4.1 1.8-7.8 X 10^3 Lymphocytes # (Auto) 1.8 1.0-4.0 X 10^3 Monocytes # (Auto) 1.5 H 0.0-1.0 X 10^3 Eosinophils # (Auto) 0.1 0.0-0.3 10^3/uL Basophils # (Auto) 0.0 0.0-0.1 10^3/uL Neutrophils % (Manual) 51 % Lymphocytes % (Manual) 30 % Monocytes % (Manual) 18 % Eosinophils % (Manual) 1 % Basophils % (Manual) 0 % Band Neutrophils 0 % Blood Morphology Comment NORMAL D-Dimer 1.09 H 0.00-0.49 UG/ML Uric Acid 4.7 2.6-7.2 MG/DL C-Reactive Protein High Sensitivity 0.58 H 0.00-0.50 MG/DL My Orders Orders - MATIAS CIFUENTES MD Foot, Right, 3 View (05/04/18 09:16) Hydrocodone/Apap 5/325 Tablet (Lortab 5 (05/04/18 09:30) Cbc With Automated Diff (05/04/18 10:01) Hs C Reactive Protein (05/04/18 10:01) Fibrin Degradation Products (05/04/18 10:01) Uric Acid (05/04/18 10:01) Implanted Port: Access (05/04/18 10:02) Manual Differential (05/04/18 10:35) Us Venous Lower Ext Rt (05/04/18 11:27) Gabapentin Capsule/Tablet (Neurontin Cap (05/04/18 12:30) Medications Given in ED Current Medications Medications Dose Ordered Sig/Keri Route Start Time Stop Time Status Last Admin Dose Admin Acetaminophen/ Hydrocodone Bitart 1 tab ONCE ONCE PO 05/04/18 09:30 05/04/18 09:31 DC 05/04/18 09:26 1 TAB Vital Signs/I&O 05/04/18 08:40 Temp 97.6 Pulse 71 Resp 15 B/P (MAP) 140/98 (112) O2 Delivery Room Air Capillary Refill : Less Than 3 Seconds Blood Pressure Mean: 112 Progress Note : Progress Note Repeat x-ray showed no abnormal findings. Workup was further pursued with labs. There is no indication of infection or gout based on labs. D-dimer was elevated. Since patient had pain and tenderness in the calf, ultrasound was pursued which was negative. Patient was advised to trial gabapentin. Gabapentin is not effective, she may continue with hydrocodone and use Colace to prevent constipation. I suggested she seek referral to a material damage adjuster. Diagnostic Imaging Diagonstic Imaging: Xray Plain Films/CT/US/NM/MRI: other (right foot) Comments Right foot x-ray viewed by me and report reviewed. See report below: NAME: EDIS ZARAGOZA [facility] REC#: [id number] PT STATUS: REG ER : 1940 PHYSICIAN: MATIAS CIFUENTES MD ADMIT DATE: 05/04/18/ER Signed Date of Exam: 05/04/18 FOOT, RIGHT, 3 VIEW EXAM: FOOT, RIGHT, 3 VIEW INDICATION: Right foot pain. COMPARISON: Right foot radiographs 04/30/2018. FINDINGS: Mild degenerative changes in the right first MTP joint. No fracture or malalignment. No suspicious osteoblastic or lytic lesions. Soft tissue shadows are unremarkable. Plantar and Achilles calcaneal heel spurs. IMPRESSION: Stable mild degenerative changes in the right first MTP joint. No acute osseous findings. Dictated by: Dictated on workstation # [id number] Dict: 05/04/1828 Trans: 05/04/1845 Interpreted by: BRIAN SARAVIA MD Electronically signed by: BRIAN SARAVIA MD 05/04/18 0945 Diagonstic Imaging: Ultrasound Plain Films/CT/US/NM/MRI: leg Comments Ultrasound report reviewed. See report below: NAME: EDIS ZARAGOZA [facility] REC#: [id number] PT STATUS: REG ER : 1940 PHYSICIAN: MATIAS CIFUENTES MD ADMIT DATE: 05/04/18/ER Draft Date of Exam:05/04/18 US VENOUS LOWER EXT RT EXAM: US VENOUS LOWER EXT RT INDICATION: Right calf pain. COMPARISON: None. TECHNIQUE: Duplex, downs-scale and color-flow imaging of the right lower extremity venous system was performed FINDINGS: The right common femoral vein, superficial femoral vein, profunda femoris, and popliteal veins are normal. These vessels show normal compressibility, color flow, and doppler augmentation. The deep calf veins demonstrate no distinct intraluminal thrombus where seen. IMPRESSION: Negative venous Doppler of the right lower extremity. Dictated on workstation # [id number] Dict: 05/04/18 1224 Trans: 05/04/18 1226 REY [id number] Interpreted by: BRIAN SARAVIA MD Departure Impression Primary Impression: Right foot pain Disposition: 01 HOME, SELF-CARE Condition: Improved Departure-Patient Inst. Decision time for Depature: 12:25 Referrals: DIVINE ARTEAGA MD (PCP/Family) Primary Care Physician Patient Instructions: NO INSTRUCTIONS GIVEN Add. Discharge Instructions: Call your primary care provider on Saturday for a referral to material damage adjuster. If pain is not controlled by [id number] medications such as Tylenol and ibuprofen, then try gabapentin 100-300 mg up to 3 times daily. Start with a lower dose and increase as needed if well-tolerated. Use hydrocodone for pain not controlled by gabapentin. While on narcotics such as hydrocodone use a stool softener such as Colace once or twice daily. Return to care if symptoms are worsening. All discharge instructions reviewed with patient and/or family. Voiced understanding. Copy Copies To 1: DIVINE ARTEAGA MD, JOSHUA T MD May 04, 2018 09:26
[2018-05-04] MEDS ORDERED: HYDROcodone/APAP 5 MG/325 MG (LORTAB) TAB PO ONE (09:30)
--- NOTE | 2018-05-04 09:32 | Diagnostic Imaging Report ---
EXAM: FOOT, RIGHT, 3 VIEW INDICATION: Right foot pain. COMPARISON: Right foot radiographs 04/30/2018. FINDINGS: Mild degenerative changes in the right first MTP joint. No fracture or malalignment. No suspicious osteoblastic or lytic lesions. Soft tissue shadows are unremarkable. Plantar and Achilles calcaneal heel spurs. IMPRESSION: Stable mild degenerative changes in the right first MTP joint. No acute osseous findings. Dictated by: Dictated on workstation # [id number]
[2018-05-04 10:45] LABS: BASOPHILS % (AUTO) 0 % (0-10); EOSINOPHILS # (AUTO) 0.1 10^3/uL (0.0-0.3); EOSINOPHILS % (AUTO) 1 % (0-10); HEMATOCRIT 37 % (35-52); HEMOGLOBIN 12.1 G/DL (11.5-16.0); LYMPHOCYTES # (AUTO) 1.8 X 10^3 (1.0-4.0); LYMPHOCYTES % (AUTO) 24 % (12-44); MEAN CORPUSCULAR HEMOGLOBIN 30 PG (25-34); MEAN CORPUSCULAR HGB CONC 33 G/DL (32-36); MEAN CORPUSCULAR VOLUME 92 FL (80-99); MEAN PLATELET VOLUME 10.4 FL (7.4-10.4); MONOCYTES # (AUTO) 1.5 X 10^3 (0.0-1.0); MONOCYTES % (AUTO) 20 % (0-12); NEUTROPHILS # (AUTO) 4.1 X 10^3 (1.8-7.8); NEUTROPHILS % (AUTO) 55 % (42-75); PLATELET COUNT 198 10^3/uL (130-400); RED BLOOD COUNT 4.06 10^6/uL (4.35-5.85); RED CELL DISTRIBUTION WIDTH 15.6 % (10.0-14.5); WHITE BLOOD COUNT 7.5 10^3/uL (4.3-11.0)
[2018-05-04 11:03] LABS: URIC ACID 4.7 MG/DL (2.6-7.2)
[2018-05-04 11:15] LABS: BAND NEUTROPHILS 0 %; BASOPHILS % (MANUAL) 0 %; EOSINOPHILS % (MANUAL) 1 %; LYMPHOCYTES % (MANUAL) 30 %; MONOCYTES % (MANUAL) 18 %; NEUTROPHILS % (MANUAL) 51 %; RBC MORPH NORMAL
--- NOTE | 2018-05-04 12:27 | Diagnostic Imaging Report ---
EXAM: US VENOUS LOWER EXT RT INDICATION: Right calf pain. COMPARISON: None. TECHNIQUE: Duplex, downs-scale and color-flow imaging of the right lower extremity venous system was performed FINDINGS: The right common femoral vein, superficial femoral vein, profunda femoris, and popliteal veins are normal. These vessels show normal compressibility, color flow, and doppler augmentation. The deep calf veins demonstrate no distinct intraluminal thrombus where seen. IMPRESSION: Negative venous Doppler of the right lower extremity. Dictated by: Dictated on workstation # [id number]
[2018-05-04] MEDS ORDERED: GABAPENTIN 300 MG (NEURONTIN) CAP PO ONE (12:30)
[2018-05-04 12:44] VITALS: BP 145/77
== END 2018-05-04 12:44 | disposition home or self-care (01) ==
LOC: EDUNIT# 08:33 → ER 08:35
DX: M79.671 Pain in right foot (principal); C50.919 Malignant neoplasm of unspecified site of unspecified female breast; K21.9 Gastro-esophageal reflux disease without esophagitis; E03.9 Hypothyroidism, unspecified; F41.9 Anxiety disorder, unspecified; Z92.21 Personal history of antineoplastic chemotherapy; Z85.038 Personal history of other malignant neoplasm of large intestine; Z88.8 Allergy status to other drugs, medicaments and biological substances; Z98.1 Arthrodesis status; Z90.710 Acquired absence of both cervix and uterus; Z90.89 Acquired absence of other organs; Z87.442 Personal history of urinary calculi; W22.09XA Striking against other stationary object, initial encounter
CPT/HCPCS: 36415; 73630; 84550; 85007; 85027; 85379; 86141

== ENCOUNTER 2018-06-27 09:24 | Outpatient (RCR) | payer MEDICARE, OTHER ==
[2018-05-30 11:56] LABS: BASOPHILS % (AUTO) 0 % (0-10); EOSINOPHILS % (AUTO) 1 % (0-10); HEMATOCRIT 37 % (35-52); HEMOGLOBIN 12.1 G/DL (11.5-16.0); LYMPHOCYTES # (AUTO) 1.3 X 10^3 (1.0-4.0); LYMPHOCYTES % (AUTO) 20 % (12-44); MEAN CORPUSCULAR HEMOGLOBIN 30 PG (25-34); MEAN CORPUSCULAR HGB CONC 33 G/DL (32-36); MEAN CORPUSCULAR VOLUME 92 FL (80-99); MEAN PLATELET VOLUME 10.2 FL (7.4-10.4); MONOCYTES # (AUTO) 1.2 X 10^3 (0.0-1.0); MONOCYTES % (AUTO) 17 % (0-12); NEUTROPHILS # (AUTO) 4.2 X 10^3 (1.8-7.8); NEUTROPHILS % (AUTO) 62 % (42-75); PLATELET COUNT 238 10^3/uL (130-400); RED BLOOD COUNT 4.01 10^6/uL (4.35-5.85); RED CELL DISTRIBUTION WIDTH 14.8 % (10.0-14.5); WHITE BLOOD COUNT 6.7 10^3/uL (4.3-11.0)
[2018-05-30 12:15] LABS: ALANINE AMINOTRANSFERASE 9 U/L (0-55); ALBUMIN 4.1 GM/DL (3.2-4.5); ALKALINE PHOSPHATASE 86 U/L (40-136); BILIRUBIN,TOTAL 0.4 MG/DL (0.1-1.0); BUN/CREATININE RATIO 15; CALCIUM 9.4 MG/DL (8.5-10.1); CARBON DIOXIDE 27 MMOL/L (21-32); CHLORIDE 105 MMOL/L (98-107); CREATININE SERUM 0.82 MG/DL (0.60-1.30); GFR ESTIMATED > 60; GLUCOSE 105 MG/DL (70-105); POTASSIUM 4.1 MMOL/L (3.6-5.0); SODIUM 141 MMOL/L (135-145); TOTAL PROTEIN 7.2 GM/DL (6.4-8.2)
[2018-05-30 13:49] LABS: BILIRUBIN,URINE NEGATIVE (NEGATIVE); CLARITY,URINE CLEAR; COLOR,URINE YELLOW; GLUCOSE, URINE (UA) NEGATIVE (NEGATIVE); KETONES,URINE NEGATIVE (NEGATIVE); LEUKOCYTE ESTERASE ,URINE 3+ (NEGATIVE); NITRITE,URINE NEGATIVE (NEGATIVE); PH,URINE 6.5 (5-9); PROTEIN,URINE 1+ (NEGATIVE); UROBILINOGEN,URINE NORMAL (NORMAL)
[2018-05-30 14:04] LABS: BACTERIA,URINE MODERATE /HPF
[~2018-06-27 09:24] MED LIST changes: +HYDR-4226 PO; -HYDR-757 PO; +METR-197 PO; -METR500T21 PO
[2018-06-27 09:54] LABS: BASOPHILS % (AUTO) 0 % (0-10); EOSINOPHILS # (AUTO) 0.1 10^3/uL (0.0-0.3); EOSINOPHILS % (AUTO) 1 % (0-10); HEMATOCRIT 37 % (35-52); HEMOGLOBIN 12.1 G/DL (11.5-16.0); LYMPHOCYTES # (AUTO) 1.3 X 10^3 (1.0-4.0); LYMPHOCYTES % (AUTO) 26 % (12-44); MEAN CORPUSCULAR HEMOGLOBIN 30 PG (25-34); MEAN CORPUSCULAR HGB CONC 32 G/DL (32-36); MEAN CORPUSCULAR VOLUME 91 FL (80-99); MEAN PLATELET VOLUME 10.1 FL (7.4-10.4); MONOCYTES # (AUTO) 1.1 X 10^3 (0.0-1.0); MONOCYTES % (AUTO) 22 % (0-12); NEUTROPHILS # (AUTO) 2.5 X 10^3 (1.8-7.8); NEUTROPHILS % (AUTO) 51 % (42-75); PLATELET COUNT 212 10^3/uL (130-400); RED BLOOD COUNT 4.08 10^6/uL (4.35-5.85); RED CELL DISTRIBUTION WIDTH 15.8 % (10.0-14.5)
[2018-06-27 10:17] LABS: ALANINE AMINOTRANSFERASE 6 U/L (0-55); ALBUMIN 4.1 GM/DL (3.2-4.5); ALKALINE PHOSPHATASE 79 U/L (40-136); BILIRUBIN,TOTAL 0.4 MG/DL (0.1-1.0); BUN/CREATININE RATIO 19; CALCIUM 9.4 MG/DL (8.5-10.1); CARBON DIOXIDE 26 MMOL/L (21-32); CHLORIDE 104 MMOL/L (98-107); CREATININE SERUM 0.78 MG/DL (0.60-1.30); GFR ESTIMATED > 60; GLUCOSE 94 MG/DL (70-105); POTASSIUM 4.1 MMOL/L (3.6-5.0); SODIUM 138 MMOL/L (135-145); TOTAL PROTEIN 7.1 GM/DL (6.4-8.2)
== END 2018-08-21 10:25 | disposition home or self-care (01) ==
LOC: ONC 09:24
PROVIDERS: ATTEND Internal Medicine Hematology & Oncology
DX: C50.312 Malignant neoplasm of lower-inner quadrant of left female breast (principal); E03.9 Hypothyroidism, unspecified; I10 Essential (primary) hypertension; F41.9 Anxiety disorder, unspecified; R82.90 Unspecified abnormal findings in urine; Z17.0 Estrogen receptor positive status [ER+]; Z79.899 Other long term (current) drug therapy; R06.02 Shortness of breath; R53.83 Other fatigue
CPT/HCPCS: 36415; 36591; 71046; 80053; 81000; 84443; 85025; 87088; 99213

== ENCOUNTER 2018-07-15 18:13 | Emergency (ER) | payer MEDICARE, OTHER ==
[~2018-07-15] VITALS: Ht 160 cm; Wt 60.3 kg
[~2018-07-15 18:13] MED LIST changes: -METR-197 PO; +METR500T21 PO
[2018-07-15] MEDS ORDERED: IOHEXOL 350 MG/ML 100 ML (OMNIPAQUE 350) VIAL IV ONE (19:00)
[2018-07-15] MEDS ORDERED: KETOROLAC 30 MG/ML VIAL IM ONE (19:00)
[2018-07-15] MEDS ORDERED: NS 250 ML (IVPB) BAG IV ONE (19:00)
--- NOTE | 2018-07-15 19:00 | ED Fall/Injury ---
General Chief Complaint: Trauma-Non Activation Stated Complaint: FALL, HIT BACK OF HEAD Source: patient, family (2 sons) Exam Limitations: no limitations History of Present Illness Date Seen by Provider: Jul 15, 2018 Time Seen by Provider: 18:49 Initial Comments Just prior to arrival the patient had a fall on her back patio striking her head and right ribs against the concrete planter. She was not knocked out and she is not on blood thinners aspirin or Plavix. She said she just lost her balance. She's having some pain in her tailbone and pain in the back of her head. She is not having any nausea double vision blindness or weakness or numbness. She doesn't history of stress fractures in her right ankle. She has full sensation and pain in her right ribs. Allergies and Home Medications Allergies Coded Allergies: bisacodyl (Verified Allergy, Mild, JITTERS/RED RASH, 01/30/18) polyethylene glycol 3350 (Verified Allergy, Mild, JITTERS/RED RASH, ) potassium chloride (Verified Allergy, Mild, JITTERS/RED RASH, 01/30/18) sodium bicarbonate (Verified Allergy, Mild, JITTERS/RED RASH, 01/30/18) sodium chloride (Verified Allergy, Mild, JITTERS/RED RASH, 01/30/18) scopolamine (Verified Allergy, Unknown, NECK PAIN/NERVE DAMAGE, 02/10/18) thiopental (Verified Allergy, Unknown, 01/30/18) Home Medications Amoxicillin/Potassium Clav 1 Each Tablet, 1 EACH PO BID WITH MEALS Prescribed by: CARISSA GARCIA on 02/19/18928 Docusate Sodium 100 Mg Capsule, 100-200 MG PO Q48H, (Reported) TAKES 1-2 OF A (100 MG) CAPSULE WITH LINZESS Levothyroxine Sodium 100 Mcg Tablet, 100 MCG PO DAILY, (Reported) Linaclotide 72 Mcg Capsule, 72 MCG PO Q48H, (Reported) Ondansetron HCl 8 Mg Tablet, 8 MG PO TID PRN for NAUSEA/VOMITING-1ST LINE Prescribed by: CARISSA GARCIA on 02/19/18928 Prochlorperazine Maleate 10 Mg Tablet, 10 MG PO Q6H PRN for CONSTIPATION-4TH LINE, (Reported) Valacyclovir HCl 1,000 Mg Tablet, 1,000 MG PO BID Prescribed by: CARISSA GARCIA on 02/19/18 1136 Zolpidem Tartrate 10 Mg Tablet, 10 MG PO HS, (Reported) Patient Home Medication List Home Medication List Reviewed: Yes Review of Systems Review of Systems Constitutional: No chills, No diaphoresis Eyes: Denies Blindness, Denies Blurred Vision, Denies Drainage Ears, Nose, Mouth, Throat: denies ear pain, denies ear discharge Respiratory: No cough, No dyspnea on exertion Cardiovascular: No chest pain, No edema Gastrointestinal: No abdominal pain, No constipation, No diarrhea Genitourinary: No decreased output, No discharge Musculoskeletal: see HPI, back pain Past Ukwvafm-Orbwdw-Sucpfa Hx Patient Social History Recreational Drug Use: No Smoking Status: Never a Smoker 2nd Hand Smoke Exposure: No Recent Foreign Travel: No Contact w/Someone Who Travel: No Recent Hopitalizations: No Immunizations Up To Date Tetanus Booster (TDap): Unknown Date of Pneumonia Vaccine: May 30, 2015 Seasonal Allergies Seasonal Allergies: No Past Medical History Surgeries: Yes (BACK SURGERY 03/19/14--VERTEBROPLASTY, LUMPECTOMY/LYMPH NODE DISSECTION) Appendectomy, Breast, Gallbladder, 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, Orthopedic, Tonsillectomy Respiratory: No Currently Using CPAP: No Currently Using BIPAP: No Cardiac: Yes Hypotension Neurological: No Reproductive Disorders: No [employer] History: 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 Sexually Transmitted Disease: No HIV/AIDS: No Genitourinary: No Kidney Stones Gastrointestinal: Yes (NAUSEA) Gastroesophageal Reflux, Chronic Constipation, Diverticulosis, Ulcer Musculoskeletal: Yes (DAMAGED NERVE IN NECK) Arthritis, Fractures Endocrine: Yes Hypothyroidsim HEENT: Yes (DETACHED [place]) Cataract Loss of Vision: Denies Hearing Impairment: Denies Cancer: Yes (LEFT) Skin, Breast Did You Recieve Any Treatments: Yes What Type of Treatment Did You: Chemotherapy, Surgical Intervention, Other Psychosocial: Yes Anxiety Integumentary: No Blood Disorders: No Adverse Reaction/Blood Tranf: No (N/A) Family Medical History Abdominal aortic aneurysm 19 MOTHER Alcoholism Arthritis 19 MOTHER Headache disorder 19 MOTHER G8 BROTHER G8 SISTER Hypertension SONS No Pertinent Family Hx Physical Exam Vital Signs Vital Signs - First Documented 07/15/18 18:36 Temp 97.1 Pulse 70 Resp 18 B/P (MAP) 143/79 (100) Pulse Ox 99 O2 Delivery Room Air Capillary Refill : Height, Weight, BMI Height: 5'3.00" Weight: 146lbs. 0.0oz. 66.247781vg; 27.3 BMI Method:Stated General Appearance: WD/WN, no apparent distress HEENT: PERRL/EOMI, normal ENT inspection, TMs normal, pharynx normal, other ( tenderness on the occipital scalp with mild hematoma) Neck: other (cervical spine precautions with c-collar on) Cardiovascular: normal peripheral pulses, regular rate, rhythm, no edema Respiratory: chest non-tender, lungs clear, normal breath sounds, no respiratory distress, no accessory muscle use Peripheral Pulses: 2+ Radial Pulses (R), 2+ Radial Pulses (L) Gastrointestinal: normal bowel sounds, soft, tenderness (her right upper quadrant and moderate) Pelvic: normal external exam, other (nontender to palpation) Back: normal inspection, muscle spasm, vertebral tenderness (lumbar and sacral spine tender palpation) Neurologic/Psychiatric: planner intern II-XII nml as tested, alert, normal mood/affect, oriented x 3 Skin: normal color, warm/dry Sasha Coma Score Best Eye Response: (4) Open Spontaneously Best Verbal Response: (5) Oriented Best Motor Response: (6) Obeys Commands [place] Total: 15 Progress/Results/Core Measures Results/Orders Lab Results Laboratory Tests Test 07/15/18 19:05 Range/Units White Blood Count 5.4 4.3-11.0 10^3/uL Red Blood Count 4.12 L 4.35-5.85 10^6/uL Hemoglobin 12.2 11.5-16.0 G/DL Hematocrit 37 35-52 % Mean Corpuscular Volume 90 80-99 FL Mean Corpuscular Hemoglobin 30 25-34 PG Mean Corpuscular Hemoglobin Concent 33 32-36 G/DL Red Cell Distribution Width 14.9 H 10.0-14.5 % Platelet Count 211 130-400 10^3/uL Mean Platelet Volume 10.3 7.4-10.4 FL Neutrophils (%) (Auto) 44 42-75 % Lymphocytes (%) (Auto) 32 12-44 % Monocytes (%) (Auto) 23 H 0-12 % Eosinophils (%) (Auto) 1 0-10 % Basophils (%) (Auto) 0 0-10 % Neutrophils # (Auto) 2.3 1.8-7.8 X 10^3 Lymphocytes # (Auto) 1.7 1.0-4.0 X 10^3 Monocytes # (Auto) 1.2 H 0.0-1.0 X 10^3 Eosinophils # (Auto) 0.1 0.0-0.3 10^3/uL Basophils # (Auto) 0.0 0.0-0.1 10^3/uL Neutrophils % (Manual) 54 % Lymphocytes % (Manual) 31 % Monocytes % (Manual) 14 % Eosinophils % (Manual) 1 % Basophils % (Manual) 0 % Band Neutrophils 0 % Blood Morphology Comment NORMAL Sodium Level 141 135-145 MMOL/L Potassium Level 4.2 3.6-5.0 MMOL/L Chloride Level 107 98-107 MMOL/L Carbon Dioxide Level 23 21-32 MMOL/L Anion Gap 11 5-14 MMOL/L Blood Urea Nitrogen 15 7-18 MG/DL Creatinine 0.91 0.60-1.30 MG/DL Estimat Glomerular Filtration Rate 60 BUN/Creatinine Ratio 16 Glucose Level 100 70-105 MG/DL Calcium Level 9.1 8.5-10.1 MG/DL Corrected Calcium 9.0 8.5-10.1 MG/DL Total Bilirubin 0.2 0.1-1.0 MG/DL Aspartate Amino Transf (AST/SGOT) 12 5-34 U/L Alanine Aminotransferase (ALT/SGPT) 10 0-55 U/L Alkaline Phosphatase 73 40-136 U/L Total Protein 7.0 6.4-8.2 GM/DL Albumin 4.1 3.2-4.5 GM/DL Lipase 36 8-78 U/L My Orders Orders - REINA GAXIOLA Ketorolac Injection (Toradol Injection) (07/15/18 19:00) Ct Abdomen/Pelvis W (07/15/18 18:51) Ct Head/Cervical Spine Wo (07/15/18 18:51) Ct Lumbar Spine Wo (07/15/18 18:51) Cbc With Automated Diff (07/15/18 18:51) Comprehensive Metabolic Panel (07/15/18 18:51) Lipase (07/15/18 18:51) Ribs, Right 2-3 Views (07/15/18 18:51) Iohexol Injection (Omnipaque 350 Mg/Ml 1 (07/15/18 19:00) Ns (Ivpb) (Sodium Chloride 0.9%) (07/15/18 19:00) Saline Lock/Iv-Start (07/15/18 19:02) Ns Iv 1000 Ml (Sodium Chloride 0.9%) (07/15/18 19:02) Ketorolac Injection (Toradol Injection) (07/15/18 19:15) Manual Differential (07/15/18 19:05) Medications Given in ED Current Medications Medications Dose Ordered Sig/Keri Route Start Time Stop Time Status Last Admin Dose Admin Iohexol 100 ml ONCE ONCE IV 07/15/18 19:00 07/15/18 19:01 DC 07/15/18 19:47 100 ML Ketorolac Tromethamine 30 mg ONCE ONCE IVP 07/15/18 19:15 07/15/18 19:16 DC 07/15/18 19:30 30 MG Sodium Chloride 250 ml ONCE ONCE IV 07/15/18 19:00 07/15/18 19:01 DC 07/15/18 19:48 80 ML Vital Signs/I&O 07/15/18 18:36 Temp 97.1 Pulse 70 Resp 18 B/P (MAP) 143/79 (100) Pulse Ox 99 O2 Delivery Room Air Progress Progress Note #1: Time: 18:[address] of the head and C-spine as well as lumbar spine for her tenderness. Right side x-ray of ribs. Toradol to start for pain. She says half a tablet of [place] makes her go crazy. She denies any urinary symptoms. We'll get some basic labs and get a CT of her abdomen pelvis with contrast given her right upper quadrant tenderness. We'll give her a liter fluids to help wash out the contrast. Progress Note #2: Time: 20:35 Progress Note C-collar removed by imaging and clinical exam. Patient states the Toradol helped her pain significantly. She wants to go home and get some sleep. Diagnostic Imaging Diagonstic Imaging: CT Plain Films/CT/US/NM/MRI: c-spine, head, other (lumbar spine) Comments [facility] [place], [place] NAME: NIKEDIS Jalloh MED REC#: [id number] PT STATUS: REG ER : 1940 PHYSICIAN: REINA GAXIOLA MD ADMIT DATE: 07/15/18/ER Draft Date of Exam:07/15/18 CT HEAD/CERVICAL SPINE WO PROCEDURE: CT head and CT cervical spine without contrast. TECHNIQUE: Multiple contiguous axial images were obtained through the brain and cervical spine without the use of intravenous contrast. Sagittal and coronal reformations through the cervical spine were then performed. INDICATION: Head and neck pain after trauma. COMPARISON: CT head of 12/25/2016. FINDINGS: No hyperdense hemorrhage or space-occupying mass. No hydrocephalus or midline shift. No evidence of acute territorial infarct. Basilar cisterns are patent. No acute calvarial abnormality. Paranasal sinuses are clear. Stable scleral band involving the right globe. CT cervical spine: No acute fracture or traumatic malalignment. 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 No high-grade spinal stenosis. Mild spinal canal narrowing is present at C5-C6 due to posterior disc osteophyte formation. No cervical lymphadenopathy. Lung apices are clear. IMPRESSION: 1. No acute intracranial hemorrhage or skull fracture. 2. No acute fracture or traumatic malalignment in the cervical spine. Dictated on workstation # [id number] Dict: 07/15/181999 Trans: 07/15/182007 REY [id number] Interpreted by: EILEEN GARZA MD Electronically signed by: [place]IA [place], [place] NAME: EDIS ZARAGOZA [facility] REC#: [id number] PT STATUS: REG ER : 1940 PHYSICIAN: REINA GAXIOLA MD ADMIT DATE: 07/15/18/ER Draft Date of Exam:07/15/18 CT LUMBAR SPINE WO PROCEDURE: CT lumbar spine without contrast. TECHNIQUE: Multiple contiguous axial images were obtained through the lumbar spine without the use of intravenous contrast. Sagittal and coronal reformations were then performed. INDICATION: Back pain after fall. COMPARISON: 09/14/2016 FINDINGS: Stable changes of vertebral augmentation involving the L1 burst fracture. There is retropulsion of the posterior endplate into the spinal canal causing mild spinal stenosis, which is also unchanged. Area of increased attenuation posterior to the L1 vertebral body is artifactual due to streak artifact associated with the PMMA cement. The remainder of the lumbar vertebral bodies are normal in stature without compression or burst fracture. No fracture within the posterior elements. Osteoporosis is present. No fracture in the visualized portions of the sacrum. Stable small sclerotic focus in the left ilium. No high-grade spinal stenosis or neuroforaminal narrowing. IMPRESSION: 1. No acute fracture or traumatic malalignment in the lumbar spine. 2. Osteoporosis. 3. Prior vertebral augmentation of L1 burst fracture which has stable retropulsion of the posterior inferior endplate into the spinal canal causing mild spinal stenosis. Dictated on workstation # [id number] Dict: 07/15/182012 Trans: 07/15/182020 [facility] [id number] Interpreted by: EILEEN GARZA MD Electronically signed by: Reviewed: Reviewed by Me Diagonstic Imaging: Xray Plain Films/CT/US/NM/MRI: other (right ribs) Comments No acute rib fracture seen. Reviewed: Reviewed by Nd Diagonstic Imaging: CT (with contrast) Plain Films/CT/US/NM/MRI: abdomen, pelvis Comments [facility], [place] NAME: EDIS ZARAGOZA [facility] REC#: [id number] PT STATUS: REG ER : 1940 PHYSICIAN: REINA GAXIOLA MD ADMIT DATE: 07/15/18/ER Draft Date of Exam:07/15/18 CT ABDOMEN/PELVIS W PROCEDURE: CT abdomen and pelvis with contrast. TECHNIQUE: Multiple contiguous axial images were obtained through the abdomen and pelvis after administration of intravenous contrast. INDICATION: Abdominal pain after fall. COMPARISON: CT abdomen and pelvis from 02/17/2018 FINDINGS: Lower chest: The lung bases are clear. No pericardial or pleural effusion. Peritoneum: No free intraperitoneal air or fluid. Liver and biliary system: The liver is normal. Gallbladder is not visualized and may be surgically absent. No biliary duct dilatation. Spleen and Pancreas: Spleen is normal. The pancreas enhances normally without mass lesion or peripancreatic inflammatory changes. Adrenals: Normal. tract: The kidneys enhance normally without suspicious mass or obstruction. Urinary bladder is distended without wall thickening. 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. No adnexal mass. GI tract: Stomach is decompressed. No bowel obstruction. There remains a small amount of stranding surrounding the descending colon diverticulosis. However, this is improved since prior examination and is likely residual stranding rather than recurrent. Appendix is not seen although there are no features of acute appendicitis. Vasculature and Lymph nodes: Normal caliber aorta. No abdominal or pelvic lymphadenopathy. Musculoskeletal: No concerning osseous lesion. IMPRESSION: 1. No acute traumatic injury in the abdomen or pelvis. 2. Stranding surrounding the descending colon diverticulosis has markedly improved since 02/17/2018 examination. This likely represents a small amount of postinflammatory scar. However, if the patient has recurrent left lower quadrant pain, then a recurrent short segment of acute diverticulitis could be present. No perforation or abscess. Dictated on workstation # [id number] Dict: 07/15/182015 Trans: 07/15/182023 [facility] [phone] Interpreted by: EILEEN GARZA MD Electronically signed by: Reviewed: Reviewed by Me Departure Impression Primary Impression: Fall Qualified Codes: W19.XXXA - Unspecified fall, initial encounter Additional Impressions: Contusion Qualified Codes: S00.93XA - Contusion of unspecified part of head, initial encounter Lumbar back sprain Qualified Codes: S33.5XXA - Sprain of ligaments of lumbar spine, initial encounter Rib pain on right side Disposition: 01 HOME, SELF-CARE Condition: Improved Departure-Patient Inst. Decision time for Depature: 20:38 Referrals: DIVINE ARTEAGA MD (PCP/Family) Primary Care Physician Patient Instructions: Minor Head Injury (DC) Add. Discharge Instructions: Tylenol 1000 mg in addition to ibuprofen 800 mg in addition to ice for 20 minutes every 2 hours applied to your back. Alternated with heat and creams such as icy hot or Biofreeze. Follow up your primary care doctor passing some improvement in the next week. All discharge instructions reviewed with patient and/or family. Voiced understanding. REINA GAXIOLA Jul 15, 2018 19:00
[2018-07-15] MEDS ORDERED: NS IV 1000 ML 1,000 ML IV SCH (19:02)
[2018-07-15 19:08] LABS: BASOPHILS % (AUTO) 0 % (0-10); EOSINOPHILS # (AUTO) 0.1 10^3/uL (0.0-0.3); EOSINOPHILS % (AUTO) 1 % (0-10); HEMATOCRIT 37 % (35-52); HEMOGLOBIN 12.2 G/DL (11.5-16.0); LYMPHOCYTES # (AUTO) 1.7 X 10^3 (1.0-4.0); LYMPHOCYTES % (AUTO) 32 % (12-44); MEAN CORPUSCULAR HEMOGLOBIN 30 PG (25-34); MEAN CORPUSCULAR HGB CONC 33 G/DL (32-36); MEAN CORPUSCULAR VOLUME 90 FL (80-99); MEAN PLATELET VOLUME 10.3 FL (7.4-10.4); MONOCYTES # (AUTO) 1.2 X 10^3 (0.0-1.0); MONOCYTES % (AUTO) 23 % (0-12); NEUTROPHILS # (AUTO) 2.3 X 10^3 (1.8-7.8); NEUTROPHILS % (AUTO) 44 % (42-75); PLATELET COUNT 211 10^3/uL (130-400); RED BLOOD COUNT 4.12 10^6/uL (4.35-5.85); RED CELL DISTRIBUTION WIDTH 14.9 % (10.0-14.5); WHITE BLOOD COUNT 5.4 10^3/uL (4.3-11.0)
[2018-07-15] MEDS ORDERED: KETOROLAC 30 MG/ML VIAL IVP ONE (19:15)
[2018-07-15 19:26] LABS: BAND NEUTROPHILS 0 %; BASOPHILS % (MANUAL) 0 %; EOSINOPHILS % (MANUAL) 1 %; LYMPHOCYTES % (MANUAL) 31 %; MONOCYTES % (MANUAL) 14 %; NEUTROPHILS % (MANUAL) 54 %; RBC MORPH NORMAL
[2018-07-15 19:30] LABS: ALBUMIN 4.1 GM/DL (3.2-4.5); BILIRUBIN,TOTAL 0.2 MG/DL (0.1-1.0); CALCIUM 9.1 MG/DL (8.5-10.1); CREATININE SERUM 0.91 MG/DL (0.60-1.30); POTASSIUM 4.2 MMOL/L (3.6-5.0)
--- NOTE | 2018-07-15 20:08 | Diagnostic Imaging Report ---
PROCEDURE: CT head and CT cervical spine without contrast. TECHNIQUE: Multiple contiguous axial images were obtained through the brain and cervical spine without the use of intravenous contrast. Sagittal and coronal reformations through the cervical spine were then performed. INDICATION: Head and neck pain after trauma. COMPARISON: CT head of 12/25/2016. FINDINGS: No hyperdense hemorrhage or space-occupying mass. No hydrocephalus or midline shift. No evidence of acute territorial infarct. Basilar cisterns are patent. No acute calvarial abnormality. Paranasal sinuses are clear. Stable scleral band involving the right globe. CT cervical spine: No acute fracture or traumatic malalignment. 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 No high-grade spinal stenosis. Mild spinal canal narrowing is present at C5-C6 due to posterior disc osteophyte formation. No cervical lymphadenopathy. Lung apices are clear. IMPRESSION: 1. No acute intracranial hemorrhage or skull fracture. 2. No acute fracture or traumatic malalignment in the cervical spine. Dictated by: Dictated on workstation # [id number]
--- NOTE | 2018-07-15 20:22 | Diagnostic Imaging Report ---
PROCEDURE: CT lumbar spine without contrast. TECHNIQUE: Multiple contiguous axial images were obtained through the lumbar spine without the use of intravenous contrast. Sagittal and coronal reformations were then performed. INDICATION: Back pain after fall. COMPARISON: 09/14/2016 FINDINGS: Stable changes of vertebral augmentation involving the L1 burst fracture. There is retropulsion of the posterior endplate into the spinal canal causing mild spinal stenosis, which is also unchanged. Area of increased attenuation posterior to the L1 vertebral body is artifactual due to streak artifact associated with the PMMA cement. The remainder of the lumbar vertebral bodies are normal in stature without compression or burst fracture. No fracture within the posterior elements. Osteoporosis is present. No fracture in the visualized portions of the sacrum. Stable small sclerotic focus in the left ilium. No high-grade spinal stenosis or neuroforaminal narrowing. IMPRESSION: 1. No acute fracture or traumatic malalignment in the lumbar spine. 2. Osteoporosis. 3. Prior vertebral augmentation of L1 burst fracture which has stable retropulsion of the posterior inferior endplate into the spinal canal causing mild spinal stenosis. Dictated by: Dictated on workstation # [id number]
--- NOTE | 2018-07-15 20:24 | Diagnostic Imaging Report ---
PROCEDURE: CT abdomen and pelvis with contrast. TECHNIQUE: Multiple contiguous axial images were obtained through the abdomen and pelvis after administration of intravenous contrast. INDICATION: Abdominal pain after fall. COMPARISON: CT abdomen and pelvis from 02/17/2018 FINDINGS: Lower chest: The lung bases are clear. No pericardial or pleural effusion. Peritoneum: No free intraperitoneal air or fluid. Liver and biliary system: The liver is normal. Gallbladder is not visualized and may be surgically absent. No biliary duct dilatation. Spleen and Pancreas: Spleen is normal. The pancreas enhances normally without mass lesion or peripancreatic inflammatory changes. Adrenals: Normal. tract: The kidneys enhance normally without suspicious mass or obstruction. Urinary bladder is distended without wall thickening. 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. No adnexal mass. GI tract: Stomach is decompressed. No bowel obstruction. There remains a small amount of stranding surrounding the descending colon diverticulosis. However, this is improved since prior examination and is likely residual stranding rather than recurrent. Appendix is not seen although there are no features of acute appendicitis. Vasculature and Lymph nodes: Normal caliber aorta. No abdominal or pelvic lymphadenopathy. Musculoskeletal: No concerning osseous lesion. IMPRESSION: 1. No acute traumatic injury in the abdomen or pelvis. 2. Stranding surrounding the descending colon diverticulosis has markedly improved since 02/17/2018 examination. This likely represents a small amount of postinflammatory scar. However, if the patient has recurrent left lower quadrant pain, then a recurrent short segment of acute diverticulitis could be present. No perforation or abscess. Dictated by: Dictated on workstation # [id number]
--- NOTE | 2018-07-15 20:47 | Diagnostic Imaging Report ---
INDICATION: Right-sided rib pain after a fall. COMPARISON: Chest radiograph of 05/30/2018. TECHNIQUE: 3 views of the right ribs were obtained. FINDINGS / IMPRESSION: 1. No pneumothorax or pleural effusion on the right. 2. No acute displaced right-sided rib fractures. Dictated by: Dictated on workstation # [id number]
[2018-07-15 20:56] VITALS: BP 142/76
== END 2018-07-15 20:57 | disposition home or self-care (01) ==
LOC: EDUNIT# 18:13 → ER 18:14
DX: S00.83XA Contusion of other part of head, initial encounter (principal); S33.5XXA Sprain of ligaments of lumbar spine, initial encounter; R07.81 Pleurodynia; K21.9 Gastro-esophageal reflux disease without esophagitis; F41.9 Anxiety disorder, unspecified; R40.2142 Coma scale, eyes open, spontaneous, at arrival to emergency department; R40.2252 Coma scale, best verbal response, oriented, at arrival to emergency department; R40.2362 Coma scale, best motor response, obeys commands, at arrival to emergency department; Z92.21 Personal history of antineoplastic chemotherapy; Z85.3 Personal history of malignant neoplasm of breast; Z85.828 Personal history of other malignant neoplasm of skin; Z87.19 Personal history of other diseases of the digestive system; Z87.442 Personal history of urinary calculi; Z88.8 Allergy status to other drugs, medicaments and biological substances; Z90.89 Acquired absence of other organs; Z90.710 Acquired absence of both cervix and uterus; W19.XXXA Unspecified fall, initial encounter; W22.09XA Striking against other stationary object, initial encounter
CPT/HCPCS: 36415; 70450; 71100; 72125; 72131; 74177; 80053; 83690; 85007; 85025; 85027

== ENCOUNTER 2018-09-19 13:44 | Outpatient (RCR) | payer MEDICARE, OTHER ==
[2018-08-21 10:44] LABS: BASOPHILS % (AUTO) 0 % (0-10); EOSINOPHILS # (AUTO) 0.1 10^3/uL (0.0-0.3); EOSINOPHILS % (AUTO) 1 % (0-10); HEMATOCRIT 40 % (35-52); HEMOGLOBIN 12.7 G/DL (11.5-16.0); LYMPHOCYTES # (AUTO) 1.5 X 10^3 (1.0-4.0); LYMPHOCYTES % (AUTO) 24 % (12-44); MEAN CORPUSCULAR HEMOGLOBIN 29 PG (25-34); MEAN CORPUSCULAR HGB CONC 32 G/DL (32-36); MEAN CORPUSCULAR VOLUME 91 FL (80-99); MEAN PLATELET VOLUME 10.3 FL (7.4-10.4); MONOCYTES # (AUTO) 1.7 X 10^3 (0.0-1.0); MONOCYTES % (AUTO) 27 % (0-12); NEUTROPHILS # (AUTO) 3.1 X 10^3 (1.8-7.8); NEUTROPHILS % (AUTO) 48 % (42-75); PLATELET COUNT 221 10^3/uL (130-400); RED CELL DISTRIBUTION WIDTH 13.9 % (10.0-14.5); WHITE BLOOD COUNT 6.4 10^3/uL (4.3-11.0)
[2018-08-21 10:58] LABS: ALANINE AMINOTRANSFERASE 8 U/L (0-55); ALBUMIN 4.2 GM/DL (3.2-4.5); ALKALINE PHOSPHATASE 85 U/L (40-136); BILIRUBIN,TOTAL 0.6 MG/DL (0.1-1.0); BUN/CREATININE RATIO 16; CALCIUM 9.5 MG/DL (8.5-10.1); CARBON DIOXIDE 28 MMOL/L (21-32); CHLORIDE 104 MMOL/L (98-107); CREATININE SERUM 0.81 MG/DL (0.60-1.30); GFR ESTIMATED > 60; GLUCOSE 96 MG/DL (70-105); POTASSIUM 4.5 MMOL/L (3.6-5.0); SODIUM 140 MMOL/L (135-145); TOTAL PROTEIN 7.3 GM/DL (6.4-8.2)
[~2018-09-19 13:44] MED LIST changes: -GABA600T2 PO; +GBPN600T PO; +METR-145 PO; -METR500T21 PO
== END 2018-11-19 | disposition home or self-care (01) ==
LOC: ONC 13:44
PROVIDERS: ATTEND Internal Medicine Hematology & Oncology
DX: C50.312 Malignant neoplasm of lower-inner quadrant of left female breast (principal); E03.9 Hypothyroidism, unspecified; I10 Essential (primary) hypertension; F41.9 Anxiety disorder, unspecified; R82.90 Unspecified abnormal findings in urine; Z17.0 Estrogen receptor positive status [ER+]; Z79.899 Other long term (current) drug therapy; R06.02 Shortness of breath; R53.83 Other fatigue; Z45.2 Encounter for adjustment and management of vascular access device
CPT/HCPCS: 36415; 80053; 84443; 85025; 96523; 99213

== ENCOUNTER → 2018-11-10 | Outpatient (CLI) | payer MEDICARE, OTHER ==
--- NOTE | 2018-11-10 14:29 | Diagnostic Imaging Report ---
Indication: Left breast carcinoma. Patient has pain in the left breast. 2-D and 3-D bilateral diagnostic mammography was performed. Correlation is made with prior mammograms 10/30/2017. Previously noted spiculated mass in the left breast has been surgically removed. No new mass or malignant-appearing microcalcifications are seen. There are benign calcifications bilaterally. The axillae are unremarkable. Impression: BI-RADS 0 No mammographic features suspicious for malignancy are identified. Even so, directed sonographic interrogation of the area of pain in the left breast is recommended and will be performed today. ACR BI-RADS Category 0: Incomplete. (Needs additional imaging evaluation). Result letter will be mailed to the patient. Note: At least 10% of breast cancer is not imaged by mammography. Dictated by: Dictated on workstation # [id number]
--- NOTE | 2018-11-10 14:42 | Diagnostic Imaging Report ---
INDICATION: History of left breast carcinoma. Patient does complain of left breast pain. COMPARISON: Correlation is made with the diagnostic mammogram from earlier this same day. FINDINGS: Sonographic interrogation of the area of pain in the left breast from the 12 to 3 o'clock location was evaluated with ultrasound. No sonographic abnormality is seen. No solid or cystic mass is detected. IMPRESSION: No sonographic abnormality is detected. Clinical followup is recommended. ACR BI-RADS Category 2: Benign findings. Result letter will be mailed to the patient. Note: At least 10% of breast cancer is not imaged by mammography. Dictated by: Dictated on workstation # [id number]
== END ==
LOC: RAD 10:54
PROVIDERS: ATTEND Internal Medicine Hematology & Oncology
DX: C50.912 Malignant neoplasm of unspecified site of left female breast (principal)
CPT/HCPCS: 76642; 77066

== ENCOUNTER → 2018-12-04 | Outpatient (CLI) | payer MEDICARE, OTHER ==
[~2018-12-04] MED LIST changes: +IOHEXOL 350 MG/ML 100 ML (OMNIPAQUE 350) VIAL IV ONE; +NS 100 ML (IVPB) BAG IV ONE; +RECEIVED CONTRAST (Hold Metformin) IV SCH
[2018-12-04 09:50] LABS: BUN/CREATININE RATIO 12; CREATININE SERUM 0.74 MG/DL (0.60-1.30); GFR ESTIMATED > 60
--- NOTE | 2018-12-04 11:23 | Diagnostic Imaging Report ---
PROCEDURE: CT abdomen and pelvis with contrast. TECHNIQUE: Multiple contiguous axial images were obtained through the abdomen and pelvis after administration of intravenous contrast. INDICATION: Pelvic pain. FINDINGS: The previous CT abdomen/pelvis exam of 07/15/2018 noted stranding about the descending colon. This finding has improved from the prior exam of 02/17/2018. The possibility that there was an element of residual diverticulitis present was raised, however. On this study, there is extensive diverticulosis of the sigmoid and descending colon. There does not seem to be any increased distortion of the pericolonic fat about either the sigmoid or descending colon to indicate acute diverticulitis. There is still some distortion of the pericolonic fat about the junction of the sigmoid and descending colon but this is similar to the prior exam and may be a sequela of chronic inflammation. There is no diverticular mass or abscess visualized. There is no free fluid noted either. The urinary bladder is grossly unremarkable. The uterus is surgically absent. The appendix does not seem to be abnormally thickened and there are no indirect signs of acute appendicitis. The liver, spleen, pancreas, adrenals, kidneys, aorta, and inferior vena cava are unremarkable for an acute abnormality. The gallbladder is not well visualized and may be surgically absent. The stomach is poorly distended and difficult to assess. The lung bases are generally clear. In the interval since the prior study, a small 0.5 x 1.8 cm area of increased density has developed along the posterior aspect of the right lung base medially. This is of uncertain etiology but could be related to mild pleural thickening. The bone windows show no sign of an acute fracture. As noted on the prior exam, there are post kyphoplasty changes involving L1. There is also long-standing compression deformity of T11. IMPRESSION: 1. There is extensive diverticulosis of the sigmoid and descending colon. However, there is no distortion of the pericolonic fat to indicate acute diverticulitis. Clinical followup is recommended. 2. There is no acute abnormality of the abdomen or pelvis noted, otherwise. 3. There may be a small amount of pleural thickening along the posterior aspect of the left lung base. Dictated by: Dictated on workstation # [id number]
== END ==
LOC: RAD 09:12
PROVIDERS: ATTEND Surgery
DX: R10.2 Pelvic and perineal pain (principal)
CPT/HCPCS: 36415; 74177; 82565; 84520

== ENCOUNTER 2018-12-18 10:53 | Outpatient (RCR) | payer MEDICARE, OTHER ==
[~2018-12-18 10:53] MED LIST changes: -IOHEXOL 350 MG/ML 100 ML (OMNIPAQUE 350) VIAL IV ONE; -NS 100 ML (IVPB) BAG IV ONE; -RECEIVED CONTRAST (Hold Metformin) IV SCH
[2018-12-18 11:10] LABS: BASOPHILS % (AUTO) 0 % (0-10); EOSINOPHILS # (AUTO) 0.1 10^3/uL (0.0-0.3); EOSINOPHILS % (AUTO) 1 % (0-10); HEMATOCRIT 40 % (35-52); HEMOGLOBIN 12.8 G/DL (11.5-16.0); LYMPHOCYTES # (AUTO) 1.4 X 10^3 (1.0-4.0); LYMPHOCYTES % (AUTO) 27 % (12-44); MEAN CORPUSCULAR HEMOGLOBIN 28 PG (25-34); MEAN CORPUSCULAR HGB CONC 32 G/DL (32-36); MEAN CORPUSCULAR VOLUME 88 FL (80-99); MEAN PLATELET VOLUME 10.1 FL (7.4-10.4); MONOCYTES # (AUTO) 1.1 X 10^3 (0.0-1.0); MONOCYTES % (AUTO) 21 % (0-12); NEUTROPHILS # (AUTO) 2.6 X 10^3 (1.8-7.8); NEUTROPHILS % (AUTO) 50 % (42-75); PLATELET COUNT 228 10^3/uL (130-400); RED CELL DISTRIBUTION WIDTH 14.7 % (10.0-14.5); WHITE BLOOD COUNT 5.2 10^3/uL (4.3-11.0)
[2018-12-18 11:32] LABS: ALANINE AMINOTRANSFERASE 6 U/L (0-55); ALBUMIN 4.1 GM/DL (3.2-4.5); ALKALINE PHOSPHATASE 80 U/L (40-136); BILIRUBIN,TOTAL 0.5 MG/DL (0.1-1.0); BUN/CREATININE RATIO 11; CALCIUM 9.3 MG/DL (8.5-10.1); CARBON DIOXIDE 26 MMOL/L (21-32); CHLORIDE 107 MMOL/L (98-107); CREATININE SERUM 0.81 MG/DL (0.60-1.30); GFR ESTIMATED > 60; GLUCOSE 111 MG/DL (70-105); POTASSIUM 4.3 MMOL/L (3.6-5.0); SODIUM 142 MMOL/L (135-145)
== END 2019-03-18 | disposition home or self-care (01) ==
LOC: ONC 10:53
PROVIDERS: ATTEND Internal Medicine Hematology & Oncology
DX: C50.312 Malignant neoplasm of lower-inner quadrant of left female breast (principal); E03.9 Hypothyroidism, unspecified; I10 Essential (primary) hypertension; F41.9 Anxiety disorder, unspecified; R82.90 Unspecified abnormal findings in urine; Z17.0 Estrogen receptor positive status [ER+]; Z79.899 Other long term (current) drug therapy
CPT/HCPCS: 80053; 84443; 85025; 99213

== ENCOUNTER 2019-03-19 10:55 | Outpatient (RCR) | payer MEDICARE, OTHER ==
[2019-03-19 12:34] LABS: ALANINE AMINOTRANSFERASE 9 U/L (0-55); ALBUMIN 4.3 GM/DL (3.2-4.5); ALKALINE PHOSPHATASE 86 U/L (40-136); BILIRUBIN,TOTAL 0.4 MG/DL (0.1-1.0); BUN/CREATININE RATIO 17; CALCIUM 9.5 MG/DL (8.5-10.1); CARBON DIOXIDE 28 MMOL/L (21-32); CHLORIDE 107 MMOL/L (98-107); CREATININE SERUM 0.84 MG/DL (0.60-1.30); GFR ESTIMATED > 60; GLUCOSE 95 MG/DL (70-105); POTASSIUM 4.9 MMOL/L (3.6-5.0); SODIUM 144 MMOL/L (135-145); TOTAL PROTEIN 7.2 GM/DL (6.4-8.2)
== END 2019-06-17 | disposition home or self-care (01) ==
LOC: ONC 10:55
PROVIDERS: ATTEND Internal Medicine Hematology & Oncology
DX: C50.312 Malignant neoplasm of lower-inner quadrant of left female breast (principal); E03.9 Hypothyroidism, unspecified; I10 Essential (primary) hypertension; F41.9 Anxiety disorder, unspecified; R82.90 Unspecified abnormal findings in urine; M79.10 Myalgia, unspecified site; Z17.0 Estrogen receptor positive status [ER+]; Z78.0 Asymptomatic menopausal state; Z79.899 Other long term (current) drug therapy; Z45.2 Encounter for adjustment and management of vascular access device
CPT/HCPCS: 36415; 80053; 82306; 96523

== ENCOUNTER → 2019-06-29 | Outpatient (CLI) | payer MEDICARE, OTHER ==
[2019-06-29 15:24] LABS: BASOPHILS % (AUTO) 0 % (0-10); EOSINOPHILS % (AUTO) 0 % (0-10); HEMATOCRIT 44 % (35-52); HEMOGLOBIN 13.9 G/DL (11.5-16.0); LYMPHOCYTES % (AUTO) 17 % (12-44); MEAN CORPUSCULAR HEMOGLOBIN 29 PG (25-34); MEAN CORPUSCULAR HGB CONC 32 G/DL (32-36); MEAN CORPUSCULAR VOLUME 90 FL (80-99); MEAN PLATELET VOLUME 10.1 FL (7.4-10.4); MONOCYTES # (AUTO) 2.1 X 10^3 (0.0-1.0); MONOCYTES % (AUTO) 19 % (0-12); NEUTROPHILS # (AUTO) 7.3 X 10^3 (1.8-7.8); NEUTROPHILS % (AUTO) 64 % (42-75); PLATELET COUNT 285 10^3/uL (130-400); RED CELL DISTRIBUTION WIDTH 14.9 % (10.0-14.5); WHITE BLOOD COUNT 11.5 10^3/uL (4.3-11.0)
[2019-06-29 15:25] LABS: BILIRUBIN,URINE NEGATIVE (NEGATIVE); CLARITY,URINE CLEAR; COLOR,URINE YELLOW; GLUCOSE, URINE (UA) NEGATIVE (NEGATIVE); KETONES,URINE NEGATIVE (NEGATIVE); LEUKOCYTE ESTERASE ,URINE 1+ (NEGATIVE); NITRITE,URINE NEGATIVE (NEGATIVE); PH,URINE 5 (5-9); PROTEIN,URINE 1+ (NEGATIVE); UROBILINOGEN,URINE NORMAL (NORMAL)
[2019-06-29 15:46] LABS: ALBUMIN 4.3 GM/DL (3.2-4.5); BILIRUBIN,TOTAL 0.4 MG/DL (0.1-1.0); CALCIUM 9.7 MG/DL (8.5-10.1); CREATININE SERUM 0.91 MG/DL (0.60-1.30); POTASSIUM 4.5 MMOL/L (3.6-5.0); TOTAL PROTEIN 7.8 GM/DL (6.4-8.2)
[2019-06-29 15:50] LABS: BACTERIA,URINE TRACE /HPF
[2019-06-29 15:57] LABS: HYPERSEGMENTED NEUT SLIGHT; LYMPHOCYTES % (MANUAL) 22 %; MONOCYTES % (MANUAL) 18 %; NEUTROPHILS % (MANUAL) 60 %; RBC MORPH NORMAL
== END ==
LOC: LAB 15:07
PROVIDERS: ATTEND Family Medicine
DX: R53.1 Weakness (principal)
CPT/HCPCS: 36415; 80053; 81000; 85007; 85027

== ENCOUNTER 2019-09-16 10:53 | Outpatient (RCR) | payer MEDICARE, OTHER | END 2019-09-17 | disposition home or self-care (01) | LOC: ONC 10:53 | PROVIDERS: ATTEND Internal Medicine Hematology & Oncology | DX: C50.312 Malignant neoplasm of lower-inner quadrant of left female breast (principal); E03.9 Hypothyroidism, unspecified; I10 Essential (primary) hypertension; F41.9 Anxiety disorder, unspecified; R82.90 Unspecified abnormal findings in urine; M79.10 Myalgia, unspecified site; Z17.0 Estrogen receptor positive status [ER+]; Z78.0 Asymptomatic menopausal state; Z79.899 Other long term (current) drug therapy; Z45.2 Encounter for adjustment and management of vascular access device | CPT/HCPCS: 96523; 99213 ==

== ENCOUNTER → 2019-11-17 | Outpatient (CLI) | payer MEDICARE, OTHER ==
[~2019-11-17] MED LIST changes: +DIAZ5TAB49 PO
--- NOTE | 2019-11-17 14:04 | Diagnostic Imaging Report ---
INDICATION: Screening TECHNIQUE: The current study was also evaluated with a Computer Aided Detection (CAD) system. 3D Tomographic imaging was also performed. COMPARISON: 11/10/2018 and 10/24/2017. FINDINGS: There are scattered fibroglandular densities bilaterally. There are benign type calcifications in both breasts which are relatively unchanged. There is a nodular density in the upper posterior aspect of the right breast on the MLO projection. There is no other dominant mass, spiculated lesion, or suspicious calcification identified. The skin, nipples, and axillae are unremarkable. IMPRESSION: There is a small nodular density in the upper posterior right breast on the MLO projection. Further evaluation with spot compression views and, if warranted, ultrasound would be recommended to exclude malignancy. ACR BI-RADS Category 0: Incomplete. (Needs additional imaging evaluation). Result letter will be mailed to the patient. Note: At least 10% of breast cancer is not imaged by mammography. Dictated by: Dictated on workstation # [id number]
== END ==
LOC: RAD 11:10
PROVIDERS: ATTEND Internal Medicine Hematology & Oncology
DX: Z12.31 Encounter for screening mammogram for malignant neoplasm of breast (principal); N63.11 Unspecified lump in the right breast, upper outer quadrant
CPT/HCPCS: 77067

== ENCOUNTER → 2019-11-24 | Outpatient (CLI) | payer MEDICARE, OTHER ==
[~2019-11-24] MED LIST changes: +ALPR0.25 PO; +GABA-486 PO; +LEVO175T5 PO; +ONDA8TAB13 PO
--- NOTE | 2019-11-24 15:18 | Diagnostic Imaging Report ---
INDICATION: Abnormal mammogram. TECHNIQUE: Targeted ultrasound in the upper outer aspect right breast was performed. FINDINGS: In the 9 o'clock position, the right breast 7 cm from the nipple, there is a well-circumscribed hypoechoic density with an echogenic hilus measuring 0.7 x 0.4 x 0.5 cm. Sonographic features are compatible with infrarenal lymph node. This correlates with the mammographic findings. No other discrete solid or cystic masses are appreciated. IMPRESSION: Category 2 benign Small intraparenchymal lymph node, otherwise unremarkable. Dictated by: Dictated on workstation # [id number]
--- NOTE | 2019-11-25 09:11 | Diagnostic Imaging Report ---
EXAMINATION: Diagnostic mammogram CLINICAL INDICATION: Abnormal screening mammogram. FINDINGS: CC, MLO and magnification compression views of the right breast were obtained. The previously seen nodular density is again seen. Ultrasound was performed and demonstrating what appears to be an intraparenchymal lymph node. However immediately adjacent to this there is a small cluster of slightly pleomorphic microcalcifications as well with questionable adjacent nodular density. IMPRESSION: Category 4 suspicious. Cluster of slightly pleomorphic microcalcifications with associated nodule in the right breast. Further evaluation with mammotome biopsy is recommended to exclude malignancy. ACR BI-RADS Category 4: Suspicious abnormality. Result letter will be mailed to the patient. Note: At least 10% of breast cancer is not imaged by mammography. Report was called to Chen/information management officer of Dr. Dumas by gumaro at 9:12 am. Dictated by: Dictated on workstation # [id number]
== END ==
LOC: RAD 13:33
PROVIDERS: ATTEND Internal Medicine Hematology & Oncology
DX: R92.1 Mammographic calcification found on diagnostic imaging of breast (principal); C34.90 Malignant neoplasm of unspecified part of unspecified bronchus or lung

== ENCOUNTER 2019-11-26 10:00 | Outpatient (CLI) | payer MEDICARE, OTHER ==
[~2019-11-26] VITALS: Ht 160 cm; Wt 67.2 kg
[~2019-11-26 10:00] MED LIST changes: -ALPR0.25 PO; -GABA-486 PO; -LEVO175T5 PO; -ONDA8TAB13 PO
[2019-11-26] MEDS ORDERED: ZOLP10TA5 PO (10:05)
[2019-11-26] MEDS ORDERED: GABA-486 PO (10:05)
[2019-11-26] MEDS ORDERED: ONDA8TAB13 PO (10:05)
[2019-11-26] MEDS ORDERED: LINA72CA PO (10:05)
[2019-11-26] MEDS ORDERED: LEVO175T5 PO (10:05)
[2019-11-26] MEDS ORDERED: ONDA4TAB11 PO (10:05)
[2019-11-26] MEDS ORDERED: ALPR0.25 PO (10:09)
[2019-12-01] MEDS ORDERED: PANT40TA2 PO (08:14)
== END 2019-11-26 11:06 | disposition home or self-care (01) ==
LOC: PREOP 10:00
PROVIDERS: ATTEND Surgery
DX: Z01.818 Encounter for other preprocedural examination (principal)

== ENCOUNTER 2019-12-01 06:24 | Day surgery (SDC) | payer MEDICARE, OTHER ==
[~2019-12-01] VITALS: Ht 160 cm; Wt 67.2 kg
[2019-12-01] VITALS (7 sets, daily range): BP systolic 101–134; BP diastolic 50–65
[~2019-12-01 06:24] MED LIST changes: +ALPR0.25 PO; +GABA-486 PO; +LEVO175T5 PO; -ONDA8TAB12 PO; +ONDA8TAB13 PO; +ONDA8TAB15 PO; -VALA1000 PO; +VALA10007 PO
[2019-12-01] MEDS ORDERED: LACTATED RINGERS 1,000 ML IV STA (06:36)
[2019-12-01] MEDS ORDERED: HURRICAINE EXT TUBE (BENZOCAINE) XX PRN (06:45)
[2019-12-01] MEDS ORDERED: LACTATED RINGERS 1,000 ML IV ONE (06:49)
[2019-12-01] MEDS ORDERED: MIDAZOLAM 2 MG/2 ML (VERSED) VIAL ONE (06:58)
[2019-12-01] MEDS ORDERED: proPOfol 200 MG/20 ML (DIPRIVAN) VIAL IV ONE (06:58)
[2019-12-01] MEDS ORDERED: HURRICAINE EXT TUBE (BENZOCAINE) ONE (07:10)
--- NOTE | 2019-12-01 08:00 | Progress Note-Pre Operative ---
Pre-Operative Progress Note H&P Reviewed The H&P was reviewed, patient examined and no changes noted. Date Seen by Provider: Dec 01, 2019 Time Seen by Provider: 07:59 Date H&P Reviewed: Dec 01, 2019 Time H&P Reviewed: 08:00 Pre-Operative Diagnosis: gerd, luq abd pain CARLOS MEDRANO DO Dec 01, 2019 08:00
--- NOTE | 2019-12-01 08:12 | Progress Note-Post Operative ---
Post-Operative Progess Note Surgeon (s)/Agricultural Sciences Professor (s) Surgeon CARLOS MEDRANO DO Agricultural Sciences Professor: na Pre-Operative Diagnosis gerd, luq abd pain Post-Operative Diagnosis slight gastirtis Procedure & Operative Findings Date of Procedure 12/01/19 Procedure Performed/Findings egd c biopsies Anesthesia Type per pet ambassador Estimated Blood Loss Estimated blood loss (mL): scant Specimens/Packing Specimens Removed antrum, ge CARLOS MEDRANO DO Dec 01, 2019 08:12
[2019-12-01] MEDS ORDERED: PANT40TA2 PO (08:14)
--- NOTE | 2019-12-01 08:18 | Discharge Inst-Simple/Standard ---
Discharge Inst-Standard Discharge Medications New, Converted or Re-Newed RX: Transmitted to Pharmacy Patient Instructions/Follow Up Plan of Care/Instructions/FU: 3 weeks Activity as Tolerated: Yes Discharge Diet: Regular Diet CARLOS MEDRANO DO Dec 01, 2019 08:18
--- NOTE | 2019-12-01 12:34 | OPERATIVE REPORT ---
DATE OF SERVICE: 12/01/2019 PREOPERATIVE DIAGNOSES: Gastroesophageal reflux disease, left upper quadrant abdominal pain. POSTOPERATIVE DIAGNOSES: Slight gastritis. PROCEDURE: EGD with biopsies. SURGEON: Carlos Corbin DO ANESTHESIA: Per MUSEUM INFORMATICS SPECIALIST. ESTIMATED BLOOD LOSS: Scant. COMPLICATIONS: None. INDICATIONS: The patient is a 79-year-old female with left upper quadrant abdominal pain and reflux symptoms. She understands risks and benefits of procedure and wished to proceed with procedure. Consent was signed in the chart. DESCRIPTION OF PROCEDURE: The patient was taken to the endoscopy suite, placed in left lateral recumbent position. Timeout was performed. Scope was inserted in mouth, down the esophagus, stomach and into the duodenum without difficulty. There were no polyps, masses or ulcerations within the duodenum. Scope was slowly retracted back into the stomach, further insufflated. Slight gastritis appearance in the antrum. Biopsy of the antrum was obtained. Scope was retroflexed noting no other pathology. Scope was returned to its normal position, slowly withdrawn to the distal esophagus. Some slight erythematous changes. Biopsy of GE junction was obtained. Scope was then slowly retracted back to completely remove noting no other pathology. The patient tolerated procedure well without any complications. She was taken to recovery room in stable condition. RECOMMENDATIONS: The patient will be started on Protonix 40 mg daily. She will follow up in approximately 3 weeks. Any issues before that be seen at that time. Job ID: [id number] DocumentID: [id number] Dictated Date: 12/01/2019 08:20:46 Mark Up Designer Date: 12/01/2019 12:33:23 Dictated By: CARLOS CORBIN DO
--- NOTE | 2019-12-01 13:44 | Anesthesia-General Post-Op ---
MAC Patient Condition Mental Status/LOC: Same as Preop Cardiovascular: Satisfactory Nausea/Vomiting: Absent Respiratory: Satisfactory Pain: Controlled Complications: Absent Post Op Complications Complications None Follow Up Care/Instructions Patient Instructions None needed. Anesthesiology Discharge Order Discharge Order Patient is doing well, no complaints, stable vital signs, no apparent adverse anesthesia problems. No complications reported per nursing. PATRICIO HIRSCH CRNA Dec 01, 2019 13:44
== END 2019-12-01 08:55 | disposition home or self-care (01) ==
LOC: ENDO 06:24
PROVIDERS: ATTEND Surgery
DX: K29.70 Gastritis, unspecified, without bleeding (principal); K21.9 Gastro-esophageal reflux disease without esophagitis; I10 Essential (primary) hypertension; M19.91 Primary osteoarthritis, unspecified site; Z80.3 Family history of malignant neoplasm of breast; Z79.899 Other long term (current) drug therapy

== ENCOUNTER 2020-02-12 10:37 | Outpatient (RCR) | payer MEDICARE, OTHER ==
[2020-02-12 11:05] LABS: BASOPHILS % (AUTO) 1 % (0-10); EOSINOPHILS # (AUTO) 0.1 10^3/uL (0.0-0.3); EOSINOPHILS % (AUTO) 1 % (0-10); HEMATOCRIT 41 % (35-52); LYMPHOCYTES # (AUTO) 1.8 X 10^3 (1.0-4.0); LYMPHOCYTES % (AUTO) 25 % (12-44); MEAN CORPUSCULAR HEMOGLOBIN 28 PG (25-34); MEAN CORPUSCULAR HGB CONC 32 G/DL (32-36); MEAN CORPUSCULAR VOLUME 89 FL (80-99); MEAN PLATELET VOLUME 10.5 FL (7.4-10.4); MONOCYTES # (AUTO) 1.6 X 10^3 (0.0-1.0); MONOCYTES % (AUTO) 23 % (0-12); NEUTROPHILS # (AUTO) 3.7 X 10^3 (1.8-7.8); NEUTROPHILS % (AUTO) 51 % (42-75); PLATELET COUNT 220 10^3/uL (130-400); RED CELL DISTRIBUTION WIDTH 14.5 % (10.0-14.5); WHITE BLOOD COUNT 7.2 10^3/uL (4.3-11.0)
[2020-02-12 11:24] LABS: ALANINE AMINOTRANSFERASE 10 U/L (0-55); ALKALINE PHOSPHATASE 86 U/L (40-136); BILIRUBIN,TOTAL 0.5 MG/DL (0.1-1.0); BUN/CREATININE RATIO 14; CARBON DIOXIDE 24 MMOL/L (21-32); CHLORIDE 106 MMOL/L (98-107); CREATININE SERUM 0.78 MG/DL (0.60-1.30); GFR ESTIMATED > 60; GLUCOSE 92 MG/DL (70-105); POTASSIUM 4.1 MMOL/L (3.6-5.0); SODIUM 141 MMOL/L (135-145)
== END 2020-02-16 | disposition home or self-care (01) ==
LOC: ONC 10:37
PROVIDERS: ATTEND Internal Medicine Hematology & Oncology
DX: C50.312 Malignant neoplasm of lower-inner quadrant of left female breast (principal); E03.9 Hypothyroidism, unspecified; I10 Essential (primary) hypertension; F41.9 Anxiety disorder, unspecified; R82.90 Unspecified abnormal findings in urine; M79.10 Myalgia, unspecified site; Z17.0 Estrogen receptor positive status [ER+]; Z78.0 Asymptomatic menopausal state; Z79.899 Other long term (current) drug therapy; Z45.2 Encounter for adjustment and management of vascular access device
CPT/HCPCS: 80053; 84443; 85025; 99213

== ENCOUNTER 2020-05-19 11:34 | Outpatient (RCR) | payer MEDICARE, OTHER ==
[~2020-05-19 11:34] MED LIST changes: +PANT20TA18 PO; -PANT20TA3 PO
== END 2020-07-01 08:25 | disposition home or self-care (01) ==
LOC: ONC 11:34
PROVIDERS: ATTEND Internal Medicine Hematology & Oncology
DX: Z45.2 Encounter for adjustment and management of vascular access device (principal); C50.912 Malignant neoplasm of unspecified site of left female breast; I10 Essential (primary) hypertension
CPT/HCPCS: 96523; G0463

== ENCOUNTER → 2020-07-01 | Outpatient (CLI) | payer MEDICARE, OTHER ==
--- NOTE | 2020-07-01 11:14 | Diagnostic Imaging Report ---
PROCEDURE: MRI lumbar spine. TECHNIQUE: Multiplanar, multisequence MRI of the lumbar spine was performed without contrast. INDICATION: Back pain, prior kyphoplasty There are no prior MRI lumbar spine examinations available for comparison. The CT lumbar spine exam of 07/15/2018 did note post kyphoplasty changes involving L1. There was no acute bony abnormality appreciated however. The CT abdomen/pelvis exam of 12/04/2018 also noted a 20-30% compression deformity of the superior endplate of T11. On this exam the post kyphoplasty changes involving L1 and the post traumatic changes of T11 are again evident and not significantly changed. There is no abnormal signal arising from the osseous structures to suggest bone edema related to an acute or subacute injury. As noted on the previous CT lumbar spine exam there is retropulsion of the posterior inferior endplate of the compressed vertebral body of L1. This continues to result in mild central stenosis on the right at this level. There is no clear evidence for encroachment of the nerve roots. There is degenerative disc disease throughout the remainder of the lumbar spine. These findings are similar to the prior exam. There is no high-grade central stenosis identified. However there does seem to be mild trefoil stenosis at the L4-L5 level. The AP diameter of the thecal sac at this level is narrowed to approximately 11.6 mm. There is neural foraminal narrowing bilaterally at L4-L5, particularly on the right. There is no significant neural foraminal narrowing noted otherwise. There is no sign of a cord lesion. There is no paraspinal mass identified. IMPRESSION: 1. The post-kyphoplasty changes at L1 and the chronic compression deformity of T11 seen previously are again evident and no different. There is no acute bony abnormality noted. 2. There is degenerative disc disease throughout the lumbar spine. There is no high-grade stenosis identified but there is mild trefoil stenosis with neural foraminal narrowing bilaterally at L4-L5. 4. There is no sign of a paraspinal mass. Dictated by: Dictated on workstation # [id number]
== END ==
LOC: RAD 09:30
PROVIDERS: ATTEND Internal Medicine
DX: M48.56XS Collapsed vertebra, not elsewhere classified, lumbar region, sequela of fracture (principal); M51.36 Other intervertebral disc degeneration, lumbar region
CPT/HCPCS: 72148

== ENCOUNTER → 2020-07-05 | Outpatient (CLI) | payer MEDICARE, OTHER ==
--- NOTE | 2020-07-05 11:53 | Diagnostic Imaging Report ---
INDICATION: Postmenopausal. COMPARISON: None. FINDINGS: The bone mineral density of the hips and spine was measured. T-score for the spine is -3.1. The T-score for the left femoral neck is -2.8 and for the right femoral neck -3.0. The total T-score for the right hip is -2.6. All of these values indicate osteoporosis. The total T-score for the left hip is -1.8. This falls within the range of osteopenia. AP Spine L1-L4: [BMD (g/cm2): 0.828] [T-Score: -3.1] [Z-Score: -1.4] [BMD Previous: na] [BMD % Change: na] LT Hip Neck: [BMD (g/cm2): 0.645] [T-Score: -2.8] [Z-Score: -0.9] LT Hip Total: [BMD (g/cm2):0.776] [T-Score:-1.8] [Z-Score: 0.0] [BMD Previous: na] [BMD % Change: na] RT Hip Neck: [BMD (g/cm2):0.625] [T-Score:-3.0] [Z-Score:-1.0] RT Hip Total: [BMD (g/cm2):0.676] [T-score:-2.6] [Z-Score:-0.8] [BMD Previous:na] [BMD % Change:na] *Indicates significant change from prior examination based on 95% confidence level. World Health Organization criteria for BMD interpretation classify patients as Normal (T-score at or above -1.0), Osteopenic (T-score between -1.0 and -2.5) or Osteoporotic (T-score at or below -2.5). LIMITATIONS AND MODIFICATION: None. FRACTURE RISK (FRAX SCORE): The ten year probability of (%): Major Osteoporotic Fracture: [na] Hip Fracture: [na] IMPRESSION: 1. There is osteoporosis of the spine, the femoral necks and the right hip. 2. However, the T-score for the left hip indicates osteopenia. 3. See below National Osteoporosis Foundation guidelines on when to potentially initiate pharmacologic therapy. Based on the National Osteoporosis Foundation Guidelines, pharmacologic treatment should be initiated in any of the following, unless clinical conditions suggest otherwise: * Any patient with prior fragility fracture of the hip or vertebrae. A spine fracture indicates 5X risk for subsequent spine fracture and 2X risk for subsequent hip fracture. * Osteoporosis (T-score <-2.5). * Postmenopausal women and men age 50 and older with low bone mass/osteopenia (T-score between -1.0 and -2.5) by DXA and 10-year major osteoporotic fracture greater than 20% or a 10-year probability of hip fracture greater than 3%. These fracture risks are supplied above in the FRAX score, if applicable. * Clinician judgement and/or patient preferences may indicate treatment for people with 10-year fracture probabilities above or below these levels. Dictated by: Dictated on workstation # [id number]
== END ==
LOC: RAD 10:00
PROVIDERS: ATTEND Internal Medicine
DX: M48.56XA Collapsed vertebra, not elsewhere classified, lumbar region, initial encounter for fracture (principal); M81.0 Age-related osteoporosis without current pathological fracture; Z78.0 Asymptomatic menopausal state
CPT/HCPCS: 77080

== ENCOUNTER → 2020-07-25 | Outpatient (CLI) | payer MEDICARE, OTHER ==
--- NOTE | 2020-07-25 12:55 | Diagnostic Imaging Report ---
EXAMINATION: Pelvis and left hip at 1051 hours. INDICATION: Chronic hip pain. A single AP view of the pelvis and AP and lateral views of the left hip were obtained. FINDINGS: There is no fracture, dislocation or acute bony abnormality evident. There is at least moderate degenerative disease of the hip and sacroiliac joints. The degenerative changes seem similar to the prior exam of 06/19/2010. Also, since the prior exam an area of slight increased density has developed in the intertrochanteric region of the left femur. This could be related to a healing response to a nondisplaced fracture which has occurred in the interval since the prior exam. If further imaging is desired, then MRI would be recommended. The soft tissues are unremarkable. IMPRESSION: 1. There is no evidence for an acute bony abnormality. 2. The area of slight increased density in the intertrochanteric region of the left femur is of uncertain etiology. Additional considerations and recommendations as above. Dictated by: Dictated on workstation # [id number]
== END ==
LOC: RAD 10:05
PROVIDERS: ATTEND Internal Medicine
DX: M16.12 Unilateral primary osteoarthritis, left hip (principal); M46.06 Spinal enthesopathy, lumbar region; M46.1 Sacroiliitis, not elsewhere classified; M81.0 Age-related osteoporosis without current pathological fracture; M70.72 Other bursitis of hip, left hip

== ENCOUNTER → 2020-08-02 | Outpatient (CLI) | payer MEDICARE, OTHER ==
--- NOTE | 2020-08-02 13:56 | Diagnostic Imaging Report ---
PROCEDURE: MRI left joint lower extremity without contrast. TECHNIQUE: Multiplanar, multisequence non contrast-enhanced MRI of the left lower extremity was accomplished. INDICATION: Left hip pain, falls, history of breast cancer. COMPARISON: Radiographs from 07/25/2020. FINDINGS: There is increased STIR bright signal in the left femoral neck and trochanteric region extending into the proximal shaft, measuring in total 10 cm craniocaudal. This involves most of the bone marrow in this location. There is irregular hypointensity on T1-weighted imaging in this location as well. The cortex demonstrates mild thickening with possible breach posteriorly at the lesser trochanter and proximal shaft. There is mild surrounding periosteal reaction. No contrast was given to evaluate for enhancement. No definite fracture is seen. The bone marrow has a heterogeneous appearance. No other lesions are seen. No joint effusion is seen in the hips or sacroiliac joints. The iliopsoas tendons appear intact. The hamstring tendons are intact. There is no greater trochanteric or iliopsoas bursitis. No muscular atrophy is seen. No soft tissue masses or fluid collections are seen. No free fluid is seen in the pelvis. There is diverticulosis of the sigmoid colon without diverticulitis. IMPRESSION: 1. Abnormal signal in the proximal left femur as described above. Given the patient's history, primary concern is for malignancy, consider tissue sampling to further evaluate. 2. No acute fracture is seen in the pelvis or bilateral femurs. Dictated by: Dictated on workstation # [id number]
== END ==
LOC: RAD 12:30
PROVIDERS: ATTEND Internal Medicine
DX: M25.552 Pain in left hip (principal); Z85.3 Personal history of malignant neoplasm of breast
CPT/HCPCS: 73721

== ENCOUNTER 2020-08-11 10:31 | Outpatient (RCR) | payer MEDICARE, OTHER ==
[2020-08-29 11:40] LABS: BASOPHILS % (AUTO) 0 % (0-10); EOSINOPHILS # (AUTO) 0.1 10^3/uL (0.0-0.3); EOSINOPHILS % (AUTO) 1 % (0-10); HEMATOCRIT 40 % (35-52); HEMOGLOBIN 12.6 g/dL (11.5-16.0); LYMPHOCYTES % (AUTO) 30 % (12-44); MEAN CORPUSCULAR HEMOGLOBIN 29 pg (25-34); MEAN CORPUSCULAR HGB CONC 31 g/dL (32-36); MEAN CORPUSCULAR VOLUME 91 fL (80-99); MEAN PLATELET VOLUME 10.5 fL (9.0-12.2); MONOCYTES # (AUTO) 1.1 10^3/uL (0.0-1.0); MONOCYTES % (AUTO) 17 % (0-12); NEUTROPHILS # (AUTO) 3.4 10^3/uL (1.8-7.8); NEUTROPHILS % (AUTO) 52 % (42-75); PLATELET COUNT 229 10^3/uL (130-400); WHITE BLOOD COUNT 6.5 10^3/uL (4.3-11.0)
[2020-08-29 11:59] LABS: ALANINE AMINOTRANSFERASE 7 U/L (0-55); ALBUMIN 3.9 GM/DL (3.2-4.5); ALKALINE PHOSPHATASE 95 U/L (40-136); BILIRUBIN,TOTAL 0.4 MG/DL (0.1-1.0); BUN/CREATININE RATIO 14; CALCIUM 8.9 MG/DL (8.5-10.1); CARBON DIOXIDE 28 MMOL/L (21-32); CHLORIDE 104 MMOL/L (98-107); CREATININE SERUM 0.77 MG/DL (0.60-1.30); GFR ESTIMATED > 60; GLUCOSE 90 MG/DL (70-105); POTASSIUM 4.4 MMOL/L (3.6-5.0); SODIUM 142 MMOL/L (135-145); TOTAL PROTEIN 6.7 GM/DL (6.4-8.2)
== END 2020-08-29 11:21 | disposition still patient (30) ==
LOC: ONC 10:31
PROVIDERS: ATTEND Internal Medicine Hematology & Oncology
DX: Z45.2 Encounter for adjustment and management of vascular access device (principal); C50.912 Malignant neoplasm of unspecified site of left female breast; I10 Essential (primary) hypertension
CPT/HCPCS: 80053; 85025; 86300; 96523

== ENCOUNTER → 2020-08-30 | Outpatient (CLI) | payer MEDICARE, OTHER ==
[~2020-08-30] MED LIST changes: +CATHETER FLUSH 10 ML SYR IV PRN; +HOLD METFORMIN - RECEIVED CONTRAST 20 ML VIAL IV SCH; +IOHEXOL 350 MG/ML 100 ML (OMNIPAQUE 350) VIAL IV ONE; +NS 100 ML (IVPB) BAG IV ONE
[2020-08-30] MEDS: CATHETER FLUSH 10 ML SYR IV PRN ×2 (11:02→12:19)
--- NOTE | 2020-08-30 13:17 | Diagnostic Imaging Report ---
EXAMINATION: CT Chest with intravenous contrast, CT Abdomen and Pelvis without and with intravenous contrast. TECHNIQUE: Pre and post intravenous contrast axial imaging of the abdomen and pelvis and post contrast axial imaging of the chest were performed. All CT scans use one or more of the following dose optimizing techniques: automated exposure control, MA and/or KvP adjustment based on a patient size and exam type, or iterative reconstruction. HISTORY: Breast cancer. COMPARISON: 12/04/2018. FINDINGS: There is no edema or pneumonia. No pleural effusion. No pneumothorax. There are two small pleural nodules measuring approximately 6 mm which may represent small areas of atelectasis or scarring. These appear similar to prior exam. There is no axillary or supraclavicular lymphadenopathy. There is no mediastinal lymphadenopathy. Right port catheter is present. Heart size is normal. There are mild coronary artery calcifications. No pericardial effusion. Aorta is normal in caliber. The liver is normal without focal lesion. There is no biliary ductal dilation. Gallbladder is absent. Pancreas is normal. Spleen is normal. Adrenal glands are normal. The kidneys are normal. There is no hydronephrosis. Urinary bladder is normal. Visualized bowel is normal in caliber without obstruction or inflammation. No free fluid or air. No abdominal or pelvic lymphadenopathy. Aorta is normal in caliber without aneurysm. There is a new rounded sclerotic lesion in L2. There is sclerosis of the proximal left femur. This is new from prior exam. There is a subacute right lateral 9th rib fracture. There has been vertebroplasty with moderate L1 compression fracture. T11 compression fracture is unchanged. Mild T6 compression fracture is also seen. IMPRESSION: 1. New rounded sclerotic lesion in L2 and sclerosis of the proximal left femur concerning for osseous metastatic disease. Dictated by: Dictated on workstation # [id number]
--- NOTE | 2020-08-30 16:20 | Diagnostic Imaging Report ---
INDICATION: Breast cancer. TECHNIQUE: Anterior and posterior whole body planar images were obtained after administration of 26.2 mCi of technetium 99m MDP. FINDINGS: There is focal increased uptake in the proximal left femur. There are multifocal areas of uptake in the sacrum, upper lumbar spine, and lower thoracic spine. There is some uptake in a lower right rib. The findings are highly suspect for widespread osseous metastatic disease. There is physiologic uptake within the kidneys. There is excretion from the urinary bladder. 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 Dictated by: Dictated on workstation # [id number]
== END ==
LOC: CARD 10:53
PROVIDERS: ATTEND Internal Medicine Hematology & Oncology
DX: C50.419 Malignant neoplasm of upper-outer quadrant of unspecified female breast (principal); R93.89 Abnormal findings on diagnostic imaging of other specified body structures; M85.9 Disorder of bone density and structure, unspecified
CPT/HCPCS: 71260; 74178; 78306; A9503

== ENCOUNTER 2020-10-03 09:58 | Outpatient (RCR) | payer MEDICARE, OTHER ==
[~2020-10-03 09:58] MED LIST changes: -CATHETER FLUSH 10 ML SYR IV PRN; -HOLD METFORMIN - RECEIVED CONTRAST 20 ML VIAL IV SCH; -IOHEXOL 350 MG/ML 100 ML (OMNIPAQUE 350) VIAL IV ONE; -NS 100 ML (IVPB) BAG IV ONE
[2020-10-03 10:35] LABS: BASOPHILS % (AUTO) 1 % (0-10); EOSINOPHILS # (AUTO) 0.1 10^3/uL (0.0-0.3); EOSINOPHILS % (AUTO) 1 % (0-10); HEMATOCRIT 38 % (35-52); HEMOGLOBIN 11.9 g/dL (11.5-16.0); LYMPHOCYTES # (AUTO) 0.8 10^3/uL (1.0-4.0); LYMPHOCYTES % (AUTO) 14 % (12-44); MEAN CORPUSCULAR HEMOGLOBIN 29 pg (25-34); MEAN CORPUSCULAR HGB CONC 31 g/dL (32-36); MEAN CORPUSCULAR VOLUME 92 fL (80-99); MEAN PLATELET VOLUME 10.1 fL (9.0-12.2); MONOCYTES # (AUTO) 1.2 10^3/uL (0.0-1.0); MONOCYTES % (AUTO) 20 % (0-12); NEUTROPHILS # (AUTO) 3.6 10^3/uL (1.8-7.8); NEUTROPHILS % (AUTO) 62 % (42-75); PLATELET COUNT 161 10^3/uL (130-400); WHITE BLOOD COUNT 5.7 10^3/uL (4.3-11.0)
[2020-10-03] MEDS ORDERED: DENOSUMAB 120 MG/1.7 ML (XGEVA) SQ SCH (11:00)
[2020-10-03 11:05] LABS: ALANINE AMINOTRANSFERASE 7 U/L (0-55); ALBUMIN 3.7 GM/DL (3.2-4.5); ALKALINE PHOSPHATASE 76 U/L (40-136); BILIRUBIN,TOTAL 0.5 MG/DL (0.1-1.0); BUN/CREATININE RATIO 17; CALCIUM 8.6 MG/DL (8.5-10.1); CARBON DIOXIDE 28 MMOL/L (21-32); CHLORIDE 106 MMOL/L (98-107); CREATININE SERUM 0.66 MG/DL (0.60-1.30); GFR ESTIMATED > 60; GLUCOSE 117 MG/DL (70-105); POTASSIUM 3.4 MMOL/L (3.6-5.0); SODIUM 139 MMOL/L (135-145); TOTAL PROTEIN 6.6 GM/DL (6.4-8.2)
== END 2020-10-10 09:21 | disposition home or self-care (01) ==
LOC: ONC 09:58
PROVIDERS: ATTEND Internal Medicine Hematology & Oncology
DX: Z45.2 Encounter for adjustment and management of vascular access device (principal); C50.912 Malignant neoplasm of unspecified site of left female breast; I10 Essential (primary) hypertension
CPT/HCPCS: 36591; 77290; 77295; 77300; 77334; 77336; 77417; 77470; 80053; 82306; 85025; 86300; 96372; 99213

== ENCOUNTER 2020-12-27 14:10 | Outpatient (RCR) | payer MEDICARE, OTHER ==
[2020-11-02 15:24] LABS: BASOPHILS % (AUTO) 0 % (0-10); EOSINOPHILS % (AUTO) 0 % (0-10); HEMATOCRIT 37 % (35-52); HEMOGLOBIN 11.9 g/dL (11.5-16.0); LYMPHOCYTES # (AUTO) 1.1 10^3/uL (1.0-4.0); LYMPHOCYTES % (AUTO) 20 % (12-44); MEAN CORPUSCULAR HEMOGLOBIN 29 pg (25-34); MEAN CORPUSCULAR HGB CONC 32 g/dL (32-36); MEAN CORPUSCULAR VOLUME 91 fL (80-99); MEAN PLATELET VOLUME 10.1 fL (9.0-12.2); MONOCYTES # (AUTO) 1.3 10^3/uL (0.0-1.0); MONOCYTES % (AUTO) 23 % (0-12); NEUTROPHILS # (AUTO) 3.1 10^3/uL (1.8-7.8); NEUTROPHILS % (AUTO) 55 % (42-75); PLATELET COUNT 207 10^3/uL (130-400); WHITE BLOOD COUNT 5.5 10^3/uL (4.3-11.0)
[2020-11-02 15:44] LABS: ALANINE AMINOTRANSFERASE 6 U/L (0-55); ALBUMIN 3.8 GM/DL (3.2-4.5); ALKALINE PHOSPHATASE 83 U/L (40-136); BILIRUBIN,TOTAL 0.4 MG/DL (0.1-1.0); BUN/CREATININE RATIO 15; CALCIUM 7.9 MG/DL (8.5-10.1); CARBON DIOXIDE 21 MMOL/L (21-32); CHLORIDE 111 MMOL/L (98-107); CREATININE SERUM 0.72 MG/DL (0.60-1.30); GFR ESTIMATED > 60; GLUCOSE 104 MG/DL (70-105); POTASSIUM 3.4 MMOL/L (3.6-5.0); SODIUM 142 MMOL/L (135-145); TOTAL PROTEIN 6.5 GM/DL (6.4-8.2)
[2020-11-29 14:59] LABS: BASOPHILS % (AUTO) 0 % (0-10); EOSINOPHILS % (AUTO) 1 % (0-10); HEMATOCRIT 38 % (35-52); LYMPHOCYTES # (AUTO) 1.2 10^3/uL (1.0-4.0); LYMPHOCYTES % (AUTO) 25 % (12-44); MEAN CORPUSCULAR HEMOGLOBIN 29 pg (25-34); MEAN CORPUSCULAR HGB CONC 32 g/dL (32-36); MEAN CORPUSCULAR VOLUME 91 fL (80-99); MONOCYTES # (AUTO) 1.1 10^3/uL (0.0-1.0); MONOCYTES % (AUTO) 23 % (0-12); NEUTROPHILS # (AUTO) 2.4 10^3/uL (1.8-7.8); NEUTROPHILS % (AUTO) 51 % (42-75); PLATELET COUNT 192 10^3/uL (130-400); WHITE BLOOD COUNT 4.8 10^3/uL (4.3-11.0)
[2020-11-29 15:46] LABS: ALANINE AMINOTRANSFERASE 8 U/L (0-55); ALBUMIN 3.8 GM/DL (3.2-4.5); ALKALINE PHOSPHATASE 74 U/L (40-136); BILIRUBIN,TOTAL 0.3 MG/DL (0.1-1.0); BUN/CREATININE RATIO 15; CALCIUM 7.9 MG/DL (8.5-10.1); CARBON DIOXIDE 24 MMOL/L (21-32); CHLORIDE 108 MMOL/L (98-107); CREATININE SERUM 0.72 MG/DL (0.60-1.30); GFR ESTIMATED > 60; GLUCOSE 106 MG/DL (70-105); POTASSIUM 3.9 MMOL/L (3.6-5.0); SODIUM 140 MMOL/L (135-145); TOTAL PROTEIN 6.5 GM/DL (6.4-8.2)
[~2020-12-27 14:10] MED LIST changes: -CIPR500T4; -CIPR500T4 PO; +CIPR500T5; +CIPR500T5 PO; +DENOSUMAB 120 MG/1.7 ML (XGEVA) SQ SCH
[2020-12-27 14:54] LABS: BASOPHILS % (AUTO) 1 % (0-10); EOSINOPHILS # (AUTO) 0.1 10^3/uL (0.0-0.3); EOSINOPHILS % (AUTO) 1 % (0-10); HEMATOCRIT 39 % (35-52); HEMOGLOBIN 12.2 g/dL (11.5-16.0); LYMPHOCYTES # (AUTO) 1.1 10^3/uL (1.0-4.0); LYMPHOCYTES % (AUTO) 17 % (12-44); MEAN CORPUSCULAR HEMOGLOBIN 28 pg (25-34); MEAN CORPUSCULAR HGB CONC 31 g/dL (32-36); MEAN CORPUSCULAR VOLUME 90 fL (80-99); MEAN PLATELET VOLUME 10.1 fL (9.0-12.2); MONOCYTES # (AUTO) 1.5 10^3/uL (0.0-1.0); MONOCYTES % (AUTO) 23 % (0-12); NEUTROPHILS # (AUTO) 3.9 10^3/uL (1.8-7.8); NEUTROPHILS % (AUTO) 58 % (42-75); PLATELET COUNT 209 10^3/uL (130-400); WHITE BLOOD COUNT 6.6 10^3/uL (4.3-11.0)
[2020-12-27 15:12] LABS: ALANINE AMINOTRANSFERASE 7 U/L (0-55); ALBUMIN 3.8 GM/DL (3.2-4.5); ALKALINE PHOSPHATASE 65 U/L (40-136); BILIRUBIN,TOTAL 0.4 MG/DL (0.1-1.0); BUN/CREATININE RATIO 13; CARBON DIOXIDE 24 MMOL/L (21-32); CHLORIDE 107 MMOL/L (98-107); GFR ESTIMATED > 60; GLUCOSE 114 MG/DL (70-105); POTASSIUM 3.7 MMOL/L (3.6-5.0); SODIUM 138 MMOL/L (135-145); TOTAL PROTEIN 6.5 GM/DL (6.4-8.2)
== END 2021-01-08 | disposition home or self-care (01) ==
LOC: ONC 14:10
PROVIDERS: ATTEND Internal Medicine Hematology & Oncology
DX: C50.912 Malignant neoplasm of unspecified site of left female breast (principal); C79.51 Secondary malignant neoplasm of bone; G89.3 Neoplasm related pain (acute) (chronic); F41.9 Anxiety disorder, unspecified; E07.9 Disorder of thyroid, unspecified; M19.90 Unspecified osteoarthritis, unspecified site; R03.0 Elevated blood-pressure reading, without diagnosis of hypertension; Z98.890 Other specified postprocedural states; Z90.49 Acquired absence of other specified parts of digestive tract; Z79.811 Long term (current) use of aromatase inhibitors; Z17.0 Estrogen receptor positive status [ER+]
CPT/HCPCS: 36591; 80053; 85025; 86300; 96372; 99213

== ENCOUNTER → 2021-01-20 | Outpatient (CLI) | payer MEDICARE, OTHER ==
[~2021-01-20] MED LIST changes: +CATHETER FLUSH 10 ML SYR IV PRN; -DENOSUMAB 120 MG/1.7 ML (XGEVA) SQ SCH; +HOLD METFORMIN - RECEIVED CONTRAST 20 ML VIAL IV SCH; +IOHEXOL 350 MG/ML 100 ML (OMNIPAQUE 350) VIAL IV ONE; +NS 100 ML (IVPB) BAG IV ONE
--- NOTE | 2021-01-20 13:31 | Diagnostic Imaging Report ---
PROCEDURE: CT chest with contrast, CT abdomen and pelvis with and without contrast. TECHNIQUE: Pre and post intravenous contrast axial imaging of the abdomen and pelvis and post contrast axial imaging of the chest were performed. Auto Exposure Controls were utilized during the CT exam to meet ALARA standards for radiation dose reduction. INDICATION: Breast carcinoma. Comparison is made to prior CT from 08/30/2020. CT CHEST: A right chest wall port has the tip in the SVC. No axillary lymphadenopathy is detected. No internal mammary lymphadenopathy is identified. No mediastinal or hilar lymphadenopathy is detected. There is no pericardial or pleural fluid identified. The pulmonary parenchyma appears stable. No discrete mass, infiltrate or nodule is identified. There is a new sclerotic lesion within the T10 vertebral body. A smaller area of sclerosis is seen at approximately the T6 level. There is also some sclerosis along the left posterior ribs, particularly left posterior 4th, 5th, 6th ribs. IMPRESSION: 1. No evidence of thoracic lymphadenopathy. 2. New sclerotic lesions within the thoracic spine and ribs consistent with metastatic disease. CT ABDOMEN AND PELVIS: No discrete liver mass is identified. Gallbladder surgically absent. No biliary duct dilatation. Pancreas and spleen are unremarkable. No adrenal mass is identified. Kidneys are unremarkable. Aorta is nonaneurysmal. No central retroperitoneal or mesenteric lymphadenopathy is seen. Bowel loops are normal caliber. There is diverticulosis of the sigmoid but no evidence of acute diverticulitis. No definite pelvic lymphadenopathy is seen. The bladder is decompressed. Bony structures show new sclerotic lesions in the pelvis, in particular bilateral inferior pubic rami and symphysis. There are sclerotic lesions of the iliac bones that appear new as well as the sacrum. Lumbar vertebral body sclerotic lesion at L2 is again noted but much bigger on today's study. The lesion of the right L2 pedicle. Kyphoplasty changes at L1 are noted. IMPRESSION: 1. No evidence of abdominal or pelvic lymphadenopathy. 2. Multiple new sclerotic lesions of the lumbar spine and pelvis consistent with worsening osseous metastatic disease. Dictated by: Dictated on workstation # [id number]
--- NOTE | 2021-01-20 14:12 | Diagnostic Imaging Report ---
INDICATION: Breast carcinoma. Patient was administered 27.0 mCi technetium 99m MDP intravenously and whole-body imaging was performed after a three-hour delay. Correlation is made with prior whole body bone scan from 08/30/2020. Normal uptake of activity by the axial and appendicular skeletons noted. There is uptake by the kidneys with excretion to urinary bladder. Continues to be abnormal uptake about about the left hip consistent with metastatic lesion. Uptake in the lower thoracic and lumbar spine is noted as well, slightly more intense than prior study. There is some uptake involving left sided posterior ribs which appears new. Uptake overlies the sacrum, similar to prior exam. IMPRESSION: Continued findings of osseous metastatic disease. There appear to be new left posterior rib lesions. Uptake in the thoracic and lumbar spine appears be more intense than prior exam corresponding with larger lesions on CT. Lesions within the rami on CT study are not well visualized by bone scan due to obscuration from the urinary bladder. Dictated by: Dictated on workstation # [id number]
== END ==
LOC: CARD 10:15
PROVIDERS: ATTEND Nurse Practitioner Adult Health
DX: C50.212 Malignant neoplasm of upper-inner quadrant of left female breast (principal); C79.51 Secondary malignant neoplasm of bone; G95.9 Disease of spinal cord, unspecified
CPT/HCPCS: 71260; 74178; 78306; A9503

== ENCOUNTER 2021-04-17 13:08 | Outpatient (RCR) | payer MEDICARE, OTHER ==
[2021-01-20 11:42] LABS: BASOPHILS % (AUTO) 1 % (0-10); EOSINOPHILS % (AUTO) 1 % (0-10); HEMATOCRIT 39 % (35-52); HEMOGLOBIN 12.6 g/dL (11.5-16.0); LYMPHOCYTES # (AUTO) 1.1 10^3/uL (1.0-4.0); LYMPHOCYTES % (AUTO) 26 % (12-44); MEAN CORPUSCULAR HEMOGLOBIN 29 pg (25-34); MEAN CORPUSCULAR HGB CONC 32 g/dL (32-36); MEAN CORPUSCULAR VOLUME 89 fL (80-99); MEAN PLATELET VOLUME 10.2 fL (9.0-12.2); MONOCYTES % (AUTO) 24 % (0-12); NEUTROPHILS # (AUTO) 2.1 10^3/uL (1.8-7.8); NEUTROPHILS % (AUTO) 49 % (42-75); PLATELET COUNT 215 10^3/uL (130-400); WHITE BLOOD COUNT 4.3 10^3/uL (4.3-11.0)
[2021-01-20 11:57] LABS: ALBUMIN 3.9 GM/DL (3.2-4.5); ALKALINE PHOSPHATASE 61 U/L (40-136); BILIRUBIN,TOTAL 0.5 MG/DL (0.1-1.0); BUN/CREATININE RATIO 17; CALCIUM 8.4 MG/DL (8.5-10.1); CARBON DIOXIDE 23 MMOL/L (21-32); CHLORIDE 108 MMOL/L (98-107); GFR ESTIMATED > 60; GLUCOSE 86 MG/DL (70-105); POTASSIUM 3.8 MMOL/L (3.6-5.0); SODIUM 141 MMOL/L (135-145); TOTAL PROTEIN 6.8 GM/DL (6.4-8.2)
[2021-01-20 12:12] LABS: ALANINE AMINOTRANSFERASE 9 U/L (0-55)
[2021-02-02 10:28] LABS: BASOPHILS % (AUTO) 1 % (0-10); EOSINOPHILS # (AUTO) 0.1 10^3/uL (0.0-0.3); EOSINOPHILS % (AUTO) 2 % (0-10); HEMATOCRIT 42 % (35-52); LYMPHOCYTES % (AUTO) 22 % (12-44); MEAN CORPUSCULAR HEMOGLOBIN 28 pg (25-34); MEAN CORPUSCULAR HGB CONC 31 g/dL (32-36); MEAN CORPUSCULAR VOLUME 91 fL (80-99); MEAN PLATELET VOLUME 10.4 fL (9.0-12.2); MONOCYTES # (AUTO) 1.1 10^3/uL (0.0-1.0); MONOCYTES % (AUTO) 24 % (0-12); NEUTROPHILS # (AUTO) 2.4 10^3/uL (1.8-7.8); NEUTROPHILS % (AUTO) 51 % (42-75); PLATELET COUNT 209 10^3/uL (130-400); WHITE BLOOD COUNT 4.7 10^3/uL (4.3-11.0)
[2021-02-02 10:52] LABS: BUN/CREATININE RATIO 14; CARBON DIOXIDE 24 MMOL/L (21-32); CHLORIDE 111 MMOL/L (98-107); CREATININE SERUM 0.65 MG/DL (0.60-1.30); GFR ESTIMATED > 60; GLUCOSE 100 MG/DL (70-105); POTASSIUM 4.1 MMOL/L (3.6-5.0); SODIUM 144 MMOL/L (135-145)
[2021-02-09 09:31] LABS: BASOPHILS % (AUTO) 0 % (0-10); EOSINOPHILS # (AUTO) 0.1 10^3/uL (0.0-0.3); EOSINOPHILS % (AUTO) 1 % (0-10); HEMATOCRIT 41 % (35-52); HEMOGLOBIN 12.9 g/dL (11.5-16.0); LYMPHOCYTES % (AUTO) 21 % (12-44); MEAN CORPUSCULAR HEMOGLOBIN 29 pg (25-34); MEAN CORPUSCULAR HGB CONC 32 g/dL (32-36); MEAN CORPUSCULAR VOLUME 91 fL (80-99); MONOCYTES # (AUTO) 1.1 10^3/uL (0.0-1.0); MONOCYTES % (AUTO) 23 % (0-12); NEUTROPHILS # (AUTO) 2.6 10^3/uL (1.8-7.8); NEUTROPHILS % (AUTO) 55 % (42-75); PLATELET COUNT 202 10^3/uL (130-400); WHITE BLOOD COUNT 4.7 10^3/uL (4.3-11.0)
[2021-02-09 09:55] LABS: BUN/CREATININE RATIO 14; CALCIUM 8.2 MG/DL (8.5-10.1); CARBON DIOXIDE 26 MMOL/L (21-32); CHLORIDE 109 MMOL/L (98-107); CREATININE SERUM 0.69 MG/DL (0.60-1.30); GFR ESTIMATED > 60; GLUCOSE 96 MG/DL (70-105); POTASSIUM 4.2 MMOL/L (3.6-5.0); SODIUM 142 MMOL/L (135-145)
[2021-02-16 13:48] LABS: BASOPHILS % (AUTO) 1 % (0-10); EOSINOPHILS # (AUTO) 0.1 10^3/uL (0.0-0.3); EOSINOPHILS % (AUTO) 1 % (0-10); HEMATOCRIT 41 % (35-52); LYMPHOCYTES # (AUTO) 1.3 10^3/uL (1.0-4.0); LYMPHOCYTES % (AUTO) 20 % (12-44); MEAN CORPUSCULAR HEMOGLOBIN 29 pg (25-34); MEAN CORPUSCULAR HGB CONC 32 g/dL (32-36); MEAN CORPUSCULAR VOLUME 90 fL (80-99); MEAN PLATELET VOLUME 10.1 fL (9.0-12.2); MONOCYTES # (AUTO) 1.6 10^3/uL (0.0-1.0); MONOCYTES % (AUTO) 25 % (0-12); NEUTROPHILS # (AUTO) 3.4 10^3/uL (1.8-7.8); NEUTROPHILS % (AUTO) 53 % (42-75); PLATELET COUNT 207 10^3/uL (130-400); WHITE BLOOD COUNT 6.4 10^3/uL (4.3-11.0)
[2021-02-16 14:15] LABS: ALANINE AMINOTRANSFERASE 7 U/L (0-55); ALBUMIN 3.9 GM/DL (3.2-4.5); ALKALINE PHOSPHATASE 67 U/L (40-136); BILIRUBIN,TOTAL 0.4 MG/DL (0.1-1.0); BUN/CREATININE RATIO 17; CALCIUM 9.1 MG/DL (8.5-10.1); CARBON DIOXIDE 35 MMOL/L (21-32); CHLORIDE 103 MMOL/L (98-107); CREATININE SERUM 0.71 MG/DL (0.60-1.30); GFR ESTIMATED > 60; GLUCOSE 108 MG/DL (70-105); POTASSIUM 3.9 MMOL/L (3.6-5.0); SODIUM 140 MMOL/L (135-145); TOTAL PROTEIN 6.7 GM/DL (6.4-8.2)
[2021-03-09 10:43] LABS: BASOPHILS % (AUTO) 1 % (0-10); EOSINOPHILS % (AUTO) 1 % (0-10); HEMATOCRIT 41 % (35-52); HEMOGLOBIN 13.1 g/dL (11.5-16.0); LYMPHOCYTES # (AUTO) 1.2 10^3/uL (1.0-4.0); LYMPHOCYTES % (AUTO) 20 % (12-44); MEAN CORPUSCULAR HEMOGLOBIN 29 pg (25-34); MEAN CORPUSCULAR HGB CONC 32 g/dL (32-36); MEAN CORPUSCULAR VOLUME 92 fL (80-99); MONOCYTES # (AUTO) 1.5 10^3/uL (0.0-1.0); MONOCYTES % (AUTO) 25 % (0-12); NEUTROPHILS # (AUTO) 3.2 10^3/uL (1.8-7.8); NEUTROPHILS % (AUTO) 54 % (42-75); PLATELET COUNT 216 10^3/uL (130-400); WHITE BLOOD COUNT 5.9 10^3/uL (4.3-11.0)
[2021-03-09 11:03] LABS: ALANINE AMINOTRANSFERASE 10 U/L (0-55); ALKALINE PHOSPHATASE 58 U/L (40-136); BILIRUBIN,TOTAL 0.5 MG/DL (0.1-1.0); BUN/CREATININE RATIO 20; CALCIUM 9.1 MG/DL (8.5-10.1); CARBON DIOXIDE 28 MMOL/L (21-32); CHLORIDE 104 MMOL/L (98-107); CREATININE SERUM 0.76 MG/DL (0.60-1.30); GFR ESTIMATED > 60; GLUCOSE 78 MG/DL (70-105); POTASSIUM 4.2 MMOL/L (3.6-5.0); SODIUM 139 MMOL/L (135-145); TOTAL PROTEIN 6.8 GM/DL (6.4-8.2)
[2021-03-27 15:02] LABS: BASOPHILS # (AUTO) 0.1 10^3/uL (0.0-0.1); BASOPHILS % (AUTO) 1 % (0-10); EOSINOPHILS % (AUTO) 1 % (0-10); HEMATOCRIT 40 % (35-52); HEMOGLOBIN 12.8 g/dL (11.5-16.0); LYMPHOCYTES # (AUTO) 1.2 X 10^3 (1.0-4.0); LYMPHOCYTES % (AUTO) 24 % (12-44); MEAN CORPUSCULAR HEMOGLOBIN 30 pg (25-34); MEAN CORPUSCULAR HGB CONC 32 g/dL (32-36); MEAN CORPUSCULAR VOLUME 93 fL (80-99); MONOCYTES # (AUTO) 1.2 X 10^3 (0.0-1.0); MONOCYTES % (AUTO) 24 % (0-12); NEUTROPHILS # (AUTO) 2.6 X 10^3 (1.8-7.8); NEUTROPHILS % (AUTO) 50 % (42-75); PLATELET COUNT 212 10^3/uL (130-400); WHITE BLOOD COUNT 5.2 10^3/uL (4.3-11.0)
[2021-03-27 15:22] LABS: ALANINE AMINOTRANSFERASE 9 U/L (0-55); ALKALINE PHOSPHATASE 61 U/L (40-136); BILIRUBIN,TOTAL 0.5 MG/DL (0.1-1.0); BUN/CREATININE RATIO 16; CALCIUM 9.5 MG/DL (8.5-10.1); CARBON DIOXIDE 29 MMOL/L (21-32); CHLORIDE 105 MMOL/L (98-107); CREATININE SERUM 0.82 MG/DL (0.60-1.30); GFR ESTIMATED > 60; GLUCOSE 130 MG/DL (70-105); POTASSIUM 3.9 MMOL/L (3.6-5.0); SODIUM 141 MMOL/L (135-145)
[~2021-04-17 13:08] MED LIST changes: -CATHETER FLUSH 10 ML SYR IV PRN; +DENOSUMAB 120 MG/1.7 ML (XGEVA) SQ SCH; -HOLD METFORMIN - RECEIVED CONTRAST 20 ML VIAL IV SCH; -IOHEXOL 350 MG/ML 100 ML (OMNIPAQUE 350) VIAL IV ONE; -NS 100 ML (IVPB) BAG IV ONE
[2021-04-17 13:29] LABS: BASOPHILS % (AUTO) 1 % (0-10); EOSINOPHILS % (AUTO) 1 % (0-10); HEMATOCRIT 39 % (35-52); HEMOGLOBIN 12.7 g/dL (11.5-16.0); LYMPHOCYTES # (AUTO) 1.1 10^3/uL (1.0-4.0); LYMPHOCYTES % (AUTO) 21 % (12-44); MEAN CORPUSCULAR HEMOGLOBIN 31 pg (25-34); MEAN CORPUSCULAR HGB CONC 33 g/dL (32-36); MEAN CORPUSCULAR VOLUME 95 fL (80-99); MEAN PLATELET VOLUME 9.9 fL (9.0-12.2); MONOCYTES # (AUTO) 1.4 10^3/uL (0.0-1.0); MONOCYTES % (AUTO) 26 % (0-12); NEUTROPHILS # (AUTO) 2.8 10^3/uL (1.8-7.8); NEUTROPHILS % (AUTO) 52 % (42-75); PLATELET COUNT 192 10^3/uL (130-400); WHITE BLOOD COUNT 5.4 10^3/uL (4.3-11.0)
[2021-04-17 13:53] LABS: ALANINE AMINOTRANSFERASE 7 U/L (0-55); ALBUMIN 3.6 GM/DL (3.2-4.5); ALKALINE PHOSPHATASE 54 U/L (40-136); BILIRUBIN,TOTAL 0.5 MG/DL (0.1-1.0); BUN/CREATININE RATIO 17; CARBON DIOXIDE 27 MMOL/L (21-32); CHLORIDE 110 MMOL/L (98-107); CREATININE SERUM 0.83 MG/DL (0.60-1.30); GFR ESTIMATED > 60; GLUCOSE 106 MG/DL (70-105); POTASSIUM 3.9 MMOL/L (3.6-5.0); SODIUM 143 MMOL/L (135-145); TOTAL PROTEIN 6.3 GM/DL (6.4-8.2)
== END 2021-04-20 | disposition home or self-care (01) ==
LOC: ONC 13:08
PROVIDERS: ATTEND Internal Medicine Hematology & Oncology
DX: C50.912 Malignant neoplasm of unspecified site of left female breast (principal); C79.51 Secondary malignant neoplasm of bone; G89.3 Neoplasm related pain (acute) (chronic); F41.9 Anxiety disorder, unspecified; E07.9 Disorder of thyroid, unspecified; M19.90 Unspecified osteoarthritis, unspecified site; R03.0 Elevated blood-pressure reading, without diagnosis of hypertension; Z98.890 Other specified postprocedural states; Z90.49 Acquired absence of other specified parts of digestive tract; Z79.811 Long term (current) use of aromatase inhibitors; Z17.0 Estrogen receptor positive status [ER+]
CPT/HCPCS: 36591; 80048; 80053; 82306; 85025; 86300; 96372; 96523; 99213

== ENCOUNTER → 2021-04-27 | Outpatient (CLI) | payer MEDICARE, OTHER ==
[~2021-04-27] MED LIST changes: +BARIUM SUSPENSION 2.1% (VANILLA SILQ) 450 ML PO ONE; +CATHETER FLUSH 10 ML SYR IV PRN; -DENOSUMAB 120 MG/1.7 ML (XGEVA) SQ SCH; +HOLD METFORMIN - RECEIVED CONTRAST 20 ML VIAL IV SCH; +IOHEXOL 350 MG/ML 100 ML (OMNIPAQUE 350) VIAL IV ONE; +NS 100 ML (IVPB) BAG IV ONE
--- NOTE | 2021-04-27 11:13 | Diagnostic Imaging Report ---
PROCEDURE: CT chest with contrast, CT abdomen and pelvis with and without contrast. TECHNIQUE: Pre and post intravenous contrast axial imaging of the abdomen and pelvis and post contrast axial imaging of the chest were performed. Auto Exposure Controls were utilized during the CT exam to meet ALARA standards for radiation dose reduction. INDICATION: History of breast cancer for followup. Compared with a CT chest, abdomen and pelvis performed 01/20/2021. CHEST: Central venous catheter in the lower SVC in stable and good position, no suspicious pulmonary nodule or dominant lung mass. No axillary, hilar or mediastinal lymphadenopathy. The internal mammary lymph node chains and chest wall appeared unremarkable. ABDOMEN AND PELVIS: Liver, spleen, adrenals and pancreas are unremarkable. No bile duct dilatation. The unobstructed kidneys appeared nonacute with no suspicious finding. There is no ascites. No suspicious omental infiltration. There is no abdominal pelvic mesenteric or retroperitoneal lymphadenopathy. BONES: There are multiple sclerotic bony lesions in the thoracoabdominal and pelvic axial and appendicular skeleton without pathological component. Most substantial lesion involves the left femoral head and neck and trochanters extending into the visualized subtrochanteric shaft. This has lucent lytic components. Disease also significantly involves the inferior pubic rami. No appreciable pathological fracture and no findings of progressive bony metastases. IMPRESSION: 1. Unchanged multifocal bony metastatic disease. 2. However no findings of soft tissue metastasis in the chest, abdomen or pelvis. No thoracic effusion, abdominal pelvic ascites or lymphadenopathy. Dictated by: Dictated on workstation # [id number]
--- NOTE | 2021-04-27 13:43 | Diagnostic Imaging Report ---
Indication: Breast cancer. Compared with study January 2021 The patient received intravenous dose 24.7 mCi technetium 99 MDP, after 3 hours whole-body planar imaging performed. Findings: Punctate areas of abnormal uptake in the right paramedian lower thoracic spine, the midline upper lumbar spine as well as the lumbosacral junction are unchanged. Areas of adjacent abnormal uptake involving posterior aspect of left upper ribs is much less conspicuous. Abnormal uptake intertrochanteric left hip is unchanged. Calvarium unremarkable sternomanubrium unremarkable. No new pathology found. Impression: Decreased rib uptake, spinal and left femoral lesions scintigraphically unchanged no findings of disease progression. Dictated by: Dictated on workstation # [id number]
== END ==
LOC: CARD 09:47
PROVIDERS: ATTEND Nurse Practitioner Adult Health
DX: C50.312 Malignant neoplasm of lower-inner quadrant of left female breast (principal); C79.51 Secondary malignant neoplasm of bone
CPT/HCPCS: 71260; 74178; 78306; A9503

== ENCOUNTER 2021-07-26 12:43 | Outpatient (RCR) | payer MEDICARE, OTHER ==
[2021-05-23 09:31] LABS: BASOPHILS % (AUTO) 1 % (0-10); EOSINOPHILS % (AUTO) 1 % (0-10); HEMATOCRIT 43 % (35-52); HEMOGLOBIN 13.9 g/dL (11.5-16.0); LYMPHOCYTES # (AUTO) 1.3 10^3/uL (1.0-4.0); LYMPHOCYTES % (AUTO) 24 % (12-44); MEAN CORPUSCULAR HEMOGLOBIN 32 pg (25-34); MEAN CORPUSCULAR HGB CONC 33 g/dL (32-36); MEAN CORPUSCULAR VOLUME 97 fL (80-99); MEAN PLATELET VOLUME 9.8 fL (9.0-12.2); MONOCYTES # (AUTO) 1.2 10^3/uL (0.0-1.0); MONOCYTES % (AUTO) 21 % (0-12); NEUTROPHILS % (AUTO) 54 % (42-75); PLATELET COUNT 188 10^3/uL (130-400); WHITE BLOOD COUNT 5.6 10^3/uL (4.3-11.0)
[2021-05-23 09:59] LABS: BILIRUBIN,TOTAL 0.6 MG/DL (0.1-1.0); CALCIUM 9.5 MG/DL (8.5-10.1); CREATININE SERUM 0.87 MG/DL (0.60-1.30); POTASSIUM 4.2 MMOL/L (3.6-5.0)
[2021-06-14 15:10] LABS: BASOPHILS # (AUTO) 0.1 10^3/uL (0.0-0.1); BASOPHILS % (AUTO) 1 % (0-10); EOSINOPHILS # (AUTO) 0.1 10^3/uL (0.0-0.3); EOSINOPHILS % (AUTO) 1 % (0-10); HEMATOCRIT 40 % (35-52); HEMOGLOBIN 12.8 g/dL (11.5-16.0); LYMPHOCYTES # (AUTO) 1.5 X 10^3 (1.0-4.0); LYMPHOCYTES % (AUTO) 23 % (12-44); MEAN CORPUSCULAR HEMOGLOBIN 31 pg (25-34); MEAN CORPUSCULAR HGB CONC 32 g/dL (32-36); MEAN CORPUSCULAR VOLUME 99 fL (80-99); MONOCYTES # (AUTO) 1.5 X 10^3 (0.0-1.0); MONOCYTES % (AUTO) 23 % (0-12); NEUTROPHILS # (AUTO) 3.6 X 10^3 (1.8-7.8); NEUTROPHILS % (AUTO) 53 % (42-75); PLATELET COUNT 202 10^3/uL (130-400); WHITE BLOOD COUNT 6.8 10^3/uL (4.3-11.0)
[2021-06-14 15:24] LABS: ALBUMIN 4.1 GM/DL (3.2-4.5); BILIRUBIN,TOTAL 0.5 MG/DL (0.1-1.0); CALCIUM 8.9 MG/DL (8.5-10.1); CREATININE SERUM 0.84 MG/DL (0.60-1.30); TOTAL PROTEIN 6.8 GM/DL (6.4-8.2)
[2021-07-05 10:44] LABS: BASOPHILS % (AUTO) 1 % (0-10); EOSINOPHILS # (AUTO) 0.1 10^3/uL (0.0-0.3); EOSINOPHILS % (AUTO) 1 % (0-10); HEMATOCRIT 41 % (35-52); HEMOGLOBIN 13.3 g/dL (11.5-16.0); LYMPHOCYTES # (AUTO) 1.1 10^3/uL (1.0-4.0); LYMPHOCYTES % (AUTO) 20 % (12-44); MEAN CORPUSCULAR HEMOGLOBIN 32 pg (25-34); MEAN CORPUSCULAR HGB CONC 32 g/dL (32-36); MEAN CORPUSCULAR VOLUME 100 fL (80-99); MEAN PLATELET VOLUME 10.1 fL (9.0-12.2); MONOCYTES % (AUTO) 19 % (0-12); NEUTROPHILS % (AUTO) 58 % (42-75); PLATELET COUNT 186 10^3/uL (130-400); WHITE BLOOD COUNT 5.2 10^3/uL (4.3-11.0)
[2021-07-05 11:03] LABS: ALBUMIN 3.9 GM/DL (3.2-4.5); BILIRUBIN,TOTAL 0.5 MG/DL (0.1-1.0); CREATININE SERUM 0.81 MG/DL (0.60-1.30); POTASSIUM 4.6 MMOL/L (3.6-5.0)
[2021-07-12 11:46] LABS: BASOPHILS % (AUTO) 1 % (0-10); EOSINOPHILS % (AUTO) 1 % (0-10); HEMATOCRIT 43 % (35-52); LYMPHOCYTES # (AUTO) 1.4 10^3/uL (1.0-4.0); LYMPHOCYTES % (AUTO) 23 % (12-44); MEAN CORPUSCULAR HEMOGLOBIN 32 pg (25-34); MEAN CORPUSCULAR HGB CONC 32 g/dL (32-36); MEAN CORPUSCULAR VOLUME 99 fL (80-99); MEAN PLATELET VOLUME 10.4 fL (9.0-12.2); MONOCYTES # (AUTO) 1.3 10^3/uL (0.0-1.0); MONOCYTES % (AUTO) 21 % (0-12); NEUTROPHILS # (AUTO) 3.2 10^3/uL (1.8-7.8); NEUTROPHILS % (AUTO) 54 % (42-75); PLATELET COUNT 197 10^3/uL (130-400); WHITE BLOOD COUNT 5.9 10^3/uL (4.3-11.0)
[2021-07-19 09:05] LABS: BASOPHILS % (AUTO) 1 % (0-10); EOSINOPHILS # (AUTO) 0.1 10^3/uL (0.0-0.3); EOSINOPHILS % (AUTO) 1 % (0-10); HEMATOCRIT 43 % (35-52); LYMPHOCYTES # (AUTO) 1.2 10^3/uL (1.0-4.0); LYMPHOCYTES % (AUTO) 22 % (12-44); MEAN CORPUSCULAR HEMOGLOBIN 32 pg (25-34); MEAN CORPUSCULAR HGB CONC 33 g/dL (32-36); MEAN CORPUSCULAR VOLUME 98 fL (80-99); MEAN PLATELET VOLUME 9.8 fL (9.0-12.2); MONOCYTES # (AUTO) 1.1 10^3/uL (0.0-1.0); MONOCYTES % (AUTO) 20 % (0-12); NEUTROPHILS # (AUTO) 3.1 10^3/uL (1.8-7.8); NEUTROPHILS % (AUTO) 56 % (42-75); PLATELET COUNT 190 10^3/uL (130-400); WHITE BLOOD COUNT 5.5 10^3/uL (4.3-11.0)
[~2021-07-26 12:43] MED LIST changes: -BARIUM SUSPENSION 2.1% (VANILLA SILQ) 450 ML PO ONE; -CATHETER FLUSH 10 ML SYR IV PRN; +DENOSUMAB 120 MG/1.7 ML (XGEVA) SQ SCH; -HOLD METFORMIN - RECEIVED CONTRAST 20 ML VIAL IV SCH; -IOHEXOL 350 MG/ML 100 ML (OMNIPAQUE 350) VIAL IV ONE; -NS 100 ML (IVPB) BAG IV ONE
[2021-07-26 13:08] LABS: BASOPHILS % (AUTO) 1 % (0-10); EOSINOPHILS # (AUTO) 0.1 10^3/uL (0.0-0.3); EOSINOPHILS % (AUTO) 1 % (0-10); HEMATOCRIT 39 % (35-52); HEMOGLOBIN 12.8 g/dL (11.5-16.0); LYMPHOCYTES # (AUTO) 1.3 10^3/uL (1.0-4.0); LYMPHOCYTES % (AUTO) 20 % (12-44); MEAN CORPUSCULAR HEMOGLOBIN 32 pg (25-34); MEAN CORPUSCULAR HGB CONC 33 g/dL (32-36); MEAN CORPUSCULAR VOLUME 98 fL (80-99); MEAN PLATELET VOLUME 9.9 fL (9.0-12.2); MONOCYTES # (AUTO) 1.7 10^3/uL (0.0-1.0); MONOCYTES % (AUTO) 25 % (0-12); NEUTROPHILS # (AUTO) 3.7 10^3/uL (1.8-7.8); NEUTROPHILS % (AUTO) 54 % (42-75); PLATELET COUNT 173 10^3/uL (130-400); WHITE BLOOD COUNT 6.8 10^3/uL (4.3-11.0)
[2021-07-26 13:26] LABS: ALBUMIN 3.9 GM/DL (3.2-4.5); BILIRUBIN,TOTAL 0.7 MG/DL (0.1-1.0); CALCIUM 9.4 MG/DL (8.5-10.1); CREATININE SERUM 0.82 MG/DL (0.60-1.30); POTASSIUM 3.7 MMOL/L (3.6-5.0)
== END 2021-07-31 | disposition home or self-care (01) ==
LOC: ONC 12:43
PROVIDERS: ATTEND Internal Medicine Hematology & Oncology
DX: C50.912 Malignant neoplasm of unspecified site of left female breast (principal); C79.51 Secondary malignant neoplasm of bone; G89.3 Neoplasm related pain (acute) (chronic); I10 Essential (primary) hypertension; E66.9 Obesity, unspecified; Z98.890 Other specified postprocedural states; Z90.49 Acquired absence of other specified parts of digestive tract; Z79.811 Long term (current) use of aromatase inhibitors; Z17.0 Estrogen receptor positive status [ER+]
CPT/HCPCS: 36591; 80053; 85025; 86300; 96372; 99213

== ENCOUNTER → 2021-07-28 | Outpatient (CLI) | payer MEDICARE, OTHER ==
[~2021-07-28] MED LIST changes: +CATHETER FLUSH 10 ML SYR IV PRN; -DENOSUMAB 120 MG/1.7 ML (XGEVA) SQ SCH; +HOLD METFORMIN - RECEIVED CONTRAST 20 ML VIAL IV SCH; +IOHEXOL 350 MG/ML 100 ML (OMNIPAQUE 350) VIAL IV ONE; +NS 100 ML (IVPB) BAG IV ONE
--- NOTE | 2021-07-28 13:03 | Diagnostic Imaging Report ---
PROCEDURE: CT chest with contrast, CT abdomen and pelvis with and without contrast. TECHNIQUE: Pre and post intravenous contrast axial imaging of the abdomen and pelvis and post contrast axial imaging of the chest were performed. Auto Exposure Controls were utilized during the CT exam to meet ALARA standards for radiation dose reduction. INDICATION: Breast carcinoma, follow-up. COMPARISON: Correlation is made with prior CT from 04/27/2021. FINDINGS: CT CHEST: A right chest wall port has the tip in the SVC. No axillary lymphadenopathy is identified. No definite supraclavicular or internal mammary lymphadenopathy is identified. No mediastinal or hilar lymphadenopathy is identified. There is no pericardial or pleural fluid identified. Sclerotic foci within the thoracic spine and bilateral ribs consistent with bony metastatic disease are again noted. CT ABDOMEN AND PELVIS: No discrete liver mass is identified. The gallbladder appears to be surgically absent. There is no biliary ductal dilatation. The pancreas and spleen are unremarkable. No adrenal mass is detected. Kidneys are unremarkable. The aorta is nonaneurysmal. No central retroperitoneal or mesenteric lymphadenopathy is detected. The small and large bowel loops are normal in caliber. There is diverticulosis of the sigmoid but no evidence of acute diverticulitis. There is no free fluid or fluid collection. No definite pelvic lymphadenopathy is identified. Osteoblastic lesions in the proximal left femur, bony pelvis, and lumbar spine are again noted consistent with osseous metastatic disease. IMPRESSION: Continued stable CT of the chest, abdomen, and pelvis when compared with exam from 04/27/2021. Osteoblastic metastatic disease persists. No soft tissue metastatic disease or adenopathy is detected. Dictated by: Dictated on workstation # [id number]
--- NOTE | 2021-07-28 16:51 | Diagnostic Imaging Report ---
INDICATION: Breast cancer. TECHNIQUE: Patient was administered 27.1 mCi technetium-99m MDP intravenously, and whole body imaging was performed after a three-hour delay. COMPARISON: Correlation is made with prior whole body bone scan from 04/27/2021. FINDINGS: There is normal uptake of activity by the axial and appendicular skeleton. There is uptake by the kidneys with excretion into the urinary bladder. Foci of uptake involving bilateral ribs as well as the lower thoracic and lumbar spine and bony pelvis are again noted consistent with osseous metastatic disease. These appear similar to prior study. IMPRESSION: Stable bone scan demonstrating osseous metastatic disease when compared with examination from 04/27/2021. Dictated by: Dictated on workstation # [id number]
== END ==
LOC: CARD 11:16
PROVIDERS: ATTEND Nurse Practitioner Adult Health
DX: C50.312 Malignant neoplasm of lower-inner quadrant of left female breast (principal); C79.51 Secondary malignant neoplasm of bone
CPT/HCPCS: 71260; 74178; 78306; A9503

== ENCOUNTER 2021-10-02 09:56 | Outpatient (RCR) | payer MEDICARE, OTHER ==
[2021-08-14 16:12] LABS: BASOPHILS # (AUTO) 0.1 10^3/uL (0.0-0.1); BASOPHILS % (AUTO) 1 % (0-10); EOSINOPHILS # (AUTO) 0.1 10^3/uL (0.0-0.3); EOSINOPHILS % (AUTO) 1 % (0-10); HEMATOCRIT 41 % (35-52); HEMOGLOBIN 13.3 g/dL (11.5-16.0); LYMPHOCYTES # (AUTO) 1.6 10^3/uL (1.0-4.0); LYMPHOCYTES % (AUTO) 23 % (12-44); MEAN CORPUSCULAR HEMOGLOBIN 32 pg (25-34); MEAN CORPUSCULAR HGB CONC 33 g/dL (32-36); MEAN CORPUSCULAR VOLUME 97 fL (80-99); MEAN PLATELET VOLUME 10.5 fL (9.0-12.2); MONOCYTES # (AUTO) 1.4 10^3/uL (0.0-1.0); MONOCYTES % (AUTO) 20 % (0-12); NEUTROPHILS # (AUTO) 3.7 10^3/uL (1.8-7.8); NEUTROPHILS % (AUTO) 54 % (42-75); PLATELET COUNT 208 10^3/uL (130-400); WHITE BLOOD COUNT 6.9 10^3/uL (4.3-11.0)
[2021-08-14 16:33] LABS: ALBUMIN 4.1 GM/DL (3.2-4.5); BILIRUBIN,TOTAL 0.3 MG/DL (0.1-1.0); CREATININE SERUM 0.82 MG/DL (0.60-1.30); POTASSIUM 3.9 MMOL/L (3.6-5.0); TOTAL PROTEIN 7.1 GM/DL (6.4-8.2)
[2021-08-21 09:06] LABS: BASOPHILS # (AUTO) 0.1 10^3/uL (0.0-0.1); BASOPHILS % (AUTO) 2 % (0-10); EOSINOPHILS # (AUTO) 0.1 10^3/uL (0.0-0.3); EOSINOPHILS % (AUTO) 2 % (0-10); HEMATOCRIT 40 % (35-52); LYMPHOCYTES # (AUTO) 0.9 10^3/uL (1.0-4.0); LYMPHOCYTES % (AUTO) 30 % (12-44); MEAN CORPUSCULAR HEMOGLOBIN 31 pg (25-34); MEAN CORPUSCULAR HGB CONC 32 g/dL (32-36); MEAN CORPUSCULAR VOLUME 97 fL (80-99); MEAN PLATELET VOLUME 10.6 fL (9.0-12.2); MONOCYTES # (AUTO) 0.2 10^3/uL (0.0-1.0); MONOCYTES % (AUTO) 7 % (0-12); NEUTROPHILS # (AUTO) 1.8 10^3/uL (1.8-7.8); NEUTROPHILS % (AUTO) 59 % (42-75); PLATELET COUNT 176 10^3/uL (130-400); WHITE BLOOD COUNT 3.1 10^3/uL (4.3-11.0)
[2021-08-21 09:22] LABS: CALCIUM 9.1 MG/DL (8.5-10.1); CREATININE SERUM 0.89 MG/DL (0.60-1.30); POTASSIUM 4.2 MMOL/L (3.6-5.0)
[2021-08-28 10:13] LABS: BASOPHILS % (AUTO) 1 % (0-10); EOSINOPHILS % (AUTO) 3 % (0-10); HEMATOCRIT 39 % (35-52); HEMOGLOBIN 12.7 g/dL (11.5-16.0); LYMPHOCYTES # (AUTO) 0.7 10^3/uL (1.0-4.0); LYMPHOCYTES % (AUTO) 41 % (12-44); MEAN CORPUSCULAR HEMOGLOBIN 32 pg (25-34); MEAN CORPUSCULAR HGB CONC 32 g/dL (32-36); MEAN CORPUSCULAR VOLUME 98 fL (80-99); MEAN PLATELET VOLUME 10.3 fL (9.0-12.2); MONOCYTES # (AUTO) 0.1 10^3/uL (0.0-1.0); MONOCYTES % (AUTO) 8 % (0-12); NEUTROPHILS # (AUTO) 0.7 10^3/uL (1.8-7.8); NEUTROPHILS % (AUTO) 46 % (42-75); PLATELET COUNT 130 10^3/uL (130-400); WHITE BLOOD COUNT 1.6 10^3/uL (4.3-11.0)
[2021-08-28 10:26] LABS: CALCIUM 8.7 MG/DL (8.5-10.1); CREATININE SERUM 0.84 MG/DL (0.60-1.30); POTASSIUM 3.8 MMOL/L (3.6-5.0)
[2021-09-04 10:33] LABS: HEMOGLOBIN 11.7 g/dL (11.5-16.0); LYMPHOCYTES # (AUTO) 0.8 10^3/uL (1.0-4.0); MEAN CORPUSCULAR HEMOGLOBIN 32 pg (25-34); MONOCYTES # (AUTO) 0.2 10^3/uL (0.0-1.0)
[2021-09-04 10:35] LABS: BASOPHILS % (AUTO) 1 % (0-10); EOSINOPHILS % (AUTO) 1 % (0-10); HEMATOCRIT 36 % (35-52); LYMPHOCYTES % (AUTO) 45 % (12-44); MEAN CORPUSCULAR HGB CONC 33 g/dL (32-36); MEAN CORPUSCULAR VOLUME 97 fL (80-99); MEAN PLATELET VOLUME 10.3 fL (9.0-12.2); MONOCYTES % (AUTO) 10 % (0-12); NEUTROPHILS # (AUTO) 0.7 10^3/uL (1.8-7.8); NEUTROPHILS % (AUTO) 42 % (42-75); PLATELET COUNT 105 10^3/uL (130-400); WHITE BLOOD COUNT 1.7 10^3/uL (4.3-11.0)
[2021-09-04 11:07] LABS: CALCIUM 8.5 MG/DL (8.5-10.1); CREATININE SERUM 0.83 MG/DL (0.60-1.30); POTASSIUM 3.6 MMOL/L (3.6-5.0)
[2021-09-12 13:20] LABS: BASOPHILS % (AUTO) 1 % (0-10); EOSINOPHILS % (AUTO) 0 % (0-10); HEMATOCRIT 35 % (35-52); HEMOGLOBIN 11.7 g/dL (11.5-16.0); LYMPHOCYTES % (AUTO) 42 % (12-44); MEAN CORPUSCULAR HEMOGLOBIN 32 pg (25-34); MEAN CORPUSCULAR HGB CONC 33 g/dL (32-36); MEAN CORPUSCULAR VOLUME 98 fL (80-99); MEAN PLATELET VOLUME 9.8 fL (9.0-12.2); MONOCYTES # (AUTO) 0.6 10^3/uL (0.0-1.0); MONOCYTES % (AUTO) 24 % (0-12); NEUTROPHILS # (AUTO) 0.8 10^3/uL (1.8-7.8); NEUTROPHILS % (AUTO) 33 % (42-75); PLATELET COUNT 148 10^3/uL (130-400); WHITE BLOOD COUNT 2.4 10^3/uL (4.3-11.0)
[2021-09-12 13:37] LABS: ALBUMIN 3.8 GM/DL (3.2-4.5); BILIRUBIN,TOTAL 0.3 MG/DL (0.1-1.0); CALCIUM 8.3 MG/DL (8.5-10.1); CREATININE SERUM 0.83 MG/DL (0.60-1.30); POTASSIUM 3.6 MMOL/L (3.6-5.0); TOTAL PROTEIN 6.6 GM/DL (6.4-8.2)
[2021-09-18 10:00] LABS: BASOPHILS # (AUTO) 0.1 10^3/uL (0.0-0.1); BASOPHILS % (AUTO) 1 % (0-10); EOSINOPHILS % (AUTO) 1 % (0-10); HEMATOCRIT 38 % (35-52); HEMOGLOBIN 12.2 g/dL (11.5-16.0); LYMPHOCYTES # (AUTO) 1.1 10^3/uL (1.0-4.0); LYMPHOCYTES % (AUTO) 30 % (12-44); MEAN CORPUSCULAR HEMOGLOBIN 32 pg (25-34); MEAN CORPUSCULAR HGB CONC 33 g/dL (32-36); MEAN CORPUSCULAR VOLUME 97 fL (80-99); MEAN PLATELET VOLUME 9.8 fL (9.0-12.2); MONOCYTES # (AUTO) 1.2 10^3/uL (0.0-1.0); MONOCYTES % (AUTO) 31 % (0-12); NEUTROPHILS # (AUTO) 1.4 10^3/uL (1.8-7.8); NEUTROPHILS % (AUTO) 37 % (42-75); PLATELET COUNT 171 10^3/uL (130-400); WHITE BLOOD COUNT 3.8 10^3/uL (4.3-11.0)
[2021-09-18 10:18] LABS: CALCIUM 8.6 MG/DL (8.5-10.1); CREATININE SERUM 0.76 MG/DL (0.60-1.30); POTASSIUM 3.6 MMOL/L (3.6-5.0)
[2021-09-25 11:19] LABS: BASOPHILS # (AUTO) 0.1 10^3/uL (0.0-0.1); BASOPHILS % (AUTO) 2 % (0-10); EOSINOPHILS % (AUTO) 1 % (0-10); HEMATOCRIT 38 % (35-52); HEMOGLOBIN 12.1 g/dL (11.5-16.0); LYMPHOCYTES # (AUTO) 0.9 10^3/uL (1.0-4.0); LYMPHOCYTES % (AUTO) 25 % (12-44); MEAN CORPUSCULAR HEMOGLOBIN 31 pg (25-34); MEAN CORPUSCULAR HGB CONC 32 g/dL (32-36); MEAN CORPUSCULAR VOLUME 98 fL (80-99); MEAN PLATELET VOLUME 10.8 fL (9.0-12.2); MONOCYTES # (AUTO) 0.6 10^3/uL (0.0-1.0); MONOCYTES % (AUTO) 18 % (0-12); NEUTROPHILS # (AUTO) 1.9 10^3/uL (1.8-7.8); NEUTROPHILS % (AUTO) 54 % (42-75); PLATELET COUNT 191 10^3/uL (130-400); WHITE BLOOD COUNT 3.4 10^3/uL (4.3-11.0)
[2021-09-25 11:34] LABS: CALCIUM 8.8 MG/DL (8.5-10.1); CREATININE SERUM 0.77 MG/DL (0.60-1.30)
[~2021-10-02 09:56] MED LIST changes: -CATHETER FLUSH 10 ML SYR IV PRN; +CYCL10TA25 PO; +DENOSUMAB 120 MG/1.7 ML (XGEVA) SQ SCH; +FULVESTRANT 250 MG/5 ML SYR (CANCER CENTER) IM SCH; -HOLD METFORMIN - RECEIVED CONTRAST 20 ML VIAL IV SCH; -IOHEXOL 350 MG/ML 100 ML (OMNIPAQUE 350) VIAL IV ONE; -NS 100 ML (IVPB) BAG IV ONE; +ONDA-106 PO; -ONDA8TAB15 PO
[2021-10-02 10:07] LABS: BASOPHILS % (AUTO) 1 % (0-10); EOSINOPHILS # (AUTO) 0.1 10^3/uL (0.0-0.3); EOSINOPHILS % (AUTO) 2 % (0-10); HEMATOCRIT 38 % (35-52); HEMOGLOBIN 12.4 g/dL (11.5-16.0); LYMPHOCYTES # (AUTO) 0.9 10^3/uL (1.0-4.0); LYMPHOCYTES % (AUTO) 31 % (12-44); MEAN CORPUSCULAR HEMOGLOBIN 32 pg (25-34); MEAN CORPUSCULAR HGB CONC 33 g/dL (32-36); MEAN CORPUSCULAR VOLUME 96 fL (80-99); MEAN PLATELET VOLUME 10.1 fL (9.0-12.2); MONOCYTES # (AUTO) 0.5 10^3/uL (0.0-1.0); MONOCYTES % (AUTO) 18 % (0-12); NEUTROPHILS # (AUTO) 1.3 10^3/uL (1.8-7.8); NEUTROPHILS % (AUTO) 47 % (42-75); PLATELET COUNT 206 10^3/uL (130-400); WHITE BLOOD COUNT 2.8 10^3/uL (4.3-11.0)
[2021-10-02 10:24] LABS: CALCIUM 8.8 MG/DL (8.5-10.1); CREATININE SERUM 0.76 MG/DL (0.60-1.30); POTASSIUM 3.9 MMOL/L (3.6-5.0)
== END 2021-10-06 | disposition home or self-care (01) ==
LOC: ONC 09:56
PROVIDERS: ATTEND Internal Medicine Hematology & Oncology
DX: C50.912 Malignant neoplasm of unspecified site of left female breast (principal); C79.51 Secondary malignant neoplasm of bone; F41.9 Anxiety disorder, unspecified; K21.9 Gastro-esophageal reflux disease without esophagitis; E07.9 Disorder of thyroid, unspecified; M19.90 Unspecified osteoarthritis, unspecified site; Z98.890 Other specified postprocedural states; Z79.811 Long term (current) use of aromatase inhibitors; Z79.899 Other long term (current) drug therapy; Z79.891 Long term (current) use of opiate analgesic; Z79.1 Long term (current) use of non-steroidal anti-inflammatories (NSAID); Z90.49 Acquired absence of other specified parts of digestive tract
CPT/HCPCS: 80048; 80053; 82306; 85025; 86300; 96372; 96401; 96402; 99213

== ENCOUNTER 2021-10-16 10:04 | Outpatient (RCR) | payer MEDICARE, OTHER ==
[2021-10-09 13:26] LABS: BASOPHILS # (AUTO) 0.1 10^3/uL (0.0-0.1); BASOPHILS % (AUTO) 2 % (0-10); EOSINOPHILS % (AUTO) 1 % (0-10); HEMATOCRIT 37 % (35-52); HEMOGLOBIN 12.2 g/dL (11.5-16.0); LYMPHOCYTES % (AUTO) 37 % (12-44); MEAN CORPUSCULAR HEMOGLOBIN 32 pg (25-34); MEAN CORPUSCULAR HGB CONC 33 g/dL (32-36); MEAN CORPUSCULAR VOLUME 96 fL (80-99); MEAN PLATELET VOLUME 9.7 fL (9.0-12.2); MONOCYTES # (AUTO) 0.4 10^3/uL (0.0-1.0); MONOCYTES % (AUTO) 15 % (0-12); NEUTROPHILS # (AUTO) 1.2 10^3/uL (1.8-7.8); NEUTROPHILS % (AUTO) 44 % (42-75); PLATELET COUNT 132 10^3/uL (130-400); WHITE BLOOD COUNT 2.8 10^3/uL (4.3-11.0)
[2021-10-09 13:43] LABS: BILIRUBIN,TOTAL 0.4 MG/DL (0.1-1.0); CALCIUM 8.8 MG/DL (8.5-10.1); CREATININE SERUM 0.82 MG/DL (0.60-1.30); TOTAL PROTEIN 6.7 GM/DL (6.4-8.2)
[2021-10-16 10:29] LABS: BASOPHILS % (AUTO) 2 % (0-10); EOSINOPHILS % (AUTO) 0 % (0-10); HEMATOCRIT 38 % (35-52); HEMOGLOBIN 12.2 g/dL (11.5-16.0); LYMPHOCYTES % (AUTO) 42 % (12-44); MEAN CORPUSCULAR HEMOGLOBIN 32 pg (25-34); MEAN CORPUSCULAR HGB CONC 32 g/dL (32-36); MEAN CORPUSCULAR VOLUME 98 fL (80-99); MONOCYTES # (AUTO) 0.4 10^3/uL (0.0-1.0); MONOCYTES % (AUTO) 15 % (0-12); NEUTROPHILS # (AUTO) 0.9 10^3/uL (1.8-7.8); NEUTROPHILS % (AUTO) 40 % (42-75); PLATELET COUNT 145 10^3/uL (130-400); WHITE BLOOD COUNT 2.3 10^3/uL (4.3-11.0)
[2021-10-16 10:56] LABS: CALCIUM 8.8 MG/DL (8.5-10.1); CREATININE SERUM 0.9 MG/DL (0.60-1.30); POTASSIUM 4.6 MMOL/L (3.6-5.0)
== END 2021-11-06 | disposition home or self-care (01) ==
LOC: ONC 10:04
PROVIDERS: ATTEND Internal Medicine Hematology & Oncology
DX: C50.912 Malignant neoplasm of unspecified site of left female breast (principal); C79.51 Secondary malignant neoplasm of bone; I10 Essential (primary) hypertension; E07.9 Disorder of thyroid, unspecified; M19.90 Unspecified osteoarthritis, unspecified site; Z98.890 Other specified postprocedural states; Z79.811 Long term (current) use of aromatase inhibitors; Z79.899 Other long term (current) drug therapy; Z79.891 Long term (current) use of opiate analgesic; Z79.1 Long term (current) use of non-steroidal anti-inflammatories (NSAID); Z90.49 Acquired absence of other specified parts of digestive tract
CPT/HCPCS: 80053; 85025; 86300; 96372; G0463; 80048

== ENCOUNTER 2021-11-19 10:10 | Emergency (ER) | payer MEDICARE, OTHER ==
[~2021-11-19] VITALS: Ht 157 cm; Wt 64.0 kg
[~2021-11-19 10:10] MED LIST changes: -DENOSUMAB 120 MG/1.7 ML (XGEVA) SQ SCH; -FULVESTRANT 250 MG/5 ML SYR (CANCER CENTER) IM SCH
[2021-11-19 10:46] LABS: BILIRUBIN,URINE NEGATIVE (NEGATIVE); CLARITY,URINE CLEAR; COLOR,URINE YELLOW; GLUCOSE, URINE (UA) NEGATIVE (NEGATIVE); KETONES,URINE NEGATIVE (NEGATIVE); LEUKOCYTE ESTERASE ,URINE TRACE (NEGATIVE); NITRITE,URINE NEGATIVE (NEGATIVE); PROTEIN,URINE NEGATIVE (NEGATIVE)
[2021-11-19 10:57] LABS: BACTERIA,URINE TRACE /HPF; URINE OTHER 0-2 TRANS EPIS /HPF; WBC,URINE 0-2 /HPF
[2021-11-19] MEDS ORDERED: LACTATED RINGERS 1,000 ML IV ONE (11:00)
[2021-11-19 11:19] LABS: BASOPHILS % (AUTO) 1 % (0-10); EOSINOPHILS % (AUTO) 1 % (0-10); HEMATOCRIT 35 % (35-52); HEMOGLOBIN 11.3 g/dL (11.5-16.0); LYMPHOCYTES % (AUTO) 19 % (12-44); MEAN CORPUSCULAR HEMOGLOBIN 32 pg (25-34); MEAN CORPUSCULAR HGB CONC 32 g/dL (32-36); MEAN CORPUSCULAR VOLUME 98 fL (80-99); MEAN PLATELET VOLUME 9.3 fL (9.0-12.2); MONOCYTES # (AUTO) 1.6 10^3/uL (0.0-1.0); MONOCYTES % (AUTO) 30 % (0-12); NEUTROPHILS # (AUTO) 2.5 10^3/uL (1.8-7.8); NEUTROPHILS % (AUTO) 49 % (42-75); PLATELET COUNT 198 10^3/uL (130-400); WHITE BLOOD COUNT 5.2 10^3/uL (4.3-11.0)
[2021-11-19 11:27] LABS: ALBUMIN 3.6 GM/DL (3.2-4.5); CHLORIDE 106 MMOL/L (98-107); SODIUM 142 MMOL/L (135-145)
[2021-11-19 11:29] LABS: CALCIUM 8.2 MG/DL (8.5-10.1)
[2021-11-19 11:30] LABS: GLUCOSE 97 MG/DL (70-105); TOTAL PROTEIN 6.6 GM/DL (6.4-8.2)
[2021-11-19 11:31] LABS: CARBON DIOXIDE 23 MMOL/L (21-32)
[2021-11-19 11:32] LABS: BILIRUBIN,TOTAL 0.4 MG/DL (0.1-1.0)
[2021-11-19 11:33] LABS: ALKALINE PHOSPHATASE 62 U/L (40-136)
[2021-11-19 11:34] LABS: GFR ESTIMATED 75
[2021-11-19 11:35] LABS: BUN/CREATININE RATIO 14
[2021-11-19 11:36] LABS: ALANINE AMINOTRANSFERASE 11 U/L (0-55)
[2021-11-19 11:37] LABS: MAGNESIUM 1.9 MG/DL (1.6-2.4)
[2021-11-19 11:38] LABS: LIPASE 21 U/L (8-78)
--- NOTE | 2021-11-19 11:51 | ED General ---
General Chief Complaint: General Problems/Pain Stated Complaint: WEAK, BONE CANCER, TOOK OF MED DOSE NOT FEEL GOOD. Nursing Triage Note: PT STATES BONE CA HX, WEAKNESS SINCE YESTERDAY, BRIGHT RED LIQUID STOOL IN A SMALL AMOUNT, DOES HAVE HEMORRHOIDS. DENIES VOMITING AND NO FEVER. HAD RT ARM PAIN LAST NIGHT BUT IT WENT AWAY. NO REAL PAIN NOW BUT JUST WEAKNESS. HAD A TOOTH PULLED TWO WEEKS AGO AND WAS TAKEN OFF HER CA MEDICATION BEFORE THAT. HER WHITE BLOOD COUNT WAS LOW LAST WEEK AND WAS UNABLE TO GO BACK ON THE MED Source of Information: Patient Exam Limitations: No Limitations History of Present Illness Date Seen by Provider: Nov 19, 2021 Time Seen by Provider: 10:16 Initial Comments This 81-year-old woman presents to the emergency room with complaints of generalized weakness and fatigue. She feels so weak and fatigued that she is having trouble performing daily tasks. She is able to ambulate safely by her personal report. She has history of breast cancer with metastases to the bone. She reports halting her chemotherapy treatments due to recent dental extraction followed by aphthous ulcers. She could not continue treatment until these issues were resolved and she was healed. She denies any fever, cough, vomiting, or diarrhea. She does not have any new pain. She did report some blood in her stools which she attributes to hemorrhoids. She reports that her cancer team is aware of this and has addressed it. Vital signs are unremarkable. Allergies and Home Medications Allergies Coded Allergies: bisacodyl (Verified Allergy, Mild, JITTERS/RED RASH, 01/30/18) polyethylene glycol 3350 (Verified Allergy, Mild, JITTERS/RED RASH, 01/30/18) potassium chloride (Verified Allergy, Mild, JITTERS/RED RASH, 01/30/18) sodium bicarbonate (Verified Allergy, Mild, JITTERS/RED RASH, 01/30/18) sodium chloride (Verified Allergy, Mild, JITTERS/RED RASH, 01/30/18) scopolamine (Verified Allergy, Unknown, NECK PAIN/NERVE DAMAGE, 02/10/18) thiopental (Verified Allergy, Unknown, 01/30/18) Patient Home Medication List Home Medication List Reviewed: Yes Alprazolam (Xanax) 0.25 Mg Tablet, 0.25 MG PO TID PRN for ANXIETY, (Reported) Entered as Reported by: JUAN BLACKMAN on 11/26/19 1009 Gabapentin (Gabapentin) 100 Mg Capsule, 200 MG PO HS, (Reported) Entered as Reported by: JUAN BLACKMAN on 11/26/19 100 Levothyroxine Sodium (Levothyroxine Sodium) 175 Mcg Tablet, 175 MCG PO DAILY, (Reported) Entered as Reported by: JUAN BLACKMAN on 11/26/19 100 Linaclotide (Linzess) 72 Mcg Capsule, 72 MCG PO DAILY PRN for CONSTIPATION-1ST LINE, (Reported) Entered as Reported by: JUAN BLACKMAN on 11/26/19 100 Ondansetron (Ondansetron Odt) 8 Mg Tab.rapdis, 8 MG PO Q6H PRN for NAUSEA/VOMIT ING, (Reported) Entered as Reported by: JAUN BLACKMAN on 11/26/19 100 Ondansetron (Ondansetron Odt) 4 Mg Tab.rapdis, 4 MG PO Q6H PRN for NAUSEA/VOMITING-1ST LINE, (Reported) Entered as Reported by: JUAN BLACKMAN on 11/26/19 100 Pantoprazole Sodium (Protonix) 40 Mg Tablet.dr, 40 MG PO DAILY Prescribed by: CARLOS MEDRANO on 12/01/19 0814 Zolpidem Tartrate (Zolpidem Tartrate) 10 Mg Tablet, 10 MG PO HS, (Reported) Entered as Reported by: JUAN BLACKMAN on 11/26/19 100 Review of Systems Review of Systems Constitutional: see HPI EENTM: other (Dry mouth) Respiratory: no symptoms reported Cardiovascular: no symptoms reported Gastrointestinal: no symptoms reported Genitourinary: no symptoms reported : No Musculoskeletal: see HPI Skin: no symptoms reported Psychiatric/Neurological: No Symptoms Reported Hematologic/Lymphatic: No Symptoms Reported Immunological/Allergic: no symptoms reported Past Tatndly-Jilaxt-Lwdyjb Hx Patient Social History Tobacco Use?: No Substance use?: No Alcohol Use?: No Immunizations Up To Date Tetanus Booster (TDap): Unknown Seasonal Allergies Seasonal Allergies: No Past Medical History Surgeries: Yes (BACK SURGERY 03/19/14--VERTEBROPLASTY, LUMPECTOMY/LYMPH NODE DISSECTION) Appendectomy, Breast, Gallbladder, 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, Orthopedic, Tonsillectomy Respiratory: No Currently Using CPAP: No Currently Using BIPAP: No Cardiac: Yes Hypotension Neurological: No Reproductive Disorders: No FIELD KILN BURNER History: 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 Sexually Transmitted Disease: No HIV/AIDS: No Genitourinary: Yes Kidney Stones, UTI-Chronic Gastrointestinal: Yes (NAUSEA) Gastroesophageal Reflux, Chronic Constipation, Diverticulosis, Ulcer Musculoskeletal: Yes (DAMAGED NERVE IN NECK) Arthritis, Fractures Endocrine: Yes Hypothyroidsim HEENT: Yes (DETACHED [place]) Cataract Loss of Vision: Denies Hearing Impairment: Denies Cancer: Yes (LEFT) Bone (Metastatic from breast), Skin, Breast Did You Recieve Any Treatments: Yes What Type of Treatment Did You: Chemotherapy, Surgical Intervention, Other Psychosocial: Yes Anxiety Integumentary: No Blood Disorders: No Adverse Reaction/Blood Tranf: No (N/A) Family Medical History Abdominal aortic aneurysm 19 MOTHER Alcoholism Arthritis 19 MOTHER Headache disorder 19 MOTHER G8 BROTHER G8 SISTER Hypertension SONS No Pertinent Family Hx Physical Exam Vital Signs Vital Signs - First Documented 11/19/21 10:18 Temp 36.6 Pulse 89 Resp 22 B/P (MAP) 116/75 (89) Pulse Ox 98 O2 Delivery Room Air Capillary Refill : Less Than 3 Seconds Height, Weight, BMI Height: 5'3.00" Weight: 133lbs. 0.0oz. 60.450878re; 25.00 BMI Method:Stated General Appearance: No Apparent Distress, WD/WN HEENT: PERRL/EOMI, Normal ENT Inspection, Other (Oropharynx dry) Neck: Normal Inspection Respiratory: Lungs Clear, Normal Breath Sounds, No Accessory Muscle Use Cardiovascular: Regular Rate, Rhythm, No Edema, No Murmur Gastrointestinal: Normal Bowel Sounds, Non Tender, Soft Extremity: Normal Inspection, No Pedal Edema Neurologic/Psychiatric: Alert, Oriented x3, No Motor/Sensory Deficits, Normal Mood/Affect, radio personality II-XII Norm as Tested Skin: Normal Color, Warm/Dry Progress/Results/Core Measures Suspected Sepsis SIRS Temperature: Pulse: 89 Respiratory Rate: 22 Laboratory Tests 11/19/21 11:05: White Blood Count 5.2 Blood Pressure 116 /75 Mean: 89 Laboratory Tests 11/19/21 11:05: Creatinine 0.80, Platelet Count 198, Total Bilirubin 0.4 Results/Orders Lab Results Laboratory Tests Test 11/19/21 10:35 11/19/21 10:55 11/19/21 11:05 Range/Units Urine Color YELLOW Urine Clarity CLEAR Urine pH 6.0 5-9 Urine Specific [place] 1.010 L 1.016-1.022 Urine Protein NEGATIVE NEGATIVE Urine Glucose (UA) NEGATIVE NEGATIVE Urine Ketones NEGATIVE NEGATIVE Urine Nitrite NEGATIVE NEGATIVE Urine Bilirubin NEGATIVE NEGATIVE Urine Urobilinogen 0.2 < = 1.0 MG/DL Urine Leukocyte Esterase TRACE H NEGATIVE Urine RBC (Auto) 3+ H NEGATIVE Urine RBC 10-25 H /HPF Urine WBC 0-2 /HPF Urine Squamous Epithelial Cells 2-5 /HPF Urine Crystals NONE /LPF Urine Bacteria TRACE /HPF Urine Casts NONE /LPF Urine Mucus NEGATIVE /LPF Urine Other 0-2 TRANS EPIS /HPF Urine Culture Indicated NO Influenza Type A (RT-PCR) Not Detected Not Detecte Influenza Type B (RT-PCR) Not Detected Not Detecte SARS-CoV-2 RNA (RT-PCR) Not Detected Not Detecte White Blood Count 5.2 4.3-11.0 10^3/uL Red Blood Count 3.58 L 3.80-5.11 10^6/uL Hemoglobin 11.3 L 11.5-16.0 g/dL Hematocrit 35 35-52 % Mean Corpuscular Volume 98 80-99 fL Mean Corpuscular Hemoglobin 32 25-34 pg Mean Corpuscular Hemoglobin Concent 32 32-36 g/dL Red Cell Distribution Width 15.3 H 10.0-14.5 % Platelet Count 198 130-400 10^3/uL Mean Platelet Volume 9.3 9.0-12.2 fL Immature Granulocyte % (Auto) 1 % Neutrophils (%) (Auto) 49 42-75 % Lymphocytes (%) (Auto) 19 12-44 % Monocytes (%) (Auto) 30 H 0-12 % Eosinophils (%) (Auto) 1 0-10 % Basophils (%) (Auto) 1 0-10 % Neutrophils # (Auto) 2.5 1.8-7.8 10^3/uL Lymphocytes # (Auto) 1.0 1.0-4.0 10^3/uL Monocytes # (Auto) 1.6 H 0.0-1.0 10^3/uL Eosinophils # (Auto) 0.0 0.0-0.3 10^3/uL Basophils # (Auto) 0.0 0.0-0.1 10^3/uL Immature Granulocyte # (Auto) 0.0 0.0-0.1 10^3/uL Neutrophils % (Manual) 45 % Lymphocytes % (Manual) 23 % Monocytes % (Manual) 30 % Basophils % (Manual) 2 % Blood Morphology Comment NORMAL Sodium Level 142 135-145 MMOL/L Potassium Level 4.0 3.6-5.0 MMOL/L Chloride Level 106 98-107 MMOL/L Carbon Dioxide Level 23 21-32 MMOL/L Anion Gap 13 5-14 MMOL/L Blood Urea Nitrogen 11 7-18 MG/DL Creatinine 0.80 0.60-1.30 MG/DL Estimat Glomerular Filtration Rate 75 BUN/Creatinine Ratio 14 Glucose Level 97 70-105 MG/DL Calcium Level 8.2 L 8.5-10.1 MG/DL Corrected Calcium 8.5 8.5-10.1 MG/DL Magnesium Level 1.9 1.6-2.4 MG/DL Total Bilirubin 0.4 0.1-1.0 MG/DL Aspartate Amino Transf (AST/SGOT) 10 5-34 U/L Alanine Aminotransferase (ALT/SGPT) 11 0-55 U/L Alkaline Phosphatase 62 40-136 U/L Troponin I < 0.028 <0.028 NG/ML C-Reactive Protein High Sensitivity 6.44 H 0.00-0.50 MG/DL Total Protein 6.6 6.4-8.2 GM/DL Albumin 3.6 3.2-4.5 GM/DL Lipase 21 8-78 U/L Thyroid Stimulating Hormone (TSH) 6.97 H 0.35-4.94 UIU/ML Free Thyroxine 0.90 0.70-1.48 NG/DL My Orders Orders - MATIAS CIFUENTES MD Cbc With Automated Diff (11/19/21 10:16) Comprehensive Metabolic Panel (11/19/21 10:16) Hs C Reactive Protein (11/19/21 10:16) Magnesium (11/19/21 10:16) Ua Culture If Indicated (11/19/21 10:16) Lipase (11/19/21 10:54) Troponin I Eri (11/19/21 10:54) Lactated Ringers (Lr 1000 Ml Iv Solution (11/19/21 11:00) Implanted Port: Access (11/19/21 10:54) Covid 19 Inhouse Test (11/19/21 10:54) Influenza A And B By Pcr (11/19/21 10:54) Manual Differential (11/19/21 11:05) Thyroid Stimulating Hormone (11/19/21 12:04) Free T4 (Free Thyroxine) (11/19/21 12:04) Medications Given in ED Vital Signs/I&O 11/19/21 11/19/21 10:18 13:16 Temp 36.6 36.6 Pulse 89 89 Resp B/P (MAP) 116/75 (89) 116/75 Pulse Ox 98 98 O2 Delivery Room Air Room Air Capillary Refill : Less Than 3 Seconds Blood Pressure Mean: 89 ECG Initial ECG Impression Date: Nov 19, 2021 Initial ECG Impression Time: 11:12 Initial ECG Rate: 63 Initial ECG Rhythm: Normal Sinus Comment Sinus rhythm with no ST elevation or depression. No abnormal intervals. Borderline left axis deviation. Departure Impression Primary Impression: Fatigue Qualified Codes: R53.83 - Other fatigue Additional Impressions: Hematuria Qualified Codes: R31.9 - Hematuria, unspecified Generalized weakness Breast cancer metastasized to bone Qualified Codes: C50.912 - Malignant neoplasm of unspecified site of left female breast; C79.51 - Secondary malignant neoplasm of bone Disposition: 01 HOME, SELF-CARE Condition: Stable Departure-Patient Inst. Decision time for Depature: 12:02 Referrals: JAREN KAUR DO (PCP/Family) Primary Care Physician Patient Instructions: Weakness ED Add. Discharge Instructions: Drink plenty of clear liquids to stay well-hydrated and eat a well-balanced diet. Be careful getting up from lying and sitting positions and walk with a supportive device such as a cane or walker if feeling unsteady. Keep your follow-up appointments this week with Dr. Marie and Dr. Kaur. Thyroid labs have been ordered to evaluate the stability of your thyroid function. Please follow-up on those labs at your follow-up appointments this week. You also have a small amount of blood in your urine. Please have one of your outpatient providers check your urine again in a couple of weeks to ensure that clears. Call with questions or concerns. Return to the ER if you have worsening symptoms. All discharge instructions reviewed with patient and/or family. Voiced understanding. Copy Copies To 1: TC MARIE Copies To 2: JAREN KAUR JOSHUA T MD Nov 19, 2021 11:51
[2021-11-19 12:04] LABS: BASOPHILS % (MANUAL) 2 %; LYMPHOCYTES % (MANUAL) 23 %; MONOCYTES % (MANUAL) 30 %; NEUTROPHILS % (MANUAL) 45 %; RBC MORPH NORMAL
[2021-11-19 12:47] LABS: FREE T4 (FREE THYROXINE) 0.9 NG/DL (0.70-1.48)
[2021-11-19 13:16] VITALS: BP 116/75
== END 2021-11-19 13:16 | disposition home or self-care (01) ==
LOC: EDUNIT# 10:10 → ER 10:14
DX: C79.51 Secondary malignant neoplasm of bone (principal); R53.83 Other fatigue; R31.9 Hematuria, unspecified; I95.9 Hypotension, unspecified; E03.9 Hypothyroidism, unspecified; F41.9 Anxiety disorder, unspecified; K21.9 Gastro-esophageal reflux disease without esophagitis; Z20.822 Contact with and (suspected) exposure to COVID-19; Z79.890 Hormone replacement therapy; Z79.899 Other long term (current) drug therapy
CPT/HCPCS: 36415; 80053; 81000; 83690; 83735; 84439; 84443; 84484; 85007; 85025; 85027; 86141; 87636

== ENCOUNTER 2022-04-30 08:33 | Emergency (ER) | payer MEDICARE, OTHER ==
[~2022-04-30] VITALS: Ht 157.4 cm; Wt 62.5 kg
[2022-04-30 09:38] LABS: BASOPHILS % (AUTO) 1 % (0-10); EOSINOPHILS # (AUTO) 0.1 10^3/uL (0.0-0.3); EOSINOPHILS % (AUTO) 1 % (0-10); HEMATOCRIT 35 % (35-52); HEMOGLOBIN 11.1 g/dL (11.5-16.0); LYMPHOCYTES % (AUTO) 16 % (12-44); MEAN CORPUSCULAR HEMOGLOBIN 30 pg (25-34); MEAN CORPUSCULAR HGB CONC 32 g/dL (32-36); MEAN CORPUSCULAR VOLUME 92 fL (80-99); MEAN PLATELET VOLUME 10.4 fL (9.0-12.2); MONOCYTES # (AUTO) 1.3 10^3/uL (0.0-1.0); MONOCYTES % (AUTO) 23 % (0-12); NEUTROPHILS # (AUTO) 3.4 10^3/uL (1.8-7.8); NEUTROPHILS % (AUTO) 58 % (42-75); PLATELET COUNT 162 10^3/uL (130-400); WHITE BLOOD COUNT 5.8 10^3/uL (4.3-11.0)
[2022-04-30 09:56] LABS: BILIRUBIN,URINE NEGATIVE (NEGATIVE); CLARITY,URINE CLEAR; COLOR,URINE YELLOW; GLUCOSE, URINE (UA) NEGATIVE (NEGATIVE); KETONES,URINE NEGATIVE (NEGATIVE); LEUKOCYTE ESTERASE ,URINE 1+ (NEGATIVE); NITRITE,URINE NEGATIVE (NEGATIVE); PROTEIN,URINE NEGATIVE (NEGATIVE)
[2022-04-30 09:58] LABS: ALBUMIN 3.7 GM/DL (3.2-4.5); POTASSIUM 3.9 MMOL/L (3.6-5.0)
[2022-04-30 09:59] LABS: CALCIUM 8.5 MG/DL (8.5-10.1)
[2022-04-30 10:01] LABS: TOTAL PROTEIN 6.4 GM/DL (6.4-8.2)
[2022-04-30 10:02] LABS: BILIRUBIN,TOTAL 0.6 MG/DL (0.1-1.0)
[2022-04-30 10:04] LABS: CREATININE SERUM 0.67 MG/DL (0.60-1.30)
[2022-04-30 10:07] LABS: MAGNESIUM 1.8 MG/DL (1.6-2.4)
[2022-04-30 10:15] LABS: BACTERIA,URINE TRACE /HPF; SQUAMOUS EPITHELIAL CELL,UR RARE /HPF; WBC,URINE 0-2 /HPF
[2022-04-30 10:24] LABS: BAND NEUTROPHILS 0 %; BASOPHILS % (MANUAL) 0 %; EOSINOPHILS % (MANUAL) 1 %; LYMPHOCYTES % (MANUAL) 19 %; MONOCYTES % (MANUAL) 17 %; NEUTROPHILS % (MANUAL) 63 %
[2022-04-30 10:25] LABS: RBC MORPH NORMAL
--- NOTE | 2022-04-30 11:49 | Diagnostic Imaging Report ---
PROCEDURE: US carotid duplex bilateral. TECHNIQUE: Multiple Real-time grayscale images were obtained over the carotid arteries in various projections bilaterally. Additional spectral analysis and color Doppler duplex images were also obtained. INDICATION: Dizziness and lightheaded. FINDINGS: Grayscale images show mild atherosclerotic plaque at the carotid bifurcations. There is no significant alteration of the waveforms or velocities. The vertebral arteries are both patent with antegrade flow. IMPRESSION: Minimal atherosclerotic changes of the carotid bifurcations. There is no hemodynamically significant stenosis. Parameters based on the consensus panel Machado-Scale and Doppler ultrasound criteria published August 2003, Radiology, Volume 229. DOPPLER (peak systolic velocity M/S Right Left CCA .66 .63 ICA Proximal .49 .67 ICA Mid .57 .63 ICA Distal .69 .49 RATIO 1.04 1.06 ECA .36 .54 VERT .55 .84 Dictated by: Dictated on workstation # [id number]
--- NOTE | 2022-04-30 12:06 | ED General ---
General Chief Complaint: Dizziness/Syncope Stated Complaint: DIZZINESS,WEAKNESS Nursing Triage Note: last night started having dizziness and lightheadedness along with increassed anxiety. tested self for covid today and result was negitive. c/o nausea with no vomiting. hx of bone cancer currently being treated by dr lomeli, "2 shots evvery month" Source of Information: Patient Exam Limitations: No Limitations (MATIAS CIFUENTES MD) History of Present Illness Date Seen by Provider: Apr 30, 2022 Time Seen by Provider: 08:57 Initial Comments This 81-year-old woman presents to the emergency room with complaints of generalized weakness and anxious feeling for about a month. In the last few days she has also been experiencing episodes of vertigo and lightheadedness. These occur particularly with getting up or lying down. She is concerned partially because she is planning to take a trip to [place] next week. She denies any chest pain but she has had some shortness of breath. 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 She receives an injection "in both hips" from Dr. Marie each month as maintenance therapy for her cancer. Dr. Cavazos is her primary care provider. Should be noted in patient's medication list that she takes gabapentin and alpra zolam which are both long-term medications. She was recently started on citalopram before the dizziness started. (MATIAS CIFUENTES MD) Allergies and Home Medications Allergies Coded Allergies: bisacodyl (Verified Allergy, Mild, JITTERS/RED RASH, 01/30/18) polyethylene glycol 3350 (Verified Allergy, Mild, JITTERS/RED RASH, 01/30/18) potassium chloride (Verified Allergy, Mild, JITTERS/RED RASH, 01/30/18) sodium bicarbonate (Verified Allergy, Mild, JITTERS/RED RASH, 01/30/18) sodium chloride (Verified Allergy, Mild, JITTERS/RED RASH, 01/30/18) scopolamine (Verified Allergy, Unknown, NECK PAIN/NERVE DAMAGE, 02/10/18) thiopental (Verified Allergy, Unknown, 01/30/18) Patient Home Medication List Home Medication List Reviewed: Yes (MATIAS CIFUENTES MD) Alprazolam (Xanax) 0.25 Mg Tablet, 0.25 MG PO TID PRN for ANXIETY, (Reported) Entered as Reported by: JUAN BLACKMAN on 11/26/19 1009 Gabapentin (Gabapentin) 100 Mg Capsule, 200 MG PO HS, (Reported) Entered as Reported by: JUAN BLACKMAN on 11/26/19 100 Levothyroxine Sodium (Levothyroxine Sodium) 175 Mcg Tablet, 175 MCG PO DAILY, (Reported) Entered as Reported by: JUAN BLACKMAN on 11/26/19 100 Linaclotide (Linzess) 72 Mcg Capsule, 72 MCG PO DAILY PRN for CONSTIPATION-1ST LINE, (Reported) Entered as Reported by: JUAN BLACKMAN on 11/26/19 100 Ondansetron (Ondansetron Odt) 8 Mg Tab.rapdis, 8 MG PO Q6H PRN for NAUSEA/VOMITING, (Reported) Entered as Reported by: JUAN BLACKMAN on 11/26/19 100 Ondansetron (Ondansetron Odt) 4 Mg Tab.rapdis, 4 MG PO Q6H PRN for NAUSEA/VOMITING-1ST LINE, (Reported) Entered as Reported by: JUAN BLACKMAN on 11/26/19 100 Pantoprazole Sodium (Protonix) 40 Mg Tablet.dr, 40 MG PO DAILY Prescribed by: CARLOS MEDRANO on 12/01/19 0814 Zolpidem Tartrate (Zolpidem Tartrate) 10 Mg Tablet, 10 MG PO HS, (Reported) Entered as Reported by: JUAN BLACKMAN on 11/26/19 100 Review of Systems Review of Systems Constitutional: no symptoms reported EENTM: no symptoms reported Respiratory: see HPI Cardiovascular: see HPI Gastrointestinal: no symptoms reported Genitourinary: no symptoms reported : No Musculoskeletal: no symptoms reported Skin: no symptoms reported Psychiatric/Neurological: No Symptoms Reported Hematologic/Lymphatic: No Symptoms Reported (MATIAS CIFUENTES MD) Past Pwujtnc-Afciok-Iqzhni Hx Patient Social History Tobacco Use?: No Use of E-Cig and/or Vaping dev: No Substance use?: No Alcohol Use?: No Pt feels they are or have been: No (MATIAS CIFUENTES MD) Immunizations Up To Date Tetanus Booster (TDap): Unknown First/Initial COVID19 Vaccinat: 2020 Second COVID19 Vaccination Aguila: 2020 Third COVID19 Vaccination Date: 2020 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 Exchange Specialist: [employer] (MATIAS CIFUENTES MD) Seasonal Allergies Seasonal Allergies: No (MATIAS CIFUENTES MD) Past Medical History Surgery/Hospitalization HX: hx of bone CA Surgeries: Yes (BACK SURGERY 03/19/14--VERTEBROPLASTY, LUMPECTOMY/LYMPH NODE DISSECTION) Appendectomy, Breast, Gallbladder, 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, Orthopedic, Tonsillectomy Respiratory: No Currently Using CPAP: No Currently Using BIPAP: No Cardiac: Yes Hypotension Neurological: No Reproductive Disorders: No 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 Sexually Transmitted Disease: No HIV/AIDS: No Genitourinary: Yes Kidney Stones, UTI-Chronic Gastrointestinal: Yes (NAUSEA) Gastroesophageal Reflux, Chronic Constipation, Diverticulosis, Ulcer Musculoskeletal: Yes (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) Arthritis, Fractures Endocrine: Yes Hypothyroidsim HEENT: Yes (DETACHED [place]) Cataract Loss of Vision: Denies Hearing Impairment: Denies Cancer: Yes (LEFT) Bone, Skin, Breast Did You Recieve Any Treatments: Yes What Type of Treatment Did You: Chemotherapy, Surgical Intervention, Other Psychosocial: Yes Anxiety Integumentary: No Blood Disorders: No Adverse Reaction/Blood Tranf: No (N/A) (MATIAS CIFUENTES MD) Family Medical History Abdominal aortic aneurysm 19 MOTHER Alcoholism Arthritis 19 MOTHER Headache disorder 19 MOTHER G8 BROTHER G8 SISTER Hypertension SONS No Pertinent Family Hx (MATIAS CIFUENTES MD) Physical Exam Vital Signs Vital Signs - First Documented 04/30/22 09:08 Pulse 73 Resp 16 B/P (MAP) 146/76 (99) Pulse Ox 98 O2 Delivery Room Air (LILLIAN SANCHEZ MD) Vital Signs Capillary Refill : (MATIAS CIFUENTES MD) Height, Weight, BMI Height: 5'3.00" Weight: 133lbs. 0.0oz. 60.114878qu; 25.00 BMI Method:Stated General Appearance: No Apparent Distress, WD/WN HEENT: PERRL/EOMI, Normal ENT Inspection, Other (Oropharynx dry) Neck: Normal Inspection; No Carotid Bruit, No JVD Respiratory: Lungs Clear, Normal Breath Sounds, No Accessory Muscle Use, No Respiratory Distress Cardiovascular: Regular Rate, Rhythm, No Edema, No Murmur Gastrointestinal: Normal Bowel Sounds, Soft, Tenderness (Mild to moderate tenderness in the epigastrium and left upper quadrant which patient states is chronic/intermittent and unchanged.) Extremity: Normal Inspection, Non Tender, No Pedal Edema Neurologic/Psychiatric: Alert, Oriented x3, No Motor/Sensory Deficits, Normal Mood/Affect, 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 Norm as Tested Skin: Normal Color, Warm/Dry (MATIAS CIFUENTES MD) Progress/Results/Core Measures Suspected Sepsis SIRS Temperature: Pulse: 73 Respiratory Rate: 16 Laboratory Tests 04/30/22 09:25: White Blood Count 5.8 Blood Pressure 146 /76 Mean: 99 Laboratory Tests 04/30/22 09:25: Creatinine 0.67, Platelet Count 162, Total Bilirubin 0.6 (MATIAS CIFUENTES MD) Results/Orders Lab Results Laboratory Tests Test 04/30/22 09:20 04/30/22 09:25 04/30/22 09:46 Range/Units Influenza Type A (RT-PCR) Not Detected Not Detecte Influenza Type B (RT-PCR) Not Detected Not Detecte SARS-CoV-2 RNA (RT-PCR) Not Detected Not Detecte White Blood Count 5.8 4.3-11.0 10^3/uL Red Blood Count 3.76 L 3.80-5.11 10^6/uL Hemoglobin 11.1 L 11.5-16.0 g/dL Hematocrit 35 35-52 % Mean Corpuscular Volume 92 80-99 fL Mean Corpuscular Hemoglobin 30 25-34 pg Mean Corpuscular Hemoglobin Concent 32 32-36 g/dL Red Cell Distribution Width 13.7 10.0-14.5 % Platelet Count 162 130-400 10^3/uL Mean Platelet Volume 10.4 9.0-12.2 fL Immature Granulocyte % (Auto) 1 % Neutrophils (%) (Auto) 58 42-75 % Lymphocytes (%) (Auto) 16 12-44 % Monocytes (%) (Auto) 23 H 0-12 % Eosinophils (%) (Auto) 1 0-10 % Basophils (%) (Auto) 1 0-10 % Neutrophils # (Auto) 3.4 1.8-7.8 10^3/uL Lymphocytes # (Auto) 1.0 1.0-4.0 10^3/uL Monocytes # (Auto) 1.3 H 0.0-1.0 10^3/uL Eosinophils # (Auto) 0.1 0.0-0.3 10^3/uL Basophils # (Auto) 0.0 0.0-0.1 10^3/uL Immature Granulocyte # (Auto) 0.0 0.0-0.1 10^3/uL Neutrophils % (Manual) 63 % Lymphocytes % (Manual) 19 % Monocytes % (Manual) 17 % Eosinophils % (Manual) 1 % Basophils % (Manual) 0 % Band Neutrophils 0 % Blood Morphology Comment NORMAL Sodium Level 140 135-145 MMOL/L Potassium Level 3.9 3.6-5.0 MMOL/L Chloride Level 107 98-107 MMOL/L Carbon Dioxide Level 24 21-32 MMOL/L Anion Gap 9 5-14 MMOL/L Blood Urea Nitrogen 12 7-18 MG/DL Creatinine 0.67 0.60-1.30 MG/DL Estimat Glomerular Filtration Rate 89 BUN/Creatinine Ratio 18 Glucose Level 95 70-105 MG/DL Calcium Level 8.5 8.5-10.1 MG/DL Corrected Calcium 8.7 8.5-10.1 MG/DL Magnesium Level 1.8 1.6-2.4 MG/DL Total Bilirubin 0.6 0.1-1.0 MG/DL Aspartate Amino Transf (AST/SGOT) 9 5-34 U/L Alanine Aminotransferase (ALT/SGPT) 6 0-55 U/L Alkaline Phosphatase 67 40-136 U/L C-Reactive Protein High Sensitivity 2.10 H 0.00-0.50 MG/DL Total Protein 6.4 6.4-8.2 GM/DL Albumin 3.7 3.2-4.5 GM/DL Lipase 27 8-78 U/L Urine Color YELLOW Urine Clarity CLEAR Urine pH 6.0 5-9 Urine Specific [place] 1.020 1.016-1.022 Urine Protein NEGATIVE NEGATIVE Urine Glucose (UA) NEGATIVE NEGATIVE Urine Ketones NEGATIVE NEGATIVE Urine Nitrite NEGATIVE NEGATIVE Urine Bilirubin NEGATIVE NEGATIVE Urine Urobilinogen 0.2 < = 1.0 MG/DL Urine Leukocyte Esterase 1+ H NEGATIVE Urine RBC (Auto) 2+ H NEGATIVE Urine RBC 5-10 H /HPF Urine WBC 0-2 /HPF Urine Squamous Epithelial Cells RARE /HPF Urine Crystals NONE /LPF Urine Bacteria TRACE /HPF Urine Casts NONE /LPF Urine Mucus NEGATIVE /LPF Urine Culture Indicated NO (LILLIAN SANCHEZ MD) My Orders Orders - LILLIAN SANCHEZ MD Lactated Ringers (Lr 1000 Ml Iv Solution (04/30/22 12:30) Ct Abdomen/Pelvis W (04/30/22 13:07) Pantoprazole Injection (Protonix Injecti (04/30/22 13:15) Ondansetron Injection (Zofran Injectio (04/30/22 13:15) Iohexol Injection (Omnipaque 350 Mg/Ml 1 (04/30/22 13:45) Received Contrast (Hold Metformin- Contr (04/30/22 13:45) Sodium Chloride Flush (Catheter Flush Sy (04/30/22 13:45) Ns (Ivpb) (Sodium Chloride 0.9% Ivpb Bag (04/30/22 13:45) Mri Brain W/Wo Contrast (04/30/22 14:37) Gadoterate Inj (Radiology) (Clariscan In (04/30/22 15:15) (LILLIAN SANCHEZ MD) Medications Given in ED Current Medications Medications Dose Ordered Sig/Keri Route Start Time Stop Time Status Last Admin Dose Admin Gadoterate Meglumine 15 ml ONCE ONCE IV 04/30/22 15:15 04/30/22 15:19 DC 04/30/22 15:20 12 ML Iohexol 100 ml ONCE ONCE IV 04/30/22 13:45 04/30/22 13:49 DC 04/30/22 14:05 79 ML Lactated Ringer's 1,000 ml @ 0 mls/hr Q0M ONCE IV 04/30/22 12:30 04/30/22 12:31 DC 04/30/22 12:34 0 MLS/HR Ondansetron HCl 4 mg ONCE ONCE IVP 04/30/22 13:15 04/30/22 13:16 DC 04/30/22 13:14 4 MG Pantoprazole 40 mg ONCE ONCE IV 04/30/22 13:15 04/30/22 13:16 DC 04/30/22 13:12 40 MG Sodium Chloride 10 ml NEEDED PRN IV 04/30/22 13:45 7/25/22 14:06 10 ML Sodium Chloride 100 ml ONCE ONCE IV 04/30/22 13:45 04/30/22 13:49 DC 04/30/22 14:06 80 ML (LILLIAN SANCHEZ MD) Vital Signs/I&O 04/30/22 04/30/22 09:08 14:47 Pulse 73 76 83 87 Resp 16 B/P (MAP) 146/76 (99) 149/66 (93) 164/89 (114) 127/71 (89) Pulse Ox 98 O2 Delivery Room Air (LILLIAN SANCHEZ MD) Vital Signs/I&O Capillary Refill : (MATIAS CIFUENTES MD) Blood Pressure Mean: 99 Progress Note : Time: 12:10 Progress Note Patient was interviewed and examined. There is some concern about hydration status as it has been very hot and dry recently. Oropharynx is somewhat dry. She is receiving a liter of IV fluid. Orthostatic blood pressures have been ordered. (MATIAS CIFUENTES MD) Progress Note : Progress Note 1210: I assumed care of the patient pending fluids and orthostatic vital signs. 1305: Patient now is reporting rather significant epigastric abdominal pain that she has been having since yesterday and intermittently over the last month. Does have history of diverticulitis. No history of reflux. She is tender on palpation in the epigastric region. She has had previous cholecystectomy. Given her pain, we will go ahead and get CT abdomen and pelvis with contrast. She is getting LR 1 L bolus now. We will give Protonix 40 mg IV and Zofran 4 mg IV. Monitor patient. 1658: Overall doing better. MRI negative. I did discuss the case with her son. He will come pick her up. Copy of the chart to Dr. Lomeli. Discharged home with return precautions. Patient verbalized understanding instructions and agreement with plan. (LILLIAN SANCHEZ MD) ECG Initial ECG Impression Date: Apr 30, 2022 Initial ECG Impression Time: 09:13 Initial ECG Rate: 68 Initial ECG Rhythm: Normal Sinus Initial ECG Intervals: Normal Comment Sinus rhythm with no ST elevation or depression. Borderline MS interval increase. No axis deviation. (MATIAS CIFUENTES MD) Diagnostic Imaging Diagonstic Imaging: Ultrasound Plain Films/CT/US/NM/MRI: other (Carotid) Comments Carotid ultrasound discussed with satellite tv technician and report reviewed. See report below: NAME: EDIS ZARAGOZA [facility] REC#: [id number] PT STATUS: REG ER : 1940 PHYSICIAN: MATIAS CIFUENTES MD ADMIT DATE: 04/30/22/ER Signed Date of Exam:04/30/22 US CAROTID [place] COMPLETE 10089 PROCEDURE: US carotid duplex bilateral. TECHNIQUE: Multiple Real-time grayscale images were obtained over the carotid arteries in various projections bilaterally. Additional spectral analysis and color Doppler duplex images were also obtained. INDICATION: Dizziness and lightheaded. FINDINGS: Grayscale images show mild atherosclerotic plaque at the carotid bifurcations. There is no significant alteration of the waveforms or velocities. The vertebral arteries are both patent with antegrade flow. IMPRESSION: Minimal atherosclerotic changes of the carotid bifurcations. There is no hemodynamically significant stenosis. Parameters based on the consensus panel Machado-Scale and Doppler ultrasound criteria published August 2003, Radiology, Volume 229. DOPPLER (peak systolic velocity M/S Right Left CCA .66 .63 ICA Proximal .49 .67 ICA Mid .57 .63 ICA Distal .69 .49 RATIO 1.04 1.06 ECA .36 .54 VERT .55 .84 Dictated by: Dictated on workstation # [id number] Dict: 04/30/22 1147 Trans: 04/30/22 1155 [id number] Interpreted by: LILLIAN BECERRIL MD Electronically signed by: LILLIAN BECERRIL MD 04/30/22 1155 Diagonstic Imaging: Xray Plain Films/CT/US/NM/MRI: chest (MATIAS CIFUENTES MD) Diagonstic Imaging: CT Plain Films/CT/US/NM/MRI: abdomen, pelvis Comments NAME: EDIS ZARAGOZA [facility] REC#: [id number] PT STATUS: REG ER : 1940 PHYSICIAN: LILLIAN SANCHEZ MD ADMIT DATE: 04/30/22/ER Draft Date of Exam:04/30/22 CT ABDOMEN/PELVIS W PROCEDURE: CT abdomen and pelvis with contrast. TECHNIQUE: Multiple contiguous axial images were obtained through the abdomen and pelvis after administration of intravenous contrast. Auto Exposure Controls were utilized during the CT exam to meet ALARA standards for radiation dose reduction. All CT scans use one or more of the following dose optimizing techniques: automated exposure control, MA and/or KvP adjustment based on patient size and exam type or iterative reconstruction. DATE: April 30, 2022. COMPARISON: CT chest, abdomen and pelvis July 28, 2021. INDICATION: 81-year-old female, dizziness and lightheadedness. Nausea. Mid and upper abdominal pain. FINDINGS: The visualized portions of the lung bases are clear. The heart is not enlarged. There is no pericardial effusion. The liver is unremarkable in size and contour. There is no identified liver lesion. The main, right, and left portal veins are patent. The gallbladder is not seen and may be absent. There is no intrahepatic or extrahepatic bile duct dilation. The main pancreatic duct is not abnormally dilated. Unremarkable appearance of the pancreatic parenchyma. The spleen is normal in size. The adrenal glands are unremarkable. There is contrast in the urinary collecting systems which limits sensitivity for detection of renal or ureteral stones. There is no hydronephrosis. There is no apparent wall thickening of the urinary bladder. There is unremarkable appearance of the renal parenchyma. Uterus is not seen and may be surgically absent. There is diverticulosis without evidence to suggest acute diverticulitis. There is no evidence of acute appendicitis. There is no free intraperitoneal air. There is no drainable fluid collection. There is no sizable volume free pelvic fluid. There are atherosclerotic calcifications. There is no identified abnormally enlarged lymph node in the abdomen or pelvis meeting CT size criteria for adenopathy. There are numerous sclerotic bone lesions including below the left femoral head and neck and intertrochanteric femur extending to the level of the left proximal femoral diaphysis as well as multiple lesions of the bilateral pelvic bones, right femoral head, sacrum, lumbar spine, and thoracic spine as well as bilateral rib lesions. There are kyphoplasty changes and a prior fracture at the level of L1 which is also present on the prior study. The sclerotic lesion of L2 is increased in size since July 28, 2021. A sclerotic lesion of T10 is also increased in size as well as the sclerotic lesion of T9. Some of the pelvic bone lesions are also increased in size since the comparison study. IMPRESSION: CT ABDOMEN AND PELVIS. 1. Multiple sclerotic bone lesions with several of the lesions being increased in size since July 28, 2021. This is most consistent with progression of multifocal sclerotic bone metastasis. 2. No otherwise identified acute abnormality in the abdomen or pelvis. Dictated on workstation # [id number] Dict: 04/30/22 1418 Trans: 04/30/22 1428 [facility] [id number] Interpreted by: VICTOR MANUEL PRADO MD Electronically signed by: Reviewed: Reviewed by Me Diagonstic Imaging: MRI Plain Films/CT/US/NM/MRI: other Comments [facility] [place] NAME: EDIS ZARAGOZA [facility] REC#: [id number] PT STATUS: REG ER : 1940 PHYSICIAN: LILLIAN SANCHEZ MD ADMIT DATE: 04/30/22/ER Draft Date of Exam:04/30/22 MRI BRAIN W/WO CONTRAST PROCEDURE: MR imaging of the brain with and without contrast. TECHNIQUE: Multiplanar, multisequence MR imaging of the brain was performed with and without contrast. DATE: April 30, 2022. COMPARISON: CT head and cervical spine July 15, 2018. HISTORY: 81-year-old female, dizziness. History of breast cancer. FINDINGS: There is no restricted diffusion. There are no areas of abnormal intracranial susceptibility. The ventricles and CSF spaces are normal in size and configuration for patient age. There is no abnormal extra axial fluid collection. There is no acute intracranial hemorrhage. There is no mass effect or midline shift. There are multiple foci of T2 and FLAIR hyperintense signal in the subcortical and periventricular white matter which are without diffusion restriction or contrast enhancement. There is no area of abnormal intracranial enhancement. There is normal aeration of the visualized paranasal sinuses and mastoid air cells. There is preservation of normal intracranial flow voids. IMPRESSION: 1. No identified acute intracranial abnormality. 2. No evidence of metastatic disease to brain. 3. Probable findings of moderate to severe chronic small vessel ischemic disease. Dictated on workstation # [id number] Dict: 04/30/22 1540 Trans: 04/30/22 1549 [id number] Interpreted by: VICTOR MANUEL PRADO MD Electronically signed by: (LILLIAN SANCHEZ MD) Departure Impression Primary Impression: Dizziness Additional Impressions: Generalized weakness Dyspnea Qualified Codes: R06.00 - Dyspnea, unspecified Epigastric abdominal pain Disposition: HOME, SELF-CARE Condition: Stable Departure-Patient Inst. Decision time for Depature: 16:59 (LILLIAN SANCHEZ MD) Referrals: JAREN CAVAZOS DO (PCP/Family) Primary Care Physician Patient Instructions: Dizziness, Adult ED, Severe Abdominal Pain Add. Discharge Instructions: All discharge instructions reviewed with patient and/or family. Voiced understanding. Follow-up with Dr. Lomeli this week for recheck and further evaluation. You should continue your Protonix prescription. Light diet for the next 1 to 2 days and then advance as tolerated. Drink plenty of fluids. Plenty of rest. Return for worse pain, fever, vomiting, weakness, breathing problems or other concerns as needed. Copy Copies To 1: TC MARIE JOSHUA T MD Apr 30, 2022 12:06 LILLIAN SANCHEZ MD Apr 30, 2022 13:10
--- NOTE | 2022-04-30 12:12 | Diagnostic Imaging Report ---
INDICATION: Dizziness and lightheadedness. Anxiety. COMPARISON: Radiographs of 01/31/2018. FINDINGS: The central line is stable. The lungs are clear. No failure, effusion, or pneumothorax. Density projecting over the left upper chest is associated with a sclerotic focus in the left 4th rib posterolaterally, unchanged. Lower thoracic bony sclerotic foci and the treated L1 compression deformity with kyphoplasty cement are unchanged. IMPRESSION: Clear lungs. No failure or pleural pathology. Sclerotic bony foci are unchanged. Dictated by: Dictated on workstation # [id number]
[2022-04-30] MEDS ORDERED: LACTATED RINGERS 1,000 ML IV ONE (12:30)
[2022-04-30] MEDS ORDERED: PANTOPRAZOLE 40 MG (PROTONIX) VIAL IV ONE (13:15)
[2022-04-30] MEDS ORDERED: ONDANSETRON 4 MG/2 ML (SDV) Z0FRAN IVP ONE (13:15)
[2022-04-30] MEDS ORDERED: NS 100 ML (IVPB) BAG IV ONE (13:45)
[2022-04-30] MEDS ORDERED: IOHEXOL 350 MG/ML 100 ML (OMNIPAQUE 350) VIAL IV ONE (13:45)
[2022-04-30] MEDS ORDERED: HOLD METFORMIN - RECEIVED CONTRAST 20 ML VIAL IV SCH (13:45)
[2022-04-30] MEDS ORDERED: CATHETER FLUSH 10 ML SYR IV PRN (13:45)
--- NOTE | 2022-04-30 14:29 | Diagnostic Imaging Report ---
PROCEDURE: CT abdomen and pelvis with contrast. TECHNIQUE: Multiple contiguous axial images were obtained through the abdomen and pelvis after administration of intravenous contrast. Auto Exposure Controls were utilized during the CT exam to meet ALARA standards for radiation dose reduction. All CT scans use one or more of the following dose optimizing techniques: automated exposure control, MA and/or KvP adjustment based on patient size and exam type or iterative reconstruction. DATE: April 30, 2022. COMPARISON: CT chest, abdomen and pelvis July 28, 2021. INDICATION: 81-year-old female, dizziness and lightheadedness. Nausea. Mid and upper abdominal pain. FINDINGS: The visualized portions of the lung bases are clear. The heart is not enlarged. There is no pericardial effusion. The liver is unremarkable in size and contour. There is no identified liver lesion. The main, right, and left portal veins are patent. The gallbladder is not seen and may be absent. There is no intrahepatic or extrahepatic bile duct dilation. The main pancreatic duct is not abnormally dilated. Unremarkable appearance of the pancreatic parenchyma. The spleen is normal in size. The adrenal glands are unremarkable. There is contrast in the urinary collecting systems which limits sensitivity for detection of renal or ureteral stones. There is no hydronephrosis. There is no apparent wall thickening of the urinary bladder. There is unremarkable appearance of the renal parenchyma. Uterus is not seen and may be surgically absent. There is diverticulosis without evidence to suggest acute diverticulitis. There is no evidence of acute appendicitis. There is no free intraperitoneal air. There is no drainable fluid collection. There is no sizable volume free pelvic fluid. There are atherosclerotic calcifications. There is no identified abnormally enlarged lymph node in the abdomen or pelvis meeting CT size criteria for adenopathy. There are numerous sclerotic bone lesions including below the left femoral head and neck and intertrochanteric femur extending to the level of the left proximal femoral diaphysis as well as multiple lesions of the bilateral pelvic bones, right femoral head, sacrum, lumbar spine, and thoracic spine as well as bilateral rib lesions. There are kyphoplasty changes and a prior fracture at the level of L1 which is also present on the prior study. The sclerotic lesion of L2 is increased in size since July 28, 2021. A sclerotic lesion of T10 is also increased in size as well as the sclerotic lesion of T9. Some of the pelvic bone lesions are also increased in size since the comparison study. IMPRESSION: CT ABDOMEN AND PELVIS. 1. Multiple sclerotic bone lesions with several of the lesions being increased in size since July 28, 2021. This is most consistent with progression of multifocal sclerotic bone metastasis. 2. No otherwise identified acute abnormality in the abdomen or pelvis. Dictated by: Dictated on workstation # [id number]
[2022-04-30 14:47] VITALS: BP_SYST 127; BP_SYST 149; BP_SYST 164; BP_DIAS 66; BP_DIAS 71; BP_DIAS 89
[2022-04-30] MEDS ORDERED: GADOTERATE 0.5 MMOL/ML (CLARISCAN) 15 ML VIAL IV ONE (15:15)
--- NOTE | 2022-04-30 15:49 | Diagnostic Imaging Report ---
PROCEDURE: MR imaging of the brain with and without contrast. TECHNIQUE: Multiplanar, multisequence MR imaging of the brain was performed with and without contrast. DATE: April 30, 2022. COMPARISON: CT head and cervical spine July 15, 2018. HISTORY: 81-year-old female, dizziness. History of breast cancer. FINDINGS: There is no restricted diffusion. There are no areas of abnormal intracranial susceptibility. The ventricles and CSF spaces are normal in size and configuration for patient age. There is no abnormal extra axial fluid collection. There is no acute intracranial hemorrhage. There is no mass effect or midline shift. There are multiple foci of T2 and FLAIR hyperintense signal in the subcortical and periventricular white matter which are without diffusion restriction or contrast enhancement. There is no area of abnormal intracranial enhancement. There is normal aeration of the visualized paranasal sinuses and mastoid air cells. There is preservation of normal intracranial flow voids. IMPRESSION: 1. No identified acute intracranial abnormality. 2. No evidence of metastatic disease to brain. 3. Probable findings of moderate to severe chronic small vessel ischemic disease. Dictated by: Dictated on workstation # [id number]
[2022-04-30] MEDS ORDERED: MECLIZINE 25 MG (ANTIVERT) TAB PO ONE (18:00)
[2022-04-30 18:06] VITALS: BP 119/73
== END 2022-04-30 18:06 | disposition home or self-care (01) ==
LOC: EDUNIT# 08:33 → ER 08:35
DX: R42 Dizziness and giddiness (principal); R53.1 Weakness; R06.00 Dyspnea, unspecified; R10.13 Epigastric pain; R10.12 Left upper quadrant pain; G89.29 Other chronic pain; Z87.19 Personal history of other diseases of the digestive system; Z20.822 Contact with and (suspected) exposure to COVID-19; Z90.49 Acquired absence of other specified parts of digestive tract; Z90.710 Acquired absence of both cervix and uterus
CPT/HCPCS: 36415; 70553; 71045; 74177; 80053; 81000; 83690; 83735; 85007; 85027; 86141; 87636; 93005; 93041; 93880

== ENCOUNTER → 2023-02-05 | Outpatient (CLI) | payer MEDICARE, OTHER ==
--- NOTE | 2023-02-06 11:51 | Diagnostic Imaging Report ---
PROCEDURE: MR imaging of the brain with and without contrast. TECHNIQUE: Multiplanar, multisequence MR imaging of the brain was performed with and without contrast. INDICATION: Balance issues. History of breast and bone cancer. COMPARISON: 04/30/2022. FINDINGS: No acute ischemia, mass, or hemorrhage. No abnormal enhancement. T2 hyperintense signal is seen in the periventricular and subcortical white matter. The ventricles, cortical sulci, and basilar cisterns are symmetric and unremarkable. The sellar and suprasellar regions have a normal appearance. The brainstem and posterior fossa are unremarkable. The paranasal sinuses demonstrate normal signal characteristics. Small left-sided mastoid effusion is seen. Bilateral lens implants are seen. The scalp and calvarium have a normal appearance. IMPRESSION: 1. No acute ischemia, mass, or hemorrhage. No abnormal enhancement to suggest metastatic disease. 3. 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 3. Small left-sided mastoid effusion. Dictated by: Dictated on workstation # [id number]
== END ==
LOC: RAD 12:53
PROVIDERS: ATTEND Nurse Practitioner Adult Health
DX: H74.8X2 Other specified disorders of left middle ear and mastoid (principal); I67.82 Cerebral ischemia; C50.312 Malignant neoplasm of lower-inner quadrant of left female breast; C78.7 Secondary malignant neoplasm of liver and intrahepatic bile duct; R26.81 Unsteadiness on feet
CPT/HCPCS: 70553

== ENCOUNTER 2023-02-18 15:30 | Emergency (ER) | payer MEDICARE, OTHER ==
[~2023-02-18] VITALS: Ht 154 cm; Wt 70.0 kg
[2023-02-18 15:35] VITALS: BP 129/69
--- NOTE | 2023-02-18 15:58 | ED Respiratory ---
General Chief Complaint: Respiratory Problems Stated Complaint: SOA Nursing Triage Note: PT C/O DIFFICULTY BREATHING THAT BEGAN YESTERDAY BUT HAS GOTTEN WORSE TODAY. PT IS A CANCER PT AND WAS SENT FROM [facility]ER CENTER AFTER RECEIVING HER SECOND ROUND OF CHEMO. PT DENIES CHEST PAIN. "I FEEL LIKE I CAN'T CATCH MY BREATH" Source: patient, EMS, old records Exam Limitations: no limitations History of Present Illness Date Seen by Provider: February 18, 2023 Time Seen by Provider: 15:48 Initial Comments 82yoF with PMH of breast cancer coming in due to SOB. Started yesterday, better with rest and Xanax. Denies any cardiac history or pulmonary history. Denies any prior history of blood clots in her legs or lungs. When she feels at all similar to this in the past, Xanax has made it better. She has not had any since yesterday and she takes 0.25 to 0.5 mg as needed. Otherwise denying any other acute complaints including no chest pain, abdominal pain, nausea, vomiting, diarrhea, weakness, numbness, or any other concerns. Allergies and Home Medications Allergies Coded Allergies: bisacodyl (Verified Allergy, Mild, JITTERS/RED RASH, 01/30/18) polyethylene glycol 3350 (Verified Allergy, Mild, JITTERS/RED RASH, 01/30/18) potassium chloride (Verified Allergy, Mild, JITTERS/RED RASH, 01/30/18) sodium bicarbonate (Verified Allergy, Mild, JITTERS/RED RASH, 01/30/18) sodium chloride (Verified Allergy, Mild, JITTERS/RED RASH, 01/30/18) scopolamine (Verified Allergy, Unknown, NECK PAIN/NERVE DAMAGE, 02/10/18) thiopental (Verified Allergy, Unknown, 01/30/18) Patient Home Medication List Home Medication List Reviewed: Yes Alprazolam (Xanax) 0.25 Mg Tablet, 0.25 MG PO TID PRN for ANXIETY, (Reported) Entered as Reported by: JUAN BLACKMAN on 11/26/19 1009 Gabapentin (Gabapentin) 100 Mg Capsule, 200 MG PO HS, (Reported) Entered as Reported by: JUAN BLACKMAN on 11/26/19 1005 Levothyroxine Sodium (Levothyroxine Sodium) 175 Mcg Tablet, 175 MCG PO DAILY, (Reported) Entered as Reported by: JUAN BLACKMAN on 11/26/19 100 Linaclotide (Linzess) 72 Mcg Capsule, 72 MCG PO DAILY PRN for CONSTIPATION-1ST LINE, (Reported) Entered as Reported by: JUAN BLACKMAN on 11/26/19 100 Ondansetron (Ondansetron Odt) 8 Mg Tab.rapdis, 8 MG PO Q6H PRN for NAUSEA/VOMITING, (Reported) Entered as Reported by: JUAN BLACKMAN on 11/26/19 100 Ondansetron (Ondansetron Odt) 4 Mg Tab.rapdis, 4 MG PO Q6H PRN for NAUSEA/VOMITING-1ST LINE, (Reported) Entered as Reported by: JUAN BLACKMAN on 11/26/19 100 Pantoprazole Sodium (Protonix) 40 Mg Tablet.dr, 40 MG PO DAILY Prescribed by: CARLOS MEDRANO on 12/01/19 0814 Zolpidem Tartrate (Zolpidem Tartrate) 10 Mg Tablet, 10 MG PO HS, (Reported) Entered as Reported by: JUAN BLACKMAN on 11/26/19 100 Review of Systems Review of Systems Constitutional: No fever EENTM: no symptoms reported Respiratory: see HPI Cardiovascular: no symptoms reported Gastrointestinal: no symptoms reported Genitourinary: no symptoms reported Musculoskeletal: no symptoms reported Past Mnnfsfa-Pckyzp-Pkuxye Hx Patient Social History Tobacco Use?: No Substance use?: No Alcohol Use?: No Pt feels they are or have been: No Immunizations Up To Date Tetanus Booster (TDap): Unknown Influenza Vaccine Up-to-Date: Yes; Up-to-Date First/Initial COVID19 Vaccinat: 2020 Second COVID19 Vaccination Aguila: 2020 Third COVID19 Vaccination Date: 2020 Seasonal Allergies Seasonal Allergies: No Past Medical History Surgery/Hospitalization HX: hx of bone CA Surgeries: Yes (BACK SURGERY 03/19/14--VERTEBROPLASTY, LUMPECTOMY/LYMPH NODE DISSECTION) Appendectomy, Breast, Gallbladder, 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, Orthopedic, Tonsillectomy Respiratory: No Currently Using CPAP: No Currently Using BIPAP: No Cardiac: Yes Hypotension Neurological: No Reproductive Disorders: No 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 Sexually Transmitted Disease: No HIV/AIDS: No Genitourinary: Yes Kidney Stones, UTI-Chronic Gastrointestinal: Yes (NAUSEA) Gastroesophageal Reflux, Chronic Constipation, Diverticulosis, Ulcer Musculoskeletal: Yes (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) Arthritis, Fractures Endocrine: Yes Hypothyroidsim HEENT: Yes (DETACHED [place]) Cataract Loss of Vision: Denies Hearing Impairment: Denies Cancer: Yes (LEFT) Bone, Skin, Breast Did You Recieve Any Treatments: Yes What Type of Treatment Did You: Chemotherapy, Surgical Intervention, Other Psychosocial: Yes Anxiety Integumentary: No Blood Disorders: No Adverse Reaction/Blood Tranf: No (N/A) Family Medical History Abdominal aortic aneurysm 19 MOTHER Alcoholism Arthritis 19 MOTHER Headache disorder 19 MOTHER G8 BROTHER G8 SISTER Hypertension SONS No Pertinent Family Hx Physical Exam Vital Signs - First Documented 02/18/23 15:35 Temp 36.2 Pulse 87 Resp 18 B/P (MAP) 129/69 (89) Pulse Ox 100 O2 Delivery Room Air Capillary Refill : Less Than 3 Seconds Height: 5'3.00" Weight: 133lbs. 0.0oz. 60.215532tn; 29.00 BMI Method:Stated General Appearance: WD/WN Eyes: Bilateral Eye Normal Inspection HEENT: PERRL/EOMI, normal ENT inspection, pharynx normal Neck: non-tender, full range of motion, supple, normal inspection Respiratory: chest non-tender, lungs clear, normal breath sounds, no respiratory distress, no accessory muscle use Cardiovascular: regular rate, rhythm, no edema, no murmur Gastrointestinal: normal bowel sounds, non tender, soft; No distended, No guarding, No rebound Extremities: normal range of motion, non-tender, normal inspection, no pedal edema, no calf tenderness, normal capillary refill Neurologic/Psychiatric: no motor/sensory deficits, alert, normal mood/affect Skin: normal color, warm/dry Progress/Results/Core Measures Suspected Sepsis SIRS Temperature: Pulse: 87 Respiratory Rate: 18 Laboratory Tests 02/18/23 15:55: White Blood Count 6.8 Blood Pressure 129 /69 Mean: 89 Laboratory Tests 02/18/23 15:55: Creatinine 0.73, INR Comment 1.0, Platelet Count 186, Total Bilirubin 0.3 Results/Orders Lab Results Laboratory Tests Test 02/18/23 15:55 Range/Units White Blood Count 6.8 4.3-11.0 10^3/uL Red Blood Count 3.35 L 3.80-5.11 10^6/uL Hemoglobin 10.0 L 11.5-16.0 g/dL Hematocrit 32 L 35-52 % Mean Corpuscular Volume 95 80-99 fL Mean Corpuscular Hemoglobin 30 25-34 pg Mean Corpuscular Hemoglobin Concent 31 L 32-36 g/dL Red Cell Distribution Width 16.6 H 10.0-14.5 % Platelet Count 186 130-400 10^3/uL Mean Platelet Volume 10.2 9.0-12.2 fL Immature Granulocyte % (Auto) 2 % Neutrophils (%) (Auto) 58 42-75 % Lymphocytes (%) (Auto) 15 12-44 % Monocytes (%) (Auto) 25 H 0-12 % Eosinophils (%) (Auto) 0 0-10 % Basophils (%) (Auto) 0 0-10 % Neutrophils # (Auto) 3.9 1.8-7.8 X 10^3 Lymphocytes # (Auto) 1.0 1.0-4.0 X 10^3 Monocytes # (Auto) 1.7 H 0.0-1.0 X 10^3 Eosinophils # (Auto) 0.0 0.0-0.3 10^3/uL Basophils # (Auto) 0.0 0.0-0.1 10^3/uL Immature Granulocyte # (Auto) 0.1 0.0-0.1 10^3/uL Neutrophils % (Manual) 69 % Lymphocytes % (Manual) 18 % Monocytes % (Manual) 13 % Platelet Estimate NORMAL Anisocytosis SLIGHT Prothrombin Time 13.2 12.2-14.7 SEC INR Comment 1.0 0.8-1.4 Activated Partial Thromboplast Time 38 H 24-35 SEC D-Dimer 1.55 H 0.00-0.49 UG/ML Sodium Level 140 135-145 MMOL/L Potassium Level 4.0 3.6-5.0 MMOL/L Chloride Level 109 H 98-107 MMOL/L Carbon Dioxide Level 20 L 21-32 MMOL/L Anion Gap 11 5-14 MMOL/L Blood Urea Nitrogen 11 7-18 MG/DL Creatinine 0.73 0.60-1.30 MG/DL Estimat Glomerular Filtration Rate 83 BUN/Creatinine Ratio 15 Glucose Level 102 70-105 MG/DL Calcium Level 7.4 L 8.5-10.1 MG/DL Corrected Calcium 8.0 L 8.5-10.1 MG/DL Total Bilirubin 0.3 0.1-1.0 MG/DL Aspartate Amino Transf (AST/SGOT) 15 5-34 U/L Alanine Aminotransferase (ALT/SGPT) 18 0-55 U/L Alkaline Phosphatase 152 H 40-136 U/L Troponin I < 0.028 <0.028 NG/ML Total Protein 5.8 L 6.4-8.2 GM/DL Albumin 3.3 3.2-4.5 GM/DL Lipase 31 8-78 U/L My Orders Orders - LEONEL MEADOWS MD Chest 1 View, Ap/Pa Only (02/18/23 15:46) Cbc With Automated Diff (02/18/23 15:46) Comprehensive Metabolic Panel (02/18/23 15:46) Fibrin Degradation Products (02/18/23 15:46) Lipase (02/18/23 15:46) Protime With Inr (02/18/23 15:46) Partial Thromboplastin Time (02/18/23 15:46) Troponin I Dewey (02/18/23 15:46) Ed Iv/Invasive Line Start (02/18/23 15:46) Ekg Tracing (02/18/23 15:46) Monitor-Rhythm Ecg Trace Only (02/18/23 15:46) Alprazolam Tablet (Xanax Tablet) (02/18/23 16:00) Manual Differential (02/18/23 15:55) Ct Angio Chest W (R/O Pe) (02/18/23 16:28) Iohexol Injection (Omnipaque 350 Mg/Ml 1 (02/18/23 16:45) Received Contrast (Hold Metformin- Contr (02/18/23 16:45) Ns (Ivpb) (Sodium Chloride 0.9% Ivpb Bag (02/18/23 16:45) Medications Given in ED Current Medications Medications Dose Ordered Sig/Keri Route Start Time Stop Time Status Last Admin Dose Admin Iohexol 100 ml ONCE ONCE IV 02/18/23 16:45 02/18/23 16:46 DC 02/18/23 16:52 64 ML Sodium Chloride 100 ml ONCE ONCE IV 02/18/23 16:45 02/18/23 16:46 DC 02/18/23 16:52 100 ML Vital Signs/I&O 02/18/23 15:35 Temp 36.2 Pulse 87 Resp 18 B/P (MAP) 129/69 (89) Pulse Ox 100 O2 Delivery Room Air Capillary Refill : Less Than 3 Seconds Blood Pressure Mean: 89 Progress Note : Progress Note 82-year-old female with above history coming in feeling short of breath. ABCs were intact and vitals are stable on presentation. Specifically, her heart rate is 85 and her oxygen saturation is 100% breathing room air. EKG ordered and interpreted by me showing normal sinus rhythm with no acute ischemic changes. Chest x-ray ordered and interpreted by me showing no obvious pneumonia or pneumothorax. Basic labs were obtained including cardiac biomarkers. Her white blood cell count is normal, creatinine normal, normal sodium, negative troponin, positive D-dimer. CTA chest was then ordered and no obvious blood clot. She does have many bony metastases, but she has known about these. She also has a spot on her liver, but she also has not about this from a previous PET scan. She is better after the Xanax and states she feels at her baseline. I believe she is stable for discharge with outpatient follow-up. She was sent home with strict return precautions. ECG Initial ECG Impression Date: February 18, 2023 Initial ECG Impression Time: 16:09 Initial ECG Rate: 85 Initial ECG Rhythm: Normal Sinus Comment Narrow QRS, normal axis, no significant ST changes or T wave abnormalities Diagnostic Imaging Diagonstic Imaging: Xray (chest), CT (CTA chest) Comments [facility]. [place], [place] NAME: EDIS ZARAGOZA Yeimi [facility] REC#: [id number] PT STATUS: REG ER : 1940 PHYSICIAN: LEONEL MEADOWS MD ADMIT DATE: 02/18/23/ER Draft Date of Exam:02/18/23 CHEST 1 VIEW, AP/PA ONLY INDICATION: Shortness of breath Frontal chest obtained at 0415 p.m. and compared to 04/30/2022. Heart and mediastinal silhouette are normal in appearance. The lungs are clear except for a calcified granuloma in the left apex. There is no change in Port-A-Cath device. There is no pneumothorax or pleural fluid. IMPRESSION: 1. No acute process in the chest. Dictated on workstation # [id number] Dict: 02/18/23 1620 Trans: 02/18/23 1622 [facility] [id number] Interpreted by: DEBRA PINZON MD Electronically signed by: [facility]. [place], [place] NAME: EDIS ZARAGOZA [facility] REC#: [id number] PT STATUS: REG ER : 1940 PHYSICIAN: LEONEL MEADOWS MD ADMIT DATE: 02/18/23/ER Draft Date of Exam:02/18/23 CT ANGIO CHEST W (R/O PE) TECHNIQUE: CTA of the chest was performed with contrast bolus timing optimized for evaluation of the pulmonary arteries. 3-D reformats were obtained and reviewed. Dose reduction techniques were utilized. Reason for exam: shortness of breath. Elevated D-dimer. History of breast cancer. COMPARISON: Chest radiograph performed earlier the same date. CT chest on 07/28/2021. CT abdomen and pelvis on 04/30/2022. FINDINGS: This helical CT pulmonary angiogram is diagnostic to the subsegmental level branches of the pulmonary artery and demonstrates no pulmonary emboli. The heart size is normal. There is no pericardial effusion. There is calcified aortic and coronary atherosclerotic plaque. A right port is visualized with the tip in the low SVC. There is no axillary, mediastinal, or hilar adenopathy. The lungs demonstrate no consolidation, nodules, or other parenchymal abnormality. No pleural effusion is seen. Sclerotic osseous metastatic lesions are seen throughout the thoracic spine, bilateral ribs, and within the sternum. No pathologic fractures are identified. Prior kyphoplasty changes are visualized at L1. A nonspecific area of decreased attenuation is seen in the right hepatic lobe measuring 5.7 x 5.3 cm. No abnormal enhancement was seen on the prior exam in this area. IMPRESSION: 1. No acute pulmonary embolus. Negative CT chest. 2. Widespread osseous metastatic disease in the chest. No acute pathologic fracture. 3. Suspicious area of decreased attenuation in the right hepatic lobe. Given the patient history of breast cancer, further evaluation with liver protocol CT or MRI is recommended. Dictated on workstation # [id number] Dict: 02/18/23 1701 Trans: 02/18/231708 [facility] [id number] Interpreted by: ESTEBAN BUTCHER DO Electronically signed by: Departure Impression Primary Impression: Shortness of breath Additional Impression: Breast cancer Qualified Codes: C50.919 - Malignant neoplasm of unspecified site of unspecified female breast Disposition: 01 HOME, SELF-CARE Condition: Improved Departure-Patient Inst. Decision time for Depature: 17:18 Referrals: JAREN KAUR DO (PCP/Family) Primary Care Physician Patient Instructions: Shortness of Breath, Adult ED Add. Discharge Instructions: Fortunately were not seeing any life-threatening causes of you being short of breath earlier including no blood clot, no pneumonia, and no signs of heart attack or anything more concerning. Please follow-up with your regular doctor to see if there are any medications they want to put you on to help reduce the amount of times that you take the Xanax. LEONEL MEADOWS MD February 18, 2023 15:58
[2023-02-18] MEDS ORDERED: ALPRAZolam 0.5 MG (XANAX) TAB PO SCH (16:00)
[2023-02-18 16:06] LABS: BASOPHILS % (AUTO) 0 % (0-10); EOSINOPHILS % (AUTO) 0 % (0-10); HEMATOCRIT 32 % (35-52); LYMPHOCYTES % (AUTO) 15 % (12-44); MEAN CORPUSCULAR HEMOGLOBIN 30 pg (25-34); MEAN CORPUSCULAR HGB CONC 31 g/dL (32-36); MEAN CORPUSCULAR VOLUME 95 fL (80-99); MEAN PLATELET VOLUME 10.2 fL (9.0-12.2); MONOCYTES # (AUTO) 1.7 X 10^3 (0.0-1.0); MONOCYTES % (AUTO) 25 % (0-12); NEUTROPHILS # (AUTO) 3.9 X 10^3 (1.8-7.8); NEUTROPHILS % (AUTO) 58 % (42-75); PLATELET COUNT 186 10^3/uL (130-400); WHITE BLOOD COUNT 6.8 10^3/uL (4.3-11.0)
[2023-02-18 16:18] LABS: ALBUMIN 3.3 GM/DL (3.2-4.5)
[2023-02-18 16:19] LABS: CHLORIDE 109 MMOL/L (98-107); SODIUM 140 MMOL/L (135-145)
[2023-02-18 16:20] LABS: CALCIUM 7.4 MG/DL (8.5-10.1)
[2023-02-18 16:21] LABS: GLUCOSE 102 MG/DL (70-105); PROTHROMBIN TIME PATIENT 13.2 SEC (12.2-14.7); TOTAL PROTEIN 5.8 GM/DL (6.4-8.2)
[2023-02-18 16:22] LABS: CARBON DIOXIDE 20 MMOL/L (21-32)
--- NOTE | 2023-02-18 16:22 | Diagnostic Imaging Report ---
INDICATION: Shortness of breath Frontal chest obtained at 0415 p.m. and compared to 04/30/2022. Heart and mediastinal silhouette are normal in appearance. The lungs are clear except for a calcified granuloma in the left apex. There is no change in Port-A-Cath device. There is no pneumothorax or pleural fluid. IMPRESSION: 1. No acute process in the chest. Dictated by: Dictated on workstation # [id number]
[2023-02-18 16:23] LABS: BILIRUBIN,TOTAL 0.3 MG/DL (0.1-1.0)
[2023-02-18 16:24] LABS: ALKALINE PHOSPHATASE 152 U/L (40-136); CREATININE SERUM 0.73 MG/DL (0.60-1.30); FIBRIN DEGRADATION PRODUCTS 1.55 UG/ML (0.00-0.49); GFR ESTIMATED 83
[2023-02-18 16:25] LABS: BUN/CREATININE RATIO 15
[2023-02-18 16:27] LABS: ALANINE AMINOTRANSFERASE 18 U/L (0-55); ANISOCYTOSIS SLIGHT; LYMPHOCYTES % (MANUAL) 18 %; MONOCYTES % (MANUAL) 13 %; NEUTROPHILS % (MANUAL) 69 %; PLATELET ESTIMATE NORMAL
[2023-02-18 16:28] LABS: LIPASE 31 U/L (8-78)
[2023-02-18] MEDS ORDERED: IOHEXOL 350 MG/ML 100 ML (OMNIPAQUE 350) VIAL IV ONE (16:45)
[2023-02-18] MEDS ORDERED: NS 100 ML (IVPB) BAG IV ONE (16:45)
[2023-02-18] MEDS ORDERED: HOLD METFORMIN - RECEIVED CONTRAST 20 ML VIAL IV SCH (16:45)
--- NOTE | 2023-02-18 17:10 | Diagnostic Imaging Report ---
TECHNIQUE: CTA of the chest was performed with contrast bolus timing optimized for evaluation of the pulmonary arteries. 3-D reformats were obtained and reviewed. Dose reduction techniques were utilized. Reason for exam: shortness of breath. Elevated D-dimer. History of breast cancer. COMPARISON: Chest radiograph performed earlier the same date. CT chest on 07/28/2021. CT abdomen and pelvis on 04/30/2022. FINDINGS: This helical CT pulmonary angiogram is diagnostic to the subsegmental level branches of the pulmonary artery and demonstrates no pulmonary emboli. The heart size is normal. There is no pericardial effusion. There is calcified aortic and coronary atherosclerotic plaque. A right port is visualized with the tip in the low SVC. There is no axillary, mediastinal, or hilar adenopathy. The lungs demonstrate no consolidation, nodules, or other parenchymal abnormality. No pleural effusion is seen. Sclerotic osseous metastatic lesions are seen throughout the thoracic spine, bilateral ribs, and within the sternum. No pathologic fractures are identified. Prior kyphoplasty changes are visualized at L1. A nonspecific area of decreased attenuation is seen in the right hepatic lobe measuring 5.7 x 5.3 cm. No abnormal enhancement was seen on the prior exam in this area. IMPRESSION: 1. No acute pulmonary embolus. Negative CT chest. 2. Widespread osseous metastatic disease in the chest. No acute pathologic fracture. 3. Suspicious area of decreased attenuation in the right hepatic lobe. Given the patient history of breast cancer, further evaluation with liver protocol CT or MRI is recommended. Dictated by: Dictated on workstation # [id number]
[2023-02-18] MEDS ORDERED: HEParin (CENTRAL IV FLUSH) 500 UNIT/5 ML SYR ONE (17:47)
== END 2023-02-18 17:51 | disposition home or self-care (01) ==
LOC: EDUNIT# 15:30 → ER 15:32
DX: R06.02 Shortness of breath (principal); C41.9 Malignant neoplasm of bone and articular cartilage, unspecified; C79.81 Secondary malignant neoplasm of breast; C79.2 Secondary malignant neoplasm of skin; R79.1 Abnormal coagulation profile
CPT/HCPCS: 36415; 71045; 71275; 80053; 83690; 84484; 85007; 85027; 85379; 85610; 85730; 93005; 93041

== ENCOUNTER 2023-02-21 08:10 | Emergency (ER) | payer MEDICARE, OTHER ==
[~2023-02-21] VITALS: Ht 154 cm; Wt 70.0 kg
[2023-02-21] MEDS ORDERED: fentaNYL INJ 100 MCG/2 ML AMP IVP ONE (08:30)
--- NOTE | 2023-02-21 08:30 | ED General ---
General Stated Complaint: RT NECK PAIN W/ RADIATION Source of Information: Patient Exam Limitations: No Limitations History of Present Illness Date Seen by Provider: February 21, 2023 Time Seen by Provider: 08:16 Initial Comments Patient is an 82-year-old female who presents to the emergency department with a chief complaint of right-sided neck pain/right upper chest wall pain. Onset last night before she went to bed. She states she was up and down all night with the pain. She took a "half" of a pain pill at around 130 or 2 AM. Continues to have discomfort at a "6". Movement, palpation seems to make the pain a little bit worse. She is not nauseous. She has been suffering with some exertional shortness of breath over the last 2 weeks. She has seen the emergency department 4 days ago on Saturday with a work-up. She also has been scheduled for a stress test through her primary care physician's office. She denies recent fevers, chills, cough or congestion. No diarrhea or urinary com plaints. She is not currently on a blood thinner. She claims no cardiac history. No history of A-fib. She currently is on treatment for breast cancer. She is had breast cancer for 5 or 6 years. Timing/Duration: 12 Hours Severity: Moderate Modifying Factors: worse with Movement Associated Systoms: Chest Pain, Shortness of Air Allergies and Home Medications Allergies Coded Allergies: bisacodyl (Verified Allergy, Mild, JITTERS/RED RASH, 01/30/18) polyethylene glycol 3350 (Verified Allergy, Mild, JITTERS/RED RASH, 01/30/18) potassium chloride (Verified Allergy, Mild, JITTERS/RED RASH, 01/30/18) sodium bicarbonate (Verified Allergy, Mild, JITTERS/RED RASH, 01/30/18) sodium chloride (Verified Allergy, Mild, JITTERS/RED RASH, 01/30/18) scopolamine (Verified Allergy, Unknown, NECK PAIN/NERVE DAMAGE, 02/10/18) thiopental (Verified Allergy, Unknown, 01/30/18) Patient Home Medication List Home Medication List Reviewed: Yes Alprazolam (Xanax) 0.25 Mg Tablet, 0.25 MG PO TID PRN for ANXIETY, (Reported) Entered as Reported by: JUAN BLACKMAN on 11/26/19 1009 Gabapentin (Gabapentin) 100 Mg Capsule, 200 MG PO HS, (Reported) Entered as Reported by: JUAN BLACKMAN on 11/26/19 100 Levothyroxine Sodium (Levothyroxine Sodium) 175 Mcg Tablet, 175 MCG PO DAILY, (Reported) Entered as Reported by: JUAN BLACKMAN on 11/26/19 100 Linaclotide (Linzess) 72 Mcg Capsule, 72 MCG PO DAILY PRN for CONSTIPATION-1ST LINE, (Reported) Entered as Reported by: JUAN BLACKMAN on 11/26/19 100 Ondansetron (Ondansetron Odt) 8 Mg Tab.rapdis, 8 MG PO Q6H PRN for NAUSEA/VOMITING, (Reported) Entered as Reported by: JUAN BLACKMAN on 11/26/19 100 Ondansetron (Ondansetron Odt) 4 Mg Tab.rapdis, 4 MG PO Q6H PRN for NAUSEA/VOMITING-1ST LINE, (Reported) Entered as Reported by: JUAN BLACKMAN on 11/26/19 100 Pantoprazole Sodium (Protonix) 40 Mg Tablet.dr, 40 MG PO DAILY Prescribed by: CARLOS MEDRANO on 12/01/19 0814 Zolpidem Tartrate (Zolpidem Tartrate) 10 Mg Tablet, 10 MG PO HS, (Reported) Entered as Reported by: JUAN BLACKMAN on 11/26/19 100 Review of Systems Review of Systems Constitutional: see HPI EENTM: no symptoms reported, other (right neck pain) Respiratory: short of breath (exertional) Cardiovascular: chest pain (right upper chest) Gastrointestinal: no symptoms reported Genitourinary: no symptoms reported Musculoskeletal: neck pain (right neck pain) Skin: no symptoms reported All Other Systems Reviewed Negative Unless Noted: Yes Past Quhzbni-Mkjxwt-Dlliks Hx Immunizations Up To Date Tetanus Booster (TDap): Unknown First/Initial COVID19 Vaccinat: 2020 Second COVID19 Vaccination [place]: 2020 Third COVID19 Vaccination Date: 2020 Seasonal Allergies Seasonal Allergies: No Past Medical History Surgery/Hospitalization HX: hx of bone CA Surgeries: Yes (BACK SURGERY 03/19/14--VERTEBROPLASTY, LUMPECTOMY/LYMPH NODE DISSECTION) Appendectomy, Breast, Gallbladder, 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, Orthopedic, Tonsillectomy Respiratory: No Currently Using CPAP: No Currently Using BIPAP: No Cardiac: Yes Hypotension Neurological: No Reproductive Disorders: No 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 Sexually Transmitted Disease: No HIV/AIDS: No Genitourinary: Yes Kidney Stones, UTI-Chronic Gastrointestinal: Yes (NAUSEA) Gastroesophageal Reflux, Chronic Constipation, Diverticulosis, Ulcer Musculoskeletal: Yes (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) Arthritis, Fractures Endocrine: Yes Hypothyroidsim HEENT: Yes (DETACHED [place]) Cataract Loss of Vision: Denies Hearing Impairment: Denies Cancer: Yes (LEFT) Bone, Skin, Breast Did You Recieve Any Treatments: Yes What Type of Treatment Did You: Chemotherapy, Surgical Intervention, Other Psychosocial: Yes Anxiety Integumentary: No Blood Disorders: No Adverse Reaction/Blood Tranf: No (N/A) Family Medical History Abdominal aortic aneurysm 19 MOTHER Alcoholism Arthritis 19 MOTHER Headache disorder 19 MOTHER G8 BROTHER G8 SISTER Hypertension SONS No Pertinent Family Hx Physical Exam Vital Signs Vital Signs - First Documented 02/21/23 08:10 Temp 35.9 Pulse 91 Resp 29 B/P (MAP) 133/70 (91) Pulse Ox 98 O2 Delivery Room Air Capillary Refill : Height, Weight, BMI Height: 5'3.00" Weight: 133lbs. 0.0oz. 60.475478gh; 29.00 BMI Method:Stated General Appearance: WD/WN, Anxious, Mild Distress Eyes: Bilateral Eye Normal Inspection, Bilateral Eye PERRL, Bilateral Eye EOMI HEENT: Other (dry mucous membranes) Neck: Normal Inspection, Tender Lateral (tenderness to palpation over the right SCM and posterior lateral neck. No rashes. No significant JVD. Patient has right infusaport - accessed easily.) Respiratory: Normal Breath Sounds, No Accessory Muscle Use, No Respiratory Distress, Other (tenderness to the chest wall just above the infusaport.) Cardiovascular: Regular Rate, Rhythm, Normal Peripheral Pulses, Extra Beats Gastrointestinal: Soft, Tenderness (mild tenderness right flank and RUQ) Extremity: Normal Inspection, Normal Range of Motion Neurologic/Psychiatric: Alert, Oriented x3, No Motor/Sensory Deficits, Normal Mood/Affect Skin: Normal Color, Warm/Dry Progress/Results/Core Measures Suspected Sepsis SIRS Temperature: Pulse: Respiratory Rate: Laboratory Tests 02/21/23 08:23: White Blood Count 6.0 Blood Pressure / Mean: Laboratory Tests 02/21/23 08:23: Creatinine 0.67, Platelet Count 155 Results/Orders Lab Results Laboratory Tests Test 02/21/23 08:23 Range/Units White Blood Count 6.0 4.3-11.0 10^3/uL Red Blood Count 3.51 L 3.80-5.11 10^6/uL Hemoglobin 10.4 L 11.5-16.0 g/dL Hematocrit 33 L 35-52 % Mean Corpuscular Volume 94 80-99 fL Mean Corpuscular Hemoglobin 30 25-34 pg Mean Corpuscular Hemoglobin Concent 32 32-36 g/dL Red Cell Distribution Width 16.5 H 10.0-14.5 % Platelet Count 155 130-400 10^3/uL Mean Platelet Volume 10.2 9.0-12.2 fL Immature Granulocyte % (Auto) 2 % Neutrophils (%) (Auto) 50 42-75 % Lymphocytes (%) (Auto) 13 12-44 % Monocytes (%) (Auto) 34 H 0-12 % Eosinophils (%) (Auto) 1 0-10 % Basophils (%) (Auto) 0 0-10 % Neutrophils # (Auto) 3.0 1.8-7.8 10^3/uL Lymphocytes # (Auto) 0.8 L 1.0-4.0 10^3/uL Monocytes # (Auto) 2.0 H 0.0-1.0 10^3/uL Eosinophils # (Auto) 0.0 0.0-0.3 10^3/uL Basophils # (Auto) 0.0 0.0-0.1 10^3/uL Immature Granulocyte # (Auto) 0.1 0.0-0.1 10^3/uL Neutrophils % (Manual) 59 % Lymphocytes % (Manual) 9 % Monocytes % (Manual) 32 % Eosinophils % (Manual) 0 % Basophils % (Manual) 0 % Band Neutrophils 0 % Blood Morphology Comment NORMAL Sodium Level 143 135-145 MMOL/L Potassium Level 3.8 3.6-5.0 MMOL/L Chloride Level 110 H 98-107 MMOL/L Carbon Dioxide Level 24 21-32 MMOL/L Anion Gap 9 5-14 MMOL/L Blood Urea Nitrogen 9 7-18 MG/DL Creatinine 0.67 0.60-1.30 MG/DL Estimat Glomerular Filtration Rate 88 BUN/Creatinine Ratio 13 Glucose Level 154 H 70-105 MG/DL Calcium Level 7.6 L 8.5-10.1 MG/DL Troponin I < 0.028 <0.028 NG/ML B-Type Natriuretic Peptide 24.8 <100.0 PG/ML Thyroid Stimulating Hormone (TSH) 0.82 0.35-4.94 UIU/ML My Orders Orders - DELFINA NESS MD Ekg Tracing (02/21/23 08:30) Fentanyl Inj (Sublimaze Injection) (02/21/23 08:30) Ed Iv/Invasive Line Start (02/21/23 08:41) Cbc With Automated Diff (02/21/23 08:41) Basic Metabolic Panel (02/21/23 08:41) Troponin I Eri (02/21/23 08:41) Manual Differential (02/21/23 08:23) Bnp [place] (02/21/23 09:42) Medications Given in ED Current Medications Medications Dose Ordered Sig/Keri Route Start Time Stop Time Status Last Admin Dose Admin Fentanyl Citrate 50 mcg ONCE ONCE IVP 02/21/23 08:30 02/21/23 08:31 DC 02/21/23 08:50 50 MCG Vital Signs/I&O 02/21/23 08:10 Temp 35.9 Pulse 91 Resp 29 B/P (MAP) 133/70 (91) Pulse Ox 98 O2 Delivery Room Air Capillary Refill : Progress Note : Time: 10:47 Progress Note Patient seen and evaluated by me. Evaluation today includes physical exam, EKG, CBC, chemistry, troponin, BNP and TSH. Physical exam pertinent for well- developed well-nourished 82-year-old female in moderate distress due to right- sided neck pain. Patient is very tender over the right sternocleidomastoid and posterior. Also tender down into the suprasternal notch area. No overlying rashes. No swelling. Patient manifests discomfort with range of motion of the right shoulder. Distal neurovascularly intact to the right upper extremity. No swelling in the right upper extremity. Lungs are clear, heart is regular slightly tachycardic. Abdomen is soft. No lower extremity edema, calf tenderness. No focal neurologic deficits. Differential diagnosis based on history and physical, atypical presentation of acute coronary syndrome, pulmonary embolism, musculoskeletal pain Labs reviewed and interpreted by me, normal CBC, normal chemistry negative troponin, normal BNP and TSH. EKG sinus tachycardia with occasional PVCs at [address] segment elevation or depression. Patient is treated in the emergency department with fentanyl IV and achieved complete relief of symptoms. She was also seen by Dr. Zina Martinez one of our hospitalist who concurred with my evaluation and exam. She had recommended the BNP and TSH. We will send the patient home with a little Flexeril. Close follow-up with her primary care physician, Dr. Kaur. She is scheduled for stress echocardiogram in the next few days. No indications at this time of acute coronary syndrome. Her troponin is negative and she had ongoing pain for greater than 6 hours. She did have an extensive work-up on Saturday with CT angiogram which was negative for pulmonary embolism. I do not suspect that she has developed 1 in the interim. She is quite tender to palpation making musculoskeletal pain the most likely etiology. Patient is comfortable with discharged home. All questions are sought and answered. ECG Initial ECG Impression Date: February 21, 2023 Initial ECG Impression Time: 08:35 Initial ECG Rate: 99 Initial ECG Rhythm: S.Tach Initial ECG Intervals: Normal Initial ECG Impression: Nonspecific Changes Departure Impression Primary Impression: Musculoskeletal neck pain Disposition: HOME, SELF-CARE Condition: Improved Departure-Patient Inst. Decision time for Depature: 10:51 Referrals: JAREN KAUR DO (PCP/Family) Primary Care Physician Patient Instructions: Neck Pain ED Add. Discharge Instructions: Continue your daily medications as prescribed. I have added Flexeril to your medications. You can take 1/2 tablet to 1 full tablet every 8 hours as needed for muscle/neck pain. If you develop a fever, productive cough, worsening shortness of breath or any other emergent, concerning symptoms please return to the emergency room for reevaluation. Please follow-up with Dr. Kaur as scheduled as well as with your stress test. Scripts Cyclobenzaprine HCl (Cyclobenzaprine HCl) 10 Mg Tablet 10 MG PO Q8H PRN for SPASMS, #15 TAB 0 Refills 1/2 to 1 tablet every 8 hours as needed for neck pain. Prov: DELFINA NESS MD 02/21/23 Copy Copies To 1: JAREN KAUR KATHRYN M MD February 21, 2023 08:30
[2023-02-21 08:48] LABS: BASOPHILS % (AUTO) 0 % (0-10); EOSINOPHILS % (AUTO) 1 % (0-10); HEMATOCRIT 33 % (35-52); HEMOGLOBIN 10.4 g/dL (11.5-16.0); LYMPHOCYTES # (AUTO) 0.8 10^3/uL (1.0-4.0); LYMPHOCYTES % (AUTO) 13 % (12-44); MEAN CORPUSCULAR HEMOGLOBIN 30 pg (25-34); MEAN CORPUSCULAR HGB CONC 32 g/dL (32-36); MEAN CORPUSCULAR VOLUME 94 fL (80-99); MEAN PLATELET VOLUME 10.2 fL (9.0-12.2); MONOCYTES % (AUTO) 34 % (0-12); NEUTROPHILS % (AUTO) 50 % (42-75); PLATELET COUNT 155 10^3/uL (130-400)
[2023-02-21 08:52] LABS: CHLORIDE 110 MMOL/L (98-107); POTASSIUM 3.8 MMOL/L (3.6-5.0); SODIUM 143 MMOL/L (135-145)
[2023-02-21 08:53] LABS: CALCIUM 7.6 MG/DL (8.5-10.1); GLUCOSE 154 MG/DL (70-105)
[2023-02-21 08:55] LABS: CARBON DIOXIDE 24 MMOL/L (21-32)
[2023-02-21 08:57] LABS: CREATININE SERUM 0.67 MG/DL (0.60-1.30); GFR ESTIMATED 88
[2023-02-21 08:58] LABS: BUN/CREATININE RATIO 13
[2023-02-21 09:31] LABS: BAND NEUTROPHILS 0 %; BASOPHILS % (MANUAL) 0 %; EOSINOPHILS % (MANUAL) 0 %; LYMPHOCYTES % (MANUAL) 9 %; MONOCYTES % (MANUAL) 32 %; NEUTROPHILS % (MANUAL) 59 %
[2023-02-21 09:32] LABS: RBC MORPH NORMAL
[2023-02-21] MEDS ORDERED: CYCL10TA25 PO (10:52)
[2023-02-21 10:59] VITALS: BP 112/66
== END 2023-02-21 11:05 | disposition home or self-care (01) ==
LOC: EDUNIT# 08:13 → ER 08:15
DX: M54.2 Cervicalgia (principal); R07.89 Other chest pain; R00.0 Tachycardia, unspecified; C50.919 Malignant neoplasm of unspecified site of unspecified female breast
CPT/HCPCS: 36415; 80048; 83880; 84443; 84484; 85007; 85027; 93005; 96374

== ENCOUNTER → 2023-02-22 | Outpatient (CLI) | payer MEDICARE, OTHER ==
[~2023-02-22] MED LIST changes: +REGADENOSON 0.4 MG/5 ML SYR (LEXISCAN) IV ONE
[2023-02-22] MEDS: CATHETER FLUSH 10 ML SYR IVP PRN ×2 (07:16→08:07)
[2023-02-22 08:03] VITALS: BP 124/73
--- NOTE | 2023-02-22 09:24 | Cardiology Stress Test Report ---
Stress Test Report Date of Procedure/Referring: Date of Procedure: February 22, 2023 PCP Luke Cavazos DO Admitting Physician Admitting Physician: Attending Physician: Luke Cavazos DO Baseline Vital Signs Vital Signs Date Time Temp Pulse Resp B/P (MAP) Pulse Ox O2 Delivery O2 Flow Rate FiO2 02/22/23 08:03 105 124/73 (90) Summary: Patient receive a resting and stress dose of Myoview, images were acquired and reviewed in the short axis view, horizontal long axis view and vertical long axis view. TID: 1.12 SSS: 3 SDS: 3 EF: 50 No significant ischemia or infarction noted on SPECT images Normal left ventricular size, ejection fraction 50% RILEY COONEY MD February 22, 2023 09:24
== END ==
LOC: CARD 06:32
PROVIDERS: ATTEND Internal Medicine
DX: R06.09 Other forms of dyspnea (principal); R00.0 Tachycardia, unspecified; E03.8 Other specified hypothyroidism
CPT/HCPCS: 78452; 93017; A9502

== ENCOUNTER → 2023-04-01 | Outpatient (CLI) | payer MEDICARE, OTHER ==
[~2023-04-01] VITALS: Ht 160 cm; Wt 60.9 kg
[2023-04-01] VITALS (12 sets, daily range): BP systolic 109–153; BP diastolic 59–80
[~2023-04-01] MED LIST changes: +HYDROcodone/APAP 5 MG/325 MG (LORTAB) TAB PO PRN; +LIDOCAINE 1% INJ 10 ML VIAL INJ ONE; +MIDAZOLAM 2 MG/2 ML (VERSED) VIAL IVP ONE; +NS IV 1000 ML 1,000 ML IV STA; -REGADENOSON 0.4 MG/5 ML SYR (LEXISCAN) IV ONE; +fentaNYL INJ 100 MCG/2 ML AMP IVP ONE
[2023-04-01 09:18] LABS: HEMATOCRIT 30 % (35-52); HEMOGLOBIN 9.5 g/dL (11.5-16.0); MEAN CORPUSCULAR HEMOGLOBIN 28 pg (25-34); MEAN CORPUSCULAR HGB CONC 31 g/dL (32-36); MEAN CORPUSCULAR VOLUME 91 fL (80-99); MEAN PLATELET VOLUME 10.1 fL (9.0-12.2); PLATELET COUNT 169 10^3/uL (130-400); WHITE BLOOD COUNT 4.9 10^3/uL (4.3-11.0)
[2023-04-01 09:25] LABS: INR 1.1 (0.8-1.4); PROTHROMBIN TIME PATIENT 14.6 SEC (12.2-14.7)
--- NOTE | 2023-04-01 11:14 | Diagnostic Imaging Report ---
INDICATION: Liver mass and abnormal PET/CT study. Patient presents for CT-guided liver mass biopsy. TECHNIQUE: All CT scans use one or more of the following dose optimizing techniques: automated exposure control, MA and/or KvP adjustment based on patient size and exam type or iterative reconstruction. Patient brought to the CT suite placed on table in the supine position. Axial imaging through the abdomen was performed to evaluate appropriate entry site. The procedure was performed utilizing conscious sedation with radiology nursing and constant nursing monitoring. Patient was administered total of 50 mg of Fentanyl intravenously. Total procedure time approximately 6 minutes. 18-gauge coaxial Temno needle was advanced from a right lateral abdominal approach and placed with its tip into the large area of low attenuation in the inferior right lobe of the liver. 4 core biopsies were obtained. A blood patch was injected during needle removal. Hemostasis was obtained using manual compression. Follow-up imaging shows no complicating features. Patient tolerated procedure well and left the Department in stable condition. IMPRESSION: Successful CT-guided biopsy of the right lobe of the liver mass utilizing conscious sedation. Pathology results are currently pending. Dictated by: Dictated on workstation # [id number]
--- NOTE | 2023-04-01 13:32 | Pre-Op Note & Conscious Sedat ---
Pre-Operative Progress Note Date of Available H&P: Apr 01, 2023 Date H&P Reviewed: Apr 01, 2023 Time H&P Reviewed: 09:00 Pre-Op Diagnosis: liver mass Moderate Sedation PreProcedure Time 09:00 ASA Score 2 Airway Lungs Heart ASA score ASA 1: a normal healthy patient ASA 2: a patient with a mild systemic disease (mid diabetes, controlled hypertension, obesity ASA 3: a patient with a severe systemic disease that limits activity (angina, COPD, prior Myocardial infarction) ASA 4: a patient with an incapacitating disease that is a constant threat to life (CHF, renal failure) ASA 5: a moribund patient not expected to survive 24 hrs. (ruptured aneurysm) ASA 6: a declared brain- patient whose organs are being harvested. For emergent operations, add the letter E after the classification Mallampati Classification Grade 2 Sedation Plan Analgesia, Amnesia, Plan communicated to team members, Discussed options with patient/fam, Discussed risks with patient/fam The patient is an appropriate candidate to undergo the planned procedure, sedation, and anesthesia. The patient immediately re-assessed prior to indication. WAQAR TADEO MD Apr 01, 2023 13:32
== END ==
LOC: SDC 08:16
PROVIDERS: ATTEND Nurse Practitioner Adult Health
DX: C78.7 Secondary malignant neoplasm of liver and intrahepatic bile duct (principal)
CPT/HCPCS: 36415; 77012; 85027; 85610; 85730; 99156

== ENCOUNTER 2023-04-02 12:18 | Emergency (ER) | payer MEDICARE, OTHER ==
[~2023-04-02] VITALS: Ht 160 cm; Wt 60.0 kg
[~2023-04-02 12:18] MED LIST changes: -HYDROcodone/APAP 5 MG/325 MG (LORTAB) TAB PO PRN; -LIDOCAINE 1% INJ 10 ML VIAL INJ ONE; -MIDAZOLAM 2 MG/2 ML (VERSED) VIAL IVP ONE; -NS IV 1000 ML 1,000 ML IV STA; -fentaNYL INJ 100 MCG/2 ML AMP IVP ONE
--- NOTE | 2023-04-02 13:22 | ED General ---
General Chief Complaint: Dizziness/Syncope Stated Complaint: POST BIOPSY | DIZZY Nursing Triage Note: WOKE UP THIS AM AT 0730 WITH DIZZINESS AND NAUSEA. LIVER BX YESTERDAY. 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 Patient states this morning when she woke up she felt dizzy lightheaded and nauseous. She feels a little better at this time. Yesterday she had a liver biopsy performed by Dr. Kraus. She did receive Valium and fentanyl yesterday. Did not eat as much last night. She states she stopped chemo 2 weeks ago. Currently following Dr. Rosa. She has some generalized weakness and fatigue but denies of any specific pain such as chest pain, shortness of breath, abdominal pain vomit, diarrhea, headache. She denies history of coronary artery disease, CHF, diabetes. Here with family. Denies of any focal neural deficits (LEONEL NAIDU) Allergies and Home Medications Allergies Coded Allergies: thiopental (Verified Allergy, Unknown, 01/30/18) Patient Home Medication List Home Medication List Reviewed: Yes (LEONEL NAIDU) Alprazolam (Xanax) 0.25 Mg Tablet, 0.25 MG PO TID PRN for ANXIETY, (Reported) Entered as Reported by: JUAN BLACKMAN on 11/26/19 1009 Cyclobenzaprine HCl (Cyclobenzaprine HCl) 10 Mg Tablet, 10 MG PO Q8H PRN for SPASMS Prescribed by: DELFINA NESS on 02/21/23 1052 Gabapentin (Gabapentin) 100 Mg Capsule, 200 MG PO HS, (Reported) Entered as Reported by: JUAN BLACKMAN on 11/26/19 1005 Levothyroxine Sodium (Levothyroxine Sodium) 175 Mcg Tablet, 175 MCG PO DAILY, (Reported) Entered as Reported by: JUAN BLACKMAN on 11/26/19 1005 Linaclotide (Linzess) 72 Mcg Capsule, 72 MCG PO DAILY PRN for CONSTIPATION-1ST LINE, (Reported) Entered as Reported by: JUAN BLACKMAN on 11/26/19 1005 Ondansetron (Ondansetron Odt) 8 Mg Tab.rapdis, 8 MG PO Q6H PRN for NAUSEA/VOMITING, (Reported) Entered as Reported by: JUAN BLACKMAN on 11/26/19 1005 Ondansetron (Ondansetron Odt) 4 Mg Tab.rapdis, 4 MG PO Q6H PRN for NAUSEA/VOMITING-1ST LINE, (Reported) Entered as Reported by: JUAN BLACKMAN on 11/26/19 1005 Pantoprazole Sodium (Protonix) 40 Mg Tablet.dr, 40 MG PO DAILY Prescribed by: CARLOS MEDRANO on 12/01/19 0814 Zolpidem Tartrate (Zolpidem Tartrate) 10 Mg Tablet, 10 MG PO HS, (Reported) Entered as Reported by: JUAN BLACKMAN on 11/26/19 1005 Review of Systems Review of Systems Constitutional: No chills, No diaphoresis; dizziness; No fever; malaise, weakness EENTM: No hearing loss, No ear pain, No blurred vision Respiratory: No cough, No dyspnea on exertion Cardiovascular: No chest pain Gastrointestinal: No abdominal pain, No diarrhea, No nausea, No vomiting Genitourinary: No decreased output, No discharge Musculoskeletal: No back pain, No joint pain Skin: No see HPI, No change in hair/nails (LEONEL NAIDU) All Other Systems Reviewed Negative Unless Noted: Yes (LEONEL NAIDU) Past Zkbypap-Tdjgip-Yjivgt Hx Patient Social History Tobacco Use?: No Substance use?: No Alcohol Use?: No (LEONEL NAIDU) Immunizations Up To Date Tetanus Booster (TDap): Unknown First/Initial COVID19 Vaccinat: 2020 Second COVID19 Vaccination [place]: 2020 Third COVID19 Vaccination Date: 2020 (LEONEL NAIDU) Seasonal Allergies Seasonal Allergies: No (LEONEL NAIDU) Past Medical History Surgery/Hospitalization HX: hx of bone CA Surgeries: Yes (BACK SURGERY 03/19/14--VERTEBROPLASTY, LUMPECTOMY/LYMPH NODE DISSECTION) Appendectomy, Breast, Gallbladder, 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, Orthopedic, Tonsillectomy Respiratory: No Currently Using CPAP: No Currently Using BIPAP: No Cardiac: Yes Hypotension Neurological: No Reproductive Disorders: No 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 Sexually Transmitted Disease: No HIV/AIDS: No Genitourinary: Yes Kidney Stones, UTI-Chronic Gastrointestinal: Yes (NAUSEA) Gastroesophageal Reflux, Chronic Constipation, Diverticulosis, Ulcer Musculoskeletal: Yes (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) Arthritis, Fractures Endocrine: Yes Hypothyroidsim HEENT: Yes (DETACHED [place]) Cataract Loss of Vision: Denies Hearing Impairment: Denies Cancer: Yes (LEFT) Bone, Skin, Breast Did You Recieve Any Treatments: Yes What Type of Treatment Did You: Chemotherapy, Surgical Intervention, Other Psychosocial: Yes Anxiety Integumentary: No Blood Disorders: No Adverse Reaction/Blood Tranf: No (N/A) (LEONEL NAIDU) Family Medical History Abdominal aortic aneurysm 19 MOTHER Alcoholism Arthritis 19 MOTHER Headache disorder 19 MOTHER G8 BROTHER G8 SISTER Hypertension SONS No Pertinent Family Hx (LEONEL NAIDU) Physical Exam Vital Signs Vital Signs - First Documented 04/02/23 12:28 Temp 36.4 Pulse 98 Resp 16 B/P (MAP) 113/62 (79) Pulse Ox 96 O2 Delivery Room Air (MATIAS CIFUENTES MD) Vital Signs Capillary Refill : Less Than 3 Seconds (LEONEL NAIDU) Height, Weight, BMI Height: 5'3.00" Weight: 133lbs. 0.0oz. [id number]; 23.00 BMI Method:Stated General Appearance: No Apparent Distress, WD/WN Eyes: Bilateral Eye Normal Inspection, Bilateral Eye PERRL, Bilateral Eye EOMI HEENT: PERRL/EOMI, TMs Normal, Normal ENT Inspection, Pharynx Normal Neck: Full Range of Motion, Normal Inspection, Non Tender, Supple Respiratory: Chest Non Tender, Lungs Clear, Normal Breath Sounds, No Accessory Muscle Use, No Respiratory Distress Cardiovascular: Regular Rate, Rhythm, No Edema, No Gallop, No JVD, No Murmur Gastrointestinal: Normal Bowel Sounds, No Organomegaly, No Pulsatile Mass Back: Normal Inspection, No CVA Tenderness, No Vertebral Tenderness Extremity: Normal Capillary Refill, Normal Inspection Neurologic/Psychiatric: Alert, Oriented x3, No Motor/Sensory Deficits, Normal 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/Affect, 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 Norm as Tested Skin: Normal Color, Warm/Dry (LEONEL NAIDU) Progress/Results/Core Measures Suspected Sepsis SIRS Temperature: Pulse: 98 Respiratory Rate: 16 Laboratory Tests 04/02/23 13:24: White Blood Count 5.6 Blood Pressure 113 /62 Mean: 79 Laboratory Tests 04/02/23 13:24: Creatinine 0.72, Platelet Count 162, Total Bilirubin 0.4 (LEONEL NAIDU) Results/Orders Lab Results Laboratory Tests Test 04/02/23 13:24 04/02/23 14:22 Range/Units White Blood Count 5.6 4.3-11.0 10^3/uL Red Blood Count 3.53 L 3.80-5.11 10^6/uL Hemoglobin 9.8 L 11.5-16.0 g/dL Hematocrit 33 L 35-52 % Mean Corpuscular Volume 94 80-99 fL Mean Corpuscular Hemoglobin 28 25-34 pg Mean Corpuscular Hemoglobin Concent 30 L 32-36 g/dL Red Cell Distribution Width 16.1 H 10.0-14.5 % Platelet Count 162 130-400 10^3/uL Mean Platelet Volume 10.7 9.0-12.2 fL Immature Granulocyte % (Auto) 1 % Neutrophils (%) (Auto) 64 42-75 % Lymphocytes (%) (Auto) 10 L 12-44 % Monocytes (%) (Auto) 23 H 0-12 % Eosinophils (%) (Auto) 1 0-10 % Basophils (%) (Auto) 0 0-10 % Neutrophils # (Auto) 3.6 1.8-7.8 10^3/uL Lymphocytes # (Auto) 0.5 L 1.0-4.0 10^3/uL Monocytes # (Auto) 1.3 H 0.0-1.0 10^3/uL Eosinophils # (Auto) 0.1 0.0-0.3 10^3/uL Basophils # (Auto) 0.0 0.0-0.1 10^3/uL Immature Granulocyte # (Auto) 0.1 0.0-0.1 10^3/uL Neutrophils % (Manual) 72 % Lymphocytes % (Manual) 11 % Monocytes % (Manual) 16 % Eosinophils % (Manual) 0 % Basophils % (Manual) 0 % Band Neutrophils 1 % Anisocytosis SLIGHT Sodium Level 141 135-145 MMOL/L Potassium Level 4.0 3.6-5.0 MMOL/L Chloride Level 106 98-107 MMOL/L Carbon Dioxide Level 24 21-32 MMOL/L Anion Gap 11 5-14 MMOL/L Blood Urea Nitrogen 11 7-18 MG/DL Creatinine 0.72 0.60-1.30 MG/DL Estimat Glomerular Filtration Rate 84 BUN/Creatinine Ratio 15 Glucose Level 105 70-105 MG/DL Calcium Level 8.6 8.5-10.1 MG/DL Corrected Calcium 9.2 8.5-10.1 MG/DL Total Bilirubin 0.4 0.1-1.0 MG/DL Aspartate Amino Transf (AST/SGOT) 38 H 5-34 U/L Alanine Aminotransferase (ALT/SGPT) 18 0-55 U/L Alkaline Phosphatase 266 H 40-136 U/L Total Protein 6.0 L 6.4-8.2 GM/DL Albumin 3.2 3.2-4.5 GM/DL Urine Color YELLOW Urine Clarity CLEAR Urine pH 6.0 5-9 Urine Specific [place] 1.010 L 1.016-1.022 Urine Protein NEGATIVE NEGATIVE Urine Glucose (UA) NEGATIVE NEGATIVE Urine Ketones NEGATIVE NEGATIVE Urine Nitrite NEGATIVE NEGATIVE Urine Bilirubin NEGATIVE NEGATIVE Urine Urobilinogen 0.2 < = 1.0 MG/DL Urine Leukocyte Esterase NEGATIVE NEGATIVE Urine RBC (Auto) 1+ H NEGATIVE Urine RBC 2-5 H /HPF Urine WBC RARE /HPF Urine Squamous Epithelial Cells RARE /HPF Urine Crystals NONE /LPF Urine Bacteria NEGATIVE /HPF Urine Casts NONE /LPF Urine Mucus SMALL H /LPF Urine Culture Indicated NO (MATIAS CIFUENTES MD) My Orders Orders - MATIAS CIFUENTES MD Ed Iv/Invasive Line Start (04/02/23 12:31) Ekg Tracing (04/02/23 12:31) Monitor-Rhythm Ecg Trace Only (04/02/23 12:31) Orthostatic Vital Signs (Adult (04/02/23 12:31) Cbc With Automated Diff (04/02/23 12:31) Comprehensive Metabolic Panel (04/02/23 12:31) Manual Differential (04/02/23 13:24) (MATIAS CIFUENTES MD) Vital Signs/I&O 04/02/23 04/02/23 04/02/23 04/02/23 12:28 13:26 15:48 16:50 Temp 36.4 Pulse 98 87 92 92 96 97 94 100 Resp 16 16 B/P (MAP) 113/62 (79) 129/72 (91) 126/64 (84) 134/74 126/65 (85) 117/67 (84) 98/62 (74) 107/65 (79) Pulse Ox 96 96 O2 Delivery Room Air Room Air (MATIAS CIFUENTES MD) Vital Signs/I&O Capillary Refill : Less Than 3 Seconds (LEONEL NAIDU) Blood Pressure Mean: 79 Departure Communication (PCP) Patient with a history of breast cancer had a liver biopsy performed yesterday. This morning she woke up felt dizzy when she stood up with nausea. She states she does not feel well. No vomiting, diarrhea, cough, fever, chills, sore throat, ear pain, dysuria. CBC, CMP, EKG, orthostatic blood pressures were obtained. She states she was n.p.o. yesterday before the procedure. She does have a soft abdomen with healing surgical wound. She is afebrile with stable vital signs. EKG showed sinus rhythm with [address] elevation or depression. Started on a liter of fluid. She was orthostatic hypotensive and became dizzy with a blood pressure from the 120s systolic to 90s. CBC, CMP was grossly unremarkable. Stable hemoglobin 9.8. Normal white blood count. Urinalysis with hematuria without evidence of infection. Patient does not appear toxic or septic. After liter fluid recheck of her orthostatics and she was still slightly orthostatic. She did receive a bolus of 500 mils of normal saline. After the second bag of fluid she was able to stand without feeling diz zy felt much better and would like to be discharged. Concerning that she was dehydrated from n.p.o. from the procedure yesterday on top of the Valium and fentanyl that she received. She did not eat as much yesterday. She does not appear toxic or septic. She feeling much better. Recommend follow-up your PCP in 1 to 2 days for reevaluation. Stressed the importance of hydration. If any worsening symptoms such as dizziness to return back to ED (LEONEL NAIDU) Impression Primary Impression: Dizziness Additional Impression: Orthostatic hypotension Disposition: 01 HOME, SELF-CARE Condition: Stable Departure-Patient Inst. Decision time for Depature: 16:34 (LEONEL NAIDU) Referrals: JAREN KAUR DO (PCP/Family) Primary Care Physician Patient Instructions: Orthostatic Hypotension (DC) Add. Discharge Instructions: Recommend staying hydrated. Recommend eating. Follow-up your PCP in 1 to 2 days for reevaluation. If any worsening symptoms such as dizziness or syncope to return back to ED All discharge instructions reviewed with patient and/or family. Voiced understanding. ATTENDING PHYSICIAN NOTE: I was physically present as attending physician in the emergency department during the care of this patient, but I was not directly involved in the decision making or delivery of care for this patient. (MATIAS CIFUENTES MD) LEONEL NAIDU Apr 02, 2023 13:22 MATIAS CIFUENTES MD Apr 02, 2023 20:50
[2023-04-02 13:26] VITALS: BP_SYST 126; BP_SYST 129; BP_SYST 98; BP_DIAS 62; BP_DIAS 65; BP_DIAS 72
[2023-04-02 13:31] LABS: BASOPHILS % (AUTO) 0 % (0-10); EOSINOPHILS # (AUTO) 0.1 10^3/uL (0.0-0.3); EOSINOPHILS % (AUTO) 1 % (0-10); HEMATOCRIT 33 % (35-52); HEMOGLOBIN 9.8 g/dL (11.5-16.0); LYMPHOCYTES # (AUTO) 0.5 10^3/uL (1.0-4.0); LYMPHOCYTES % (AUTO) 10 % (12-44); MEAN CORPUSCULAR HEMOGLOBIN 28 pg (25-34); MEAN CORPUSCULAR HGB CONC 30 g/dL (32-36); MEAN CORPUSCULAR VOLUME 94 fL (80-99); MEAN PLATELET VOLUME 10.7 fL (9.0-12.2); MONOCYTES # (AUTO) 1.3 10^3/uL (0.0-1.0); MONOCYTES % (AUTO) 23 % (0-12); NEUTROPHILS # (AUTO) 3.6 10^3/uL (1.8-7.8); NEUTROPHILS % (AUTO) 64 % (42-75); PLATELET COUNT 162 10^3/uL (130-400); WHITE BLOOD COUNT 5.6 10^3/uL (4.3-11.0)
[2023-04-02] MEDS ORDERED: NS IV 1000 ML 1,000 ML IV STA (13:33)
[2023-04-02 13:46] LABS: ALBUMIN 3.2 GM/DL (3.2-4.5)
[2023-04-02 13:48] LABS: CALCIUM 8.6 MG/DL (8.5-10.1)
[2023-04-02 13:51] LABS: BILIRUBIN,TOTAL 0.4 MG/DL (0.1-1.0)
[2023-04-02 13:53] LABS: CREATININE SERUM 0.72 MG/DL (0.60-1.30)
[2023-04-02 14:04] LABS: ANISOCYTOSIS SLIGHT; BAND NEUTROPHILS 1 %; BASOPHILS % (MANUAL) 0 %; EOSINOPHILS % (MANUAL) 0 %; LYMPHOCYTES % (MANUAL) 11 %; MONOCYTES % (MANUAL) 16 %; NEUTROPHILS % (MANUAL) 72 %
[2023-04-02 14:52] LABS: BILIRUBIN,URINE NEGATIVE (NEGATIVE); CLARITY,URINE CLEAR; COLOR,URINE YELLOW; GLUCOSE, URINE (UA) NEGATIVE (NEGATIVE); KETONES,URINE NEGATIVE (NEGATIVE); LEUKOCYTE ESTERASE ,URINE NEGATIVE (NEGATIVE); NITRITE,URINE NEGATIVE (NEGATIVE); PROTEIN,URINE NEGATIVE (NEGATIVE)
[2023-04-02 14:53] LABS: BACTERIA,URINE NEGATIVE /HPF; SQUAMOUS EPITHELIAL CELL,UR RARE /HPF
[2023-04-02 14:55] LABS: WBC,URINE RARE /HPF
[2023-04-02] MEDS ORDERED: NS IV 500 ML 500 ML IV STA (15:37)
[2023-04-02 15:48] VITALS: BP_SYST 107; BP_SYST 117; BP_SYST 126; BP_DIAS 64; BP_DIAS 65; BP_DIAS 67
[2023-04-02 16:50] VITALS: BP 134/74
== END 2023-04-02 16:50 | disposition home or self-care (01) ==
LOC: EDUNIT# 12:18 → ER 12:20
DX: I95.1 Orthostatic hypotension (principal); R31.9 Hematuria, unspecified; Z85.3 Personal history of malignant neoplasm of breast; Z85.05 Personal history of malignant neoplasm of liver
CPT/HCPCS: 36415; 80053; 81000; 85007; 85027; 93005; 93041

== ENCOUNTER 2023-04-11 11:04 | Emergency (ER) | payer MEDICARE, OTHER ==
[~2023-04-11] VITALS: Ht 167.7 cm; Wt 60.0 kg
[2023-04-11] MEDS ORDERED: ONDANSETRON 4 MG/2 ML (SDV) Z0FRAN IVP ONE (11:30)
[2023-04-11] MEDS ORDERED: NS IV 1000 ML 1,000 ML IV SCH (11:30)
--- NOTE | 2023-04-11 11:36 | ED Syncope ---
General Chief Complaint: Dizziness/Syncope Stated Complaint: DIZZY | UPSET STOMACH Nursing Triage Note: DIZZINESS WITH MOVEMENT. Source of Information: Patient Exam Limitations: No Limitations History of Present Illness Date Seen by Provider: Apr 11, 2023 Time Seen by Provider: 11:12 Initial Comments 82-year-old female presents to the ER with complaints of dizziness for the last 2 weeks. She describes the dizziness as the room is spinning. She was seen here on 04/02/2023 for similar complaint. During that visit she was found to have orthostatic hypotension, and her symptoms improved after IV fluids. Family reports that patient has not been drinking enough water. She states that the dizziness is intermittent, mostly occurs when she first gets up. Also reports intermittent shortness of air, states that the shortness of air occurs with the dizziness. Denies fevers, cough, chest pain, abdominal pain, dysuria. Does report nausea, no vomiting. She has a past medical history of breast cancer with mets to the bones and liver. She had a liver biopsy last Saturday, 03/08, she is supposed to see Dr. Marie, oncology, today and get the results of the biopsy. Her last chemotherapy was approximately 3 to 4 weeks ago. Allergies and Home Medications Allergies Coded Allergies: thiopental (Verified Allergy, Unknown, 01/30/18) Patient Home Medication List Home Medication List Reviewed: Yes Alprazolam (Xanax) 0.25 Mg Tablet, 0.25 MG PO TID PRN for ANXIETY, (Reported) Entered as Reported by: JUAN BLACKMAN on 11/26/19 1009 Cyclobenzaprine HCl (Cyclobenzaprine HCl) 10 Mg Tablet, 10 MG PO Q8H PRN for SPASMS Prescribed by: DELFINA NESS on 02/21/23 1052 Gabapentin (Gabapentin) 100 Mg Capsule, 200 MG PO HS, (Reported) Entered as Reported by: JUAN BLACKMAN on 11/26/19 1005 Levothyroxine Sodium (Levothyroxine Sodium) 175 Mcg Tablet, 175 MCG PO DAILY, (Reported) Entered as Reported by: JUAN BLACKMAN on 11/26/19 1005 Linaclotide (Linzess) 72 Mcg Capsule, 72 MCG PO DAILY PRN for CONSTIPATION-1ST LINE, (Reported) Entered as Reported by: JUAN BLACKMAN on 11/26/19 1005 Meclizine HCl (Meclizine HCl) 25 Mg Tablet, 25 MG PO Q6H PRN for VERTIGO Prescribed by: Neena Martínez on 04/11/23 1310 Ondansetron (Ondansetron Odt) 8 Mg Tab.rapdis, 8 MG PO Q6H PRN for NAUSEA/VOMITING, (Reported) Entered as Reported by: JUAN BLACKMAN on 11/26/19 1005 Ondansetron (Ondansetron Odt) 4 Mg Tab.rapdis, 4 MG PO Q6H PRN for NAUSEA/VOMITING-1ST LINE, (Reported) Entered as Reported by: JUAN BLACKMAN on 11/26/19 1005 Pantoprazole Sodium (Protonix) 40 Mg Tablet.dr, 40 MG PO DAILY Prescribed by: CARLOS MEDRANO on 12/01/19 0814 Zolpidem Tartrate (Zolpidem Tartrate) 10 Mg Tablet, 10 MG PO HS, (Reported) Entered as Reported by: JUAN BLACKMAN on 11/26/19 1005 Review of Systems Constitutional: see HPI Past Vfobbjk-Luzscj-Ogalrt Hx Patient Social History Tobacco Use?: No Use of E-Cig and/or Vaping dev: No Substance use?: No Alcohol Use?: No Pt feels they are or have been: No Immunizations Up To Date Tetanus Booster (TDap): Unknown Influenza Vaccine Up-to-Date: Yes; Up-to-Date First/Initial COVID19 Vaccinat: 2020 Second COVID19 Vaccination [place]: 2020 Third COVID19 Vaccination Date: 2020 Seasonal Allergies Seasonal Allergies: No Past Medical History Surgery/Hospitalization HX: THYROID, SURG: LIVER BX, APPENDECTOMY, CHOLECYSTECTOMY, TONSILS, TOTAL HYSTERECTOMY hx of bone CA Surgeries: Yes (BACK SURGERY 03/19/14--VERTEBROPLASTY, LUMPECTOMY/LYMPH NODE DISSECTION) Appendectomy, Breast, Gallbladder, 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, Orthopedic, Tonsillectomy Respiratory: No Currently Using CPAP: No Currently Using BIPAP: No Cardiac: Yes Hypotension Neurological: No Reproductive Disorders: No [employer]IST History: 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 Sexually Transmitted Disease: No HIV/AIDS: No Genitourinary: Yes Kidney Stones, UTI-Chronic Gastrointestinal: Yes (NAUSEA) Gastroesophageal Reflux, Chronic Constipation, Diverticulosis, Ulcer Musculoskeletal: Yes (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) Arthritis, Fractures Endocrine: Yes Hypothyroidsim HEENT: Yes (DETACHED [place]) Cataract Loss of Vision: Denies Hearing Impairment: Denies Cancer: Yes (LEFT) Bone, Skin, Breast Did You Recieve Any Treatments: Yes What Type of Treatment Did You: Chemotherapy, Surgical Intervention, Other Psychosocial: Yes Anxiety Integumentary: No Blood Disorders: No Adverse Reaction/Blood Tranf: No (N/A) Family Medical History Abdominal aortic aneurysm 19 MOTHER Alcoholism Arthritis 19 MOTHER Headache disorder 19 MOTHER G8 BROTHER G8 SISTER Hypertension SONS No Pertinent Family Hx Physical Exam Vital Signs Vital Signs - First Documented 04/11/23 11:12 Temp 36.9 Pulse 101 Resp 20 B/P (MAP) 133/87 (102) Pulse Ox 96 Capillary Refill : Height, Weight, BMI Height: 5'3.00" Weight: 133lbs. 0.0oz. 60.053745ph; 21.00 BMI Method:Stated General Appearance: No Apparent Distress, WD/WN HEENT: PERRL/EOMI, TMs Normal Neck: Normal Inspection, Supple Cardiovascular: Regular Rate, Rhythm Respiratory: Lungs Clear, Normal Breath Sounds, No Accessory Muscle Use, No Respiratory Distress Extremities: Normal Inspection, Normal Range of Motion, No Pedal Edema Neurologic/Psychiatric: Alert, No Motor/Sensory Deficits (Generalized weakness, not unilateral), Normal Mood/Affect, fine patcher II-XII Norm as Tested Cranial Nerves: Normal Hearing, Normal Speech, PERRL Motor/Sensory: Weak Motor Strength LLE, Weak Motor Strength LUE, Weak Motor Strength RLE, Weak Motor Strength RUE Skin: Normal Color, Warm/Dry Progress/Results/Core Measures Results/Orders Lab Results Laboratory Tests Test 04/11/23 11:45 04/11/23 12:33 Range/Units White Blood Count 8.7 4.3-11.0 10^3/uL Red Blood Count 3.95 3.80-5.11 10^6/uL Hemoglobin 11.2 L 11.5-16.0 g/dL Hematocrit 35 35-52 % Mean Corpuscular Volume 89 80-99 fL Mean Corpuscular Hemoglobin 28 25-34 pg Mean Corpuscular Hemoglobin Concent 32 32-36 g/dL Red Cell Distribution Width 16.4 H 10.0-14.5 % Platelet Count 175 130-400 10^3/uL Mean Platelet Volume 10.8 9.0-12.2 fL Immature Granulocyte % (Auto) 1 % Neutrophils (%) (Auto) 59 42-75 % Lymphocytes (%) (Auto) 9 L 12-44 % Monocytes (%) (Auto) 30 H 0-12 % Eosinophils (%) (Auto) 1 0-10 % Basophils (%) (Auto) 0 0-10 % Neutrophils # (Auto) 5.1 1.8-7.8 10^3/uL Lymphocytes # (Auto) 0.8 L 1.0-4.0 10^3/uL Monocytes # (Auto) 2.7 H 0.0-1.0 10^3/uL Eosinophils # (Auto) 0.1 0.0-0.3 10^3/uL Basophils # (Auto) 0.0 0.0-0.1 10^3/uL Immature Granulocyte # (Auto) 0.1 0.0-0.1 10^3/uL Neutrophils % (Manual) 70 % Lymphocytes % (Manual) 7 % Monocytes % (Manual) 23 % Anisocytosis SLIGHT Sodium Level 141 135-145 MMOL/L Potassium Level 4.1 3.6-5.0 MMOL/L Chloride Level 106 98-107 MMOL/L Carbon Dioxide Level 24 21-32 MMOL/L Anion Gap 11 5-14 MMOL/L Blood Urea Nitrogen 10 7-18 MG/DL Creatinine 0.76 0.60-1.30 MG/DL Estimat Glomerular Filtration Rate 79 BUN/Creatinine Ratio 13 Glucose Level 100 70-105 MG/DL Calcium Level 8.8 8.5-10.1 MG/DL Corrected Calcium 9.5 8.5-10.1 MG/DL Magnesium Level 2.0 1.6-2.4 MG/DL Total Bilirubin 0.7 0.1-1.0 MG/DL Aspartate Amino Transf (AST/SGOT) 49 H 5-34 U/L Alanine Aminotransferase (ALT/SGPT) 17 0-55 U/L Alkaline Phosphatase 337 H 40-136 U/L Total Protein 6.3 L 6.4-8.2 GM/DL Albumin 3.1 L 3.2-4.5 GM/DL Urine Color YELLOW Urine Clarity CLEAR Urine pH 6.0 5-9 Urine Specific [place] <=1.005 1.016-1.022 Urine Protein NEGATIVE NEGATIVE Urine Glucose (UA) NEGATIVE NEGATIVE Urine Ketones NEGATIVE NEGATIVE Urine Nitrite NEGATIVE NEGATIVE Urine Bilirubin NEGATIVE NEGATIVE Urine Urobilinogen 0.2 < = 1.0 MG/DL Urine Leukocyte Esterase 1+ H NEGATIVE Urine RBC (Auto) TRACE-L H NEGATIVE Urine RBC RARE /HPF Urine WBC 2-5 /HPF Urine Crystals NONE /LPF Urine Bacteria TRACE /HPF Urine Casts NONE /LPF Urine Mucus NEGATIVE /LPF Urine Culture Indicated NO My Orders Orders - NEENA MARTÍNEZ APRN Cbc With Automated Diff (04/11/23 11:21) Magnesium (04/11/23 11:21) Chest 1 View, Ap/Pa Only (04/11/23 11:21) Ekg Tracing (04/11/23 11:21) Comprehensive Metabolic Panel (04/11/23 11:21) Ed Iv/Invasive Line Start (04/11/23 11:21) Ua Culture If Indicated (04/11/23 11:21) Orthostatic Vital Signs (Adult (04/11/23 11:21) Ns Iv 1000 Ml (Sodium Chloride 0.9%) (04/11/23 11:30) Ondansetron Injection (Zofran Injectio (04/11/23 11:30) Ct Head Wo (04/11/23 11:38) Manual Differential (04/11/23 11:45) Meclizine Tablet (Antivert Tablet) (04/11/23 12:15) Prochlorperazine Injection (Compazine In (04/11/23 13:15) Medications Given in ED Current Medications Medications Dose Ordered Sig/Keri Route Start Time Stop Time Status Last Admin Dose Admin Meclizine HCl 25 mg ONCE ONCE PO 04/11/23 12:15 04/11/23 12:16 DC 04/11/23 12:26 25 MG Ondansetron HCl 4 mg ONCE ONCE IVP 04/11/23 11:30 04/11/23 11:31 DC 04/11/23 11:34 4 MG Vital Signs/I&O 04/11/23 04/11/23 11:12 11:41 Temp 36.9 Pulse 101 96 99 107 Resp 20 B/P (MAP) 133/87 (102) 116/72 (87) 109/71 (84) 107/78 (88) Pulse Ox 96 Blood Pressure Mean: 102 Progress Progress Note : Progress Note Patient seen and evaluated, resting comfortably in bed, no acute distress. Work-up initiated including CBC, CMP, magnesium, EKG, orthostatic vitals, UA, chest x-ray. IV fluids and Zofran ordered. Considered ordering a D-dimer, deferred due to Wells score for PE only in 1 which is low risk. 1144 orthostatic vitals did not show a significant change from lying to standing. 1225 Labs and imaging reviewed. CBC shows decreased hemoglobin 11.2, this is improved from labs from last week. CMP shows slightly elevated AST 49, elevated alkaline phosphatase 337, slightly decreased total protein 6.3, slight decrease in albumin 3.1. Head CT shows no acute findings. Chest x-ray shows no acute findings. Waiting for urinalysis. 1307 Urinalysis shows 1+ leukocytes, trace RBCs, 2-5 WBCs, trace bacteria. Will not treat for urinary tract infection due low number of WBCs and lack of urinary tract infection symptoms. Results discussed with patient. Patient reports her dizziness has improved, but is still present. She would like to be discharged so that she can make her oncology appointment today. Will discharge with prescription for meclizine for vertigo. She is requesting something else for nausea, Compazine ordered. Discharge instructions and return precautions provided. Initial ECG Impression Date: Apr 11, 2023 Initial ECG Impression Time: 11:47 Initial ECG Rate: 94 Initial ECG Rhythm: Normal Sinus Initial ECG Intervals: Normal Initial ECG Impression: Nonspecific Changes Initial ECG Comparisson: Unchanged Diagnostic Imaging Diagonstic Imaging: CT Plain Films/CT/US/NM/MRI: head Comments [facility] [place] [place] NAME: EDIS ZARAGOZA [employer] REC#: [id number] PT STATUS: REG ER : 1940 PHYSICIAN: NEENA MARTÍNEZ APRN ADMIT DATE: 04/11/23/ER Signed Date of Exam:04/11/23 CT HEAD WO EXAMINATION: CT head without contrast. TECHNIQUE: Multiple contiguous axial images were obtained through the brain without the use of intravenous contrast. All CT scans use one or more of the following dose optimizing techniques: automated exposure control, MA and/or KvP adjustment based on patient size and exam type or iterative reconstruction. HISTORY: Dizziness. COMPARISON: 07/15/2018. FINDINGS: No large acute territorial ischemia, mass, or hemorrhage. No midline shift or mass effect. The ventricles, cortical sulci, and basilar cisterns are patent and unremarkable. Right-sided scleral banding is noted. Paranasal sinuses are normal. Mastoid air cells are clear. No soft tissue abnormality is seen. No osseus lesions or fractures are seen. IMPRESSION: 1. No large acute territorial ischemia, mass, or hemorrhage. Dictated by: Dictated on workstation # [id number] Dict: 04/11/23 1206 Trans: 04/11/234 Interpreted by: ESTEBAN BUTCHER DO Diagonstic Imaging: Xray Plain Films/CT/US/NM/MRI: chest Comments [facility] [place], [place] NAME: EDIS ZARAGOZA [employer] REC#: [id number] PT STATUS: REG ER : 1940 PHYSICIAN: NEENA MARTÍNEZ APRN ADMIT DATE: 04/11/23/ER Signed Date of Exam:04/11/23 CHEST 1 VIEW, AP/PA ONLY INDICATION: Chest pain and dizziness and nausea. Frontal chest obtained at 11:28 a.m. compared with 02/18/2023. FINDINGS: Port-A-Cath is unchanged. Heart is normal in size. There is no focal infiltrate or pneumothorax or pleural fluid. There is an old right clavicle fracture. There are sclerotic changes in multiple ribs as well as left humeral head, suspicious for metastatic disease. IMPRESSION: No acute infiltrate or pneumothorax or pleural fluid. Scattered sclerotic changes and multiple ribs and left humeral head compatible with metastatic disease. Dictated by: Dictated on workstation # [id number] Dict: 04/11/23 1159 Trans: 04/11/23 1215 Interpreted by: DEBRA PINZON MD Electronically signed by: DEBRA PINZON MD 04/11/23 1215 Departure Impression Primary Impression: Vertigo Disposition: 01 HOME, SELF-CARE Condition: Stable Departure-Patient Inst. Decision time for Depature: 13:09 Referrals: JAREN KAUR DO (PCP/Family) Primary Care Physician Patient Instructions: Vertigo (a Type of Dizziness) (DC) Add. Discharge Instructions: Take meclizine every 6 hours as needed for vertigo. It can make you sleepy. Follow-up with your primary care provider if symptoms persist. Return for passing out, chest pain, shortness of breath, or any other new, concerning, or worsening symptoms. All discharge instructions reviewed with patient and/or family. Voiced understanding. Scripts Meclizine HCl (Meclizine HCl) 25 Mg Tablet 25 MG PO Q6H PRN for VERTIGO, #28 TAB 0 Refills Prov: NEENA MARTÍNEZ APRN 04/11/23 NEENA MARTÍNEZ APRN Apr 11, 2023 11:36
[2023-04-11 11:41] VITALS: BP_SYST 107; BP_SYST 109; BP_SYST 116; BP_DIAS 71; BP_DIAS 72; BP_DIAS 78
[2023-04-11 11:54] LABS: BASOPHILS % (AUTO) 0 % (0-10); EOSINOPHILS # (AUTO) 0.1 10^3/uL (0.0-0.3); EOSINOPHILS % (AUTO) 1 % (0-10); HEMATOCRIT 35 % (35-52); HEMOGLOBIN 11.2 g/dL (11.5-16.0); LYMPHOCYTES # (AUTO) 0.8 10^3/uL (1.0-4.0); LYMPHOCYTES % (AUTO) 9 % (12-44); MEAN CORPUSCULAR HEMOGLOBIN 28 pg (25-34); MEAN CORPUSCULAR HGB CONC 32 g/dL (32-36); MEAN CORPUSCULAR VOLUME 89 fL (80-99); MEAN PLATELET VOLUME 10.8 fL (9.0-12.2); MONOCYTES # (AUTO) 2.7 10^3/uL (0.0-1.0); MONOCYTES % (AUTO) 30 % (0-12); NEUTROPHILS # (AUTO) 5.1 10^3/uL (1.8-7.8); NEUTROPHILS % (AUTO) 59 % (42-75); PLATELET COUNT 175 10^3/uL (130-400); WHITE BLOOD COUNT 8.7 10^3/uL (4.3-11.0)
[2023-04-11 12:04] LABS: ALBUMIN 3.1 GM/DL (3.2-4.5)
[2023-04-11 12:05] LABS: POTASSIUM 4.1 MMOL/L (3.6-5.0)
[2023-04-11 12:06] LABS: CALCIUM 8.8 MG/DL (8.5-10.1)
[2023-04-11 12:07] LABS: TOTAL PROTEIN 6.3 GM/DL (6.4-8.2)
--- NOTE | 2023-04-11 12:08 | Diagnostic Imaging Report ---
EXAMINATION: CT head without contrast. TECHNIQUE: Multiple contiguous axial images were obtained through the brain without the use of intravenous contrast. All CT scans use one or more of the following dose optimizing techniques: automated exposure control, MA and/or KvP adjustment based on patient size and exam type or iterative reconstruction. HISTORY: Dizziness. COMPARISON: 07/15/2018. FINDINGS: No large acute territorial ischemia, mass, or hemorrhage. No midline shift or mass effect. The ventricles, cortical sulci, and basilar cisterns are patent and unremarkable. Right-sided scleral banding is noted. Paranasal sinuses are normal. Mastoid air cells are clear. No soft tissue abnormality is seen. No osseus lesions or fractures are seen. IMPRESSION: 1. No large acute territorial ischemia, mass, or hemorrhage. Dictated by: Dictated on workstation # [id number]
[2023-04-11 12:09] LABS: BILIRUBIN,TOTAL 0.7 MG/DL (0.1-1.0)
--- NOTE | 2023-04-11 12:09 | Diagnostic Imaging Report ---
INDICATION: Chest pain and dizziness and nausea. Frontal chest obtained at 11:28 a.m. compared with 02/18/2023. FINDINGS: Port-A-Cath is unchanged. Heart is normal in size. There is no focal infiltrate or pneumothorax or pleural fluid. There is an old right clavicle fracture. There are sclerotic changes in multiple ribs as well as left humeral head, suspicious for metastatic disease. IMPRESSION: No acute infiltrate or pneumothorax or pleural fluid. Scattered sclerotic changes and multiple ribs and left humeral head compatible with metastatic disease. Dictated by: Dictated on workstation # [id number]
[2023-04-11 12:10] LABS: CREATININE SERUM 0.76 MG/DL (0.60-1.30)
[2023-04-11] MEDS ORDERED: MECLIZINE 25 MG (ANTIVERT) TAB PO ONE (12:15)
[2023-04-11 12:18] LABS: ANISOCYTOSIS SLIGHT; LYMPHOCYTES % (MANUAL) 7 %; MONOCYTES % (MANUAL) 23 %; NEUTROPHILS % (MANUAL) 70 %
[2023-04-11 12:38] LABS: BILIRUBIN,URINE NEGATIVE (NEGATIVE); CLARITY,URINE CLEAR; COLOR,URINE YELLOW; GLUCOSE, URINE (UA) NEGATIVE (NEGATIVE); KETONES,URINE NEGATIVE (NEGATIVE); LEUKOCYTE ESTERASE ,URINE 1+ (NEGATIVE); NITRITE,URINE NEGATIVE (NEGATIVE); PROTEIN,URINE NEGATIVE (NEGATIVE)
[2023-04-11 13:03] LABS: BACTERIA,URINE TRACE /HPF; RBC,URINE RARE /HPF
[2023-04-11] MEDS ORDERED: MECL-149 PO (13:10)
[2023-04-11] MEDS ORDERED: PROCHLORPERAZINE 10 MG/2ML INJ (COMPAZINE) IV ONE (13:15)
[2023-04-11 13:34] VITALS: BP 124/62
== END 2023-04-11 13:25 | disposition home or self-care (01) ==
LOC: EDUNIT# 11:04 → ER 11:06
DX: R42 Dizziness and giddiness (principal); R71.0 Precipitous drop in hematocrit; R74.01 Elevation of levels of liver transaminase levels; R74.8 Abnormal levels of other serum enzymes; R77.0 Abnormality of albumin; R11.0 Nausea
CPT/HCPCS: 36415; 70450; 71045; 80053; 81000; 83735; 85007; 85027; 93005

== ENCOUNTER 2023-04-13 11:48 | Emergency (ER) | payer MEDICARE, OTHER ==
[~2023-04-13] VITALS: Ht 160 cm; Wt 60.7 kg
[~2023-04-13 11:48] MED LIST changes: +MECL-149 PO
--- NOTE | 2023-04-13 12:11 | ED General ---
General Chief Complaint: Dizziness/Syncope Stated Complaint: CANCER/DEHYDRATION Nursing Triage Note: PT PRESENTS TO ED VIA POV FROM HOME ACCOMPANIED BY ADULT SON FOR INCREASED WEAKNESS, DIZZINESS, DEHYDRATION. PT HAS BEEN SEEN IN ED SEVERAL TIMES RECENTLY FOR WEAKNESS/ SIMILAR S/S. Source of Information: Patient, Family Exam Limitations: No Limitations History of Present Illness Date Seen by Provider: Apr 13, 2023 Time Seen by Provider: 12:11 Initial Comments Ms. 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 She was in the emergency room a few days ago with similar symptoms, given IV fluids with some improvement and discharged home. She states that her symptoms have not improved. She has no appetite she is very nauseated. She cannot turn her head to the right because it seems to cause her symptoms to worsen. She states she had a slight fever last night 100.8. She denies chest pain, shortness of breath. She denies abdominal pain. She states she has been drinking lots of water, her urine is clear and she denies dysuria or hematuria. She was diagnosed with thrush yesterday and started on nystatin. No extremity pain or joint swelling. She denies ringing in her ears or hearing loss. No congestion. Not currently on chemotherapy Timing/Duration: 1 Week Severity: Severe Modifying Factors: worse with Movement Associated Systoms: Fever/Chills; No Headaches; Loss of Appetite, Malaise, Nausea/Vomiting, Weakness Allergies and Home Medications Allergies Coded Allergies: thiopental (Verified Allergy, Unknown, 01/30/18) Patient Home Medication List Home Medication List Reviewed: Yes Alprazolam (Xanax) 0.25 Mg Tablet, 0.25 MG PO TID PRN for ANXIETY, (Reported) Entered as Reported by: JUAN BLACKMAN on 11/26/19 1009 Cyclobenzaprine HCl (Cyclobenzaprine HCl) 10 Mg Tablet, 10 MG PO Q8H PRN for SPASMS Prescribed by: DELFINA NESS on 02/21/23 1052 Gabapentin (Gabapentin) 100 Mg Capsule, 200 MG PO HS, (Reported) Entered as Reported by: JUAN BLACKMAN on 11/26/19 1005 Levothyroxine Sodium (Levothyroxine Sodium) 175 Mcg Tablet, 175 MCG PO DAILY, (Reported) Entered as Reported by: JUAN BLACKMAN on 11/26/19 1005 Linaclotide (Linzess) 72 Mcg Capsule, 72 MCG PO DAILY PRN for CONSTIPATION-1ST LINE, (Reported) Entered as Reported by: JUAN BLACKMAN on 11/26/19 1005 Meclizine HCl (Meclizine HCl) 25 Mg Tablet, 25 MG PO Q6H PRN for VERTIGO Prescribed by: Neena Cardona on 04/11/23 1310 Meclizine HCl (Meclizine HCl) 25 Mg Tablet, 25 MG PO Q6H PRN for dizziness Prescribed by: DELFINA NESS on 04/13/23 1607 Ondansetron (Ondansetron Odt) 8 Mg Tab.rapdis, 8 MG PO Q6H PRN for NAUSEA/VOMITING, (Reported) Entered as Reported by: JUAN BLACKMAN on 11/26/19 100 Ondansetron (Ondansetron Odt) 4 Mg Tab.rapdis, 4 MG PO Q6H PRN for NAUSEA/VOMITING-1ST LINE, (Reported) Entered as Reported by: JUAN BLACKMAN on 11/26/19 100 Pantoprazole Sodium (Protonix) 40 Mg Tablet.dr, 40 MG PO DAILY Prescribed by: CARLOS MEDRANO on 12/01/19 0814 Zolpidem Tartrate (Zolpidem Tartrate) 10 Mg Tablet, 10 MG PO HS, (Reported) Entered as Reported by: JUAN BLACKMAN on 11/26/19 1005 Review of Systems Review of Systems Constitutional: see HPI EENTM: no symptoms reported Respiratory: no symptoms reported Cardiovascular: no symptoms reported Gastrointestinal: nausea Genitourinary: no symptoms reported Musculoskeletal: no symptoms reported Skin: no symptoms reported Psychiatric/Neurological: Other (dizziness) All Other Systems Reviewed Negative Unless Noted: Yes Past Mlowexn-Dlhwey-Jidbca Hx Patient Social History Tobacco Use?: No Substance use?: No Alcohol Use?: No Pt feels they are or have been: No Immunizations Up To Date Tetanus Booster (TDap): Unknown First/Initial COVID19 Vaccinat: 2020 Second COVID19 Vaccination [place]: 2020 Third COVID19 Vaccination Date: 2020 Seasonal Allergies Seasonal Allergies: No Past Medical History Surgery/Hospitalization HX: THYROID, SURG: LIVER BX, APPENDECTOMY, CHOLECYSTECTOMY, TONSILS, TOTAL HYSTERECTOMY hx of bone CA, BREAST CA Surgeries: Yes (BACK SURGERY 03/19/14--VERTEBROPLASTY, LUMPECTOMY/LYMPH NODE DISSECTION) Appendectomy, Breast, Gallbladder, 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, Orthopedic, Tonsillectomy Respiratory: No Currently Using CPAP: No Currently Using BIPAP: No Cardiac: Yes Hypotension Neurological: No Reproductive Disorders: No 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 Sexually Transmitted Disease: No HIV/AIDS: No Genitourinary: Yes Kidney Stones, UTI-Chronic Gastrointestinal: Yes (NAUSEA) Gastroesophageal Reflux, Chronic Constipation, Diverticulosis, Ulcer Musculoskeletal: Yes (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) Arthritis, Fractures Endocrine: Yes Hypothyroidsim HEENT: Yes (DETACHED [place]) Cataract Loss of Vision: Denies Hearing Impairment: Denies Cancer: Yes (LEFT) Bone, Skin, Breast Did You Recieve Any Treatments: Yes What Type of Treatment Did You: Chemotherapy, Surgical Intervention, Other Psychosocial: Yes Anxiety Integumentary: No Blood Disorders: No Adverse Reaction/Blood Tranf: No (N/A) Family Medical History Abdominal aortic aneurysm 19 MOTHER Alcoholism Arthritis 19 MOTHER Headache disorder 19 MOTHER G8 BROTHER G8 SISTER Hypertension SONS No Pertinent Family Hx Physical Exam Vital Signs Vital Signs - First Documented 04/13/23 04/13/23 11:58 16:53 Temp 36.7 Pulse 116 Resp 18 B/P (MAP) 114/71 (85) Pulse Ox 93 O2 Delivery Room Air Capillary Refill : Less Than 3 Seconds Height, Weight, BMI Height: 5'3.00" Weight: 133lbs. 0.0oz. [id number]; 23.00 BMI Method:Stated General Appearance: WD/WN, Anxious Eyes: Bilateral Eye Normal Inspection, Bilateral Eye PERRL, Bilateral Eye EOMI (symptomatic with head turn to the right; no nystagmus appreciated) HEENT: TMs Normal, Pharynx Normal Neck: Normal Inspection Respiratory: Lungs Clear, Normal Breath Sounds, No Accessory Muscle Use, No Respiratory Distress Cardiovascular: Regular Rate, Rhythm, Normal Peripheral Pulses Gastrointestinal: Normal Bowel Sounds, Non Tender, Soft Extremity: Normal Inspection, Normal Range of Motion, No Pedal Edema Neurologic/Psychiatric: Alert, Oriented x3, No Motor/Sensory Deficits, Normal 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/Affect, 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 Norm as Tested Skin: Normal Color, Warm/Dry Progress/Results/Core Measures Suspected Sepsis SIRS Temperature: Pulse: 116 Respiratory Rate: 18 Laboratory Tests 04/13/23 12:44: White Blood Count 9.3 Blood Pressure 114 /71 Mean: 85 Laboratory Tests 04/13/23 12:44: Creatinine 0.89, Platelet Count 170 Results/Orders Lab Results Laboratory Tests Test 04/13/23 12:44 04/13/23 13:20 Range/Units White Blood Count 9.3 4.3-11.0 10^3/uL Red Blood Count 3.83 3.80-5.11 10^6/uL Hemoglobin 10.8 L 11.5-16.0 g/dL Hematocrit 35 35-52 % Mean Corpuscular Volume 90 80-99 fL Mean Corpuscular Hemoglobin 28 25-34 pg Mean Corpuscular Hemoglobin Concent 31 L 32-36 g/dL Red Cell Distribution Width 16.8 H 10.0-14.5 % Platelet Count 170 130-400 10^3/uL Mean Platelet Volume 11.5 9.0-12.2 fL Immature Granulocyte % (Auto) 1 % Neutrophils (%) (Auto) 58 42-75 % Lymphocytes (%) (Auto) 9 L 12-44 % Monocytes (%) (Auto) 31 H 0-12 % Eosinophils (%) (Auto) 1 0-10 % Basophils (%) (Auto) 0 0-10 % Neutrophils # (Auto) 5.4 1.8-7.8 10^3/uL Lymphocytes # (Auto) 0.8 L 1.0-4.0 10^3/uL Monocytes # (Auto) 2.9 H 0.0-1.0 10^3/uL Eosinophils # (Auto) 0.1 0.0-0.3 10^3/uL Basophils # (Auto) 0.0 0.0-0.1 10^3/uL Immature Granulocyte # (Auto) 0.1 0.0-0.1 10^3/uL Sodium Level 143 135-145 MMOL/L Potassium Level 4.2 3.6-5.0 MMOL/L Chloride Level 107 98-107 MMOL/L Carbon Dioxide Level 22 21-32 MMOL/L Anion Gap 14 5-14 MMOL/L Blood Urea Nitrogen 10 7-18 MG/DL Creatinine 0.89 0.60-1.30 MG/DL Estimat Glomerular Filtration Rate 65 BUN/Creatinine Ratio 11 Glucose Level 86 70-105 MG/DL Calcium Level 8.7 8.5-10.1 MG/DL Urine Color YELLOW Urine Clarity CLEAR Urine pH 6.5 5-9 Urine Specific Shannon <=1.005 1.016-1.022 Urine Protein NEGATIVE NEGATIVE Urine Glucose (UA) NEGATIVE NEGATIVE Urine Ketones NEGATIVE NEGATIVE Urine Nitrite NEGATIVE NEGATIVE Urine Bilirubin NEGATIVE NEGATIVE Urine Urobilinogen 0.2 < = 1.0 MG/DL Urine Leukocyte Esterase 2+ H NEGATIVE Urine RBC (Auto) TRACE-I H NEGATIVE Urine RBC NONE /HPF Urine WBC 2-5 /HPF Urine Squamous Epithelial Cells 0-2 /HPF Urine Crystals NONE /LPF Urine Bacteria TRACE /HPF Urine Casts NONE /LPF Urine Mucus NEGATIVE /LPF Urine Culture Indicated YES Micro Results Microbiology 04/13/23 Urine Culture - Final, Complete See Comments My Orders Orders - DELFINA NESS MD Ed Iv/Invasive Line Start (04/13/23 12:27) Cbc With Automated Diff (04/13/23 12:27) Basic Metabolic Panel (04/13/23 12:27) Ua Culture If Indicated (04/13/23 12:27) Ondansetron Injection (Zofran Injectio (04/13/23 12:30) Meclizine Tablet (Antivert Tablet) (04/13/23 12:30) Ns Iv 500 Ml (Sodium Chloride 0.9%) (04/13/23 12:27) Urine Culture (04/13/23 13:20) Ns Iv 500 Ml (Sodium Chloride 0.9%) (04/13/23 14:18) Orthostatic Vital Signs (Adult (04/13/23 15:17) Heparin (Central Iv Flush) (Heparin (Eleazar (04/13/23 16:30) Medications Given in ED Vital Signs/I&O 04/13/23 04/13/23 04/13/23 04/13/23 11:58 14:18 15:22 16:53 Temp 36.7 37.2 Pulse 116 98 100 100 112 Resp 18 18 B/P (MAP) 114/71 (85) 117/64 (81) 123/63 121/63 (82) 98/72 (81) Pulse Ox 93 94 O2 Delivery Room Air Capillary Refill : Less Than 3 Seconds Blood Pressure Mean: 85 Progress Note #1: Time: 14:17 Progress Note Patient feels better, looks better; on her right side. Still tachy HR 116. repeating 500ml fluid bolus. and will check oral temp and reassess vitals after second bolus. Progress Note #2: Time: 16:00 Progress Note Patient seen and examined by me. Evaluation today includes review of old records, physical exam, CBC, BMP and UA. Pertinent physical exam findings include WDWN femal, min distress due to nausea and dizziness. HEENT WNL, heart reg, lungs clear. Mild tenderness to the RUQ where she has had recent liver bx - no overlying erythema or swelling, normal BS. Neuro is grossly non focal. DDX based on H&P includes dehydration, generalized deconditioning due to cancer, BPV, viral syndrome. Labs independently reviewed and interpreted by me. CBC shows total WBC of 9.3, HGB 10.8, Hct 35, platelets 170. 9%lymphs and 31% monocytes. BMP is completely within normal range. Her UA shows 2+ LE and trace RBC (clean catch). SHe is treated with NS, Zofran and oral meclizine. SHe had fairly significant improvement, to the point she is now agreeable with d/c. She has had recent CT head without any obvious acute intracranial pathology. She is clinically not septic. Not dehydrated (urine is dilute and renal function is normal). SHe astrid y definitely has reproducible symptoms with positioning, therefore BPV is high on the list as possible etiologies. Reassurance provided. A RX for meclizine is provided. Return precautions are given in both verbal and written format. All questions are sought and answered and she is much improved at discharge. Departure Impression Primary Impression: Dizziness Disposition: 01 HOME, SELF-CARE Condition: Improved Departure-Patient Inst. Decision time for Depature: 16:06 Referrals: JAREN KAUR DO (PCP/Family) Primary Care Physician Patient Instructions: Dizziness, Adult ED Add. Discharge Instructions: Continue your daily medications as prescribed. Start taking the Meclizine 25mg tablets, 1 pill every 6 hours as needed for dizziness. Please call Dr Kaur's office on Saturday for a follow up appointment this week. If you develop fever, vomiting or any other worsening symptoms, please return to the Emergency Department for re-evaluation. Scripts Meclizine HCl (Meclizine HCl) 25 Mg Tablet 25 MG PO Q6H PRN for dizziness, #30 TAB Prov: DELFINA NESS MD 04/13/23 Copy Copies To 1: JAREN KAUR KATHRYN M MD Apr 13, 2023 12:11
[2023-04-13] MEDS ORDERED: NS IV 500 ML 500 ML IV STA ×2 (12:27→14:18)
[2023-04-13] MEDS ORDERED: ONDANSETRON 4 MG/2 ML (SDV) Z0FRAN IVP ONE (12:30)
[2023-04-13] MEDS ORDERED: MECLIZINE 25 MG (ANTIVERT) TAB PO ONE (12:30)
[2023-04-13 12:51] LABS: BASOPHILS % (AUTO) 0 % (0-10); EOSINOPHILS # (AUTO) 0.1 10^3/uL (0.0-0.3); EOSINOPHILS % (AUTO) 1 % (0-10); HEMATOCRIT 35 % (35-52); HEMOGLOBIN 10.8 g/dL (11.5-16.0); LYMPHOCYTES # (AUTO) 0.8 10^3/uL (1.0-4.0); LYMPHOCYTES % (AUTO) 9 % (12-44); MEAN CORPUSCULAR HEMOGLOBIN 28 pg (25-34); MEAN CORPUSCULAR HGB CONC 31 g/dL (32-36); MEAN CORPUSCULAR VOLUME 90 fL (80-99); MEAN PLATELET VOLUME 11.5 fL (9.0-12.2); MONOCYTES # (AUTO) 2.9 10^3/uL (0.0-1.0); NEUTROPHILS # (AUTO) 5.4 10^3/uL (1.8-7.8); NEUTROPHILS % (AUTO) 58 % (42-75); PLATELET COUNT 170 10^3/uL (130-400); WHITE BLOOD COUNT 9.3 10^3/uL (4.3-11.0)
[2023-04-13 13:00] LABS: MONOCYTES % (AUTO) 31 % (0-12)
[2023-04-13 13:05] LABS: POTASSIUM 4.2 MMOL/L (3.6-5.0)
[2023-04-13 13:06] LABS: CALCIUM 8.7 MG/DL (8.5-10.1)
[2023-04-13 13:10] LABS: CREATININE SERUM 0.89 MG/DL (0.60-1.30)
[2023-04-13 13:31] LABS: BILIRUBIN,URINE NEGATIVE (NEGATIVE); CLARITY,URINE CLEAR; COLOR,URINE YELLOW; GLUCOSE, URINE (UA) NEGATIVE (NEGATIVE); KETONES,URINE NEGATIVE (NEGATIVE); LEUKOCYTE ESTERASE ,URINE 2+ (NEGATIVE); NITRITE,URINE NEGATIVE (NEGATIVE); PH,URINE 6.5 (5-9); PROTEIN,URINE NEGATIVE (NEGATIVE)
[2023-04-13 13:42] LABS: BACTERIA,URINE TRACE /HPF; SQUAMOUS EPITHELIAL CELL,UR 0-2 /HPF
[2023-04-13 15:22] VITALS: BP_SYST 117; BP_SYST 121; BP_SYST 98; BP_DIAS 63; BP_DIAS 64; BP_DIAS 72
[2023-04-13] MEDS ORDERED: MECL-149 PO (16:07)
[2023-04-13] MEDS ORDERED: HEParin (CENTRAL IV FLUSH) 500 UNIT/5 ML SYR IV ONE (16:30)
[2023-04-13 16:53] VITALS: BP 123/63
== END 2023-04-13 16:53 | disposition home or self-care (01) ==
LOC: EDUNIT# 11:48 → ER 11:50
DX: R42 Dizziness and giddiness (principal); R00.0 Tachycardia, unspecified; B37.9 Candidiasis, unspecified
CPT/HCPCS: 36415; 80048; 81000; 85025; 87088; 99283

== ENCOUNTER 2023-04-16 15:32 | Inpatient (IN) | payer MEDICARE, OTHER ==
[~2023-04-16] VITALS: Ht 162.6 cm; Wt 61.0 kg
--- NOTE | 2023-04-16 15:54 | ED General ---
General Chief Complaint: General Problems/Pain Stated Complaint: AMS Nursing Triage Note: PT WITH SONS STATE PT HAS HX OF LIVER CA AND BONE CA, HAS BEEN HERE IN THE ER 5 + TIMES IN THE LAST MONTH, GENERAL WEAKNESS AND NOT RESPONDING Source of Information: Family History of Present Illness Date Seen by Provider: Apr 16, 2023 Time Seen by Provider: 15:54 Initial Comments Patient is an 82-year-old female with a history of metastatic breast cancer who presents to the emergency room with her sons chief complaint somnolence/lethargy/altered mental status. Patient has had multiple visits to the emergency department over the last 2 weeks for multiple somatic complaints. Most of the time she has visited for dizziness. Sons state that she was found in the bed today having not gotten out of bed likely for the last 24 hours. She states she has not eaten today. She does appear very lethargic she will answer with her eyes closed and seems appropriate. She denies headache, chest pain. She is having some right upper quadrant abdominal pain. She is status post liver biopsy approximately a week ago. She does appear slightly pale her heart rate is 100. Blood pressure is adequate. Satting 99% on 2 to 3 L of oxygen per nasal cannula. Oral mucous membranes appear dry. Her son reports that they found a tube of ivermectin at her home yesterday that appeared used. They are not sure if she took it, one of her sons states it looks like something got from a farm store. She is in charge of her own medications at home. Has hydrocodone (pupils are about 3-4mm equal). No jaundice/icterus appreciated REview of medicine reconcilliation shows her to have prescriptions for Gabapentin, xanax; hyocyamine, hydrocodone; ambien last round of chemo about a month ago. Timing/Duration: 4-6 Hours Severity: Severe Associated Systoms: Other (abdominal pain) Allergies and Home Medications Allergies Coded Allergies: thiopental (Verified Allergy, Unknown, 01/30/18) Patient Home Medication List Home Medication List Reviewed: Yes Alprazolam (Xanax) 0.25 Mg Tablet, 0.25 MG PO TID PRN for ANXIETY, (Reported) Entered as Reported by: JUAN BLACKMAN on 11/26/19 1009 Cyclobenzaprine HCl (Cyclobenzaprine HCl) 10 Mg Tablet, 10 MG PO Q8H PRN for SPASMS Prescribed by: DELFINA NESS on 02/21/23 1052 Gabapentin (Gabapentin) 100 Mg Capsule, 200 MG PO HS, (Reported) Entered as Reported by: JUAN BLACKMAN on 11/26/19 100 Levothyroxine Sodium (Levothyroxine Sodium) 175 Mcg Tablet, 175 MCG PO DAILY, (Reported) Entered as Reported by: JUAN BLACKMAN on 11/26/19 100 Linaclotide (Linzess) 72 Mcg Capsule, 72 MCG PO DAILY PRN for CONSTIPATION-1ST LINE, (Reported) Entered as Reported by: JUAN BLACKMAN on 11/26/19 100 Meclizine HCl (Meclizine HCl) 25 Mg Tablet, 25 MG PO Q6H PRN for VERTIGO Prescribed by: Neena Cardona on 04/11/23 1310 Meclizine HCl (Meclizine HCl) 25 Mg Tablet, 25 MG PO Q6H PRN for dizziness Prescribed by: DELFINA NESS on 04/13/23 1607 Ondansetron (Ondansetron Odt) 8 Mg Tab.rapdis, 8 MG PO Q6H PRN for NAUSEA/VOMITING, (Reported) Entered as Reported by: JUAN BLACKMAN on 11/26/19 100 Ondansetron (Ondansetron Odt) 4 Mg Tab.rapdis, 4 MG PO Q6H PRN for NAUSEA/VOMITING-1ST LINE, (Reported) Entered as Reported by: JUAN BLACKMAN on 11/26/19 100 Pantoprazole Sodium (Protonix) 40 Mg Tablet.dr, 40 MG PO DAILY Prescribed by: CARLOS MEDRANO on 12/01/19 0814 Zolpidem Tartrate (Zolpidem Tartrate) 10 Mg Tablet, 10 MG PO HS, (Reported) Entered as Reported by: JUAN BLACKMAN on 11/26/19 1005 Review of Systems Review of Systems Constitutional: see HPI EENTM: other (dry mouth) Respiratory: no symptoms reported Cardiovascular: no symptoms reported Gastrointestinal: abdominal pain (RUQ) Genitourinary: no symptoms reported Musculoskeletal: no symptoms reported Skin: no symptoms reported All Other Systems Reviewed Negative Unless Noted: Yes Past Eoiiqqa-Nuzjpq-Wjmsdt Hx Immunizations Up To Date Tetanus Booster (TDap): Unknown First/Initial COVID19 Vaccinat: 2020 Second COVID19 Vaccination Aguila: 2020 Third COVID19 Vaccination Date: 2020 Seasonal Allergies Seasonal Allergies: No Past Medical History Surgery/Hospitalization HX: THYROID, SURG: LIVER BX, APPENDECTOMY, CHOLECYSTECTOMY, TONSILS, TOTAL HYSTERECTOMY hx of bone CA, BREAST CA Surgeries: Yes (BACK SURGERY 03/19/14--VERTEBROPLASTY, LUMPECTOMY/LYMPH NODE DISSECTION) Appendectomy, Breast, Gallbladder, 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, Orthopedic, Tonsillectomy Respiratory: No Currently Using CPAP: No Currently Using BIPAP: No Cardiac: Yes Hypotension Neurological: No Reproductive Disorders: No 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 Sexually Transmitted Disease: No HIV/AIDS: No Genitourinary: Yes Kidney Stones, UTI-Chronic Gastrointestinal: Yes (NAUSEA) Gastroesophageal Reflux, Chronic Constipation, Diverticulosis, Ulcer Musculoskeletal: Yes (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) Arthritis, Fractures Endocrine: Yes Hypothyroidsim HEENT: Yes (DETACHED [place]) Cataract Loss of Vision: Denies Hearing Impairment: Denies Cancer: Yes (LEFT) Bone, Skin, Breast Did You Recieve Any Treatments: Yes What Type of Treatment Did You: Chemotherapy, Surgical Intervention, Other Psychosocial: Yes Anxiety Integumentary: No Blood Disorders: No Adverse Reaction/Blood Tranf: No (N/A) Family Medical History Abdominal aortic aneurysm 19 MOTHER Alcoholism Arthritis 19 MOTHER Headache disorder 19 MOTHER G8 BROTHER G8 SISTER Hypertension SONS No Pertinent Family Hx Physical Exam Vital Signs Vital Signs - First Documented 04/16/23 15:36 Temp 36.8 Pulse 105 Resp 22 B/P (MAP) 142/90 (107) Pulse Ox 96 O2 Delivery Nasal Cannula O2 Flow Rate 2.00 Capillary Refill : Less Than 3 Seconds Height, Weight, BMI Height: 5'3.00" Weight: 133lbs. 0.0oz. 60.964646az; 21.00 BMI Method:Stated General Appearance: No Apparent Distress, WD/WN Eyes: Bilateral Eye Conjunctivae Pale HEENT: Other (dry mucous membranes; ) Neck: Normal Inspection Respiratory: Lungs Clear, Normal Breath Sounds, No Accessory Muscle Use, No Respiratory Distress Cardiovascular: Regular Rate, Rhythm, Normal Peripheral Pulses, Tachycardia ( HR = 100) Gastrointestinal: Normal Bowel Sounds, Soft, Tenderness (RUQ; no ecchymoses/bruising) Extremity: Normal Inspection, No Pedal Edema Neurologic/Psychiatric: Other (arouses to voice - will open eyes but quickly seems to be somnolent again.) Skin: Warm/Dry, Pallor Progress/Results/Core Measures Suspected Sepsis SIRS Temperature: Pulse: 105 Respiratory Rate: 22 Laboratory Tests 04/16/23 15:50: White Blood Count 6.2 Blood Pressure 142 /90 Mean: 107 Laboratory Tests 04/16/23 15:50: Creatinine 0.84, Platelet Count 137, Total Bilirubin 1.0 Results/Orders Lab Results Laboratory Tests Test 04/16/23 15:50 04/16/23 16:30 Range/Units White Blood Count 6.2 4.3-11.0 10^3/uL Red Blood Count 3.76 L 3.80-5.11 10^6/uL Hemoglobin 10.5 L 11.5-16.0 g/dL Hematocrit 34 L 35-52 % Mean Corpuscular Volume 92 80-99 fL Mean Corpuscular Hemoglobin 28 25-34 pg Mean Corpuscular Hemoglobin Concent 31 L 32-36 g/dL Red Cell Distribution Width 17.2 H 10.0-14.5 % Platelet Count 137 130-400 10^3/uL Mean Platelet Volume 11.9 9.0-12.2 fL Immature Granulocyte % (Auto) 1 % Neutrophils (%) (Auto) 54 42-75 % Lymphocytes (%) (Auto) 15 12-44 % Monocytes (%) (Auto) 28 H 0-12 % Eosinophils (%) (Auto) 1 0-10 % Basophils (%) (Auto) 1 0-10 % Neutrophils # (Auto) 3.4 1.8-7.8 10^3/uL Lymphocytes # (Auto) 0.9 L 1.0-4.0 10^3/uL Monocytes # (Auto) 1.8 H 0.0-1.0 10^3/uL Eosinophils # (Auto) 0.1 0.0-0.3 10^3/uL Basophils # (Auto) 0.0 0.0-0.1 10^3/uL Immature Granulocyte # (Auto) 0.1 0.0-0.1 10^3/uL Percent Immature Platelet Fraction 4.0 0.0-7.6 % Sodium Level 142 135-145 MMOL/L Potassium Level 3.8 3.6-5.0 MMOL/L Chloride Level 109 H 98-107 MMOL/L Carbon Dioxide Level 23 21-32 MMOL/L Anion Gap 10 5-14 MMOL/L Blood Urea Nitrogen 13 7-18 MG/DL Creatinine 0.84 0.60-1.30 MG/DL Estimat Glomerular Filtration Rate 70 BUN/Creatinine Ratio 15 Glucose Level 73 70-105 MG/DL Calcium Level 8.6 8.5-10.1 MG/DL Corrected Calcium 9.5 8.5-10.1 MG/DL Total Bilirubin 1.0 0.1-1.0 MG/DL Aspartate Amino Transf (AST/SGOT) 62 H 5-34 U/L Alanine Aminotransferase (ALT/SGPT) 18 0-55 U/L Alkaline Phosphatase 324 H 40-136 U/L Total Protein 6.0 L 6.4-8.2 GM/DL Albumin 2.9 L 3.2-4.5 GM/DL Thyroid Stimulating Hormone (TSH) 9.98 H 0.35-4.94 UIU/ML Smear Scan YES Urine Color YELLOW Urine Clarity CLEAR Urine pH 6.5 5-9 Urine Specific [place] 1.015 L 1.016-1.022 Urine Protein NEGATIVE NEGATIVE Urine Glucose (UA) NEGATIVE NEGATIVE Urine Ketones NEGATIVE NEGATIVE Urine Nitrite NEGATIVE NEGATIVE Urine Bilirubin NEGATIVE NEGATIVE Urine Urobilinogen 1.0 < = 1.0 MG/DL Urine Leukocyte Esterase TRACE H NEGATIVE Urine RBC (Auto) NEGATIVE NEGATIVE Urine RBC RARE /HPF Urine WBC 0-2 /HPF Urine Squamous Epithelial Cells 2-5 /HPF Urine Crystals PRESENT H /LPF Urine Amorphous Sediment FEW TAMMIE URATES H /LPF Urine Bacteria TRACE /HPF Urine Casts NONE /LPF Urine Mucus LARGE H /LPF Urine Culture Indicated NO Urine Opiates Screen NEGATIVE NEGATIVE Urine Oxycodone Screen NEGATIVE NEGATIVE Urine Methadone Screen NEGATIVE NEGATIVE Urine Propoxyphene Screen NEGATIVE NEGATIVE Urine Barbiturates Screen NEGATIVE NEGATIVE Ur Tricyclic Antidepressants Screen NEGATIVE NEGATIVE Urine Phencyclidine Screen NEGATIVE NEGATIVE Urine Amphetamines Screen NEGATIVE NEGATIVE Urine Methamphetamines Screen NEGATIVE NEGATIVE Urine Benzodiazepines Screen POSITIVE H NEGATIVE Urine Cocaine Screen NEGATIVE NEGATIVE Urine Cannabinoids Screen NEGATIVE NEGATIVE My Orders Orders - DELFINA NESS MD Ed Iv/Invasive Line Start (04/16/23 16:08) Cbc With Automated Diff (04/16/23 16:08) Comprehensive Metabolic Panel (04/16/23 16:08) Drug Screen Stat (Urine) (04/16/23 16:16) Ua Culture If Indicated (04/16/23 16:16) Ct Abdomen/Pelvis W (04/16/23 16:49) Ns Iv 1000 Ml (Sodium Chloride 0.9%) (04/16/23 16:49) Iohexol Injection (Omnipaque 350 Mg/Ml 1 (04/16/23 17:00) Received Contrast (Hold Metformin- Contr (04/16/23 17:00) Ns (Ivpb) (Sodium Chloride 0.9% Ivpb Bag (04/16/23 17:00) Medications Given in ED Vital Signs/I&O 04/16/23 15:36 Temp 36.8 Pulse 105 Resp 22 B/P (MAP) 142/90 (107) Pulse Ox 96 O2 Delivery Nasal Cannula O2 Flow Rate 2.00 04/17/23 00:00 Intake Total 1000 ml Balance 1000 ml Capillary Refill : Less Than 3 Seconds Blood Pressure Mean: 107 Progress Note : Time: 16:54 Progress Note Patient seen and evaluated by me. Eval today includes review of most recent ED visits, PE, CBC, CH12, UA, Urine drug screen. Pertinent physical exam findings include Somnolent appearing female with stable VS. Rousable to voice and physical stimulation. Seems to be answering questions appropriately and following commands. Observed to move all extremities equally without lateralizing signs. VSS. Heart regular. Lungs clear. Abdomen soft and apparently NT. DDx based on H&P, uti, overmedication, toxic effect of ivermectin Labs independently reviewed and interpreted by me. Her cbc is normal with a WBC of 6.2, hgb slightly low (at baseline) 10.5, HCt 34, platelets 137. 28% monocytes (have been elevated). Chem normal with slightly elevated AST at 62 and Alk phos 324 (history of bony metastasis). Urine drug screen positive for benzodiazepines (she has a prescription for) and UA appears uninfected. Patient is treated with a liter of NS. Her VS remained stable. consideration for CT head stroke protocol considered however H&P do not support the need. Suspicion for over medication in combination with the patient taking Ivermectin gel (her son brought the tube he found at her house - and she later did admit to taking it). I consulted with Dr Martinez (hospitalist) and she agreed to admission to monitor the patient's mental status as she lives alone and is usually quite functional on her own in spite of her severe cancer. I discussed plan of care with her sons who are at the bedside. They are agreeable. Diagnostic Imaging Diagonstic Imaging: CT Comments [facility]. [place], [place] NAME: EDIS ZARAGOZA [facility] REC#: [id number] PT STATUS: REG ER : 1940 PHYSICIAN: DELFINA NESS MD ADMIT DATE: 04/16/23/ER Draft Date of Exam:04/16/23 CT ABDOMEN/PELVIS W PROCEDURE: CT abdomen and pelvis with contrast. TECHNIQUE: Multiple contiguous axial images were obtained through the abdomen and pelvis after administration of intravenous contrast. Auto Exposure Controls were utilized during the CT exam to meet ALARA standards for radiation dose reduction. All CT scans use one or more of the following dose optimizing techniques: automated exposure control, MA and/or KvP adjustment based on patient size and exam type or iterative reconstruction. INDICATION: Right upper quadrant pain and recent liver biopsy. Patient has a history of liver and bone cancer. COMPARISON: Correlation is made with an outside PET/CT study from 03/22/2023. FINDINGS: The lung bases are clear. The large mass occupying the majority of the right lobe of the liver is again noted and has been recently biopsied. No perihepatic or subcapsular fluid collection or hematoma is identified. Gallbladder is surgically absent. There is no biliary ductal dilatation. The pancreas and spleen are unremarkable. No adrenal mass is identified. Kidneys are unremarkable. Aorta is nonaneurysmal. No central retroperitoneal or mesenteric lymphadenopathy is seen. Small and large bowel loops are normal in caliber. There is diverticulosis of the sigmoid and descending colon but no evidence of acute diverticulitis. There is no ascites. Bladder is decompressed. Numerous osteosclerotic lesions are noted throughout the bilateral ribs as well as the thoracic and lumbar spine and bony pelvis, consistent with osseous metastatic disease. IMPRESSION: 1. Large right lobe liver mass as well as widespread osseous metastatic disease. Overall appearance is similar to outside PET/CT study from 03/22/2023. No new abnormality is identified. 2. Uncomplicated diverticulosis. Dictated on workstation # [id number] Dict: 04/16/23 1726 Trans: 04/16/23 1735 [id number] [id number] Interpreted by: AWQAR TADEO MD Electronically signed by: Departure Communication (Admissions) Time/Spoke to Admitting Phy: 16:[address] Martinez (hospitalist) accepts patient for observation admission Impression Primary Impression: Altered mental status Qualified Codes: R40.0 - Somnolence Additional Impression: metastatic breast cancer Disposition: ADMITTED INPATIENT Condition: Stable Admissions Decision to Admit Reason: Admit from ER (General) Decision to Admit/Date: Apr 16, 2023 Time/Decision to Admit Time: 16:53 Departure-Patient Inst. Referrals: JAREN KAUR DO (PCP/Family) Primary Care Physician DELFINA NESS MD Apr 16, 2023 15:54
[2023-04-16 16:14] LABS: BASOPHILS % (AUTO) 1 % (0-10)
[2023-04-16 16:16] LABS: EOSINOPHILS # (AUTO) 0.1 10^3/uL (0.0-0.3); EOSINOPHILS % (AUTO) 1 % (0-10); HEMATOCRIT 34 % (35-52); HEMOGLOBIN 10.5 g/dL (11.5-16.0); LYMPHOCYTES # (AUTO) 0.9 10^3/uL (1.0-4.0); LYMPHOCYTES % (AUTO) 15 % (12-44); MEAN CORPUSCULAR HEMOGLOBIN 28 pg (25-34); MEAN CORPUSCULAR HGB CONC 31 g/dL (32-36); MEAN CORPUSCULAR VOLUME 92 fL (80-99); MEAN PLATELET VOLUME 11.9 fL (9.0-12.2); MONOCYTES # (AUTO) 1.8 10^3/uL (0.0-1.0); MONOCYTES % (AUTO) 28 % (0-12); NEUTROPHILS # (AUTO) 3.4 10^3/uL (1.8-7.8); NEUTROPHILS % (AUTO) 54 % (42-75); PLATELET COUNT 137 10^3/uL (130-400); WHITE BLOOD COUNT 6.2 10^3/uL (4.3-11.0)
[2023-04-16 16:22] LABS: ALBUMIN 2.9 GM/DL (3.2-4.5); POTASSIUM 3.8 MMOL/L (3.6-5.0)
[2023-04-16 16:24] LABS: CALCIUM 8.6 MG/DL (8.5-10.1)
[2023-04-16 16:26] LABS: SMEAR SCAN COMMENT YES
[2023-04-16 16:28] LABS: CREATININE SERUM 0.84 MG/DL (0.60-1.30)
[2023-04-16 16:38] LABS: BILIRUBIN,URINE NEGATIVE (NEGATIVE); CLARITY,URINE CLEAR; COLOR,URINE YELLOW; GLUCOSE, URINE (UA) NEGATIVE (NEGATIVE); KETONES,URINE NEGATIVE (NEGATIVE); LEUKOCYTE ESTERASE ,URINE TRACE (NEGATIVE); NITRITE,URINE NEGATIVE (NEGATIVE); PH,URINE 6.5 (5-9); PROTEIN,URINE NEGATIVE (NEGATIVE)
[2023-04-16 16:45] LABS: AMORPHOUS SEDIMENT,UR FEW AMOR URATES /LPF; BACTERIA,URINE TRACE /HPF; RBC,URINE RARE /HPF; WBC,URINE 0-2 /HPF
[2023-04-16] MEDS ORDERED: NS IV 1000 ML 1,000 ML IV STA (16:49)
[2023-04-16 16:56] LABS: AMPHETAMINE SCREEN, URINE NEGATIVE (NEGATIVE); BARBITURATE SCREEN URINE NEGATIVE (NEGATIVE); BENZODIAZEPINES SCREEN URINE POSITIVE (NEGATIVE); CANNABINOID SCREEN, URINE NEGATIVE (NEGATIVE); COCAINE SCREEN URINE NEGATIVE (NEGATIVE); METHADONE STAT NEGATIVE (NEGATIVE); OPIATE SCREEN URINE NEGATIVE (NEGATIVE); OXYCODONE STAT NEGATIVE (NEGATIVE); PROPOXYPHENE STAT NEGATIVE (NEGATIVE); TRICYCLIC ANTIDEPRESSANTS SCRE NEGATIVE (NEGATIVE)
[2023-04-16] MEDS ORDERED: HOLD METFORMIN - RECEIVED CONTRAST 20 ML VIAL IV SCH (17:00)
[2023-04-16] MEDS ORDERED: IOHEXOL 350 MG/ML 100 ML (OMNIPAQUE 350) VIAL IV ONE (17:00)
[2023-04-16] MEDS ORDERED: NS 100 ML (IVPB) BAG IV ONE (17:00)
--- NOTE | 2023-04-16 17:36 | Diagnostic Imaging Report ---
PROCEDURE: CT abdomen and pelvis with contrast. TECHNIQUE: Multiple contiguous axial images were obtained through the abdomen and pelvis after administration of intravenous contrast. Auto Exposure Controls were utilized during the CT exam to meet ALARA standards for radiation dose reduction. All CT scans use one or more of the following dose optimizing techniques: automated exposure control, MA and/or KvP adjustment based on patient size and exam type or iterative reconstruction. INDICATION: Right upper quadrant pain and recent liver biopsy. Patient has a history of liver and bone cancer. COMPARISON: Correlation is made with an outside PET/CT study from 03/22/2023. FINDINGS: The lung bases are clear. The large mass occupying the majority of the right lobe of the liver is again noted and has been recently biopsied. No perihepatic or subcapsular fluid collection or hematoma is identified. Gallbladder is surgically absent. There is no biliary ductal dilatation. The pancreas and spleen are unremarkable. No adrenal mass is identified. Kidneys are unremarkable. Aorta is nonaneurysmal. No central retroperitoneal or mesenteric lymphadenopathy is seen. Small and large bowel loops are normal in caliber. There is diverticulosis of the sigmoid and descending colon but no evidence of acute diverticulitis. There is no ascites. Bladder is decompressed. Numerous osteosclerotic lesions are noted throughout the bilateral ribs as well as the thoracic and lumbar spine and bony pelvis, consistent with osseous metastatic disease. IMPRESSION: 1. Large right lobe liver mass as well as widespread osseous metastatic disease. Overall appearance is similar to outside PET/CT study from 03/22/2023. No new abnormality is identified. 2. Uncomplicated diverticulosis. Dictated by: Dictated on workstation # [id number]
[2023-04-16] MEDS: NS IV 1000 ML 1,000 ML IV SCH (18:58)
[2023-04-16 19:03] VITALS: BP 159/73
--- NOTE | 2023-04-16 19:58 | History & Physical-Hospitalist ---
History of Present Illness HPI/Chief Complaint Patient is an 82-year-old female with past medical history of metastatic breast cancer well-known to me who presented to the emergency department due to altered mental status. She is normally alert and oriented and lives independently but over the past few weeks she has had a decline even more so over the past week. She is quite confused though did recognize me but is unable to tell me much else of her history. She was repeating herself and said something about taking a horse medicine. I did speak to her son James who states that she did have ivermectin at her house that appeared to be from a farm store. They noticed it yesterday when they visited her and this morning she did not get out of bed like she normally does so a neighbor and her sons eventually checked on her. They woke her up at 1 PM which is quite abnormal for her and she was rousing so they left and came back at 3 PM and she remained in bed so they decided to take her to the emergency department. She is normally able to walk on her own but they had to carry her out of the house. In the emergency room she had a work-up done that showed no urinary tract infection or leukocytosis. A CT of her abdomen was done and showed known metastatic disease but no complications from the recent liver biopsy. She was admitted for observ ation and further work-up. Source: patient Date Seen 04/16/23 Time Seen by a Provider: 19:53 Attending Physician Luke Cavazos DO PCP Admitting Physician: Carissa Martinez MD Attending Physician: Carissa Martinez MD Referring Physician Date of Admission Apr 16, 2023 at 18:13 Home Medications & Allergies Home Medications Reviewed patient Home Medication Reconciliation performed by pharmacy medication reconciliations pharmacist technician and/or nursing. Patients Allergies have been reviewed. Allergies Allergies Coded Allergies thiopental (Verified Allergy, Unknown, 01/30/18) Past Imwatvc-Nccrvo-Akvlpo Hx Patient Social History Marrital Status: Number of Children: 3 Number of living children: 3 Employed/Student: retired Tobacco Use?: No Smoking Status: Never a Smoker Use of E-Cig and/or Vaping dev: No Substance use?: No Alcohol Use?: No Pt feels they are or have been: No Immunizations Up To Date First/Initial COVID19 Vaccinat: 2020 Second COVID19 Vaccination Aguila: 2020 Tetanus Booster (TDap): Unknown Hepatitis A: No Hepatitis B: No Date of Pneumonia Vaccine: May 30, 2015 Seasonal Allergies Seasonal Allergies: No Current Status status: No status: No Advance Directives: No Advance Directive Location: Home Communicates: Verbally Primary Language: Yemeni Preferred Spoken Language: Yemeni Is interpretation needed?: No Sensory deficits: Vision impairment Past Medical History Surgeries: Appendectomy, Breast, Gallbladder, 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, Orthopedic, Ton sillectomy Currently Using CPAP: No Currently Using BIPAP: No Hypotension 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: 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 Sexually Transmitted Disease: No HIV/AIDS: No Kidney Stones, UTI-Chronic Gastroesophageal Reflux, Chronic Constipation, Diverticulosis, Ulcer Arthritis, Fractures Hypothyroidsim Cataract Loss of Vision: Denies Hearing Impairment: Denies Bone, Skin, Breast Did You Recieve Any Treatments: Yes What Type of Treatment Did You: Chemotherapy, Surgical Intervention, Other Anxiety Blood Disorders: No Adverse Reaction/Blood Tranf: No (N/A) Family Medical History Abdominal aortic aneurysm 19 MOTHER Alcoholism Arthritis 19 MOTHER Headache disorder 19 MOTHER G8 BROTHER G8 SISTER Hypertension SONS No Pertinent Family Hx Review of Systems Constitutional: see HPI Physical Exam Physical Exam Vital Signs Vital Signs - First Documented 04/16/23 04/16/23 15:36 19:24 Temp 36.8 Pulse 105 Resp 22 B/P (MAP) 142/90 (107) Pulse Ox 96 O2 Delivery Nasal Cannula O2 Flow Rate 2.00 FiO2 28 Capillary Refill : Less Than 3 Seconds Height, Weight, BMI Height: 5'3.00" Weight: 133lbs. 0.0oz. 60.930755uo; 23.07 BMI Method:Stated General Appearance: No Apparent Distress, Other (appears fatigued) Respiratory: Lungs Clear, No Respiratory Distress Cardiovascular: Regular Rate, Rhythm, No Murmur Gastrointestinal: Normal Bowel Sounds, Soft Extremity: No Calf Tenderness, No Pedal Edema Neurologic/Psychiatric: Alert, Other (oriented to person and place only- quite repetitive) Results Results/Procedures Labs Laboratory Tests 04/16/23 15:50 04/17/23 07:00 Patient resulted labs reviewed. Imaging: Reviewed Imaging Report Imaging [facility]. [place], [place] NAME: EDIS ZARAGOZA MED REC#: [id number] PT STATUS: ADM [place] : 1940 PHYSICIAN: DELFINA NESS MD ADMIT DATE: 04/16/23/ Signed Date of Exam:04/16/23 CT ABDOMEN/PELVIS W PROCEDURE: CT abdomen and pelvis with contrast. TECHNIQUE: Multiple contiguous axial images were obtained through the abdomen and pelvis after administration of intravenous contrast. Auto Exposure Controls were utilized during the CT exam to meet ALARA standards for radiation dose reduction. All CT scans use one or more of the following dose optimizing techniques: automated exposure control, MA and/or KvP adjustment based on patient size and exam type or iterative reconstruction. INDICATION: Right upper quadrant pain and recent liver biopsy. Patient has a history of liver and bone cancer. COMPARISON: Correlation is made with an outside PET/CT study from 03/22/2023. FINDINGS: The lung bases are clear. The large mass occupying the majority of the right lobe of the liver is again noted and has been recently biopsied. No perihepatic or subcapsular fluid collection or hematoma is identified. Gallbladder is surgically absent. There is no biliary ductal dilatation. The pancreas and spleen are unremarkable. No adrenal mass is identified. Kidneys are unremarkable. Aorta is nonaneurysmal. No central retroperitoneal or mesenteric lymphadenopathy is seen. Small and large bowel loops are normal in caliber. There is diverticulosis of the sigmoid and descending colon but no evidence of acute diverticulitis. There is no ascites. Bladder is decompressed. Numerous osteosclerotic lesions are noted throughout the bilateral ribs as well as the thoracic and lumbar spine and bony pelvis, consistent with osseous metastatic disease. IMPRESSION: 1. Large right lobe liver mass as well as widespread osseous metastatic disease. Overall appearance is similar to outside PET/CT study from 03/22/2023. No new abnormality is identified. 2. Uncomplicated diverticulosis. Dictated by: Dictated on workstation # [id number] Dict: 04/16/23 1726 Trans: 04/16/23 1830 [id number] Interpreted by: WAQAR TADEO MD Electronically signed by: WAQAR TADEO MD 04/16/231829 Assessment/Plan Admission Diagnosis altered mental status Admission Status: Observation Assessment and Plan AMS Metastatic breast cancer Polypharmacy May be medication interaction Will continue IVF overnight If no improvement will get MRI in AM Spoke with Dr Marie- awaiting NGS testing Will check ammonia level and TSH Diagnosis/Problems Diagnosis/Problems (1) Altered mental status Status: Acute Qualifiers: Altered mental status type: somnolence Qualified Codes: R40.0 - Somnolence (2) Breast cancer Status: Chronic (3) Breast cancer metastasized to bone Status: Acute CARISSA MRATINEZ MD Apr 16, 2023 19:58
[2023-04-17] VITALS (7 sets, daily range): BP systolic 109–150; BP diastolic 58–90
[2023-04-17] MEDS: NS IV 1000 ML 1,000 ML IV SCH ×2 (04:13→14:13)
[2023-04-17] MEDS: LEVOTHYROXINE 150 MCG (LEVOTHROID) TAB PO SCH (05:42)
[2023-04-17] MEDS ORDERED: LEVOTHYROXINE 25 MCG (LEVOTHROID) TAB PO SCH (06:30)
[2023-04-17 07:11] LABS: HEMATOCRIT 33 % (35-52); HEMOGLOBIN 9.9 g/dL (11.5-16.0); MEAN CORPUSCULAR HEMOGLOBIN 27 pg (25-34); MEAN CORPUSCULAR HGB CONC 30 g/dL (32-36); MEAN CORPUSCULAR VOLUME 91 fL (80-99); MEAN PLATELET VOLUME 11.7 fL (9.0-12.2); PLATELET COUNT 139 10^3/uL (130-400); WHITE BLOOD COUNT 5.3 10^3/uL (4.3-11.0)
[2023-04-17 07:26] LABS: CALCIUM 8.6 MG/DL (8.5-10.1); CREATININE SERUM 0.85 MG/DL (0.60-1.30); POTASSIUM 3.8 MMOL/L (3.6-5.0)
[2023-04-17] MEDS: ONDANSETRON 4 MG/2 ML (SDV) Z0FRAN IVP PRN (08:45)
[2023-04-17] MEDS ORDERED: LACTULOSE SYRUP 10GM/15ML (ENULOSE) 30ML UDC PO NR (11:00)
--- NOTE | 2023-04-17 11:01 | Progress Note - Hospitalist ---
Subjective HPI/CC On Admission Date Seen by Provider: Apr 17, 2023 Patient is an 82-year-old female with past medical history of metastatic breast cancer well-known to me who presented to the emergency department due to altered mental status. She is normally alert and oriented and lives independently but over the past few weeks she has had a decline even more so over the past week. She is quite confused though did recognize me but is unable to tell me much else of her history. She was repeating herself and said something about taking a horse medicine. I did speak to her son James who states that she did have ivermectin at her house that appeared to be from a farm store. They noticed it yesterday when they visited her and this morning she did not get out of bed like she normally does so a neighbor and her sons eventually checked on her. They woke her up at 1 PM which is quite abnormal for her and she was rousing so they left and came back at 3 PM and she remained in bed so they decided to take her to the emergency department. She is normally able to walk on her own but they had to carry her out of the house. In the emergency room she had a work-up done that showed no urinary tract infection or leukocytosis. A CT of her abdomen was done and showed known metastatic disease but no complications from the recent liver biopsy. She was admitted for observation and further work-up. Subjective/Events-last exam Pt reports feeling better today but not well overall. She is mentally is not back to normal but is much better than last night. States her son was here earlier and now she just wants to rest. Objective Exam Vital Signs Vital Signs Date Time Temp Pulse Resp B/P (MAP) Pulse Ox O2 Delivery O2 Flow Rate FiO2 04/17/23 08:14 36.5 80 20 136/71 (92) 95 Room Air 04/17/23 08:00 2.00 04/16/23 19:24 28 Capillary Refill : Less Than 3 Seconds General Appearance: No Apparent Distress Respiratory: Lungs Clear, No Respiratory Distress Cardiovascular: Regular Rate, Rhythm, No Murmur Neurologic/Psychiatric: Alert, Oriented x3 (but not yet at baseline) Results/Procedures Lab Laboratory Tests 04/16/23 15:50 04/17/23 07:00 Patient resulted labs reviewed. Imaging: Reviewed Imaging Report Assessment/Plan Assessment and Plan Assess & Plan/Chief Complaint AMS Metastatic breast cancer Polypharmacy May be medication interaction Will continue IVF overnight Spoke with Dr Marie- awaiting NGS testing Ammonia level 46 this AM- start lactulose if able to tolerate TSh elevated as well, increase Synthroid MRI in AM if not improved Diagnosis/Problems Diagnosis/Problems (1) Altered mental status Status: Acute Qualifiers: Altered mental status type: somnolence Qualified Codes: R40.0 - Somnolence (2) Breast cancer Status: Chronic (3) Breast cancer metastasized to bone Status: Acute CARISSA GARCIA MD Apr 17, 2023 11:01
--- NOTE | 2023-04-17 13:20 | Occupational Therapy Eval ---
OT Evaluation-General/PLF Medical Diagnosis Admission Date Apr 17, 2023 at 09:30 Medical Diagnosis: AMS, Large lobe liver mass, overall METS Onset Date: Apr 16, 2023 Therapy Diagnosis Therapy Diagnosis: Weakness, decreased ADL skills Height/Weight Height (Feet): 5 Height (Inches): 3.00 Weight (Pounds): 133 Weight (Ounces): 0.0 Precautions Precautions/Isolations: Standard Precautions Weight Bear Status Weight Bearing Restriction: Weight Bearing/Tolerated Referral Physician: Dr. Martinez Referral Reason: Activity Tolerance, Self Care, Evaluation/Treatment, Strengthening/ROM Medical History Pertinent Medical History: Arthritis, GERD Additional Medical History Metastatic breast CA, appendectomy, hysterectomy, chronic constipation Current History Per chart, family found pt. confused and unable to ambulate. She was brought to hospital with altered mental status. Reviewed History: Yes Social History Pt is poor historian at this time. She does attempt to answer questions regarding her home and prior level, but will state, "I just can't think right now." ADL-Prior Level of Function SCALE: Activities may be completed with or without assistive devices. 8-Yrmqwmrkds-sgifdit completes the activity by him/herself with no assistance from a helper. 5-Set-up or Clean-up Assistance-helper sets up or cleans up; patient completes activity. [place] assists only prior to or following the activity. 4-Supervision or Touching Assistance-helper provides verbal cues and/or touching/steadying and/or contact guard assistance as patient completes ac tivity. Assistance may be provided throughout the activity or intermittently. 3-Partial/Moderate Assistance-helper does LESS THAN HALF the effort. Pine lifts, holds or supports trunk or limbs, but provides less than half the effort. 2-Substantial/Maximal Assistance-helper does MORE THAN HALF the effort. Pine lifts or holds trunk or limbs and provides more than half the effort. 3-Omiebnghq-xwwmzr does ALL the effort. Patient does none of the effort to complete the activity. Or, the assistance of 2 or more helpers is required for the patient to complete the activity. If activity was not attempted, code reason: 7-Patient Refused. 9-Not Applicable-not attempted and the patient did not perform the activity before the current illness, exacerbation or injury. 10-Not Attempted due to Environmental Limitations-(lack of equipment, weather restraints, etc.). 88-Not Attempted due to Medical Conditions or Safety Concerns. ADL PLOF Comments Per chart pt. was independent at prior level. She lives alone. She is unable to state what equipment she has or her home set up at this time. Self Care: Unknown Functional Cognition: Unknown OT Current Status Subjective "I don't know why my legs are so weak." Appearance Pt. is sitting on EOB. She is alert and eating her lunch. Mental Status/Objective Patient Orientation: Confused Attachments: IV ADL-Treatment Eating (QC): 5 (Set up to feed self.) On/Off Footwear (QC): 2 Toileting Hygiene (QC): 2 Other Treatments Pt. is pleasant and alert, and agrees to work with therapy. She is unable to give much information regarding why she is here, or what her prior level is. She often will close her eyes and put her hand on her head, as though she is thinking. She does not report pain, but does state that she feels very weak and does not know why she can't answer questions correctly. Pt. transfers self to bed while therapy is talking with her. OT asks if she can put on her own slipper socks. She says yes and so is handed a sock. She is unable to do the task and so lets OT don them for her. She is able to transfer to EOB with min assist, and stand with hand held assist of one to two people. When a second person is not holding her hand, she will reach out for the wall, doorknob, IV pole. She is able to ambulate approximately 20 feet with cues to make it back to her bed. It is noted that she has been slightly incontinent and so OT cleanses rear jin area before pt. transfers back. Pt. is able to sit with cues and transfer self supine with SBA. She requires max x 2 for bed mobility. Pt. reports that she has vertigo and is slightly dizzy. HOB elevated and pt. feels better. All needs are met and pt. has a friend that has come to visit at end of session. Education OT Patient Education: Correct positioning, Modified ADL techniques, Purpose of tx/functional activities, Reviewed precautions, Rehab process, Transfer techniques Teaching Recipient: Patient Teaching Methods: Demonstration, Discussion Response to Teaching: Verbalize Understanding, Return Demonstration, Reinforcement Needed OT Short Term Goals Short Term Goals Time Frame: Apr 24, 2023 Eatin Oral hygiene: 5 Toileting hygiene: 3 (Min assist) Shower/bathe self: 3 (Mod assist) Upper body dressin Lower body dressin (Min assist with AE as needed.) Putting on/taking off footwear: 3 (Min assist with AE as needed.) OT Longterm Goals Longterm Goals Time Frame: May 01, 2023 Eating (QC): 6 Oral Hygiene (QC): 6 Toileting Hygiene (QC): 6 Shower/Bathe Self (QC): 5 Upper Body Dressing (QC): 5 Lower Body Dressing (QC): 4 (SBA with AE.) On/Off Footwear (QC): 5 (Set up with AE as needed.) Additional Goals: 1-Demonstrate ADL Tasks, 2-Verbalize Understanding, 3- ImproveStrength/Jose Carlos 1=Demonstrate adherence to instructed precautions during ADL tasks. 2=Patient will verbalize/demonstrate understanding of assistive devices/modifications for ADL. 3=Patient will improve strength/tolerance for activity to enable patient to perform ADL's. OT Education/Plan Problem List/Assessment Assessment: Decreased Activ Tolerance, Decreased UE Strength, Dependent Transfers, Impaired Bed Mobility, Impaired Cognition, Impaired Funct Balance, Impaired I ADL's, Impaired Self-Care Skills Discharge Recommendations Plan/Recommendations: Continue POC Therapy Discharge Recommendati: Post Acute OT Treatment Plan/Plan of Care Treatment,Training & Education: Yes Patient would benefit from OT for education, treatment and training to promote independence in ADL's, mobility, safety and/or upper extremity function for ADL's. Plan of Care: ADL Retraining, Cognitive Retraining, Functional Mobility, UE Funct Exercise/Act Treatment Duration: May 01, 2023 Frequency: 3 times per week (3-5x/week) Estimated Hrs Per Day: .25 hour per day Agreement: Yes Rehab Potential: Fair Time Start Time: 13:00 Stop Time: 13:10 DATE: Apr 17, 2023 Total Time Billed (hr/min): 10 Billed Treatment Time 1, JANN SPARKS OT Apr 17, 2023 13:20
--- NOTE | 2023-04-17 13:34 | Physical Therapy Evaluation ---
PT Evaluation-General Medical Diagnosis Admission Date Apr 17, 2023 at 09:30 Medical Diagnosis: AMS, Large lobe liver mass, overall METS Onset Date: Apr 16, 2023 Therapy Diagnosis Therapy Diagnosis: weakness Height/Weight Height (Feet): 5 Height (Inches): 3.00 Weight (Pounds): 133 Weight (Ounces): 0.0 Precautions Precautions/Isolations: Standard Precautions Weight Bear Status Full Weight Bearing Full Weight Bearing Referral Physician: Dr. Martinez Reason for Referral: Evaluation/Treatment Medical History Pertinent Medical History: Arthritis, GERD Additional Medical History osteous metastatic cancer Reviewed History: Yes Social History Home: Single Level Current Living Status: Alone Prior Prior Level of Function SCALE: Activities may be completed with or without assistive devices. 0-Gtgeiozwma-abdpjec completes the activity by him/herself with no assistance from a helper. 5-Set-up or Clean-up Assistance-helper sets up or cleans up; patient completes activity. [place] assists only prior to or following the activity. 4-Supervision or Touching Assistance-helper provides verbal cues and/or touching/steadying and/or contact guard assistance as patient completes activity. Assistance may be provided throughout the activity or intermittently. 3-Partial/Moderate Assistance-helper does LESS THAN HALF the effort. [place] lifts, holds or supports trunk or limbs, but provides less than half the effort. 2-Substantial/Maximal Assistance-helper does MORE THAN HALF the effort. [place] lifts or holds trunk or limbs and provides more than half the effort. 7-Jdwsbwleh-wahxyv does ALL the effort. Patient does none of the effort to complete the activity. Or, the assistance of 2 or more helpers is required for the patient to complete the activity. If activity was not attempted, code reason: 7-Patient Refused. 9-Not Applicable-not attempted and the patient did not perform the activity before the current illness, exacerbation or injury. 10-Not Attempted due to Environmental Limitations-(lack of equipment, weather restraints, etc.). 88-Not Attempted due to Medical Conditions or Safety Concerns. Bed Mobility: 6 Transfers (B,C,W/C): 6 Gait: 6 Stairs: 6 PT Evaluation-Current Subjective Pt has a history of breast cancer. Admitted via ER 04/16/23 after family found her in bound with altered mental status and loss of strength. Objective Patient Orientation: Confused Attachments: IV Pleasantly confused but not able to answer some simple questions regarding her physical status and current medical state. ROM/Strength Strength Lower Extremities 3+/5 Sensory Vision: Functional Transfers Roll Left to Right (QC): 6 Sit to Lying (QC): 6 Lying to Sitting/Side of Bed(Q: 4 Sit to Stand (QC): 4 Chair/Fkb-ab-Zlrku Xfer(QC): 4 Gait Does the Patient Walk?: Yes Mode of Locomotion: Walk Anticipated Mode of Locomotion: Walk Walk 10 feet (QC): 3 Gait Assistive Device: Handheld Assist Comments/Gait Description Ambulate 30ft with hand held assist. Requires Minimal assist for balance and stability. Pt's legs very weak. Wide base of support with slow sequence. Balance Sitting Static: Fair Sitting Dynamic: Fair Standing Static: Poor Standing Dynamic: Poor Assessment/Needs Pt has altered mental status. She has generalized weakness with difficulty performing transfers, bed mobility, and ambulation. She will benefit from PT to address strength and mobility. Rehab Potential: Guarded PT Prison Goals Prison Goals PT City Bus Driver Goals Time Frame: Apr 19, 2023 Roll Left & Right (QC): 6 Sit to Lying (QC): 6 Lying-Sitting on Side/Bed(QC): 6 Sit to Stand (QC): 6 Chair/Ewt-yn-Bgqyw Xfer(QC): 6 Walk 50ft with 2 Turns (QC): 4 PT Plan Problem List Problem List: Balance, Gait, Transfer, Bed Mobility Treatment/Plan Treatment Plan: Continue Plan of Care Treatment Duration: Apr 19, 2023 Frequency: 6 times per week Estimated Hrs Per Day: .25 hour per day Patient and/or Family Agrees t: Yes Time Time In: 1300 Time Out: 1310 DATE: Apr 17, 2023 Total Billed Treatment Time: 10 Total Billed Treatment visit, evaluation low complexity 10 min ZENA BREWER PT Apr 17, 2023 13:34
[2023-04-17] MEDS ORDERED: ZOLP10TA PO (15:10)
[2023-04-17] MEDS ORDERED: HYOS-19 PO (15:10)
[2023-04-17] MEDS ORDERED: GABA300C PO (15:10)
[2023-04-17] MEDS ORDERED: ALPR0.254 PO (15:10)
[2023-04-17] MEDS ORDERED: HYDR-3817 PO (15:10)
[2023-04-17] MEDS ORDERED: FLUC100T10 PO (15:10)
[2023-04-17] MEDS: ENOXAPARIN 40 MG/0.4 ML (LOVENOX) SYR SQ SCH (15:18)
[2023-04-17] MEDS: guaiFENesin/DM (ROBITUSSIN DM) 10 ML UDC PO PRN (15:18)
[2023-04-17] MEDS ORDERED: LACTULOSE SYRUP 10GM/15ML (ENULOSE) 30ML UDC PO SCH (21:00)
[2023-04-18] MEDS: NS IV 1000 ML 1,000 ML IV SCH ×2 (00:59→10:17)
[2023-04-18 03:31] VITALS: BP 149/81
[2023-04-18] MEDS: guaiFENesin/DM (ROBITUSSIN DM) 10 ML UDC PO PRN (04:55)
[2023-04-18 05:27] LABS: HEMOGLOBIN 9.2 g/dL (11.5-16.0); MEAN PLATELET VOLUME 12.2 fL (9.0-12.2); WHITE BLOOD COUNT 4.7 10^3/uL (4.3-11.0)
[2023-04-18 05:40] LABS: POTASSIUM 3.5 MMOL/L (3.6-5.0)
[2023-04-18 05:41] LABS: CALCIUM 8.4 MG/DL (8.5-10.1)
[2023-04-18 05:45] LABS: CREATININE SERUM 0.79 MG/DL (0.60-1.30)
[2023-04-18] MEDS: LEVOTHYROXINE 150 MCG (LEVOTHROID) TAB PO SCH (06:40)
[2023-04-18] MEDS: LEVOTHYROXINE 25 MCG (LEVOTHROID) TAB PO SCH (06:40)
[2023-04-18 08:00] VITALS: BP 144/84
--- NOTE | 2023-04-18 10:28 | Physical Therapy Daily Note ---
PT Daily Note-Current Subjective Patient agrees to therapy. Pain Section J - Health Conditions 1. Rarely or not at all 2. Occasionally 3. Frequently 4. Almost constantly 8. Unable to answer Pain Effect on Sleep: 2 Pain Interference with Therapy: 2 Pain Interference w/Day-to-Day: 2 Mental Status Patient Orientation: Normal For Age Attachments: Central Line Transfers SCALE: Activities may be completed with or without assistive devices. 0-Ibsiwrcocf-motjatw completes the activity by him/herself with no assistance from a helper. 5-Set-up or Clean-up Assistance-helper sets up or cleans up; patient completes activity. [place] assists only prior to or following the activity. 4-Supervision or Touching Assistance-helper provides verbal cues and/or touching/steadying and/or contact guard assistance as patient completes activity. Assistance may be provided throughout the activity or intermittently. 3-Partial/Moderate Assistance-helper does LESS THAN HALF the effort. [place] lifts, holds or supports trunk or limbs, but provides less than half the effort. 2-Substantial/Maximal Assistance-helper does MORE THAN HALF the effort. [place] lifts or holds trunk or limbs and provides more than half the effort. 7-Szpvmewkx-iylnmm does ALL the effort. Patient does none of the effort to complete the activity. Or, the assistance of 2 or more helpers is required for the patient to complete the activity. If activity was not attempted, code reason: 7-Patient Refused. 9-Not Applicable-not attempted and the patient did not perform the activity before the current illness, exacerbation or injury. 10-Not Attempted due to Environmental Limitations-(lack of equipment, weather restraints, etc.). 88-Not Attempted due to Medical Conditions or Safety Concerns. Lying to Sitting/Side of Bed(Q: 4 Sit to Stand (QC): 4 Chair/Plq-zn-Dlfcl Xfer(QC): 4 Toilet Transfer (QC): 4 Weight Bearing Full Weight Bearing Full Weight Bearing Gait Training Distance: 20' x 2 Walk 10 feet (QC): 4 Gait Assistive Device: FWW steady, functional gait sequence/SBA for safety Assessment Patient toileted independently. Patient fatigues with minimal activity due to current status. PT [employer] [place] [employer] Manager Goals [facility] Goals PT [facility] Goals Time Frame: Apr 19, 2023 Roll Left & Right (QC): 6 Sit to Lying (QC): 6 Lying-Sitting on Side/Bed(QC): 6 Sit to Stand (QC): 6 Chair/Cry-mr-Kqzmj Xfer(QC): 6 Walk 50ft with 2 Turns (QC): 4 PT Plan Treatment/Plan Treatment Plan: Continue Plan of Care Treatment Duration: Apr 19, 2023 Frequency: 6 times per week Estimated Hrs Per Day: .25 hour per day Patient and/or Family Agrees t: Yes Time Time In: 811 Time Out: 824 DATE: Apr 18, 2023 Total Billed Treatment Time: 13 Total Billed Treatment 1 visit FA 13 min TIMOTEO SEARS PT Apr 18, 2023 10:28
[2023-04-18] MEDS: ONDANSETRON 4 MG/2 ML (SDV) Z0FRAN IVP PRN ×2 (10:42→14:42)
--- NOTE | 2023-04-18 11:23 | Progress Note - Hospitalist ---
Subjective HPI/CC On Admission Date Seen by Provider: Apr 18, 2023 Patient is an 82-year-old female with past medical history of metastatic breast cancer well-known to me who presented to the emergency department due to altered mental status. She is normally alert and oriented and lives independently but over the past few weeks she has had a decline even more so over the past week. She is quite confused though did recognize me but is unable to tell me much else of her history. She was repeating herself and said something about taking a horse medicine. I did speak to her son James who states that she did have ivermectin at her house that appeared to be from a farm store. They noticed it yesterday when they visited her and this morning she did not get out of bed like she normally does so a neighbor and her sons eventually checked on her. They woke her up at 1 PM which is quite abnormal for her and she was rousing so they left and came back at 3 PM and she remained in bed so they decided to take her to the emergency department. She is normally able to walk on her own but they had to carry her out of the house. In the emergency room she had a work-up done that showed no urinary tract infection or leukocytosis. A CT of her abdomen was done and showed known metastatic disease but no complications from the recent liver biopsy. She was admitted for observation and further work-up. Subjective/Events-last exam Pt reports feeling better today. Still tired. Would like to go home but is still weaker than normal. Discussed plan to stay one more night in the hospital and potentially DC with HH tomorrow if still improving. Called and updated son as well. Objective Exam Vital Signs Vital Signs Date Time Temp Pulse Resp B/P (MAP) Pulse Ox O2 Delivery O2 Flow Rate FiO2 04/18/23 08:06 91 Room Air 0.00 04/18/23 08:00 36.3 98 16 144/84 (104) 04/16/23 19:24 28 Capillary Refill : Less Than 3 Seconds General Appearance: No Apparent Distress, WD/WN Respiratory: Lungs Clear Cardiovascular: Regular Rate, Rhythm Gastrointestinal: Normal Bowel Sounds, Soft Neurologic/Psychiatric: Alert, Oriented x3 Results/Procedures Lab Laboratory Tests 04/18/23 05:15 Patient resulted labs reviewed. Imaging: Reviewed Imaging Report Assessment/Plan Assessment and Plan Assess & Plan/Chief Complaint AMS Metastatic breast cancer Polypharmacy Hypothyroidism Likely medication interaction DC IVF PT/OT Spoke with Dr Marie- awaiting NGS testing Spoke with Dr Cavazos and updated him yesterday Continue Synthroid Diagnosis/Problems Diagnosis/Problems (1) Altered mental status Status: Acute Qualifiers: Altered mental status type: somnolence Qualified Codes: R40.0 - Somnolence (2) Breast cancer Status: Chronic (3) Breast cancer metastasized to bone Status: Acute CARISSA GARCIA MD Apr 18, 2023 11:23
[2023-04-18] MEDS ORDERED: HYDROcodone/APAP 7.5 MG/325 MG (LORTAB, LORCET PLUS) TABLET PO PRN (11:30)
[2023-04-18] MEDS ORDERED: HYOSCYAMINE 0.125 MG (LEVSIN) TAB SL PRN (11:45)
[2023-04-18 11:58] VITALS: BP 135/81
--- NOTE | 2023-04-18 14:13 | Occupational Ther Daily Note ---
OT Current Status-Daily Note Subjective Laying in bed resting, agreeable to participate in OT. Mental Status/Objective Patient Orientation: Person, Place, Time, Situation ADL-Treatment Therapy Code Descriptions/Definitions Functional [place] Measure: 0=Not Assessed/NA 4=Minimal Assistance 1=Total Assistance 5=Supervision or Setup 2=Maximal Assistance 6=Modified [place] 3=Moderate Assistance 7=Complete IndependenceSCALE: Activities may be completed with or without assistive devices. 3-Pqbwodvtoc-ieugkxv completes the activity by him/herself with no assistance from a helper. 5-Set-up or Clean-up Assistance-helper sets up or cleans up; patient completes activity. [place] assists only prior to or following the activity. 4-Supervision or Touching Assistance-helper provides verbal cues and/or touching/steadying and/or contact guard assistance as patient completes activity. Assistance may be provided throughout the activity or intermittently. 3-Partial/Moderate Assistance-helper does LESS THAN HALF the effort. [place] lifts, holds or supports trunk or limbs, but provides less than half the effort. 2-Substantial/Maximal Assistance-helper does MORE THAN HALF the effort. [place] lifts or holds trunk or limbs and provides more than half the effort. 3-Imzlwftvw-kqmcya does ALL the effort. Patient does none of the effort to comp lete the activity. Or, the assistance of 2 or more helpers is required for the patient to complete the activity. If activity was not attempted, code reason: 7-Patient Refused. 9-Not Applicable-not attempted and the patient did not perform the activity before the current illness, exacerbation or injury. 10-Not Attempted due to Environmental Limitations-(lack of equipment, weather restraints, etc.). 88-Not Attempted due to Medical Conditions or Safety Concerns. Eating (QC): 5 (dont really care to eat now) Oral Hygiene (QC): 5 (standing at sink) On/Off Footwear: 5 Toileting Hygiene (QC): 5 Toilet Transfer (QC): 5 Education OT Patient Education: Correct positioning, Modified ADL techniques, Progress toward Goal/Update tx plan, Purpose of tx/functional activities, Reviewed precautions, Rehab process, Safety issues, Transfer techniques Teaching Recipient: Patient Teaching Methods: Demonstration, Discussion Response to Teaching: Return Demonstration OT Short Term Goals Short Term Goals Time Frame: Apr 24, 2023 Eatin Oral hygiene: 5 Toileting hygiene: 3 (Min assist) Shower/bathe self: 3 (Mod assist) Upper body dressin Lower body dressin (Min assist with AE as needed.) Putting on/taking off footwear: 3 (Min assist with AE as needed.) OT Senior Living Goals Senior Living Goals Time Frame: May 01, 2023 Eating (QC): 6 Oral Hygiene (QC): 6 Toileting Hygiene (QC): 6 Shower/Bathe Self (QC): 5 Upper Body Dressing (QC): 5 Lower Body Dressing (QC): 4 (SBA with AE.) On/Off Footwear (QC): 5 (Set up with AE as needed.) Additional Goals: 1-Demonstrate ADL Tasks, 2-Verbalize Understanding, 3- ImproveStrength/Jose Carlos 1=Demonstrate adherence to instructed precautions during ADL tasks. 2=Patient will verbalize/demonstrate understanding of assistive devices/modifications for ADL. 3=Patient will improve strength/tolerance for activity to enable patient to perform ADL's. OT Education/Plan Discharge Recommendations Plan/Recommendations: Continue POC Treatment Plan/Plan of Care Patient would benefit from OT for education, treatment and training to promote independence in ADL's, mobility, safety and/or upper extremity function for ADL's. Plan of Care: ADL Retraining, Cognitive Retraining, Functional Mobility, UE Funct Exercise/Act Treatment Duration: May 01, 2023 Frequency: 3 times per week (3-5x/week) Estimated Hrs Per Day: .25 hour per day Agreement: Yes Rehab Potential: Guarded Sitting in recliner with face/oral/hair grooming and toileting complete, visit w/ food beverage manager from [facility]. all needs met. Time Start Time: 13:00 Stop Time: 13:15 DATE: Apr 18, 2023 Total Time Billed (hr/min): 15 Billed Treatment Time ADL 15 min JANN COLUNGA OT Apr 18, 2023 14:13
[2023-04-18] MEDS: ENOXAPARIN 40 MG/0.4 ML (LOVENOX) SYR SQ SCH (14:43)
--- NOTE | 2023-04-18 15:41 | Physician Query-Final Dx ---
ARIANA BURDICK 04/18/23 1541: Final Diagnosis Give Final Diagnosis Please give Final Diagnosis The medical record reflects the following clinical evidence: Clinical Indicators: Family reporting patient not acting normally, confusion and listlessness on admission, GCS 13, has improved to GCS of 15 no documentation of confusion after several days of monitoring and treatment Risk Factor(s): Advanced cancer with metastasis, advanced age, elevated ammonia level, Treatment: Neuro assessments, lab monitoring, medication assessments lactulose, IV fluids, Encephalopathy, unspecified, Present on admission Resolving Other explanation of clinical findings Unable to determine (no explanation for clinical findings) Please clarify and document your clinical opinion in the progress notes and discharge summary including the definitive and/or presumptive diagnosis, (suspected or probable), related to the above clinical findings. Please include clinical findings supporting your diagnosis. Ariana Burdick, MSN, RN Clinical Accounts Receivable Collector [phone] [email or web address] CARISSA GARCIA MD 04/21/23 1328: Final Diagnosis Give Final Diagnosis encephalopathy ARIANA BURDICK Apr 18, 2023 15:41 CARISSA GARCIA MD Apr 21, 2023 13:28
[2023-04-18 16:12] VITALS: BP 154/65
[2023-04-18 19:54] VITALS: BP 130/59
--- NOTE | 2023-04-18 20:11 | D/C HH Face to Face Order ---
D/C Face to Face Orders Instructions for Patient Via [facility], Patient Instructions/FollowUp: Please continue to take your medications as written. Please follow up with Dr Cavazos and Dr Marie to follow up this hospital stay. Physician to follow Patient: Dr Cavazos Discharge Diet for Home: No Restrictions Patient Data-Allergies,Ht & Wt Patient Allergies: Coded Allergies: thiopental (Verified Allergy, Unknown, 01/30/18) Height (Feet): 5 Height (Inches): 3.00 Weight (Pounds): 133 Weight (Ounces): 0.0 Home Health Need/Face to Face Date of Face to Face: Apr 19, 2023 Clinical Findings: Generalized weakness and fatigue I have seen Pt [id number]: Yes Discharged To: Home Diagnosis/Conditions: metastatic breast cancer Patient is Homebound due to: Muscle weakness Homebound Status Due to the above stated illness, injury or surgical procedure (medical condition or diagnosis) and associated clinical findings, the patient is homebound because of his/her inability to leave home except with aid of a supportive device and/or person AND leaving the home requires a considerable and taxing effort or is medically contraindicated. Pt req the following assistanc: Aid of another person, Walker Home Health Nursing Orders Home Health Services Order: Nursing Services, Physical Therapy-Evaluate & Treat Nursing services to start 04/22 Home Health Infusion Therapy Line Start Date: Apr 16, 2023 Therapy Orders Therapy Orders: Physical Therapy, PT to assess for OT Therapy Specific Orders: Eval assistive deivces, Teach enviro modifications/safety, Gait training, Increase strength/endurance [facility] that this patient is under my care and that I, a nurse practitioner or a physician; a family medicine physician assistant working with me, had a face to face encounter that - meets the physician face to face encounter requirements with this patient as dated. CARISSA GARCIA MD Apr 18, 2023 20:11
[2023-04-19 00:40] VITALS: BP 146/82
[2023-04-19 04:00] VITALS: BP 133/83
[2023-04-19 05:39] LABS: MEAN PLATELET VOLUME 10.9 fL (9.0-12.2)
[2023-04-19 05:41] LABS: HEMOGLOBIN 9.4 g/dL (11.5-16.0); WHITE BLOOD COUNT 5.5 10^3/uL (4.3-11.0)
[2023-04-19] MEDS: ONDANSETRON 4 MG/2 ML (SDV) Z0FRAN IVP PRN (05:46)
[2023-04-19 05:48] LABS: POTASSIUM 3.4 MMOL/L (3.6-5.0)
[2023-04-19 05:49] LABS: CALCIUM 8.8 MG/DL (8.5-10.1)
[2023-04-19 05:54] LABS: CREATININE SERUM 0.78 MG/DL (0.60-1.30)
[2023-04-19] MEDS: LEVOTHYROXINE 25 MCG (LEVOTHROID) TAB PO SCH (05:55)
[2023-04-19] MEDS: LEVOTHYROXINE 150 MCG (LEVOTHROID) TAB PO SCH (05:55)
[2023-04-19 08:29] VITALS: BP 107/68
--- NOTE | 2023-04-19 10:02 | Physical Therapy Daily Note ---
PT Daily Note-Current Subjective Patient agrees to PT. She reports she is going home today. Pain Section J - Health Conditions 1. Rarely or not at all 2. Occasionally 3. Frequently 4. Almost constantly 8. Unable to answer Pain Effect on Sleep: 2 Pain Interference with Therapy: 2 Pain Interference w/Day-to-Day: 2 Transfers SCALE: Activities may be completed with or without assistive devices. 2-Qpokjnrfhu-vrucuha completes the activity by him/herself with no assistance from a helper. 5-Set-up or Clean-up Assistance-helper sets up or cleans up; patient completes activity. [place] assists only prior to or following the activity. 4-Supervision or Touching Assistance-helper provides verbal cues and/or touching/steadying and/or contact guard assistance as patient completes activity. Assistance may be provided throughout the activity or intermittently. 3-Partial/Moderate Assistance-helper does LESS THAN HALF the effort. [place] lifts, holds or supports trunk or limbs, but provides less than half the effort. 2-Substantial/Maximal Assistance-helper does MORE THAN HALF the effort. [place] lifts or holds trunk or limbs and provides more than half the effort. 3-Bznwobgoh-yuiyyo does ALL the effort. Patient does none of the effort to co mplete the activity. Or, the assistance of 2 or more helpers is required for the patient to complete the activity. If activity was not attempted, code reason: 7-Patient Refused. 9-Not Applicable-not attempted and the patient did not perform the activity before the current illness, exacerbation or injury. 10-Not Attempted due to Environmental Limitations-(lack of equipment, weather restraints, etc.). 88-Not Attempted due to Medical Conditions or Safety Concerns. Lying to Sitting/Side of Bed(Q: 6 Sit to Stand (QC): 4 Chair/Npb-ho-Jcdbc Xfer(QC): 4 Weight Bearing Full Weight Bearing Full Weight Bearing Gait Training Distance: 180' Walk 10 feet (QC): 4 Walk 50 ft with 2 Turns(QC): 4 Walk 150 ft (QC): 4 Gait Assistive Device: FWW slow, steady gait sequence Assessment Patient tolerated treatment well and is up in recliner with needs met. Plan dismissal to home. PT Senior Living Goals Clerk Checker Goals PT Clerk Checker Goals Time Frame: Apr 19, 2023 Roll Left & Right (QC): 6 Sit to Lying (QC): 6 Lying-Sitting on Side/Bed(QC): 6 Sit to Stand (QC): 6 Chair/Yiw-rv-Nyhzj Xfer(QC): 6 Walk 50ft with 2 Turns (QC): 4 PT Plan Treatment/Plan Treatment Plan: Discontinue PT Treatment Duration: Apr 19, 2023 Frequency: 6 times per week Estimated Hrs Per Day: .25 hour per day Patient and/or Family Agrees t: Yes Time Time In: 915 Time Out: 931 DATE: Apr 19, 2023 Total Billed Treatment Time: 16 Total Billed Treatment 1 visit FA 16 min TIMOTEO SEARS PT Apr 19, 2023 10:02
[2023-04-19] MEDS ORDERED: SCOPOLAMINE 1.5 MG (TRANSDERM-SCOP) PATCH TD ONE (10:45)
[2023-04-19] MEDS ORDERED: ZOLP10TA PO (11:53)
[2023-04-19] MEDS ORDERED: ONDA4TAB11 SL (11:53)
[2023-04-19] MEDS ORDERED: ALPR0.254 PO (11:53)
[2023-04-19 12:04] VITALS: BP 112/68
--- NOTE | 2023-04-19 12:51 | Discharge Summary ---
Diagnosis/Chief Complaint Date of Admission Apr 17, 2023 at 09:30 Date of Discharge Discharge Date: Apr 19, 2023 Admission Diagnosis altered mental status Primary Care Jaren Cavazos DO Discharge Diagnosis (1) Altered mental status Status: Acute (2) Breast cancer Status: Chronic (3) Breast cancer metastasized to bone Status: Acute Discharge Summary Discharge Physical Exam Allergies: Coded Allergies: thiopental (Verified Allergy, Unknown, 01/30/18) Vitals & I&Os Vital Signs Date Time Temp Pulse Resp B/P (MAP) Pulse Ox O2 Delivery O2 Flow Rate FiO2 04/19/23 15:05 36.0 85 18 112/68 91 Room Air 0.00 04/16/23 19:24 28 General Appearance: No Apparent Distress Respiratory: Lungs Clear, No Respiratory Distress Cardiovascular: Regular Rate, Rhythm, No Murmur Neurologic/Psychiatric: Alert, Oriented x3 Hospital Course Patient was admitted to the hospital secondary to encephalopathy likely due to multiple issues including polypharmacy and dehydration. She is on benzos, opoids, and gabapentin at home and a friend had recently given her ivermectin as well. She had been the grand che in a a parade on 04/16 as well on a hot humid day. Her home medications were held she was treated with IV fluids. She was seen by physical therapy and Occupational Therapy. Upon discharge her mentation improved to near her baseline. She was able to carry on a full conversation. She was discharged home with home health to assist in transition home. She is to follow-up with Dr. Irvin and Dr. Cavazos to follow-up this hospital stay. Labs (last 24 hrs) Patient resulted labs reviewed. Pending Labs Imaging: Reviewed Imaging Report Discussion & Recommendations Discharge Planning: >30 minutes discharge planning Discharge Home Medications: Active Scripts Active Ondansetron Odt (Ondansetron) 4 Mg Tab.rapdis 4 Mg SL Q4H PRN Ambien (Zolpidem Tartrate) 10 Mg Tablet 10 Mg PO HS PRN 30 Days ALPRAZolam 0.25 Mg Tablet 0.25 Mg PO HS PRN 30 Days Meclizine HCl 25 Mg Tablet 25 Mg PO Q6H PRN Reported Hydrocodone-Acetamin 7.5-325 (Hydrocodone/Acetaminophen) 7.5 Mg-325 Mg Tablet 1 Ea PO Q4 -6H PRN Neurontin (Gabapentin) 300 Mg Capsule 300 Mg PO HS Hyoscyamine Sulfate 0.125 Mg Tab.subl 0.125 Mg PO BID PRN Fluconazole 100 Mg Tablet 100 Mg PO DAILY FILLED 04-11-2023 #07/16 DAY SUPPLY Levothyroxine Sodium 175 Mcg Tablet 175 Mcg PO DAILY Instructions to patient/family Please see electronic discharge instructions given to patient. Copy Copies To 1: JAREN CAVAZOS DO Problem Qualifiers (1) Altered mental status: Altered mental status type: somnolence Qualified Codes: R40.0 - Somnolence CARISSA GARCIA MD Apr 19, 2023 12:51
[2023-04-19 15:05] VITALS: BP 112/68
[2023-04-22] MEDS ORDERED: ONDA4TAB11 SL (08:53)
[2023-04-22] MEDS ORDERED: MECL-149 PO (08:53)
[2023-04-22] MEDS ORDERED: ALPR0.254 PO (08:54)
[2023-04-22] MEDS ORDERED: ZOLP10TA PO (08:54)
[2023-04-22] MEDS ORDERED: SCOPOLAMINE PATCH REMOVAL TP ONE (11:00)
== END 2023-04-19 15:10 | disposition home health service (06) | DRG 640 ==
LOC: EDUNIT# 15:32 → ER 15:33 → 4TH 18:13 → OBSVTOIN 04-17 09:30
PROVIDERS: ADMIT Family Medicine; ATTEND Family Medicine
DX: E86.0 Dehydration (principal); G92.8 Other toxic encephalopathy; C79.51 Secondary malignant neoplasm of bone; K21.9 Gastro-esophageal reflux disease without esophagitis; M19.90 Unspecified osteoarthritis, unspecified site; G89.29 Other chronic pain; M54.2 Cervicalgia; Z66 Do not resuscitate; E03.9 Hypothyroidism, unspecified; Z85.3 Personal history of malignant neoplasm of breast; Z85.828 Personal history of other malignant neoplasm of skin; Z92.21 Personal history of antineoplastic chemotherapy; F41.9 Anxiety disorder, unspecified; T40.2X5A Adverse effect of other opioids, initial encounter; T42.6X5A Adverse effect of other antiepileptic and sedative-hypnotic drugs, initial encounter
CPT/HCPCS: 36415; 74177; 80048; 80053; 80306; 81000; 82140; 84443; 85025; 85027; 94760; G0378